=== PATIENT | female | born 1940 | race Caucasian/White ===

== ENCOUNTER 2016-05-31 09:58 | Inpatient (IN) | payer MEDICARE ==
[2016-05-31] MEDS ORDERED: Ondansetron TAB* 4 MG PO PRN (14:11)
[2016-05-31] MEDS ORDERED: diPHENhydraMINE IV* 50 MG/ML 1 ml VIAL (BENADRYL) IV PRN (14:11)
[2016-05-31] MEDS ORDERED: Ondansetron INJ* 2 MG/ML VIAL IV PRN (14:11)
[2016-05-31] MEDS ORDERED: Morphine INJ* 2 MG/ML 1 ML SYRINGE IV PRN (14:11)
[2016-05-31] MEDS ORDERED: diPHENhydraMINE PO* 25 MG PO PRN (14:11)
[2016-05-31 14:49] LABS: Hematocrit 34 % (35-47); Hemoglobin 11.1 g/dl (12.0-16.0); Mean Corpuscular HGB Conc 32 g/dl (31-36); Mean Corpuscular Hemoglobin 28 pg (27-31); Mean Corpuscular Volume 86 fL (80-97); Mean Platelet Volume 7 um3 (7.4-10.4); Red Cell Distribution Width 14 % (10.5-15); White Blood Count 11.5 10^3/ul (3.5-10.8)
[2016-05-31 15:12] LABS: BUN/Creatinine Ratio 23.7 (8-20); C Reactive Protein 5.06 mg/L (< 5.00); Calcium 9.3 mg/dL (8.6-10.3); EGFR African American 75.4 (>60); EGFR Non-African American 58.6 (>60); Potassium 3.8 mmol/L (3.5-5.0)
[2016-05-31 15:29] LABS: Erythrocyte Sed Rate 87 mm/Hr (0-40)
[2016-05-31] MEDS ORDERED: Acetaminophen TAB* 325 MG PO PRN (19:37)
[2016-05-31] MEDS ORDERED: Vancomycin(*) 1,500 MG in NS 0.9% 250 ML* 250 ML IVPB SCH (19:40)
[2016-05-31] MEDS: ceFAZolin 2 GM PREMIX(*) 2 GM/50 ML BAG IVPB SCH (20:12)
[2016-05-31] MEDS: Donepezil TAB* 5 MG PO SCH (20:52)
[2016-05-31] MEDS: Atorvastatin* 10 MG TAB PO SCH (20:53)
--- NOTE | 2016-05-31 22:23 | HP ---
ORTHOPEDIC ADMISSION HISTORY AND PHYSICAL: DATE OF ADMISSION: 05/31/16 ATTENDING PHYSICIAN: Kirstin Hannah MD. CHIEF COMPLAINT: Left groin pain, septic left hemiarthroplasty. HISTORY OF PRESENT ILLNESS: The patient is a 75-year-old female who underwent left hip hemiarthroplasty for femoral neck fracture in [place] 4 to 5 years ago. The patient was admitted this past February 2016 with pyelonephritis and sepsis. Since this timeframe, she has had increased pain in the left hip. She has been recently followed by Dr. Hannah. She had lab work that showed increased white count, CRP, and it was felt that aspiration of the hip would be necessary to confirm infectious process in the hip prosthesis. She underwent aspiration by Interventional Radiology on 05/24/16 and was found to be positive for staff in the fluid collection. Due to the fact that she has had increased left groin pain with positive cultures that she would benefit from irrigation, debridement, and hardware exchange with Dr. Hannah. She has admitted to her service and surgery is tentatively scheduled for 06/01/16 pending medical evaluation and risk assessment for surgery. PAST MEDICAL HISTORY: Significant for high cholesterol, hypertension, history of CVA in 2004, hysterectomy, cholecystectomy, left hip hemiarthroplasty 4 to 5 years ago in [place], history of mild dementia. CURRENT MEDICATIONS: 1. Calcium 600 mg tablet daily. 2. Vitamin B12 one tab daily. 3. Losartan 50 mg 1 tab daily. 4. Omeprazole 40 mg 1 time daily. 5. Rivastigmine 1.5 mg twice daily. 6. VESIcare 1 tab daily. 7. Donepezil 10 mg p.o. q.h.s. 8. Crestor 5 mg p.o. q.h.s. 9. Naproxen 375 mg b.i.d. p.r.n. ALLERGIES: No known drug allergies. SOCIAL HISTORY: The patient denies use of tobacco or alcohol. 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 She is , has 3 daughters, one of which is present at her evaluation this afternoon. REVIEW OF SYSTEMS: The patient denies recent loss of consciousness, lightheadedness, dizziness, shortness of breath, chest pain, or palpitations. No recent constipation, diarrhea, or other GI complaints. She complains of left groin pain. PHYSICAL EXAMINATION GENERAL: The patient is alert and oriented x3, in no acute distress. HEENT: Pupils equal, round, and reactive to light. EOMI. NECK: Supple. No tenderness. No masses. HEART: Regular rate and rhythm. No murmurs auscultated. LUNGS: Clear to auscultation. No wheezes or rhonchi. ABDOMEN: Soft. Some mild tenderness in the epigastric region. No rebound or guarding. Normoactive bowel sounds x4 quadrants. EXTREMITIES: Upper extremities within normal limits. Lower extremities, the patient is able to actively flex the left hip with mild groin discomfort. Internal and external rotation is also tolerable, but mildly uncomfortable. Her incision is completely healed without noted swelling, erythema, warmth, or tenderness. She has a 2+ pedal pulse. She has active dorsiflexion and plantarflexion of both ankles. Her calves are soft and nontender. LABORATORY DATA: Recent white count collected on the 05/24/16 shows mild elevation at 11.8, hemoglobin 11.5, hematocrit 36%. ESR 111. CRP 54.52. INR 0.97. IMPRESSION: Infected left hip hemiarthroplasty, Staph aureus. PLAN: The patient is admitted to the service of Dr. Kirstin Hannah. She has discussed options with the patient and her daughters. Pending medical clearance , we will plan to remove the ball and do a thorough washout of the prosthesis with exchange. If the stem is well-fixed, this will remain in place. Infectious Disease has also been consulted for recommendations. She may need lifetime oral antibiotic prophylaxis. She will be n.p.o. after midnight tonight for probable surgery with Dr. Hannah on 06/01/16. I have consulted Dr. Moore for medical management and clearance. SHARON UREÑA [id number]/[facility] #: [id number] ANJEL
--- NOTE | 2016-06-01 01:23 | CONS ---
ATTENDING ADDENDUM NOW INCLUDED ON THIS REPORT CONSULTATION REPORT: DATE OF CONSULT: 05/31/16 PROVIDER: Magdalena Bartlett NP ATTENDING PHYSICIAN: Dr. Mcclain *(report dictated by Magdalena Bartlett NP). REFERRING PHYSICIAN: Dr. Hannah. PRIMARY CARE PROVIDER: Dr. Lionel Cowan. CONSULTATION REASON: Co-medical management for septic hip HISTORY OF PRESENT ILLNESS AND HOSPITAL COURSE: Please see history and physical by ortho team for full admission details, but in summary, this is a 75- year-old female with a past medical history of hypertension, hyperlipidemia, CVA in 2014, left hip surgery approximately 4 years ago per the patient who was admitted by the ortho team today for left septic hemiarthroplasty. Ms. Moss reports she originally had her left hip surgery in [facility] approximately 4 years ago and over the past year has been having increasing progressive pain in her left hip, but has been worse since she was admitted with sepsis secondary to UTI in February 2016. She reports her PCP referred her to Dr. Hannah and which she has seen her over the past month. She underwent a left hip aspiration on 05/26/16, in which the culture grew staph. The patient was direct admitted to the hospital today with plan for washout of the left hip tomorrow. Hospital Medicine was asked to co-medical manage during the patient's hospitalization. On evaluation of the patient at the bedside, the patient is alert and oriented x3. Her daughter is at the bedside. She denies any recent fevers or chills. She reports some pain in the left hip, left groin area. She reports occasional tingling with shooting pain down her left leg, but states at this time she is comfortable. She denies numbness or tingling at this time. The patient reports her only complaint is some intermittent left hip pain. She denies any fevers, chills, rigors, nausea, vomiting, or diarrhea. No recent illnesses. Denies any nasal congestion or cough. Per daughter, she has a poor appetite at her baseline. PAST MEDICAL HISTORY: 1. Hypertension. 2. Hyperlipidemia. 3. CVA in 2004. 4. Left hip surgery. 5. Status post hysterectomy. 6. Status post cholecystectomy. 7. Dementia, mild. HOME MEDICATIONS: [facility] currently needs to be updated. CURRENT MEDICATIONS: 1. Acetaminophen 650 mg p.o. q.6 hours p.r.n. 2. Benadryl 12.5 mg IV q.6 hours p.r.n. 3. Benadryl 25 mg p.o. q.6 hours p.r.n. 4. LR at 75 mL an hour. 5. Morphine 2 mg IV q.2 hours p.r.n. 6. Zofran 4 mg q.6 hours p.r.n. 7. Zofran 4 mg p.o. q.6 hours p.r.n. 8. Percocet 5/325 mg 1 tab p.o. q.3 hours p.r.n. ALLERGIES: No known allergies. FAMILY HISTORY: Reviewed and noncontributory. SOCIAL HISTORY: Denies any history of tobacco abuse. However, her has smoked pipe inside the home for "many, many years." Denies any alcohol use. She is retired. She worked at [employer]. She lives at home with her . She has 3 grown daughters and which she reports are all her healthcare proxies. REVIEW OF SYSTEMS: A 14-point review of systems was performed. All the pertinent positives and negatives are mentioned in the history of present illness. Otherwise are negative. PHYSICAL EXAMINATION: Vital Signs: Temperature 97.5, heart rate 61, respirations 16, O2 sat 99% on room air, blood pressure 118/47. Appearance: A 75-year-old female sitting up in bed, alert and oriented x3, in no acute distress. Watching TV, visiting with her daughter. HEENT: Head is normocephalic, atraumatic. Pupils are equal, round, reactive to light. Oropharynx is clear. Good dentition. Mucous membranes moist. Neck: Supple. No cervical or supraclavicular lymphadenopathy. Cardiac: S1, S2. Regular rate and rhythm. No murmurs, rubs, or gallops appreciated. No lower extremity edema noted. Respiratory: Lungs are clear to auscultation bilaterally. Good aeration throughout. Abdomen: Obese, soft, nontender, nondistended. Normal bowel sounds x4. Extremities: No clubbing, cyanosis, or edema noted. 2+ DP pulses bilaterally. Guarded with left lower extremity, has limited range of motion due to pain, but has good strength in bilateral lower extremities. No numbness. Neuro: Alert and oriented x3. Cranial nerves II through XII are grossly intact. Skin: No rashes, lesions, or open wounds noted. DIAGNOSTIC STUDIES/LAB DATA: Sodium 136, potassium 3.8, chloride 100, carbon dioxide 31, anion gap 5, BUN 22, creatinine 0.93, glucose 118, calcium 9.3. C- reactive protein 5.06. INR 0.97. WBC is 11.5, Hgb 11.1, HCT 34, MCV 86, MCH 28 , MCHC 32, RDW 14, platelet count 432. EKG shows sinus rhythm with a rate of 64 with PVC noted. In comparison to prior EKG, only PVCs are new. No acute ischemic changes noted. ASSESSMENT AND PLAN: Ms. Moss is a 75-year-old female with a past medical history of hypertension, mild dementia, hyperlipidemia, history of cerebrovascular accident, status post left hip surgery approximately 4 years ago who was admitted as a direct admit by Dr. Hannah for plan for washout tomorrow of her left hip. 1. Septic left hip hemiarthroplasty: The patient does not meet criteria for sepsis and is stable. Will obtain blood cultures. The patient has grown Staph aureus from her 05/26/16 hip aspiration. I will start the patient on Cefazolin 2gm Q8hr per discussing with pharmacy (in which they report Dr. Hernandez recommends this course for septic joint). Recheck labs in the morning. NPO after midnight. In regards to the patient's revised cardiac risk index for preoperative risk, the patient's RCRI score is 1 placing her at 0.9% risk of major cardiac event. EKG shows no acute ischemic changes. The patient is optimized to proceed with surgery without any further cardiac testing. 2. Hypertension, controlled. Med rec not completed. Per nursing staff, will complete med rec and we will follow up on appropriate medication. 3. Dementia, mild: Continue Aricept. 4. Hyperlipidemia: Again, confirm med rec and continue home med. 5. DVT prophylaxis: We will defer to ortho team. SCDs per ortho team. 6. Code status: Full code. Again, the patient's 3 daughters are her healthcare proxies. 7. Hospital status: Inpatient. TIME SPENT: Approximately 60 minutes were spent on this consultation. MAGDALENA BARTLETT NP DATE OF CONSULTATION: 05/31/16 ADDENDUM: Addendum to consultation report dictated by Magdalena Bartlett NP. Mrs. Moss is a 75-year-old female who is being admitted by Dr. Hannah for septic left hip. The patient has history of left hip arthroplasty over 4 years ago. She is going to be admitted to Dr. Hannah's service and medicine services was requested to follow with co-management. For further details of the patient's presentation and plan, please see history and physical dictated by Magdalena Bartlett NP, on 05/31/16 with which I agree. THEA MCCLAIN MD CC: Dr. Lionel Cowan* [id number]/[facility] #: [id number] Giuseppe- [id number]/[facility] #: [id number] ANJEL
--- NOTE | 2016-06-01 02:41 | CONS ---
CONSULTATION REPORT:* DATE OF CONSULTATION: 05/31/16 ADDENDUM: Addendum to consultation report dictated by Venus Bryant NP. Mrs. Moss is a 75-year-old female who is being admitted by Dr. Hannah for septic left hip. The patient has history of left hip arthroplasty over 4 years ago. She is going to be admitted to Dr. Hannah's service and medicine services was requested to follow with co-management. For further details of the patient's presentation and plan, please see history and physical dictated by Venus Bryant NP, on 05/31/16 with which I agree. [id number]/[facility] #: [id number] MTDD
[2016-06-01] MEDS: ceFAZolin 2 GM PREMIX(*) 2 GM/50 ML BAG IVPB SCH ×2 (04:05→11:54)
[2016-06-01 07:18] LABS: Hematocrit 33 % (35-47); Hemoglobin 10.7 g/dl (12.0-16.0); Mean Corpuscular HGB Conc 32 g/dl (31-36); Mean Corpuscular Hemoglobin 28 pg (27-31); Mean Corpuscular Volume 86 fL (80-97); Mean Platelet Volume 7 um3 (7.4-10.4); Red Blood Count 3.85 10^6/ul (4.0-5.4); Red Cell Distribution Width 13 % (10.5-15); White Blood Count 9.1 10^3/ul (3.5-10.8)
[2016-06-01 07:36] LABS: BUN/Creatinine Ratio 26.9 (8-20); Calcium 9.2 mg/dL (8.6-10.3); EGFR African American 75.4 (>60); EGFR Non-African American 58.6 (>60); Potassium 3.9 mmol/L (3.5-5.0)
[2016-06-01] MEDS: Losartan TAB* 25 MG PO SCH (08:40)
[2016-06-01] MEDS: Omeprazole CAP* 20 MG PO SCH (08:40)
[2016-06-01] MEDS: amLODIPine TAB* 5 MG PO SCH (08:40)
--- NOTE | 2016-06-01 08:58 | HP ---
HISTORY AND PHYSICAL:* ADDENDUM: This is an addendum to the H and P. Ms. Moss is a 75-year- old female who presented to me in clinic as an outpatient one week ago with left hip pain. She had extreme left hip pain on physical exam. This joint had an hemiarthroplasty on x-ray. She had a femoral neck fracture 4 years ago with an outside surgeon in [place]. The patient had sepsis due to pyelonephritis in February 2016 and was hospitalized for this. Due to the sepsis history, I ordered some blood work which showed elevated white blood cell count and CRP and ESR. I then ordered aspiration of the left hip, which grew staph aureus which is not MRSA. The patient and her daughter came into clinic on 05/31/16. We discussed her surgical options. She was a direct admit to [facility] for washout of the left septic hip joint. We will have her optimized for potential surgery on 06/01/16. Please see full H and P by SHARON Wilcox. [id number]/[facility] #: [id number] [facility] CENTERGerard
--- NOTE | 2016-06-01 09:08 | PN ---
Progress Note - Progress Note SOAP: Subjective: []Patient seen at bedside. NPO for surgery today. No current complaints. Objective: [] Vital Signs Temp 98.1 F 06/01/16 07:17 Pulse 63 06/01/16 07:17 Resp 16 06/01/16 07:17 BP 156/54 06/01/16 07:17 Pulse Ox 96 06/01/16 07:17 Intake & Output 05/31/16 06/01/16 06/01/16 18:59 06:59 18:59 Intake Total 100 1940 0 Output Total 460 800 100 Balance -360 1140 -100 Weight 187 lb Intake: IV Fluids 980 LR 980 IVPB 100 ABX - CEFAZOLIN 100 Oral 100 860 0 Output: Urine 460 600 100 Jett 200 Other: Estimated Void Large Laboratory Results - last 24 hr 05/31/16 05/31/16 05/31/16 14:30 14:30 14:30 WBC 11.5 H RBC 4.00 Hgb 11.1 L Hct 34 L MCV 86 MCH 28 MCHC 32 RDW 14 Plt Count 432 MPV 7 L Neut % (Auto) 69.6 Lymph % (Auto) 21.7 L [place] % (Auto) 4.5 Eos % (Auto) 3.1 Baso % (Auto) 1.1 Absolute Neuts (auto) 8.0 H Absolute Lymphs (auto) 2.5 Absolute Monos (auto) 0.5 Absolute Eos (auto) 0.4 Absolute Basos (auto) 0.1 Absolute Nucleated RBC 0.01 Nucleated RBC % 0.1 ESR 87 H INR (Anticoag Therapy) 0.97 APTT 27.6 Sodium 136 Potassium 3.8 Chloride 100 L Carbon Dioxide 31 Anion Gap 5 BUN 22 Creatinine 0.93 Est GFR ( Amer) 75.4 Est GFR (Non-Af Amer) 58.6 BUN/Creatinine Ratio 23.7 H Glucose 118 H Calcium 9.3 C-Reactive Protein 5.06 H 06/01/16 06/01/16 06:34 06:34 WBC 9.1 RBC 3.85 L Hgb 10.7 L Hct 33 L MCV 86 MCH 28 MCHC 32 RDW 13 Plt Count 417 MPV 7 L Neut % (Auto) 65.5 Lymph % (Auto) 21.6 L [place] % (Auto) 6.7 Eos % (Auto) 4.3 Baso % (Auto) 1.9 Absolute Neuts (auto) 6.0 Absolute Lymphs (auto) 2.0 Absolute Monos (auto) 0.6 Absolute Eos (auto) 0.4 Absolute Basos (auto) 0.2 Absolute Nucleated RBC 0 Nucleated RBC % 0 ESR INR (Anticoag Therapy) APTT Sodium 139 Potassium 3.9 Chloride 101 Carbon Dioxide 31 Anion Gap 7 BUN 25 H Creatinine 0.93 Est GFR ( Amer) 75.4 Est GFR (Non-Af Amer) 58.6 BUN/Creatinine Ratio 26.9 H Glucose 86 Calcium 9.2 C-Reactive Protein LLE NVI calf non tender and soft +DF/PF LLE Assessment: []Infected Left navid arthroplasty prosthesis Plan: []NPO for washout, exchange of prosthetic head, Left hip today with Dr. Hannah
[2016-06-01] MEDS: Nystatin TOP POWDER* 15 GM BTL TOPICAL SCH ×2 (10:21→20:58)
[2016-06-01] MEDS ORDERED: ceFAZolin 2 GM PREMIX(*) 2 GM/50 ML BAG IVPB ONE (15:18)
[2016-06-01] MEDS ORDERED: Midazolam* 1 MG/ML 2 ML VIAL (2 MG) ONE (16:01)
[2016-06-01] MEDS ORDERED: fentaNYL* 50 MCG/ML 2 ML VIAL (100 MCG VIAL) ONE ×3 (16:01→19:39)
[2016-06-01] MEDS ORDERED: Cisatracurium* 2 MG/ML MDV 5 ML ONE (16:35)
[2016-06-01] MEDS ORDERED: Dexamethasone IV* 4 MG/ML 1 ML (4 MG) ONE (16:58)
[2016-06-01] MEDS ORDERED: Propofol* 10 MG/ML 20 ML BTL IV PUSH ONE (16:58)
[2016-06-01] MEDS ORDERED: Lidocaine 2% PF* 5 ML VIAL ONE (16:58)
[2016-06-01] MEDS ORDERED: Famotidine IV* 10 MG/ML 2 ML (20 mg) ONE (16:58)
[2016-06-01] MEDS ORDERED: Succinylcholine* 20 MG/ML 10 ML VIAL ONE (16:58)
[2016-06-01] MEDS ORDERED: Warfarin TAB(*) 6 MG PO ONE ×2 (17:00→21:30)
[2016-06-01] MEDS ORDERED: EPHEDrine (Pressors)* 50 MG/ML VIAL ONE (17:00)
[2016-06-01] MEDS ORDERED: Bacitracin IV* 50,000 UNITS INJ ONE (17:15)
[2016-06-01] MEDS ORDERED: Ondansetron INJ* 2 MG/ML VIAL IV PRN (17:28)
[2016-06-01] MEDS ORDERED: Acetaminophen TAB* 325 MG PO PRN (17:28)
[2016-06-01] MEDS ORDERED: PROCHLORPERAZINE INJ 5 MG/ML 2 ML VIAL IV PRN (17:28)
[2016-06-01] MEDS ORDERED: DiMENhydriNATE IV* 50 MG/ML VIAL IV PUSH PRN (17:28)
[2016-06-01] MEDS ORDERED: Vancomycin(*) 1,000 MG VIAL ONE (17:55)
--- NOTE | 2016-06-01 18:30 | PN ---
Subjective Date of Service: 06/01/16 Interval History: PATIENT ROUNDED ON 3 X'S AND WAS IN OR UNTIL LATE. Will see patient in am. Objective Active Medications: Acetaminophen (Tylenol Tab*) 650 mg PO Q6H PRN PRN Reason: mild pain or fever Acetaminophen (Tylenol Tab*) 650 mg PO ONCE PRN PRN Reason: PAIN - MILD Stop: 06/01/16 20:30 Amlodipine Besylate (Norvasc Tab*) 5 mg PO DAILY [facility] Last Admin: 06/01/16 08:40 Dose: 5 mg Atorvastatin Calcium (Lipitor*) 10 mg PO BEDTIME [facility] Last Admin: 05/31/16 20:53 Dose: 10 mg Dimenhydrinate (Dramamine Iv*) 12.5 mg IV PUSH ONCE PRN PRN Reason: NAUSEA/VOMITING Stop: 06/01/16 20:30 Diphenhydramine HCl (Benadryl Iv*) 12.5 mg IV Q6H PRN PRN Reason: insomnia or puritis Diphenhydramine HCl (Benadryl Po*) 25 mg PO Q6H PRN PRN Reason: insomnia Donepezil HCl (Aricept Tab*) 10 mg PO BEDTIME [facility] Last Admin: 05/31/16 20:52 Dose: 10 mg Enoxaparin Sodium (Lovenox(*)) 30 mg SUBCUT Q24H [facility] Fentanyl Citrate (Fentanyl*) 25 mcg IV Q5M PRN PRN Reason: PAIN - MODERATE Stop: 06/01/16 20:30 Lactated Ringer's (Lactated Ringers 1000 Ml Bag*) 1,000 mls @ 75 mls/hr IV PER RATE [facility] Last Admin: 06/01/16 04:07 Dose: 75 mls/hr Cefazolin Sodium/Dextrose (Kefzol 1 Gm In Dextrose Duplex (*)) 1 gm in 50 mls @ 200 mls/hr IVPB Q8H [facility] Losartan Potassium (Cozaar Tab*) 50 mg PO DAILY [facility] Last Admin: 06/01/16 08:40 Dose: 50 mg Morphine Sulfate (Morphine Inj (Syringe)*) 2 mg IV Q2H PRN PRN Reason: severe pain Nystatin (Nystatin Top Powder*) 1 applic TOPICAL BID [facility] Last Admin: 06/01/16 10:21 Dose: 1 applic Omeprazole (Prilosec Cap*) 40 mg PO DAILY [facility] Last Admin: 06/01/16 08:40 Dose: 40 mg Ondansetron HCl (Zofran Inj*) 4 mg IV Q6H PRN PRN Reason: NAUSEA Ondansetron HCl (Zofran Tab*) 4 mg PO Q6H PRN PRN Reason: NAUSEA Ondansetron HCl (Zofran Inj*) 4 mg IV ONCE PRN PRN Reason: NAUSEA/VOMITING Stop: 06/01/16 20:30 Oxycodone/Acetaminophen (Percocet 5/325 Tab*) 1 tab PO Q3H PRN PRN Reason: PAIN - MODERATE Prochlorperazine Edisylate (Compazine Inj*) 2.5 mg IV ONCE PRN PRN Reason: NAUSEA/VOMITING Stop: 06/01/16 20:30 Vital Signs 05/31/16 05/31/16 05/31/16 19:26 20:00 23:17 Temperature 97.5 F 97.8 F Pulse Rate 62 60 Respiratory 16 17 16 Rate Blood Pressure 108/47 129/53 (mmHg) O2 Sat by Pulse 96 97 Oximetry 06/01/16 06/01/16 06/01/16 03:26 07:17 08:30 Temperature 97.9 F 98.1 F Pulse Rate 68 63 Respiratory 17 16 16 Rate Blood Pressure 146/61 156/54 (mmHg) O2 Sat by Pulse 96 96 Oximetry 06/01/16 11:11 Temperature 98.4 F Pulse Rate 65 Respiratory 16 Rate Blood Pressure 135/48 (mmHg) O2 Sat by Pulse 94 Oximetry Result Diagrams: 06/02/16 05:22 06/02/16 05:22 Assess/Plan/Problems-Billing Assessment: Ms. Moss is a 75-year-old female with a past medical history of hypertension, mild dementia, hyperlipidemia, history of cerebrovascular accident, status post left hip surgery approximately 4 years ago who was admitted as a direct admit by Dr. Hannah for left septic hip with plan for wash-out and IV antibiotics - Patient Problems (1) Septic hip Comment: - Dispo per Orth Team, Dr. Hannah - Pt to OR today for wash-out. - continue cefazolin 2gm IV q8hr; aspirated 05/26 growing staph areus, negative for MRSA. Blood cx negative at that time. - ID to consult. - check labs in am (2) HTN (hypertension) Comment: stable Hold norvasc and losartan in the immediate post-op setting; recheck blood pressure in morning prior to restarting Patient recieved am doses (3) Hyperlipidemia Comment: Continue statin. (4) DVT prophylaxis Comment: Per Ortho Team (5) Full code status Status and Disposition: Inpatient with septic hip. Dispo per surgery. Hospital Medicine is co-medical managing.
[2016-06-01] MEDS ORDERED: Ketorolac INJ* 30 MG/ML 1 ML VIAL ONE (18:40)
[2016-06-01] MEDS ORDERED: Ondansetron INJ* 2 MG/ML VIAL ONE (18:40)
[2016-06-01] MEDS: fentaNYL* 50 MCG/ML 2 ML VIAL (100 MCG VIAL) IV PRN ×2 (19:40→20:05)
[2016-06-01] MEDS ORDERED: ceFAZolin 1 GM in Dextrose (*) 1 GM/50 ML BAG IVPB SCH (20:00)
--- NOTE | 2016-06-01 20:32 | RAD ---
HISTORY: Status post explantation of infected prosthesis with implantation of spacer COMPARISONS: May 24, 2016 VIEWS: 2, frontal views of the pelvis FINDINGS: BONE DENSITY: Normal. BONES: The patient is status post left hip arthroplasty. There is no hardware failure or osteolysis JOINTS: The patient is status post left hip arthroplasty. There is osteoarthritis of the right hip ALIGNMENT: There is no dislocation. SOFT TISSUES: Unremarkable. OTHER FINDINGS: None. IMPRESSION: STATUS POST LEFT HIP ARTHROPLASTY
[2016-06-01] MEDS: Atorvastatin* 10 MG TAB PO SCH (20:54)
[2016-06-01] MEDS: Donepezil TAB* 5 MG PO SCH (20:54)
[2016-06-01] MEDS: oxyCODONE/Acetamin 5/325 MG* TAB PO PRN (22:34)
[2016-06-02] MEDS: ceFAZolin 1 GM in Dextrose (*) 1 GM/50 ML BAG IVPB SCH ×2 (01:02→08:55)
--- NOTE | 2016-06-02 05:19 | OP ---
DATE OF OPERATION: 06/01/16 - ROOM #335 DATE OF : 38 SURGEON: Kirstin Hannah MD STREET WORKER: SHARON Wilcox ANESTHESIOLOGIST: Jorge L Arcos MD ANESTHESIA: General. PRE-OP DIAGNOSIS: Infected left hip hemiarthroplasty. POST-OP DIAGNOSIS: Infected left hip hemiarthroplasty with periprosthetic loosening. OPERATIVE PROCEDURE: Left infected hip irrigation and debridement with explant of hardware and antibiotic cement spacer placement. ESTIMATED BLOOD LOSS: 300 cc. COMPLICATIONS: None. SPECIMENS: Multiple cultures and soft tissue specimens were sent to the lab for cultures and sensitivities. Explanted hardware was also sent. HARDWARE USED: Two packages of tobramycin cement were used with 2 g of vancomycin powder added. For the spacer, an Omnifit MALENA size 4, 127-degree neck with a 46, +5 Unitrax endoprosthesis and neck adjustment sleeve. INDICATIONS: Brief History/Indication: Ms. Moss is a 75-year-old female who presented to my clinic one week ago with severe left hip pain. She had a septic episode in February 2016 and was hospitalized here at [facility] after pyelonephritis. Since that time, she has had increased pain in her left hip, which had a prior hip navid-arthroplasty at an outside facility. The patient radiographs indicated no obvious infection. There was a question of some loosening and acetabular arthritis. I ordered blood work, which did indicate the presence of infection with leukocytosis and elevated CRP/ ESR. At that time, I ordered aspiration of the left hip, which grew Staph aureus. The patient was directly admitted to [facility] on 05/31/16 , and medically optimized for I and D of the left hip with possible explant today. Informed consent was obtained from the patient and her daughters. The patient and her daughters understood the risks of the procedure included but were not limited to bleeding, infection, damage to nearby structures, continued pain, need for further surgery, intraoperative fracture, nerve palsy, hardware failure or loosening, dislocation, leg length discrepancy, stroke, heart attack , blood clot, and . They wished to proceed. FINDINGS: Intraoperative Findings: Intraoperatively, the patient had a grossly loose femoral stem. Significant amount of scar tissue around the hip joint with some necrotic soft tissue, but no obvious purulence. Significant acetabular wear was noted. DESCRIPTION OF PROCEDURE: Ms. Moss was identified in the preanesthesia unit. Her left lower extremity was marked as the correct operative site. Informed consent was signed by both the patient and her health care proxy, her daughter. The patient was taken to the operating room and placed under general anesthesia. A Jett catheter was placed. She was placed in the right lateral decubitus position on the Peg board and all bony prominences were well padded. Left lower extremity was prepped and dapped in the usual sterile fashion. Preop time-out was made to correctly identify the patient side and site. An appropriate dose of perioperative antibiotics were given within 1 hour of incision since the bacterial cultures already grew Staph aureus with sensitivities. The patient's prior hip incision was used. A 10 blade was used to incise the skin incision. Lateral fascial incision was incised in line with the skin incision. Scar was cleared both anteriorly and posteriorly. Charnley retractor was placed and the posterior aspect of the hip joint was identified. Electrocautery was used to raise a single flap of posterior tissue and capsule along the posterolateral femur. This was tagged with #5 Ethibond's. Multiple culture swabs of joint fluid were obtained. The joint fluid was yellow without obvious purulence. There was some necrotic-appearing soft tissue around the hip joint, which was collected for soft tissue specimen and cultures. A large amount of scar tissue was cleared around the inferior proximal femur and neck region. At this time, the hip was carefully dislocated. Cob elevator was used as a bone tamp to remove the femoral head. It was noted that the stem was grossly loose. A bur was used to bur around the shoulder of the implants. A hook with a back flap was then used to carefully remove the stem. A large amount of fibrous tissue and necrotic-appearing soft tissue was scarped from the femoral canal. Next, the canal was sequentially broached in order to further clear debris from the canal. The canal was thoroughly irrigated. At this point, 9 L of sterile saline with bacitracin were used to irrigate the hip joint. Any necrotic tissue was carefully removed. The acetabulum was inspected and had no obvious necrosis or purulence. There was obvious advanced degeneration of the acetabular cartilage noted. At this point, decision was made to place the cement spacer. A size 4 Omnifit stem was chosen. Two packages of Simplex with Tobramycin were prepared. 2 g of vancomycin powder was added to this cement. Once the cement was practically cured, it was wrapped around the Omnifit stem and this was placed in the femoral canal as a spacer. Once the cement had fully cured, a 46+5 Unitrax endoprosthetic head was chosen. This was impacted on to the femoral neck. The hip was carefully reduced. The hip was once again copiously irrigated. Previously tagged posterior soft tissue flap was reapproximated to the posterolateral femur. The lateral fascial layer was closed using interrupted #1 Vicryls. The rest of the incision was closed in a layered fashion using 0 and 2-0 Vicryls. The skin was closed using running 3-0 Monocryl and Dermabond. Sterile Adaptic, 4x4s, and paper tape were used to cover the incision. The patient's anesthesia was reversed without difficulty. She was taken to the PACU in stable condition. [id number] #: [id number] MTDD
[2016-06-02] MEDS: oxyCODONE/Acetamin 5/325 MG* TAB PO PRN ×4 (05:27→21:26)
[2016-06-02 05:51] LABS: Hematocrit 29 % (35-47); Hemoglobin 9.4 g/dl (12.0-16.0); Mean Corpuscular HGB Conc 32 g/dl (31-36); Mean Corpuscular Hemoglobin 28 pg (27-31); Mean Corpuscular Volume 86 fL (80-97); Mean Platelet Volume 8 um3 (7.4-10.4); Red Blood Count 3.38 10^6/ul (4.0-5.4); Red Cell Distribution Width 13 % (10.5-15); White Blood Count 15.9 10^3/ul (3.5-10.8)
[2016-06-02 06:12] LABS: BUN/Creatinine Ratio 26.7 (8-20); EGFR African American 82.5 (>60); EGFR Non-African American 64.2 (>60); Potassium 4.3 mmol/L (3.5-5.0)
[2016-06-02] MEDS: Losartan TAB* 25 MG PO SCH (08:57)
[2016-06-02] MEDS: Omeprazole CAP* 20 MG PO SCH (08:57)
[2016-06-02] MEDS: amLODIPine TAB* 5 MG PO SCH (08:57)
--- NOTE | 2016-06-02 10:00 | PN ---
Progress Note - Progress Note SOAP: Subjective: []Patient seen at bedside. Doing well. Minimal complaints of left hip pain. She understands that the entire prosthesis was removed with a cement spacer placed. Objective: [] Vital Signs Temp 98.2 F 06/02/16 07:18 Pulse 80 06/02/16 07:18 Resp 18 06/02/16 07:27 BP 103/60 06/02/16 07:18 Pulse Ox 99 06/02/16 07:18 Intake & Output 06/01/16 06/02/16 06/02/16 18:59 06:59 18:59 Intake Total 0 3415 Output Total 425 450 Balance -425 2965 Intake: IV Fluids 3005 LR 3005 IVPB 50 ABX - CEFAZOLIN 50 Oral 0 360 Output: Urine 425 Jett 450 Laboratory Results - last 24 hr 06/02/16 06/02/16 05:22 05:22 WBC 15.9 H RBC 3.38 L Hgb 9.4 L Hct 29 L MCV 86 MCH 28 MCHC 32 RDW 13 Plt Count 364 MPV 8 Neut % (Auto) 92.2 H Lymph % (Auto) 4.9 L Collier % (Auto) 2.3 Eos % (Auto) 0 Baso % (Auto) 0.6 Absolute Neuts (auto) 14.7 H Absolute Lymphs (auto) 0.8 L Absolute Monos (auto) 0.4 Absolute Eos (auto) 0 Absolute Basos (auto) 0.1 Absolute Nucleated RBC 0 Nucleated RBC % 0 Sodium 135 Potassium 4.3 Chloride 101 Carbon Dioxide 28 Anion Gap 6 BUN 23 Creatinine 0.86 Est GFR ( Amer) 82.5 Est GFR (Non-Af Amer) 64.2 BUN/Creatinine Ratio 26.7 H Glucose 150 H Calcium 9.0 Left hip dressing is intact and dry ABduction pillow in place +DF/PF left ankle Assessment: []s/p Explant infected left hip navid arthroplasty with implantation of antibiotic impregnated cement spacer/ temporary hemiarthoplasty prosthesis POD # 1 Plan: []Non weight bearing left LE, standard hip precautions Await recommendations from Dr. Mary Stewart
[2016-06-02] MEDS: Nystatin TOP POWDER* 15 GM BTL TOPICAL SCH ×2 (10:47→21:27)
[2016-06-02] MEDS ORDERED: Bisacodyl SUPP* 10 MG SUPP PR PRN (10:58)
--- NOTE | 2016-06-02 12:16 | CONS ---
CONSULTATION REPORT: DATE OF CONSULT: 06/02/16 REQUESTING PHYSICIAN: Dr. Hannah. CONSULTING SERVICE: Infectious Disease. REASON FOR CONSULTATION: Infected left hip hemiarthroplasty. IMPRESSION: 1. History of left hip arthroplasty in the distant past, now with pain and fluid aspiration showed bloody fluid and the cultures growing Staph aureus, methicillin sensitive. She has had incision and debridement of the hip and found that the hardware was loose, so it was removed and she has a cement spacer. 2. Recent episode of E. coli sepsis and grew Staph aureus in the sputum at that time. 3. History of stroke in 2004. RECOMMENDATIONS: Agree with Ancef 2 g IV every 8 hours. Plan on 8 weeks, weekly CBC, CMP and CRP. I discussed whether she will need a PICC line and antibiotics in the rehab facility. We discussed potential antibiotic side effects and their treatment. HISTORY OF PRESENT ILLNESS: This is a 75-year-old woman admitted with left hip pain for surgery. She had a left hip hemiarthroplasty 5 years ago in [place]. Has had 3 to 4 weeks of worsening hip pain, worse with weightbearing. She is not clear if anything helped to make the pain better. She saw Dr. Hannah who had the hip aspirated with findings as above. She had the patient admitted on the and the debridement and explant was yesterday, the . She is feeling well today. Her pain is well controlled. She has no other joints bothering her. No rash, fever and diarrhea. PAST MEDICAL HISTORY: 1. Hyperlipidemia. 2. Hypertension. 3. History of stroke in 2004. 4. Status post hysterectomy. 5. Status post cholecystectomy. 6. Status post left hip hemiarthroplasty. 7. Dementia. MEDICATIONS: 1. Tylenol. 2. Lipitor. 3. Donepezil. 4. Enoxaparin. 5. Losartan. 6. Morphine injection. 7. Omeprazole. 8. Warfarin tablet. 9. Cefazolin. ALLERGIES: No known drug allergies. FAMILY HISTORY: No recurrent infections. SOCIAL HISTORY: She lives in [place]. Had been to [facility] recently. No sick contacts. REVIEW OF SYSTEMS: A full review of systems was obtained and was negative except as noted above. PHYSICAL EXAM: Vital Signs: Temperature 36.8, heart rate 80, respiratory 16, blood pressure 103/60, O2 sat is 99% on 2 L. General: She is awake and not in distress. Neurologic: Cranial nerves II through XII are intact. She answers questions. Follows commands. She is oriented x3. HEENT: There is no conjunctival hemorrhage. Mucous membranes are moist. Neck is supple without nuchal rigidity. Lymph Nodes: There is no cervical, supraclavicular, inguinal , axillary or epitrochlear lymphadenopathy. Heart has regular rate and rhythm without murmurs, rubs or gallops. Lungs are clear to auscultation bilaterally. Abdomen: Soft, nontender, nondistended. Skin: There is no rash or splinter hemorrhages. Musculoskeletal: There is no spine tenderness on palpation. Left hip incision is intact without erythema. DIAGNOSTIC STUDIES/LAB DATA: White blood cell count 15, hemoglobin 9, platelets 364. Creatinine is 0.8. Please see impressions and recommendations outlined above. [id number] #: [id number] MTDD
--- NOTE | 2016-06-02 13:27 | PN ---
Subjective Date of Service: 06/02/16 Interval History: Pt reports little pain. She states "Im doing well". Denies fever or chills. Good appetite, no N/V/D, Objective Active Medications: Acetaminophen (Tylenol Tab*) 650 mg PO Q6H PRN PRN Reason: mild pain or fever Amlodipine Besylate (Norvasc Tab*) 5 mg PO DAILY [facility] Last Admin: 06/02/16 08:57 Dose: 5 mg Atorvastatin Calcium (Lipitor*) 10 mg PO BEDTIME [facility] Last Admin: 06/01/16 20:54 Dose: 10 mg Bisacodyl (Dulcolax Supp*) 10 mg NE DAILY PRN PRN Reason: constipation Diphenhydramine HCl (Benadryl Iv*) 12.5 mg IV Q6H PRN PRN Reason: insomnia or puritis Diphenhydramine HCl (Benadryl Po*) 25 mg PO Q6H PRN PRN Reason: insomnia Donepezil HCl (Aricept Tab*) 10 mg PO BEDTIME [facility] Last Admin: 06/01/16 20:54 Dose: 10 mg Enoxaparin Sodium (Lovenox(*)) 30 mg SUBCUT Q24H [facility] Lactated Ringer's (Lactated Ringers 1000 Ml Bag*) 1,000 mls @ 75 mls/hr IV PER RATE [facility] Last Admin: 06/02/16 01:04 Dose: 75 mls/hr Cefazolin Sodium/Dextrose (Kefzol Premix(*)) 2 gm in 50 mls @ 100 mls/hr IVPB Q8H [facility] Losartan Potassium (Cozaar Tab*) 50 mg PO DAILY [facility] Last Admin: 06/02/16 08:57 Dose: 50 mg Magnesium Hydroxide (Milk Of Magnesia Liq*) 30 ml PO Q6H PRN PRN Reason: constipation Morphine Sulfate (Morphine Inj (Syringe)*) 2 mg IV Q2H PRN PRN Reason: severe pain Nystatin (Nystatin Top Powder*) 1 applic TOPICAL BID [facility] Last Admin: 06/02/16 10:47 Dose: 1 applic Omeprazole (Prilosec Cap*) 40 mg PO DAILY [facility] Last Admin: 06/02/16 08:57 Dose: 40 mg Ondansetron HCl (Zofran Inj*) 4 mg IV Q6H PRN PRN Reason: NAUSEA Ondansetron HCl (Zofran Tab*) 4 mg PO Q6H PRN PRN Reason: NAUSEA Oxycodone/Acetaminophen (Percocet 5/325 Tab*) 1 tab PO Q3H PRN PRN Reason: PAIN - MODERATE Last Admin: 06/02/16 10:46 Dose: 1 tab Vital Signs 06/01/16 06/01/16 06/01/16 19:23 19:30 19:35 Temperature 97.9 F Pulse Rate 86 84 83 Respiratory 16 16 15 Rate Blood Pressure 138/57 131/56 137/60 (mmHg) O2 Sat by Pulse 100 99 98 Oximetry 06/01/16 06/01/16 06/01/16 19:40 19:44 20:05 Temperature Pulse Rate 83 Respiratory 16 15 15 Rate Blood Pressure 126/62 (mmHg) O2 Sat by Pulse 95 Oximetry 06/01/16 06/01/16 06/01/16 20:06 20:21 20:30 Temperature 98.2 F 97.3 F Pulse Rate 74 76 73 Respiratory 14 16 16 Rate Blood Pressure 123/50 124/48 109/50 (mmHg) O2 Sat by Pulse 99 98 98 Oximetry 06/01/16 06/01/16 06/01/16 20:36 20:40 21:05 Temperature 97.3 F Pulse Rate 73 Respiratory 16 16 16 Rate Blood Pressure 109/50 (mmHg) O2 Sat by Pulse 98 Oximetry 06/01/16 06/01/16 06/01/16 21:19 21:37 21:42 Temperature 97.4 F Pulse Rate 74 Respiratory 16 16 Rate Blood Pressure 112/52 (mmHg) O2 Sat by Pulse 98 99 Oximetry 06/01/16 06/01/16 06/01/16 21:47 22:28 22:34 Temperature 97.3 F Pulse Rate 76 Respiratory 16 16 16 Rate Blood Pressure 108/54 (mmHg) O2 Sat by Pulse 98 Oximetry 06/01/16 06/02/16 06/02/16 23:46 00:23 00:34 Temperature 97.4 F 97.3 F Pulse Rate 83 82 Respiratory 15 15 16 Rate Blood Pressure 125/52 96/71 (mmHg) O2 Sat by Pulse 98 97 Oximetry 06/02/16 06/02/16 06/02/16 02:30 04:19 05:27 Temperature 97.3 F 97.4 F Pulse Rate 70 69 Respiratory 15 15 16 Rate Blood Pressure 106/43 113/50 (mmHg) O2 Sat by Pulse 100 98 Oximetry 06/02/16 06/02/16 06/02/16 07:18 07:27 08:00 Temperature 98.2 F Pulse Rate 80 Respiratory 17 18 16 Rate Blood Pressure 103/60 (mmHg) O2 Sat by Pulse 99 99 Oximetry 06/02/16 06/02/16 10:46 10:56 Temperature 97.2 F Pulse Rate 72 Respiratory 16 17 Rate Blood Pressure 112/52 (mmHg) O2 Sat by Pulse Oximetry Oxygen Devices in Use Now: Nasal Cannula - 2L NC Appearance: 75 yo female A+O x3 in NAD, sitting up in bed eating breakfast Eyes: No Scleral Icterus Ears/Nose/Mouth/Throat: NL Teeth, Lips, Gums Neck: NL Appearance and Movements; NL JVP Respiratory: Symmetrical Chest Expansion and Respiratory Effort, Clear to Auscultation Cardiovascular: NL Sounds; No Murmurs; No JVD, RRR, No Edema Abdominal: NL Sounds; No Tenderness; No Distention Extremities: No Edema, No Clubbing, Cyanosis, - - left hip dressing Skin: No Rash or Ulcers, No Nodules or Sclerosis Neurological: Alert and Oriented x 3, NL Sensation Lines/Tubes/Other Access: Clean, Dry and Intact Peripheral IV Nutrition: Taking PO's Result Diagrams: 06/02/16 05:22 06/02/16 05:22 Microbiology and Other Data: Microbiology 06/01/16 17:20 Wound Gram Stain - Final Wound Tissue Culture - Preliminary No Growth Day 1 Anaerobic Culture - Preliminary No Growth Day 1 Acid Fast Bacilli Smear - Final 05/31/16 22:19 Aerobic Blood Culture - Preliminary Blood Venous No Growth Day 1 Anaerobic Blood Culture - Preliminary No Growth Day 1 05/31/16 19:48 Aerobic Blood Culture - Preliminary Blood Venous No Growth Day 1 Anaerobic Blood Culture - Preliminary No Growth Day 1 Assess/Plan/Problems-Billing Assessment: Ms. Moss is a 75-year-old female with a past medical history of hypertension, mild dementia, hyperlipidemia, history of cerebrovascular accident, status post left hip surgery approximately 4 years ago who was admitted as a direct admit by Dr. Hannah for left septic hip with plan for wash-out and IV antibiotics - Patient Problems (1) Septic hip Comment: - Dispo per Orth Team, Dr. Hannah. POD #1 s/p wash-out and cement block placement. - Place PICC; continue cefazolin 2gm IV q8hr per ID. Prior to admission -Dr. Hannah aspirated on 05/26 which grew staph areus, negative for MRSA. Blood cx negative at that time. - ID to consult. - Plan for 6 weeks NWB - with IV abx, subacute rehab. Plan for 2nd surgery in 6 weeks?Time/date to be determined. (2) HTN (hypertension) Comment: Normotensive. continue norvasc and losartan (3) Hyperlipidemia Comment: Continue statin. (4) DVT prophylaxis Comment: Lovenox to coumadin per Ortho Team (5) Full code status Status and Disposition: Inpatient with septic hip. Dispo per surgery. Hospital Medicine is co-medical managing. Plan for subacute, will require long-term IV antibiotics
[2016-06-02] MEDS: Magnesium Hydroxide LIQ* 30 ML UDC PO PRN (13:42)
[2016-06-02] MEDS: ceFAZolin 2 GM PREMIX(*) 2 GM/50 ML BAG IVPB SCH ×2 (13:43→21:27)
[2016-06-02] MEDS ORDERED: Warfarin TAB(*) 6 MG PO ONE (17:00)
[2016-06-02] MEDS ORDERED: Enoxaparin(*) 30 MG/0.3 ML SYR SUBCUT SCH (17:00)
[2016-06-02] MEDS: Atorvastatin* 10 MG TAB PO SCH (21:26)
[2016-06-02] MEDS: Donepezil TAB* 5 MG PO SCH (21:26)
[2016-06-03] MEDS: ceFAZolin 2 GM PREMIX(*) 2 GM/50 ML BAG IVPB SCH ×3 (06:06→21:29)
[2016-06-03 07:18] LABS: Hematocrit 25 % (35-47); Hemoglobin 8.1 g/dl (12.0-16.0); Mean Corpuscular HGB Conc 32 g/dl (31-36); Mean Corpuscular Hemoglobin 28 pg (27-31); Mean Corpuscular Volume 87 fL (80-97); Mean Platelet Volume 8 um3 (7.4-10.4); Red Blood Count 2.93 10^6/ul (4.0-5.4); Red Cell Distribution Width 14 % (10.5-15); White Blood Count 16.1 10^3/ul (3.5-10.8)
[2016-06-03 07:31] LABS: BUN/Creatinine Ratio 29.5 (8-20); Calcium 8.5 mg/dL (8.6-10.3); EGFR African American 80.3 (>60); EGFR Non-African American 62.5 (>60); Potassium 4.3 mmol/L (3.5-5.0)
[2016-06-03] MEDS: oxyCODONE/Acetamin 5/325 MG* TAB PO PRN ×3 (07:48→18:20)
[2016-06-03] MEDS: Magnesium Hydroxide LIQ* 30 ML UDC PO PRN ×2 (07:49→16:16)
--- NOTE | 2016-06-03 07:55 | PN ---
Progress Note - Progress Note SOAP: Subjective: Pt. is alert, reports pain is controlled. Objective: LLE - dressing changed, inc c/d/i. no drainage, no erythema. distally nvi. Vital Signs: Temp Pulse Resp BP Pulse Ox 98.0 F 70 16 121/49 95 06/03/16 07:24 06/03/16 07:24 06/03/16 07:24 06/03/16 07:24 06/03/16 07:24 Laboratory Results - last 24 hr 06/02/16 06/03/16 06/03/16 05:22 06:38 06:38 INR (Anticoag Therapy) 2.01 H Sodium 137 Potassium 4.3 Chloride 102 Carbon Dioxide 33 H Anion Gap 2 BUN 26 H Creatinine 0.88 Est GFR ( Amer) 80.3 Est GFR (Non-Af Amer) 62.5 BUN/Creatinine Ratio 29.5 H Glucose 114 H Hemoglobin A1c 5.9 Calcium 8.5 L Assessment: 75 yo POD 2 s/p L infected hip navid i and d with explant, cement spacer placement Plan: IV ancef will order PICC line today coumadin hold tonight, d/c lovenox plan d/c to snf tomorrow. family would prefer [place]
[2016-06-03] MEDS: Losartan TAB* 25 MG PO SCH (09:28)
[2016-06-03] MEDS: amLODIPine TAB* 5 MG PO SCH (09:28)
[2016-06-03] MEDS: Omeprazole CAP* 20 MG PO SCH (09:29)
[2016-06-03] MEDS: Nystatin TOP POWDER* 15 GM BTL TOPICAL SCH ×2 (11:32→21:30)
--- NOTE | 2016-06-03 15:51 | PN ---
Subjective Date of Service: 06/03/16 Interval History: Patient seen and examined at bedside. She denies fever/chills, CP, SOB, abd pain , n/v. Left hip pain is controlled with pain medications. Family History: Unchanged from Admission Social History: Unchanged from Admission Past Medical History: Unchanged from Admission Objective Active Medications: Acetaminophen (Tylenol Tab*) 650 mg PO Q6H PRN PRN Reason: mild pain or fever Amlodipine Besylate (Norvasc Tab*) 5 mg PO DAILY [facility] Last Admin: 06/03/16 09:28 Dose: 5 mg Atorvastatin Calcium (Lipitor*) 10 mg PO BEDTIME [facility] Last Admin: 06/02/16 21:26 Dose: 10 mg Bisacodyl (Dulcolax Supp*) 10 mg [place] DAILY PRN PRN Reason: constipation Diphenhydramine HCl (Benadryl Iv*) 12.5 mg IV Q6H PRN PRN Reason: insomnia or puritis Diphenhydramine HCl (Benadryl Po*) 25 mg PO Q6H PRN PRN Reason: insomnia Donepezil HCl (Aricept Tab*) 10 mg PO BEDTIME [facility] Last Admin: 06/02/16 21:26 Dose: 10 mg Heparin Sodium (Porcine) (Heparin Flush Picc/Ml/Cvc(*)) 1 ml FLUSH 0600,1800 [facility] PRN Reason: Protocol Lactated Ringer's (Lactated Ringers 1000 Ml Bag*) 1,000 mls @ 75 mls/hr IV PER RATE [facility] Last Admin: 06/03/16 11:19 Dose: 75 mls/hr Cefazolin Sodium/Dextrose (Kefzol Premix(*)) 2 gm in 50 mls @ 100 mls/hr IVPB Q8H [facility] Last Admin: 06/03/16 13:39 Dose: 100 mls/hr Losartan Potassium (Cozaar Tab*) 50 mg PO DAILY [facility] Last Admin: 06/03/16 09:28 Dose: 50 mg Magnesium Hydroxide (Milk Of Magnesia Liq*) 30 ml PO Q6H PRN PRN Reason: constipation Last Admin: 06/03/16 07:49 Dose: 30 ml Morphine Sulfate (Morphine Inj (Syringe)*) 2 mg IV Q2H PRN PRN Reason: severe pain Nystatin (Nystatin Top Powder*) 1 applic TOPICAL BID [facility] Last Admin: 06/03/16 11:32 Dose: 1 applic Omeprazole (Prilosec Cap*) 40 mg PO DAILY [facility] Last Admin: 06/03/16 09:29 Dose: 40 mg Ondansetron HCl (Zofran Inj*) 4 mg IV Q6H PRN PRN Reason: NAUSEA Ondansetron HCl (Zofran Tab*) 4 mg PO Q6H PRN PRN Reason: NAUSEA Oxycodone/Acetaminophen (Percocet 5/325 Tab*) 1 tab PO Q3H PRN PRN Reason: PAIN - MODERATE Last Admin: 06/03/16 13:08 Dose: 1 tab Vital Signs 06/02/16 06/02/16 06/02/16 17:07 19:07 19:24 Temperature Pulse Rate Respiratory 18 16 16 Rate Blood Pressure (mmHg) O2 Sat by Pulse Oximetry 06/02/16 06/02/16 06/02/16 20:18 21:26 23:26 Temperature 99.2 F Pulse Rate 70 Respiratory 18 16 16 Rate Blood Pressure 109/46 (mmHg) O2 Sat by Pulse 93 Oximetry 06/02/16 06/03/16 06/03/16 23:49 03:34 07:24 Temperature 97.6 F 97.8 F 98.0 F Pulse Rate 69 70 70 Respiratory 16 16 16 Rate Blood Pressure 95/31 119/49 121/49 (mmHg) O2 Sat by Pulse 92 94 95 Oximetry 06/03/16 06/03/16 06/03/16 07:48 08:00 09:48 Temperature Pulse Rate Respiratory 16 20 18 Rate Blood Pressure (mmHg) O2 Sat by Pulse 95 Oximetry 06/03/16 06/03/16 06/03/16 11:31 12:01 13:08 Temperature 97.6 F Pulse Rate 70 Respiratory 16 18 Rate Blood Pressure 103/48 (mmHg) O2 Sat by Pulse 95 93 Oximetry Oxygen Devices in Use Now: None - 2L NC Appearance: Female patient, lying in bed, in NAD Eyes: PERRLA Ears/Nose/Mouth/Throat: Clear Oropharnyx, Mucous Membranes Moist Neck: NL Appearance and Movements; NL JVP Respiratory: Symmetrical Chest Expansion and Respiratory Effort, Clear to Auscultation Cardiovascular: NL Sounds; No Murmurs; No JVD Extremities: No Edema, - - left hip dressing c/d/i Skin: No Rash or Ulcers Neurological: Alert and Oriented x 3, NL Muscle Strength and Tone Lines/Tubes/Other Access: Clean, Dry and Intact PICC Line Nutrition: Taking PO's Result Diagrams: 06/03/16 06:38 06/03/16 06:38 Microbiology and Other Data: Microbiology 06/01/16 17:20 Wound Gram Stain - Final Wound Tissue Culture - Preliminary No Growth Day 1 Anaerobic Culture - Preliminary No Growth Day 1 Acid Fast Bacilli Smear - Final 05/31/16 22:19 Aerobic Blood Culture - Preliminary Blood Venous No Growth Day 1 Anaerobic Blood Culture - Preliminary No Growth Day 1 05/31/16 19:48 Aerobic Blood Culture - Preliminary Blood Venous No Growth Day 1 Anaerobic Blood Culture - Preliminary No Growth Day 1 Assess/Plan/Problems-Billing Assessment: Ms. Moss is a 75-year-old female with a past medical history of hypertension, mild dementia, hyperlipidemia, history of cerebrovascular accident, status post left hip surgery approximately 4 years ago who was admitted as a direct admit by Dr. Hannah for left septic hip with plan for wash-out and IV antibiotics - Patient Problems (1) Septic hip Code(s): M00.9 - PYOGENIC ARTHRITIS, UNSPECIFIED Comment: Dispo per ortho, Dr. Hannah. POD #2 s/p wash-out and cement block placement. PICC placed; continue cefazolin 2gm IV q8hr per ID for 8 week course. Prior to admission, Dr. Hannah performed aspiration on 05/26, which grew staph aureus, negative for MRSA. Blood cx negative at that time. Appreciate ID input. Plan for 6 weeks NWB, with IV abx, subacute rehab. Plan for 2nd surgery in 6 weeks? Time/date to be determined. (2) HTN (hypertension) Code(s): I10 - ESSENTIAL (PRIMARY) HYPERTENSION Comment: Normotensive. Continue amlodipine and losartan. (3) Hyperlipidemia Code(s): E78.5 - HYPERLIPIDEMIA, UNSPECIFIED Comment: Continue statin. (4) DVT prophylaxis Code(s): RGM4819 - Comment: Lovenox to coumadin per Ortho Team (5) Full code status Code(s): Z78.9 - OTHER SPECIFIED HEALTH STATUS Status and Disposition: Inpatient with septic hip. Dispo per surgery. Hospital Medicine is co-medical managing. Plan for subacute, will require long-term IV antibiotics
[2016-06-03] MEDS ORDERED: Warfarin TAB(*) 1 MG PO ONE (17:00)
[2016-06-03] MEDS: Donepezil TAB* 5 MG PO SCH (21:29)
[2016-06-03] MEDS: Atorvastatin* 10 MG TAB PO SCH (21:30)
[2016-06-04] MEDS: oxyCODONE/Acetamin 5/325 MG* TAB PO PRN ×3 (04:01→19:05)
[2016-06-04] MEDS: ceFAZolin 2 GM PREMIX(*) 2 GM/50 ML BAG IVPB SCH ×3 (06:01→21:30)
--- NOTE | 2016-06-04 07:39 | PN ---
Progress Note - Progress Note SOAP: Subjective: Pt. reports left hip is sore. Objective: LLE - dressing c/d/i. distally nvi. Vital Signs: Temp Pulse Resp BP Pulse Ox 98.3 F 74 16 149/55 95 06/04/16 03:57 06/04/16 03:57 06/04/16 04:01 06/04/16 03:57 06/04/16 03:57 Laboratory Results - last 24 hr 06/03/16 06/04/16 06:38 06:00 WBC 16.1 H RBC 2.93 L Hgb 8.1 L Hct 25 L MCV 87 MCH 28 MCHC 32 RDW 14 Plt Count 331 MPV 8 Neut % (Auto) 79.2 Lymph % (Auto) 13.1 L [place] % (Auto) 6.4 Eos % (Auto) 0.6 Baso % (Auto) 0.7 Absolute Neuts (auto) 12.7 H Absolute Lymphs (auto) 2.1 Absolute Monos (auto) 1.0 H Absolute Eos (auto) 0.1 Absolute Basos (auto) 0.1 Absolute Nucleated RBC 0.01 Nucleated RBC % 0 INR (Anticoag Therapy) 2.63 H Assessment: 75 yo F pod 3 s/p i and d l hip infection, explant with abx cement spacer Plan: PICC in place - IV abx per ID nwb lle pt/ot hold coumadin tonight, recheck inr in am plan to d/c to snf when bed available ortho and med stable
[2016-06-04] MEDS: Losartan TAB* 25 MG PO SCH (07:45)
[2016-06-04] MEDS: Omeprazole CAP* 20 MG PO SCH (07:46)
[2016-06-04] MEDS: amLODIPine TAB* 5 MG PO SCH (07:50)
[2016-06-04] MEDS: Nystatin TOP POWDER* 15 GM BTL TOPICAL SCH ×2 (09:12→22:00)
--- NOTE | 2016-06-04 11:19 | PN ---
Subjective Date of Service: 06/04/16 Interval History: Patient OOB to chair. She denies any acute concerns, including chest pain, SOB, abd pain, n/v. Discussed placement plan, as [facility] unable to take patient with current IV antibiotic needs. Patient verbalized understanding and will discuss with family. Family History: Unchanged from Admission Social History: Unchanged from Admission Past Medical History: Unchanged from Admission Objective Active Medications: Acetaminophen (Tylenol Tab*) 650 mg PO Q6H PRN PRN Reason: mild pain or fever Amlodipine Besylate (Norvasc Tab*) 5 mg PO DAILY [facility] Last Admin: 06/04/16 07:50 Dose: 5 mg Atorvastatin Calcium (Lipitor*) 10 mg PO BEDTIME [facility] Last Admin: 06/03/16 21:30 Dose: 10 mg Bisacodyl (Dulcolax Supp*) 10 mg [place] DAILY PRN PRN Reason: constipation Diphenhydramine HCl (Benadryl Iv*) 12.5 mg IV Q6H PRN PRN Reason: insomnia or puritis Diphenhydramine HCl (Benadryl Po*) 25 mg PO Q6H PRN PRN Reason: insomnia Donepezil HCl (Aricept Tab*) 10 mg PO BEDTIME [facility] Last Admin: 06/03/16 21:29 Dose: 10 mg Heparin Sodium (Porcine) (Heparin Flush Picc/Ml/Cvc(*)) 1 ml FLUSH 0600,1800 [facility] PRN Reason: Protocol Last Admin: 06/04/16 06:53 Dose: 1 ml Cefazolin Sodium/Dextrose (Kefzol Premix(*)) 2 gm in 50 mls @ 100 mls/hr IVPB Q8H [facility] Last Admin: 06/04/16 06:01 Dose: 100 mls/hr Losartan Potassium (Cozaar Tab*) 50 mg PO DAILY [facility] Last Admin: 06/04/16 07:45 Dose: 50 mg Magnesium Hydroxide (Milk Of Magnesia Liq*) 30 ml PO Q6H PRN PRN Reason: constipation Last Admin: 06/03/16 16:16 Dose: 30 ml Morphine Sulfate (Morphine Inj (Syringe)*) 2 mg IV Q2H PRN PRN Reason: severe pain Nystatin (Nystatin Top Powder*) 1 applic TOPICAL BID [facility] Last Admin: 06/04/16 09:12 Dose: Not Given Omeprazole (Prilosec Cap*) 40 mg PO DAILY [facility] Last Admin: 06/04/16 07:46 Dose: 40 mg Ondansetron HCl (Zofran Inj*) 4 mg IV Q6H PRN PRN Reason: NAUSEA Last Admin: 06/04/16 08:07 Dose: 4 mg Ondansetron HCl (Zofran Tab*) 4 mg PO Q6H PRN PRN Reason: NAUSEA Oxycodone/Acetaminophen (Percocet 5/325 Tab*) 1 tab PO Q3H PRN PRN Reason: PAIN - MODERATE Last Admin: 06/04/16 07:48 Dose: 1 tab Vital Signs 06/03/16 06/03/16 06/03/16 11:31 12:01 13:08 Temperature 97.6 F Pulse Rate 70 Respiratory 16 18 Rate Blood Pressure 103/48 (mmHg) O2 Sat by Pulse 95 93 Oximetry 06/03/16 06/03/16 06/03/16 15:08 15:27 16:00 Temperature 98.1 F Pulse Rate 67 Respiratory 18 20 Rate Blood Pressure 98/42 (mmHg) O2 Sat by Pulse 96 96 Oximetry 06/03/16 06/03/16 06/03/16 18:20 19:11 20:00 Temperature 98.2 F Pulse Rate 70 Respiratory 16 18 16 Rate Blood Pressure 104/55 (mmHg) O2 Sat by Pulse 96 Oximetry 06/03/16 06/03/16 06/04/16 20:20 23:46 03:57 Temperature 98.1 F 98.3 F Pulse Rate 65 74 Respiratory 16 18 16 Rate Blood Pressure 123/52 149/55 (mmHg) O2 Sat by Pulse 93 95 Oximetry 06/04/16 06/04/16 06/04/16 04:01 07:48 08:37 Temperature 97.5 F Pulse Rate 68 Respiratory 16 16 18 Rate Blood Pressure 115/41 (mmHg) O2 Sat by Pulse 93 Oximetry 06/04/16 09:48 Temperature Pulse Rate Respiratory 16 Rate Blood Pressure (mmHg) O2 Sat by Pulse Oximetry Oxygen Devices in Use Now: None - 2L NC Appearance: Older female, OOB to chair, in NAD Eyes: PERRLA Ears/Nose/Mouth/Throat: Mucous Membranes Moist Neck: NL Appearance and Movements; NL JVP Respiratory: Symmetrical Chest Expansion and Respiratory Effort, Clear to Auscultation Cardiovascular: NL Sounds; No Murmurs; No JVD, RRR Abdominal: NL Sounds; No Tenderness; No Distention Extremities: No Edema, - - dressing to left hip c/d/i Skin: No Rash or Ulcers Neurological: Alert and Oriented x 3 Lines/Tubes/Other Access: Clean, Dry and Intact PICC Line Nutrition: Taking PO's Result Diagrams: 06/03/16 06:38 06/03/16 06:38 Microbiology and Other Data: Microbiology 06/01/16 17:20 Wound Gram Stain - Final Wound Tissue Culture - Preliminary No Growth Day 1 Anaerobic Culture - Preliminary No Growth Day 1 Acid Fast Bacilli Smear - Final 05/31/16 22:19 Aerobic Blood Culture - Preliminary Blood Venous No Growth Day 1 Anaerobic Blood Culture - Preliminary No Growth Day 1 05/31/16 19:48 Aerobic Blood Culture - Preliminary Blood Venous No Growth Day 1 Anaerobic Blood Culture - Preliminary No Growth Day 1 Assess/Plan/Problems-Billing Assessment: Ms. Moss is a 75-year-old female with a past medical history of hypertension, mild dementia, hyperlipidemia, history of cerebrovascular accident, status post left hip surgery approximately 4 years ago who was admitted as a direct admit by Dr. Hannah for left septic hip with plan for wash-out and IV antibiotics - Patient Problems (1) Septic hip Code(s): M00.9 - PYOGENIC ARTHRITIS, UNSPECIFIED Comment: Dispo per orthoDr. Hannah. POD #3 s/p wash-out and cement block placement. PICC placed; continue cefazolin 2gm IV q8hr per ID for 8 week course. Prior to admission, Dr. Hannah performed aspiration on 05/26, which grew staph aureus, negative for MRSA. Blood cx negative at that time. Appreciate ID input. Plan for 6 weeks NWB, with IV abx, subacute rehab. Plan for 2nd surgery in 6 weeks? Time/date to be determined. (2) HTN (hypertension) Code(s): I10 - ESSENTIAL (PRIMARY) HYPERTENSION Comment: Normotensive. Continue amlodipine and losartan. (3) Hyperlipidemia Code(s): E78.5 - HYPERLIPIDEMIA, UNSPECIFIED Comment: Continue statin. (4) DVT prophylaxis Code(s): [id number] - Comment: Per ortho (5) Full code status Code(s): Z78.9 - OTHER SPECIFIED HEALTH STATUS Status and Disposition: Inpatient with septic hip. Dispo per ortho. Hospital Medicine is co-medical managing. Plan for subacute, will require long-term IV antibiotics. [facility] unable to take patient; [facility] following for placement needs.
[2016-06-04] MEDS: Polyethylene Glycol 3350* 17 GM PACKET PO SCH (14:29)
[2016-06-04] MEDS: Acetaminophen TAB* 325 MG PO PRN (14:29)
[2016-06-04] MEDS ORDERED: Senna TAB PO PRN (21:00)
[2016-06-04] MEDS: Atorvastatin* 10 MG TAB PO SCH (21:31)
[2016-06-04] MEDS: Donepezil TAB* 5 MG PO SCH (21:31)
[2016-06-04] MEDS: Docusate CAP* 100 MG PO PRN (22:06)
[2016-06-04] MEDS: Magnesium Hydroxide LIQ* 30 ML UDC PO PRN (22:06)
[2016-06-05] MEDS: ceFAZolin 2 GM PREMIX(*) 2 GM/50 ML BAG IVPB SCH ×3 (05:45→22:26)
[2016-06-05] MEDS: Nystatin TOP POWDER* 15 GM BTL TOPICAL SCH ×2 (08:03→21:09)
[2016-06-05] MEDS: Magnesium Hydroxide LIQ* 30 ML UDC PO PRN (08:17)
[2016-06-05] MEDS: Polyethylene Glycol 3350* 17 GM PACKET PO SCH (08:17)
[2016-06-05] MEDS: Acetaminophen TAB* 325 MG PO PRN (08:18)
[2016-06-05] MEDS: Docusate CAP* 100 MG PO PRN (08:18)
[2016-06-05] MEDS: oxyCODONE/Acetamin 5/325 MG* TAB PO PRN ×3 (08:18→20:46)
[2016-06-05] MEDS: amLODIPine TAB* 5 MG PO SCH (08:19)
[2016-06-05] MEDS: Losartan TAB* 25 MG PO SCH (08:19)
[2016-06-05] MEDS: Omeprazole CAP* 20 MG PO SCH (08:19)
--- NOTE | 2016-06-05 09:41 | PN ---
Subjective Date of Service: 06/05/16 Interval History: Patient reports left hip and low back pain this AM. Denies CP, SOB, abd pain, n/ v. She reports not feeling very hungry this morning. Nursing reports patient appears impacted and has been having liquid stool. Family History: Unchanged from Admission Social History: Unchanged from Admission Past Medical History: Unchanged from Admission Objective Active Medications: Acetaminophen (Tylenol Tab*) 650 mg PO Q6H PRN PRN Reason: mild pain or fever Last Admin: 06/05/16 08:18 Dose: 650 mg Amlodipine Besylate (Norvasc Tab*) 5 mg PO DAILY [facility] Last Admin: 06/05/16 08:19 Dose: 5 mg Atorvastatin Calcium (Lipitor*) 10 mg PO BEDTIME [facility] Last Admin: 06/04/16 21:31 Dose: 10 mg Bisacodyl (Dulcolax Supp*) 10 mg IN DAILY PRN PRN Reason: constipation Diphenhydramine HCl (Benadryl Iv*) 12.5 mg IV Q6H PRN PRN Reason: insomnia or puritis Diphenhydramine HCl (Benadryl Po*) 25 mg PO Q6H PRN PRN Reason: insomnia Docusate Sodium (Colace Cap*) 100 mg PO BID PRN PRN Reason: CONSTIPATION Last Admin: 06/05/16 08:18 Dose: 100 mg Donepezil HCl (Aricept Tab*) 10 mg PO BEDTIME [facility] Last Admin: 06/04/16 21:31 Dose: 10 mg Heparin Sodium (Porcine) (Heparin Flush Picc/Ml/Cvc(*)) 1 ml FLUSH 0600,1800 [facility] PRN Reason: Protocol Last Admin: 06/05/16 06:50 Dose: 1 ml Cefazolin Sodium/Dextrose (Kefzol Premix(*)) 2 gm in 50 mls @ 100 mls/hr IVPB Q8H [facility] Last Admin: 06/05/16 05:45 Dose: 100 mls/hr Losartan Potassium (Cozaar Tab*) 50 mg PO DAILY [facility] Last Admin: 06/05/16 08:19 Dose: 50 mg Magnesium Hydroxide (Milk Of Magnesia Liq*) 30 ml PO Q6H PRN PRN Reason: constipation Last Admin: 06/05/16 08:17 Dose: 30 ml Morphine Sulfate (Morphine Inj (Syringe)*) 2 mg IV Q2H PRN PRN Reason: severe pain Nystatin (Nystatin Top Powder*) 1 applic TOPICAL BID [facility] Last Admin: 06/05/16 08:03 Dose: 1 applic Omeprazole (Prilosec Cap*) 40 mg PO DAILY [facility] Last Admin: 06/05/16 08:19 Dose: 40 mg Ondansetron HCl (Zofran Inj*) 4 mg IV Q6H PRN PRN Reason: NAUSEA Last Admin: 06/04/16 08:07 Dose: 4 mg Ondansetron HCl (Zofran Tab*) 4 mg PO Q6H PRN PRN Reason: NAUSEA Oxycodone/Acetaminophen (Percocet 5/325 Tab*) 1 tab PO Q3H PRN PRN Reason: PAIN - MODERATE Last Admin: 06/05/16 08:18 Dose: 1 tab Polyethylene Glycol/Electrolytes (Miralax*) 17 gm PO DAILY [facility] Last Admin: 06/05/16 08:17 Dose: 17 gm Senna (Senokot Tab*) 2 tab PO BEDTIME PRN PRN Reason: CONSTIPATION Vital Signs 06/04/16 06/04/16 06/04/16 09:48 12:02 15:54 Temperature 97.6 F 98.1 F Pulse Rate 76 68 Respiratory 16 18 17 Rate Blood Pressure 108/56 108/51 (mmHg) O2 Sat by Pulse 93 97 Oximetry 06/04/16 06/04/16 06/04/16 19:02 19:05 20:00 Temperature 97.5 F Pulse Rate 64 Respiratory 16 16 16 Rate Blood Pressure 136/49 (mmHg) O2 Sat by Pulse 94 Oximetry 06/04/16 06/04/16 06/05/16 21:05 23:32 03:39 Temperature 98.0 F 99.3 F Pulse Rate 86 99 Respiratory 18 16 18 Rate Blood Pressure 127/56 127/56 (mmHg) O2 Sat by Pulse 96 94 Oximetry 06/05/16 06/05/16 07:08 08:18 Temperature 98.8 F Pulse Rate 93 Respiratory 18 22 Rate Blood Pressure 133/68 (mmHg) O2 Sat by Pulse 94 Oximetry Oxygen Devices in Use Now: None - 2L NC Appearance: Older female, sitting up in bed, appears uncomfortable Eyes: PERRLA Ears/Nose/Mouth/Throat: Mucous Membranes Moist Neck: NL Appearance and Movements; NL JVP Respiratory: Symmetrical Chest Expansion and Respiratory Effort, Clear to Auscultation Cardiovascular: NL Sounds; No Murmurs; No JVD, RRR Abdominal: NL Sounds; No Tenderness; No Distention Extremities: No Edema, - - left hip dressing c/d/i Skin: No Rash or Ulcers Neurological: Alert and Oriented x 3 Lines/Tubes/Other Access: Clean, Dry and Intact PICC Line Nutrition: Taking PO's Result Diagrams: 06/03/16 06:38 06/03/16 06:38 Microbiology and Other Data: Microbiology 06/01/16 17:20 Wound Gram Stain - Final Wound Tissue Culture - Preliminary No Growth Day 1 Anaerobic Culture - Preliminary No Growth Day 1 Acid Fast Bacilli Smear - Final 05/31/16 22:19 Aerobic Blood Culture - Preliminary Blood Venous No Growth Day 1 Anaerobic Blood Culture - Preliminary No Growth Day 1 05/31/16 19:48 Aerobic Blood Culture - Preliminary Blood Venous No Growth Day 1 Anaerobic Blood Culture - Preliminary No Growth Day 1 Assess/Plan/Problems-Billing Assessment: Ms. Moss is a 75-year-old female with a past medical history of hypertension, mild dementia, hyperlipidemia, history of cerebrovascular accident, status post left hip surgery approximately 4 years ago who was admitted as a direct admit by Dr. Hannah for left septic hip with plan for wash-out and IV antibiotics - Patient Problems (1) Constipation Code(s): K59.00 - CONSTIPATION, UNSPECIFIED Comment: Likely contributing to discomfort today and decreased PO intake Will utilize suppository, but may require enema Continue bowel regimen (2) Septic hip Code(s): M00.9 - PYOGENIC ARTHRITIS, UNSPECIFIED Comment: Dispo per orthoDr. Hannah. POD #4 s/p wash-out and cement block placement. PICC placed; continue cefazolin 2gm IV q8hr per ID for 8 week course. Prior to admission, Dr. Hannah performed aspiration on 05/26, which grew staph aureus, negative for MRSA. Blood cx negative at that time. Appreciate ID input. Plan for 6 weeks NWB, with IV abx, subacute rehab. Plan for 2nd surgery in 6 weeks? Time/date to be determined. (3) HTN (hypertension) Code(s): I10 - ESSENTIAL (PRIMARY) HYPERTENSION Comment: Normotensive. Continue amlodipine and losartan. (4) Hyperlipidemia Code(s): E78.5 - HYPERLIPIDEMIA, UNSPECIFIED Comment: Continue statin. (5) DVT prophylaxis Code(s): [id number] - Comment: Per ortho (6) Full code status Code(s): Z78.9 - OTHER SPECIFIED HEALTH STATUS Status and Disposition: Inpatient with septic hip. Dispo per ortho. Hospital Medicine is co-medical managing. Plan for subacute, will require long-term IV antibiotics.
--- NOTE | 2016-06-05 10:06 | PN ---
Progress Note - Progress Note SOAP: Subjective: Pt. reports pain L hip and lower back. Objective: LLE -dressing c/d/i, distally nvi. Vital Signs: Temp Pulse Resp BP Pulse Ox 98.8 F 93 22 133/68 94 06/05/16 07:08 06/05/16 07:08 06/05/16 08:18 06/05/16 07:08 06/05/16 07:08 Laboratory Results - last 24 hr 06/05/16 05:45 INR (Anticoag Therapy) 1.86 H Assessment: 75 yo F pod 4 s/p I and D L hip infection with explant hardware and antibiotic spacer placement. Plan: Cont. IV ABX per ID nwb lle ble heel booties 4 mg coumadin tonight. check inr this am plan d/c to [facility] on 06/07
[2016-06-05] MEDS ORDERED: Sodium Phosphate ADULT ENEMA* 118 ml bottle PR ONE (11:12)
[2016-06-05] MEDS ORDERED: Warfarin TAB(*) 4 MG PO ONE (17:00)
[2016-06-05] MEDS: Atorvastatin* 10 MG TAB PO SCH (20:46)
[2016-06-05] MEDS: Donepezil TAB* 5 MG PO SCH (20:46)
[2016-06-06] MEDS: oxyCODONE/Acetamin 5/325 MG* TAB PO PRN ×4 (03:50→20:09)
[2016-06-06] MEDS: ceFAZolin 2 GM PREMIX(*) 2 GM/50 ML BAG IVPB SCH ×3 (05:43→22:03)
[2016-06-06] MEDS: Nystatin TOP POWDER* 15 GM BTL TOPICAL SCH ×2 (08:27→20:11)
[2016-06-06] MEDS: amLODIPine TAB* 5 MG PO SCH (09:50)
[2016-06-06] MEDS: Omeprazole CAP* 20 MG PO SCH (09:50)
[2016-06-06] MEDS: Docusate CAP* 100 MG PO PRN (09:50)
[2016-06-06] MEDS: Losartan TAB* 25 MG PO SCH (09:51)
[2016-06-06] MEDS: Polyethylene Glycol 3350* 17 GM PACKET PO SCH (09:51)
--- NOTE | 2016-06-06 10:49 | PN ---
Progress Note - Progress Note SOAP: Subjective: Pt was seen today laying in bed. She states that she feels like she is improving somewhat since yesterday. She states that her pain is becoming more manageable and she is not as tired. Objective: LLE -Dressing was changed yesterday. Today dressing is C/D/I. No drainage noted. She is able to dorsiflex and planterflex her foot. Sensation is intact distally. She has 2+ DP pulse Microbiology 05/31/16 22:19 Aerobic Blood Culture - Final Blood Venous No Growth Day 5 Anaerobic Blood Culture - Final No Growth Day 5 Blood Culture - Final 05/31/16 19:48 Aerobic Blood Culture - Final Blood Venous No Growth Day 5 Anaerobic Blood Culture - Final No Growth Day 5 Blood Culture - Final 06/01/16 17:20 Wound Gram Stain - Final Wound Tissue Culture - Final No Growth Day 4 Anaerobic Culture - Final No Growth Day 4 Acid Fast Bacilli Smear - Final Vital Signs Temp 98.0 F 06/06/16 07:26 Pulse 76 06/06/16 07:26 Resp 20 06/06/16 09:49 BP 125/61 06/06/16 07:26 Pulse Ox 97 06/06/16 08:00 Intake & Output 06/05/16 06/06/16 06/06/16 18:59 06:59 18:59 Intake Total 365 700 200 Output Total 0 Balance 365 700 200 Intake: IV Fluids 80 60 ABX - CEFAZOLIN 55 ns 25 60 IVPB 110 ABX - CEFAZOLIN 55 LR 55 Oral 285 530 200 Output: Urine 0 Other: Estimated Void Large Large # Bowel Movements 1 Estimated Stool Amount Large Small Large # Voids 3 1 Assessment: 75 yo F pod 5 s/p I and D L hip infection with explant hardware and antibiotic spacer placement. Plan: Cont. IV ABX per ID nwb lle ble heel booties 4 mg coumadin tonight. plan d/c to [facility] on 06/07
--- NOTE | 2016-06-06 12:01 | PN ---
Subjective Date of Service: 06/06/16 Interval History: Ms. Moss reports improvement in pain and overall today. Denies CP, SOB , abd pain, n/v. Leg and back pain better managed today. She reports moving her bowels yesterday, which has helped with her comfort. No other acute concerns. Family History: Unchanged from Admission Social History: Unchanged from Admission Past Medical History: Unchanged from Admission Objective Active Medications: Acetaminophen (Tylenol Tab*) 650 mg PO Q6H PRN PRN Reason: mild pain or fever Last Admin: 06/05/16 08:18 Dose: 650 mg Amlodipine Besylate (Norvasc Tab*) 5 mg PO DAILY [facility] Last Admin: 06/06/16 09:50 Dose: 5 mg Atorvastatin Calcium (Lipitor*) 10 mg PO BEDTIME [facility] Last Admin: 06/05/16 20:46 Dose: 10 mg Bisacodyl (Dulcolax Supp*) 10 mg [place] DAILY PRN PRN Reason: constipation Last Admin: 06/05/16 09:51 Dose: 10 mg Diphenhydramine HCl (Benadryl Iv*) 12.5 mg IV Q6H PRN PRN Reason: insomnia or puritis Diphenhydramine HCl (Benadryl Po*) 25 mg PO Q6H PRN PRN Reason: insomnia Docusate Sodium (Colace Cap*) 100 mg PO BID PRN PRN Reason: CONSTIPATION Last Admin: 06/06/16 09:50 Dose: 100 mg Donepezil HCl (Aricept Tab*) 10 mg PO BEDTIME [facility] Last Admin: 06/05/16 20:46 Dose: 10 mg Heparin Sodium (Porcine) (Heparin Flush Picc/Ml/Cvc(*)) 1 ml FLUSH 0600,1800 [facility] PRN Reason: Protocol Last Admin: 06/06/16 06:44 Dose: 1 ml Cefazolin Sodium/Dextrose (Kefzol Premix(*)) 2 gm in 50 mls @ 100 mls/hr IVPB Q8H [facility] Last Admin: 06/06/16 05:43 Dose: 100 mls/hr Losartan Potassium (Cozaar Tab*) 50 mg PO DAILY [facility] Last Admin: 06/06/16 09:51 Dose: 50 mg Magnesium Hydroxide (Milk Of Magnesia Liq*) 30 ml PO Q6H PRN PRN Reason: constipation Last Admin: 06/05/16 08:17 Dose: 30 ml Morphine Sulfate (Morphine Inj (Syringe)*) 2 mg IV Q2H PRN PRN Reason: severe pain Nystatin (Nystatin Top Powder*) 1 applic TOPICAL BID [facility] Last Admin: 06/06/16 08:27 Dose: 1 applic Omeprazole (Prilosec Cap*) 40 mg PO DAILY [facility] Last Admin: 06/06/16 09:50 Dose: 40 mg Ondansetron HCl (Zofran Inj*) 4 mg IV Q6H PRN PRN Reason: NAUSEA Last Admin: 06/04/16 08:07 Dose: 4 mg Ondansetron HCl (Zofran Tab*) 4 mg PO Q6H PRN PRN Reason: NAUSEA Oxycodone/Acetaminophen (Percocet 5/325 Tab*) 1 tab PO Q3H PRN PRN Reason: PAIN - MODERATE Last Admin: 06/06/16 09:49 Dose: 1 tab Pharmacy Profile Note (Coumadin Daily Reminder*) 1 note FOLLOW UP 1700 [facility] Polyethylene Glycol/Electrolytes (Miralax*) 17 gm PO DAILY [facility] Last Admin: 06/06/16 09:51 Dose: Not Given Senna (Senokot Tab*) 2 tab PO BEDTIME PRN PRN Reason: CONSTIPATION Warfarin Sodium (Coumadin Tab(*)) 4 mg PO ONCE@1700 [facility] PRN Reason: Protocol Stop: 06/06/16 17:01 Vital Signs 06/05/16 06/05/16 06/05/16 14:02 15:15 15:58 Temperature 98.5 F Pulse Rate 93 Respiratory 20 16 Rate Blood Pressure 93/50 (mmHg) O2 Sat by Pulse 92 92 Oximetry 06/05/16 06/05/16 06/05/16 16:02 19:25 20:00 Temperature 98.4 F Pulse Rate 89 Respiratory 16 16 14 Rate Blood Pressure 113/59 (mmHg) O2 Sat by Pulse 94 Oximetry 06/05/16 06/05/16 06/05/16 20:46 22:46 23:27 Temperature 97.7 F Pulse Rate 85 Respiratory 16 16 16 Rate Blood Pressure 113/59 (mmHg) O2 Sat by Pulse 94 Oximetry 06/06/16 06/06/16 06/06/16 03:34 03:50 05:45 Temperature 97.8 F Pulse Rate 84 Respiratory 18 16 18 Rate Blood Pressure 109/51 (mmHg) O2 Sat by Pulse 95 Oximetry 06/06/16 06/06/16 06/06/16 07:26 08:00 09:49 Temperature 98.0 F Pulse Rate 76 Respiratory 17 20 20 Rate Blood Pressure 125/61 (mmHg) O2 Sat by Pulse 97 97 Oximetry 06/06/16 11:29 Temperature 98.2 F Pulse Rate 79 Respiratory 16 Rate Blood Pressure 102/61 (mmHg) O2 Sat by Pulse 97 Oximetry Oxygen Devices in Use Now: None - 2L NC Appearance: Older female, OOB to chair, in NAD Eyes: PERRLA Ears/Nose/Mouth/Throat: Mucous Membranes Moist Neck: NL Appearance and Movements; NL JVP Respiratory: Symmetrical Chest Expansion and Respiratory Effort, Clear to Auscultation Cardiovascular: NL Sounds; No Murmurs; No JVD, RRR Abdominal: NL Sounds; No Tenderness; No Distention Extremities: No Edema, - - left hip dressing c/d/i Skin: No Rash or Ulcers Neurological: Alert and Oriented x 3 Lines/Tubes/Other Access: Clean, Dry and Intact PICC Line Nutrition: Taking PO's Result Diagrams: 06/03/16 06:38 06/03/16 06:38 Microbiology and Other Data: Microbiology 06/01/16 17:20 Wound Gram Stain - Final Wound Tissue Culture - Preliminary No Growth Day 1 Anaerobic Culture - Preliminary No Growth Day 1 Acid Fast Bacilli Smear - Final 05/31/16 22:19 Aerobic Blood Culture - Preliminary Blood Venous No Growth Day 1 Anaerobic Blood Culture - Preliminary No Growth Day 1 05/31/16 19:48 Aerobic Blood Culture - Preliminary Blood Venous No Growth Day 1 Anaerobic Blood Culture - Preliminary No Growth Day 1 Assess/Plan/Problems-Billing Assessment: Ms. Moss is a 75-year-old female with a past medical history of hypertension, mild dementia, hyperlipidemia, history of cerebrovascular accident, status post left hip surgery approximately 4 years ago who was admitted as a direct admit by Dr. Hannah for left septic hip with plan for wash-out and IV antibiotics - Patient Problems (1) Constipation Code(s): K59.00 - CONSTIPATION, UNSPECIFIED Comment: Last BM 06/05 Continue bowel regimen (2) Septic hip Code(s): M00.9 - PYOGENIC ARTHRITIS, UNSPECIFIED Comment: Dispo per Dr. Camden hubbard. POD #5 s/p wash-out and cement block placement. PICC placed; continue cefazolin 2gm IV q8hr per ID for 8 week course. Prior to admission, Dr. Hannah performed aspiration on 05/26, which grew staph aureus, negative for MRSA. Blood cx negative at that time. Appreciate ID input. Plan for 6 weeks NWB, with IV abx, subacute rehab. (3) HTN (hypertension) Code(s): I10 - ESSENTIAL (PRIMARY) HYPERTENSION Comment: Normotensive. Continue amlodipine and losartan. (4) Hyperlipidemia Code(s): E78.5 - HYPERLIPIDEMIA, UNSPECIFIED Comment: Continue statin. (5) DVT prophylaxis Code(s): [id number] - Comment: Warfarin (6) Full code status Code(s): Z78.9 - OTHER SPECIFIED HEALTH STATUS Status and Disposition: Inpatient with septic hip. Dispo per ortho. Hospital Medicine is co-medical managing. Plan for discharge to [facility] tomorrow.
[2016-06-06] MEDS ORDERED: Warfarin TAB(*) 4 MG PO ONE (17:00)
[2016-06-06] MEDS: Donepezil TAB* 5 MG PO SCH (20:09)
[2016-06-06] MEDS: Atorvastatin* 10 MG TAB PO SCH (20:09)
[2016-06-07] MEDS: ceFAZolin 2 GM PREMIX(*) 2 GM/50 ML BAG IVPB SCH (05:37)
[2016-06-07] MEDS: oxyCODONE/Acetamin 5/325 MG* TAB PO PRN (07:42)
[2016-06-07] MEDS: Omeprazole CAP* 20 MG PO SCH (07:42)
[2016-06-07] MEDS: amLODIPine TAB* 5 MG PO SCH (07:44)
[2016-06-07] MEDS: Losartan TAB* 25 MG PO SCH (07:44)
--- NOTE | 2016-06-07 09:18 | PN ---
Progress Note - Progress Note SOAP: Subjective: []Patient seen OOB in chair. Feels tired and "wiped out". Understands she will be transferred to [facility] facility today. Objective: [] Vital Signs Temp 98.8 F 06/07/16 07:44 Pulse 73 06/07/16 07:44 Resp 14 06/07/16 07:44 BP 140/58 06/07/16 07:44 Pulse Ox 95 06/07/16 07:44 Intake & Output 06/06/16 06/07/16 06/07/16 18:59 06:59 18:59 Intake Total 985 2350 Output Total 0 Balance 985 2350 Intake: IV Fluids 85 ABX - CEFAZOLIN 55 ns 30 IVPB 110 ABX - CEFAZOLIN 110 Oral 900 2240 Output: Urine 0 Other: Estimated Void Large Small Large Date of Last Bowel 06/06/16 Movement # Bowel Movements 1 Estimated Stool Amount Large Small Large # Voids 1 Laboratory Results - last 24 hr 06/06/16 06/07/16 03:24 05:14 INR (Anticoag Therapy) 1.93 H 2.55 H Left hip incision benign Active DF/PF left ankle diffuse tenderness left calf and leg, unchanged, no excessive edema or evidence of DVT Assessment: []s/p explant infected Left hemiarthroplasty, placement of antibiotic spacer/ prosthesis POD #6 Plan: []Continue with IV Cefazolin, 2g q8 hrs for [address] weeks as recommended by Dr. Hernandez Continue with Coumadin, hold dose today. Coumadin 2 mg , tue and with repeat blood draw at [facility] with dosages to follow. Continue NWB LLE Follow up with Dr. Hannah 10 days in office
[2016-06-07] MEDS: Polyethylene Glycol 3350* 17 GM PACKET PO SCH (09:36)
[2016-06-07] MEDS: Nystatin TOP POWDER* 15 GM BTL TOPICAL SCH (09:54)
--- NOTE | 2016-06-07 10:58 | DS ---
DISCHARGE SUMMARY: DATE OF ADMISSION: 05/31/16 DATE OF DISCHARGE: 06/07/16 ATTENDING PHYSICIAN: Dr. Kirstin Hannah.(dictated by SHARON Wilcxo) ADMISSION DIAGNOSIS: Infected left hip hemiarthroplasty. 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 SURGERY PERFORMED: Left hip irrigation and debridement with explant of hardware and antibiotic cement spacer placement. HOSPITAL COURSE: The patient is a 75-year-old female, who presented to Dr. Hannah's clinic 1 week prior to her admission with severe left hip pain. She has had a history of septic episode in February of 2016 and was hospitalized at [facility] after pyelonephritis. She has had increased pain in the left hip since this episode. She had a hemiarthroplasty done at an outside facility/[facility] 4 to 5 years ago. Her plain films did not reveal evidence of obvious infection, but her blood work showed increased CRP, ESR, and white count. An aspiration of the left hip was done in Interventional Radiology, which grew Staph aureus. It was felt due to these findings that the best procedure will be to remove the hip if it were loose. She was taken to the operating room under the care of Dr. Kirstin Hannah on the date of 06/01/16. The femoral component was indeed not well fixed and easily removed. Significant irrigation and debridement was done with implantation of antibiotic-impregnated cement and temporary prosthesis. She tolerated this procedure well and left the operating room in stable condition. Postoperatively, she did well, maintaining a nonweightbearing status on the left lower extremity. She was seen by Infectious Disease, Dr. Hernandez, where a PICC line was placed and cefazolin 2 g IV q.8 hours was recommended for the next 8 weeks. It was felt she would benefit from rehabilitation at the half-way facility and was found to be medically and orthopedically stable for discharge to the facility, 06/07/16. The patient will continue on Coumadin for her DVT prophylaxis and will undergo biweekly INR blood draws, Mondays and . Her INR today, 06/07/16, is 2.55; therefore, we will hold Coumadin dose for today and resume with 2 mg on June 08; 2 mg June 09 with repeat INR draw on with subsequent Coumadin dose to follow. She will continue on the cefazolin 2 g IV q.8 hours for an additional 8 weeks as outlined by Dr. Hernandez. He recommends weekly CRP, CBC, BMP blood work. CONDITION ON DISCHARGE: The patient is afebrile. Her vital signs are stable. She is alert and oriented x3. Her pain is in excellent control. Her incision is healing without evidence of obvious outward infection. Her legs are very sensitive to light touch and she does remain tender to palpation in the calf region. There is no evidence of DVT. There is no obvious edema, swelling, or skin color changes. She has active dorsiflexion and plantar flexion of the left ankle. She has a 2+ pedal pulse. PLAN: Discharge to [facility]. She will remain non- weightbearing on the left lower extremity. Continue with cefazolin 2 g IV q.8 hours for 2 months. Continue with Coumadin as outlined above. We recommend to follow up in the office in roughly 10 to 14 days for reevaluation. Follow up with Dr. iKrstin Hannah. SHARON WILCOX [id number]/[facility] #: [id number] ANJEL
[2016-06-07 12:04] VITALS: BP 143/55
== END 2016-06-07 13:10 | DRG 464 ==
LOC: SSU 12:05
PROVIDERS: ADMIT Orthopaedic Surgery Adult Reconstructive Orthopaedic Surgery; ATTEND Orthopaedic Surgery Adult Reconstructive Orthopaedic Surgery
PROC: 0QB70ZZ Excision of Left Upper Femur, Open Approach (ICD-10-PCS; 2016-06-01)
PROC: 0SHB08Z Insertion of Spacer into Left Hip Joint, Open Approach (ICD-10-PCS; 2016-06-01)
PROC: 0SPS0JZ Removal of Synthetic Substitute from Left Hip Joint, Femoral Surface, Open Approach (ICD-10-PCS; principal; 2016-06-01 15:00)
PROC: 02HV33Z Insertion of Infusion Device into Superior Vena Cava, Percutaneous Approach (ICD-10-PCS; 2016-06-03)
DX: T84.52XA Infection and inflammatory reaction due to internal left hip prosthesis, initial encounter (principal); Z68.41 Body mass index [BMI] 40.0-44.9, adult; F03.90 Unspecified dementia, unspecified severity, without behavioral disturbance, psychotic disturbance, mood disturbance, and anxiety; B95.61 Methicillin susceptible Staphylococcus aureus infection as the cause of diseases classified elsewhere; T84.031A Mechanical loosening of internal left hip prosthetic joint, initial encounter; E66.01 Morbid (severe) obesity due to excess calories; E78.00 Pure hypercholesterolemia, unspecified; I10 Essential (primary) hypertension; Y79.2 Prosthetic and other implants, materials and accessory orthopedic devices associated with adverse incidents; R73.9 Hyperglycemia, unspecified; E78.5 Hyperlipidemia, unspecified; K59.00 Constipation, unspecified; M54.5 Low back pain; Z86.73 Personal history of transient ischemic attack (TIA), and cerebral infarction without residual deficits; Z90.710 Acquired absence of both cervix and uterus; Z90.49 Acquired absence of other specified parts of digestive tract; Y92.9 Unspecified place or not applicable; Z79.01 Long term (current) use of anticoagulants
CPT/HCPCS: 36415; 72170; 80048; 83036; 85025; 85610; 85652; 85730; 86140; 87040; 87070; 87073; 87116; 87205; 87206; 88300; 93005; 94760; A9270-GY; C1751; C1776; J0330; J0690; J1100; J1650; J1885; J2250; J2405; J2704; J3010; J3370

== ENCOUNTER 2016-08-24 10:00 | Inpatient (IN) | payer MEDICARE ==
--- NOTE | 2016-08-16 14:06 | HP ---
HISTORY AND PHYSICAL: DATE OF ADMISSION/SURGERY: 08/24/16 ATTENDING PHYSICIAN: Dr. Hannah (DICTATED BY SHARON CARRERO) PROCEDURE: Conversion from left hip navid to left total hip arthroplasty. CHIEF COMPLAINT: Left hip pain. HISTORY OF PRESENT ILLNESS: Ms. Moss is a 75-year-old female who underwent a left hip hemiarthroplasty followed by an I and D with removal of hardware and antibiotic spacer placement on 06/01/16. She has been on IV antibiotics managed by Dr. Hernandez. She has completed her IV antibiotics and is scheduled to proceed with revision to left total hip. PAST MEDICAL HISTORY: Hypertension, high cholesterol, CVA, dementia. PAST SURGICAL HISTORY: Cholecystectomy, hysterectomy, left hip hemiarthroplasty , I and D of the left hip. CURRENT MEDICATIONS: 1. Losartan 50 mg once a day. 2. Donepezil 10 mg. 3. Amlodipine 5 mg. 4. Calcium with vitamin D. 5. Cyanocobalamin. 6. Warfarin. 7. Cymbalta. 8. Nystatin powder. 9. Omeprazole. 10. Percocet. 11. Tylenol. 12. VESIcare 5 mg. ALLERGIES: No known drug allergies. FAMILY HISTORY: Breast cancer. SOCIAL HISTORY: This is a 75-year-old female. She is currently residing at [facility]. She does not smoke, use drugs, or alcohol. REVIEW OF SYSTEMS: A complete 14-point review of systems was reviewed with the patient; positive for stroke in 2004. PHYSICAL EXAMINATION GENERAL: She is well developed and well nourished, she is in no acute distress. VITAL SIGNS: She stands 5 feet 8 inches tall, weighs 190 pounds. Her blood pressure is 131/60, heart rate is 69. HEENT: Normocephalic and atraumatic. NECK: Supple. No palpable lymph nodes. PULMONARY: The lungs are clear to auscultation. CARDIO: Regular rate and rhythm. Strong S1 and S2. ABDOMEN: Soft, nontender, and nondistended. NEUROLOGICAL: She is alert and oriented x3. MUSCULOSKELETAL: Left lower extremity, the skin in intact. Her lower extremity muscle group strengths are intact at 5/5. She has 2+ dorsalis pedis pulses and intact sensation. ASSESSMENT AND PLAN: Ms. Moss is a 75-year-old female who recently underwent an I and D of the left hip with hardware removal and antibiotic spacer placement back in May. She has completed her IV antibiotic therapy and she is scheduled to undergo conversion to her left total hip on 08/24/[address] Hannah discussed the risks and the benefits of surgery and all of her questions were answered. She is currently at [facility]. She was instructed to stop her Coumadin as of today. She will follow with Dr. Hannah 2 weeks after the surgery. SHARON CARRERO [id number]/[facility] #: [id number] MTDGerard
[~2016-08-24 10:00] MED LIST: Buffered Lidocaine 0.9% SYRIN* 5 ML/SYR SYRINGE INTRADERM ONE; Famotidine IV* 10 MG/ML 2 ML (20 mg) IV ONE; Metoclopramide TAB* 10 MG PO ONE
[2016-08-24] MEDS ORDERED: Famotidine IV* 10 MG/ML 2 ML (20 mg) ONE (10:10)
[2016-08-24] MEDS ORDERED: Metoclopramide TAB* 10 MG ONE (10:10)
[2016-08-24] MEDS ORDERED: ceFAZolin 2 GM PREMIX(*) 2 GM/50 ML BAG IVPB ONE (10:10)
[2016-08-24] MEDS ORDERED: Buffered Lidocaine 0.9% SYRIN* 5 ML/SYR SYRINGE ONE (10:11)
[2016-08-24] MEDS ORDERED: fentaNYL* 50 MCG/ML 5 ML VIAL (250 MCG VIAL) ONE (11:44)
[2016-08-24] MEDS ORDERED: Dexamethasone IV* 4 MG/ML 1 ML (4 MG) ONE (11:44)
[2016-08-24] MEDS ORDERED: Ondansetron INJ* 2 MG/ML VIAL ONE (11:44)
[2016-08-24] MEDS ORDERED: KETAMINE HCL* 50 MG/ML 10 ML VIAL ONE (11:44)
[2016-08-24] MEDS ORDERED: Propofol* 10 MG/ML 20 ML BTL IV PUSH ONE (11:44)
[2016-08-24] MEDS ORDERED: Lidocaine 2% PF * 5 ML VIAL ONE (11:44)
[2016-08-24] MEDS ORDERED: Ketorolac INJ* 30 MG/ML 1 ML VIAL ONE (11:44)
[2016-08-24] MEDS ORDERED: Midazolam* 1 MG/ML 5 ML VIAL (5 MG) ONE (11:44)
[2016-08-24] MEDS ORDERED: Cisatracurium* 2 MG/ML MDV 5 ML ONE (11:44)
[2016-08-24] MEDS ORDERED: Levalbuterol HFA INHALER* 1 PUFF MDI ONE (13:03)
[2016-08-24] MEDS ORDERED: Phenylephrine IV* 40 MCG/ML 10 ML SYRINGE ONE (13:22)
[2016-08-24] MEDS ORDERED: fentaNYL* 50 MCG/ML 2 ML VIAL (100 MCG VIAL) ONE ×3 (13:48→17:24)
[2016-08-24] MEDS ORDERED: Labetalol IV* 5 MG/ML 20 ML VIAL ONE (14:20)
[2016-08-24] MEDS ORDERED: EPHEDrine (Pressors)* 50 MG/ML VIAL ONE (14:29)
[2016-08-24] MEDS ORDERED: Phenylephrine INJ* 10 MG/ML 1 ML VIAL (10 MG) ONE (15:32)
[2016-08-24] MEDS ORDERED: Glycopyrrolate IV* 0.2 MG/ML 1 ML VIAL ONE (15:37)
--- NOTE | 2016-08-24 16:23 | RAD ---
INDICATION: LEFT hip prosthesis revision. COMPARISON: July 16, 2016 TECHNIQUE: 10.6 seconds fluoroscopy. FINDINGS: Spot image documents the metallic femoral stem terminating at the proximal diaphysis of the femur. IMPRESSION: Procedural fluoroscopy. CPT II Codes: 6045F
[2016-08-24] MEDS ORDERED: Bupivacaine 0.5% SDV PF* 30 ML VIAL ONE (16:24)
--- NOTE | 2016-08-24 16:25 | RAD ---
Indication: LEFT hip revision. Comparison: July 16, 2016 Technique: Portable cross table RIGHT lateral decubitus AP pelvis 1545 hours Report: Noncemented LEFT total hip prosthesis in place. The tip of the femoral stem is not included within the [id number]. No periprosthetic fracture evident within the [id number]. IMPRESSION: Intraoperative control film.
[2016-08-24] MEDS ORDERED: Acetaminophen TAB* 325 MG PO PRN (17:04)
[2016-08-24] MEDS ORDERED: Ondansetron INJ* 2 MG/ML VIAL IV PRN ×2 (17:10→17:24)
[2016-08-24] MEDS ORDERED: oxyCODONE TAB* 5 MG TAB PO PRN (17:10)
[2016-08-24] MEDS ORDERED: Polyethylene Glycol 3350* 17 GM PACKET PO PRN (17:10)
[2016-08-24] MEDS ORDERED: diPHENhydraMINE PO* 25 MG PO PRN (17:10)
[2016-08-24] MEDS ORDERED: Bisacodyl SUPP* 10 MG SUPP PR PRN (17:10)
[2016-08-24] MEDS ORDERED: Morphine INJ* 10 MG/ML 1 ML SYRINGE IV PRN (17:10)
[2016-08-24] MEDS ORDERED: diPHENhydraMINE IV* 50 MG/ML 1 ml VIAL (BENADRYL) IV PRN (17:10)
[2016-08-24] MEDS ORDERED: Ondansetron TAB* 4 MG PO PRN (17:10)
[2016-08-24] MEDS ORDERED: HYDROmorphone* 1 MG/ML 1 ML SYR IV PRN (17:24)
[2016-08-24] MEDS: fentaNYL* 50 MCG/ML 2 ML VIAL (100 MCG VIAL) IV PRN ×2 (17:28→17:36)
[2016-08-24] MEDS ORDERED: oxyCODONE TAB* 5 MG TAB ONE (17:33)
--- NOTE | 2016-08-24 18:53 | RAD ---
INDICATION: Left hip revision COMPARISON: Left hip August 24, 2016 TECHNIQUE: AP and crosstable lateral imaging of the left hip was performed. FINDINGS: There is left hip arthroplasty. The prosthesis appears well seated. There are soft tissue changes compatible with recent surgery. IMPRESSION: LEFT HIP ARTHROPLASTY. NO EVIDENCE OF HARDWARE FAILURE.
--- NOTE | 2016-08-24 18:54 | RAD ---
INDICATION: Left hip arthroplasty COMPARISON: Left hip August 24, 2016 TECHNIQUE: A portable image of the pelvis is submitted FINDINGS: There is left hip arthroplasty. The prosthesis appears normally seated. There is underlying osteopenia. There are soft tissue changes compatible with recent surgery. No additional significant findings IMPRESSION: LEFT HIP ARTHROPLASTY.
--- NOTE | 2016-08-24 18:56 | RAD ---
INDICATION: Left hip arthroplasty COMPARISON: Left hip and pelvis July 16, 2016 TECHNIQUE: 2 views of the left femur were obtained with portable technique. FINDINGS: There is left hip arthroplasty. The prosthesis appears well seated. There is no evidence of periprosthetic fracture or other acute bony findings. There are soft tissue changes compatible with recent surgery. IMPRESSION: LEFT HIP ARTHROPLASTY. NO EVIDENCE OF HARDWARE FAILURE.
[2016-08-24 19:43] LABS: Hematocrit 35 % (35-47); Mean Corpuscular HGB Conc 32 g/dl (31-36); Mean Corpuscular Hemoglobin 27 pg (27-31); Mean Corpuscular Volume 84 fL (80-97); Mean Platelet Volume 8 um3 (7.4-10.4); Red Blood Count 4.11 10^6/ul (4.0-5.4); Red Cell Distribution Width 14 % (10.5-15); White Blood Count 21.3 10^3/ul (3.5-10.8)
[2016-08-24] MEDS ORDERED: Warfarin TAB(*) 6 MG PO ONE (20:00)
[2016-08-24] MEDS: Donepezil TAB* 5 MG PO SCH (20:37)
[2016-08-24] MEDS: ceFAZolin VIAL(*) 1 GM in NS 0.9% 50 ML* 50 ML IVPB SCH (20:37)
[2016-08-24] MEDS: Magnesium Hydroxide LIQ* 30 ML UDC PO SCH (20:37)
[2016-08-24] MEDS: Tobramycin 0.3% OPHTH.OINT* 3.5 GM TUBE (OPTH OINTMENT) LEFT EYE SCH (20:37)
[2016-08-24] MEDS: Docusate CAP* 100 MG PO SCH (20:37)
[2016-08-24] MEDS: oxyCODONE/Acetamin 5/325 MG* TAB PO PRN (22:34)
[2016-08-24] MEDS ORDERED: NS 0.9% 500 ML BAG* 500 ML IV ONE (23:00)
--- NOTE | 2016-08-25 00:24 | CONS ---
CC: Dr. Lionel Cowan; Dr. Hannah. * CONSULTATION REPORT: DATE OF CONSULT: 08/24/16 PRIMARY CARE PROVIDER: Dr. Lionel Cowan. PHYSICIAN REQUESTING CONSULT: Dr. Hannah. CHIEF COMPLAINT: Status post left hip replacement. REASON FOR CONSULTATION: Medical management of patient status post left total hip replacement and significant intraoperative blood loss of approximately 1000 mL. HISTORY OF PRESENT ILLNESS: Lorin Moss is a 75-year-old female, who has had a turbulent medical history in the past several months. She started complaining of left hip pain in May 2016. At this point, aspiration of the hip yielded cultures positive for MSSA. She was subsequently admitted to the hospital at the end of May 2016. Her left hip prosthesis was removed and the patient was temporized with antibiotic cement and a spacer. The patient was discharged to rehabilitation facility with 2 months worth of IV cefazolin. Today, she came back to the hospital to have her hip replaced again. Intraoperatively, she lost significant amount of blood and 2 units of packed red blood cells were transfused. The patient was under general anesthesia and occasionally would be hypotensive with systolic pressures in the 80s and 90s, but most of the time, she actually did reasonably well. She is seen postoperatively mildly sedated. PAST MEDICAL HISTORY: 1. History of septic left hip with MSSA as mentioned above. The prosthesis that originally was placed 4 or 5 years ago was discontinued in May 2016 and temporary spacer was placed. The patient was on 2 months of antibiotics under the care of Dr. Hernandez and now is status post treatment with new left hip replacement. 2. Hypertension. 3. Hyperlipidemia. 4. CVA in 2014. 5. History of hysterectomy. 6. History of cholecystectomy. 7. History of memory impairment. MEDICATIONS AT HOME: Include: 1. Oxycodone 1 tablet on a p.r.n. basis. 2. The patient had been on Coumadin up to just a few days prior to the current procedure. 3. VESIcare 5 mg daily. 4. Omeprazole 20 mg daily. 5. Meloxicam 7.5 mg daily. 6. Losartan 50 mg daily. 7. Aricept 10 mg at bedtime. 8. Cymbalta 30 mg daily. 9. Vitamin B12 1000 mcg daily. 10. Calcium and vitamin D 1 tablet b.i.d. 11. Norvasc 5 mg daily. 12. Acetaminophen on a p.r.n. basis. ALLERGIES: No known drug allergies. FAMILY HISTORY: Positive for breast cancer. SOCIAL HISTORY: The patient is currently a resident at [facility]. She had been nonweightbearing on the left leg prior to the surgery. There is no history of alcohol, tobacco or drug use. She mentions her daughter, Chantell Montesinos, as her surrogate. REVIEW OF SYSTEMS: Very limited from this patient. The patient is still fairly sedated after her general anesthesia. She complains of no pain. Other remaining 14 systems were unable to be completed due to patient's sedation postoperatively. PHYSICAL EXAMINATION: Blood pressure 110/36, heart rate of 76 and regular, respiratory rate 18, oxygen saturation 98% on 2 liters of oxygen on nasal cannula, temperature of 96.5. General: This is a very pleasant 75-year-old female, lethargic and sedated. She is easily arousable though. She is oriented x2. HEENT: Head: Atraumatic, normocephalic. Eyes: Pupils equal, reactive to light and accommodation. Oropharynx clear. Mucosa moist. Neck: Supple. No JVD, no bruit bilaterally. Cardiovascular: Regular rate and rhythm. No murmur. Respiratory: Clear to auscultation bilaterally. Abdomen: Soft, nontender. Bowel sounds present in all 4 quadrants. Extremities: There is no edema. Pulses are +2 bilaterally. There is no clubbing or cyanosis. On evaluation of the skin, the patient's left postoperative hip dressing was not removed. There is no evidence of gross hematoma in the left thigh area. Neuro Evaluation: Speech clear. Cranial nerves II through XII grossly intact. Motor strength is nonfocal, 5/5 bilaterally. There is a limited range of motion in the left postop hip. DIAGNOSTIC STUDIES/LAB DATA: Today's laboratory data is not yet obtained. ASSESSMENT AND PLAN: A 75-year-old female with history of recent left septic hip with a prosthesis that needed to be removed and antibiotic spacer placed. She is status post 2 months of IV antibiotic treatment and currently just underwent left hip replacement again. She had significant intraoperative bleeding with approximately 1000 mL of intraoperative blood loss. Two units of packed red blood cells were transfused. 1. In regards to the patient's perioperative blood loss, after transfusion of 2 units, patient's hemoglobin and hematocrit is going to be obtained today. 2. In regards to the patient's history of hypotension postoperatively and due to her blood loss, she most likely will not require any blood pressure medications and that will be held. 3. In regards to the patient's history of memory impairment/dementia, Aricept is going to be continued. 4. In regards to DVT prophylaxis, I will defer it to patient's primary service. I suspect that orthopedic service will not place the patient on anticoagulant just yet. 5. In regards to the patient's code status, the patient is a full code. TIME SPENT: Approximately 55 minutes was spent in consultation of this patient. Thank you very much for allowing me to see your patient in consultation. We will follow on a daily basis. [id number]/[facility] #: [id number] ANJEL
[2016-08-25] MEDS: ceFAZolin VIAL(*) 1 GM in NS 0.9% 50 ML* 50 ML IVPB SCH ×2 (04:50→13:33)
[2016-08-25] MEDS: oxyCODONE/Acetamin 5/325 MG* TAB PO PRN ×3 (04:51→18:12)
[2016-08-25 05:00] LABS: Hematocrit 30 % (35-47); Hemoglobin 9.7 g/dl (12.0-16.0); Mean Corpuscular HGB Conc 32 g/dl (31-36); Mean Corpuscular Hemoglobin 27 pg (27-31); Mean Corpuscular Volume 84 fL (80-97); Mean Platelet Volume 8 um3 (7.4-10.4); Red Blood Count 3.59 10^6/ul (4.0-5.4); Red Cell Distribution Width 14 % (10.5-15); White Blood Count 15.9 10^3/ul (3.5-10.8)
[2016-08-25] MEDS ORDERED: NS 0.9% IV ONE (05:42)
[2016-08-25 05:55] LABS: Calcium 8.4 mg/dL (8.6-10.3); EGFR African American 93.7 (>60); EGFR Non-African American 72.9 (>60); Magnesium 1.6 mg/dL (1.9-2.7); Potassium 4.4 mmol/L (3.5-5.0)
--- NOTE | 2016-08-25 07:54 | PN ---
Progress Note - Progress Note SOAP: Subjective: Pt. is alert, reports pain is controlled. Objective: LLE - dressing c/d/i. thigh soft, distally nvi with +df/pf, full sens lt, 2+ dp pulse. Vital Signs: Temp Pulse Resp BP Pulse Ox 97.6 F 88 14 128/50 99 08/25/16 07:40 08/25/16 06:30 08/25/16 06:00 08/25/16 06:30 08/25/16 06:30 Laboratory Results - last 24 hr 08/24/16 08/25/16 08/25/16 19:30 04:45 04:45 WBC 21.3 H 15.9 H RBC 4.11 3.59 L Hgb 11.0 L 9.7 L Hct 35 30 L MCV 84 84 MCH 27 27 MCHC 32 32 RDW 14 14 Plt Count 371 317 MPV 8 8 Neut % (Auto) 92.4 H 87.6 H Lymph % (Auto) 3.1 L 5.1 L Henderson % (Auto) 4.1 7.0 Eos % (Auto) 0.1 0 Baso % (Auto) 0.3 0.3 Absolute Neuts (auto) 19.7 H 13.9 H Absolute Lymphs (auto) 0.7 L 0.8 L Absolute Monos (auto) 0.9 H 1.1 H Absolute Eos (auto) 0 0 Absolute Basos (auto) 0.1 0 Absolute Nucleated RBC 0 0 Nucleated RBC % 0 0 INR (Anticoag Therapy) Sodium 134 Potassium 4.4 Chloride 101 Carbon Dioxide 26 Anion Gap 7 BUN 20 Creatinine 0.77 Est GFR ( Amer) 93.7 Est GFR (Non-Af Amer) 72.9 BUN/Creatinine Ratio 26.0 H Glucose 193 H Calcium 8.4 L Magnesium 1.6 L 08/25/16 04:45 WBC RBC Hgb Hct MCV MCH MCHC RDW Plt Count MPV Neut % (Auto) Lymph % (Auto) Henderson % (Auto) Eos % (Auto) Baso % (Auto) Absolute Neuts (auto) Absolute Lymphs (auto) Absolute Monos (auto) Absolute Eos (auto) Absolute Basos (auto) Absolute Nucleated RBC Nucleated RBC % INR (Anticoag Therapy) 0.99 Sodium Potassium Chloride Carbon Dioxide Anion Gap BUN Creatinine Est GFR ( Amer) Est GFR (Non-Af Amer) BUN/Creatinine Ratio Glucose Calcium Magnesium Assessment: 75 yo F pod 1 s/p revision LTHA Plan: 50% wb LLE pt/ot 8 mg coumadin tonight with lovenox bridge plan transfer to [facility] today if hospitalist group agrees d/c plan is snf
[2016-08-25] MEDS ORDERED: Magnesium Sulfate 2 GM IV* 2 GM/50 ML BAG IVPB ONE (08:31)
[2016-08-25] MEDS: Vitamin THERAPEUTIC TAB PO SCH (08:41)
[2016-08-25] MEDS: CMCS: Solifenacin(NF) 5 MG TAB PO SCH (08:41)
[2016-08-25] MEDS: Docusate CAP* 100 MG PO SCH ×2 (08:41→21:18)
[2016-08-25] MEDS: Cyanocobalamin TAB* 500 MCG PO SCH (08:42)
[2016-08-25] MEDS: Magnesium Hydroxide LIQ* 30 ML UDC PO SCH ×2 (08:42→21:18)
[2016-08-25] MEDS: DULoxetine DR CAP* 30 MG CAP.DR PO SCH (08:42)
[2016-08-25] MEDS: Omeprazole CAP* 20 MG PO SCH (08:42)
[2016-08-25] MEDS ORDERED: amLODIPine TAB* 5 MG PO SCH (09:00)
[2016-08-25] MEDS ORDERED: Losartan TAB* 25 MG PO SCH (09:00)
--- NOTE | 2016-08-25 10:10 | OP ---
DATE OF OPERATION: 08/24/16 - ROOM #350 DATE OF : 38 ATTENDING SURGEON: Kirstin Hannah MD. WHIPPED TOPPING FINISHER: SHARON Wilcox. Brittanie did help throughout the procedure with preparation of the leg, wound retraction, manipulation of the hip, and wound closure. ANESTHESIOLOGIST: Dr. Camacho. ANESTHESIA: General. 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 OPERATIVE PROCEDURE: 1. Antibiotic cement spacer removal. 2. Revision left total hip arthroplasty. HARDWARE USED: This is uncemented [place] total hip arthroplasty hardware. For the acetabular cup, Trident hemispherical acetabular shell 52E, two screws were used length 20 mm and 16 mm. For the liner an MDM cementless liner 42E. For the femoral stem a Evangelical modular hip system was used. For the distal stem a 17- mm diameter with 127 length. For the body a size 23 height + 0 with a V40 taper. For the head a Biolox delta ceramic V40 femoral head 28 +4 with an X3 insert for MDM 28/40/42A. ESTIMATED BLOOD LOSS: 1000 cc. COMPLICATIONS: None. SPECIMENS: Explanted cement spacer was sent as well as multiple acetabular reaming. Multiple culture swabs were sent to laboratory for cultures and sensitivities, frozen section was sent at the beginning of the case and pathology read this as no acute inflammation. BRIEF HISTORY/INDICATION: Ms. Moss is a 75-year-old female who presented from an outside institution approximately 6 months ago with hip pain. She had femoral neck fracture treated with left hip hemiarthroplasty. After a workup of her pain, it was found that she had an infection of the left hip arthroplasty. I took her to the operating room for an I and D with explant of the hardware as well as placement of an antibiotic cement spacer back in May of this year. The patient had IV antibiotics through PICC line. Her laboratory values declined to normal values and aspiration of the hip joint did not yield any bacterial growth. Decision was made to take her to the operating room for explant or removal of the antibiotic cement spacer and revision to left total hip arthroplasty. Informed consent was obtained from the patient and her family. They understood the risks of the procedure included, but were not limited to bleeding, infection, damage to nearby structures, continued pain , need for further surgery, intraoperative fracture, continued infection, leg length discrepancy, dislocation, stroke, heart attack, blood clot, and . They wished to proceed. FINDINGS: Intraoperatively, the patient was noted to have no obvious purulence. Frozen section showed no acute inflammation. Multiple culture swabs were obtained. She had extreme osteopenia noted in the acetabulum. DESCRIPTION OF PROCEDURE: Ms. Moss was identified in the preanesthesia unit. Her left lower extremity was marked as the correct operative site. Informed consent was signed and placed in the chart. The patient was taken to the operating room and placed under general anesthesia. Jett catheter was placed. The patient was placed in the right lateral decubitus position on the pegboard with all bony prominences well padded. Left lower extremity was prepped and draped in the usual sterile fashion. Preop time -out was made to correctly identify the patient's side and site. Appropriate perioperative antibiotics were given within 1 hour of incision. The patient's prior hip incision was used. A 10 blade was used to dissect down to the lateral fascial layer. Careful dissection as carried out to identify the fascial layer both anteriorly and posteriorly. A Charnley retractor was placed. A single posterior capsular flap was made along the posterior lateral femoral head and neck. The implant was immediately visualized. There was some joint fluid, which was collected and cultures swabs for aerobic, anaerobic, fungal myco-bacterial cultures. At this time, the soft tissue from the left hip joint and capsule was obtained and sent for frozen section. The hip was carefully dislocated. The patient's antibiotic spacer was visualized. The head was carefully removed and sent to Pathology. A flakito was used to remove bone and fibrous tissue from around the shoulder of the implant. A thin osteotome was used to interrupt the cement-bone interface around the spacer. A back flap was used to carefully remove the antibiotic spacer. Next, a back scarper was used to remove fibrous tissue from the femoral canal. At this time, the Pathology Department called and said that there was no acute inflammation on the frozen section. A small reamer was used to proceed distally through the bony shelf noted on prior films. The femoral canal was sequentially hand reamed up to a size-17 reamer. Attention was turned at this point in the procedure to preparation of the acetabulum. The femur was carefully retracted anteriorly. Long handle knife was used to remove any remaining labrum from the acetabular rim. The acetabulum was sequentially reamed to a size-51 reamer. There was significant osteopenia noted. A 51 trial had good fit. A Trident 52E hemispherical acetabular shell was chosen as the final implant. This was impacted into the acetabulum with satisfactory stability. Two screws were placed in the superoposterior quadrant for extra stability. An MDM liner cementless 42E was chosen. This was impacted into the acetabulum without difficulty. Stability of the liner was checked and rechecked and noted to be stable. Attention was turned back to preparation of the femur. A 17 trial distal stem was chosen. Over this, there was sequential remming for the proximal body portion of the stem to a size 23. A trial 23 +0 proximal body was chosen and this was placed on the distal stem trial with the appropriate amount of anteversion. A 28/48 +0 femoral head and liner were placed. These trials were all reduced and the hip was taken through range of motion. Multiple C-arm views confirmed satisfactory placement of the implants. No periprosthetic fractures were noted. The hip was carefully dislocated. All trials were removed from the femur. Final implant impacted was a Evangelical modular hip system distal stem with a diameter of 17 and length of 127. This was impacted into the canal without difficulty. A stable fit was obtained. AP and lateral C-carlton views confirmed satisfactory position of the implant without any periprosthetic fracture. The proximal 23 +0 body was then impacted on to the distal portion of the stem and this was screwed into place. The torque instrument was used to ensure proper tightening. Appropriate anteversion was chosen. Based on templating lesser troch to center of the femoral head measurements a 28 +4 Biolox delta ceramic V40 femoral head was chosen. This was placed with an MDM X3 insert 28/48/42E. This was impacted on to the femoral neck. The hip was reduced and taken through range of motion. The hip was stable in all positions. Final flat-plate AP and pelvis view showed satisfactory leg length and no periprosthetic fractures. The wound was copiously irrigated with sterile saline. Previously tagged capsule was reapproximated to the posterolateral femur through 2 trochanteric drill holes. The lateral fascial layer was reapproximated using interrupted #1 Vicryl. The rest of the incisions was closed in a layered fashion using 0 and 2 -0 Vicryls. Skin was closed using running 3-0 Monocryl suture and Dermabond. Sterile Adaptic, 4 x 4s, and paper tape were placed over the incision. The patient's anesthesia was reversed without difficulty. She was taken to the PACU in stable condition. Intended weightbearing will be weightbearing as tolerated. Intended DVT prophylaxis will be Coumadin with a Lovenox bridge. [id number]/[facility] #: [id number] [facility] HEALTH SYSTEMGerard
--- NOTE | 2016-08-25 14:43 | PN ---
Subjective Date of Service: 08/25/16 Interval History: pt feels better.Post op pain controlled. Received 2L IVF boluses at night due to low UO Objective Active Medications: Acetaminophen (Tylenol Tab*) 650 mg PO Q4H PRN PRN Reason: mild pain or fever Amlodipine Besylate ([facility]asc Tab*) [facility] [place] [facility] Last Admin: 08/25/16 08:42 Dose: 5 mg Bisacodyl (Dulcolax Supp*) 10 mg [place] DAILY PRN PRN Reason: constipation Cyanocobalamin (Vitamin B12 Tab*) 1,000 mcg [facility] [place] [facility] [place] Last Admin: 08/25/16 08:42 Dose: 1,000 mcg Diphenhydramine HCl (Benadryl Iv*) 25 mg IV Q6H PRN PRN Reason: itching Diphenhydramine HCl (Benadryl Po*) 25 mg PO Q6H PRN PRN Reason: INSOMNIA Docusate Sodium (Colace Cap*) 100 mg PO BID [facility] Last Admin: 08/25/16 08:41 Dose: 100 mg Donepezil HCl (Aricept Tab*) 10 mg PO BEDTIME [facility] Last Admin: 08/24/16 20:37 Dose: 10 mg Duloxetine HCl (Cymbalta Cap*) [address] [facility] Last Admin: 08/25/16 08:42 Dose: 30 mg Enoxaparin Sodium (Lovenox(*)) 30 mg SUBCUT Q24H [facility] Lactated Ringer's (Lactated Ringers 1000 Ml Bag*) 1,000 mls @ 100 mls/hr IV PER RATE [facility] Last Admin: 08/25/16 04:51 Dose: 100 mls/hr Lactulose (Lactulose*) 30 ml PO Q6H PRN PRN Reason: constipation Magnesium Hydroxide (Milk Of Magnesia Liq*) 30 ml PO BID [facility] Last Admin: 08/25/16 08:42 Dose: 30 ml Morphine Sulfate (Morphine Inj (Syringe)*) 5 mg IV Q2H PRN PRN Reason: PAIN Multivitamins (Theragran Tab*) 1 tab PO DAILY [facility] Last Admin: 08/25/16 08:41 Dose: 1 tab Omeprazole (Prilosec Cap*) 20 mg PO DAILY@0730 [facility] Last Admin: 08/25/16 08:42 Dose: 20 mg Ondansetron HCl (Zofran Inj*) 4 mg IV Q6H PRN PRN Reason: nausea Ondansetron HCl (Zofran Tab*) 4 mg PO Q6H PRN PRN Reason: NAUSEA Last Admin: 08/25/16 08:43 Dose: 4 mg Oxycodone HCl (Roxycodone Tab*) 10 mg PO Q4H PRN PRN Reason: PAIN - BREAKTHROUGH Last Admin: 08/24/16 17:34 Dose: 10 mg Oxycodone/Acetaminophen (Percocet 5/325 Tab*) 2 tab PO Q3H PRN PRN Reason: PAIN - MODERATE Last Admin: 08/25/16 09:35 Dose: 2 tab Oxycodone/Acetaminophen (Percocet 5/325 Tab*) 1 tab PO Q3H PRN PRN Reason: PAIN - MODERATE Pharmacy Profile Note (Coumadin Daily Reminder*) 1 note FOLLOW UP 1700 [facility] Polyethylene Glycol/Electrolytes (Miralax*) 17 gm PO DAILY PRN PRN Reason: Constipation Solifenacin (Vesicare(Nf)) 5 mg PO QAM [facility] Last Admin: 08/25/16 08:41 Dose: 5 mg Tobramycin Sulfate (Tobrex 0.3% Ophth.Oint*) 1 applic LEFT EYE BEDTIME [facility] Last Admin: 08/24/16 20:37 Dose: 1 applic Warfarin Sodium (Coumadin Tab(*)) 8 mg PO ONCE@1700 ONE PRN Reason: Protocol Stop: 08/25/16 17:01 Vital Signs 08/24/16 08/24/16 08/24/16 16:55 17:00 17:05 Temperature 97.7 F Pulse Rate 68 74 85 Respiratory 18 24 22 Rate Blood Pressure 111/62 106/61 117/65 (mmHg) O2 Sat by Pulse 98 97 98 Oximetry 08/24/16 08/24/16 08/24/16 17:10 17:15 17:28 Temperature Pulse Rate 82 81 Respiratory 24 24 22 Rate Blood Pressure 119/62 115/75 (mmHg) O2 Sat by Pulse 99 99 Oximetry 08/24/16 08/24/16 08/24/16 17:29 17:36 17:45 Temperature 97.9 F Pulse Rate 79 77 Respiratory 18 18 18 Rate Blood Pressure 105/46 100/56 (mmHg) O2 Sat by Pulse 99 97 Oximetry 08/24/16 08/24/16 08/24/16 18:00 18:30 18:49 Temperature 96.5 F Pulse Rate 79 76 67 Respiratory 20 18 Rate Blood Pressure 107/54 110/36 (mmHg) O2 Sat by Pulse 100 98 100 Oximetry 08/24/16 08/24/16 08/24/16 19:00 19:30 19:47 Temperature 98.1 F Pulse Rate 72 85 Respiratory 18 Rate Blood Pressure 101/58 118/75 (mmHg) O2 Sat by Pulse 100 97 Oximetry 08/24/16 08/24/16 08/24/16 20:00 20:30 20:53 Temperature Pulse Rate 78 76 Respiratory 18 Rate Blood Pressure 101/60 108/58 (mmHg) O2 Sat by Pulse 97 99 Oximetry 08/24/16 08/24/16 08/24/16 21:00 21:30 22:00 Temperature Pulse Rate 43 74 77 Respiratory 18 18 Rate Blood Pressure 95/72 108/51 126/64 (mmHg) O2 Sat by Pulse 98 100 99 Oximetry 08/24/16 08/24/16 08/24/16 22:30 22:34 23:00 Temperature Pulse Rate 76 74 Respiratory 18 15 Rate Blood Pressure 131/56 117/45 (mmHg) O2 Sat by Pulse 98 99 Oximetry 08/24/16 08/24/16 08/24/16 23:30 23:36 23:46 Temperature 96.4 F Pulse Rate 75 84 Respiratory Rate Blood Pressure 119/54 (mmHg) O2 Sat by Pulse 99 99 Oximetry 08/25/16 08/25/16 08/25/16 00:00 00:01 00:06 Temperature Pulse Rate 82 83 Respiratory 16 Rate Blood Pressure 123/50 (mmHg) O2 Sat by Pulse 99 99 99 Oximetry 08/25/16 08/25/16 08/25/16 00:30 01:00 01:30 Temperature Pulse Rate 86 63 55 Respiratory 16 Rate Blood Pressure 121/59 110/55 121/61 (mmHg) O2 Sat by Pulse 99 99 99 Oximetry 08/25/16 08/25/16 08/25/16 02:00 02:30 02:48 Temperature Pulse Rate 87 95 Respiratory 16 Rate Blood Pressure 139/56 95/41 118/50 (mmHg) O2 Sat by Pulse 99 99 Oximetry 08/25/16 08/25/16 08/25/16 03:00 03:30 04:00 Temperature 96.7 F Pulse Rate 86 91 92 Respiratory 16 Rate Blood Pressure 131/56 116/54 (mmHg) O2 Sat by Pulse 98 98 97 Oximetry 08/25/16 08/25/16 08/25/16 04:30 04:35 04:51 Temperature Pulse Rate 91 Respiratory 16 16 Rate Blood Pressure 127/48 (mmHg) O2 Sat by Pulse 97 Oximetry 08/25/16 08/25/16 08/25/16 05:00 05:30 06:00 Temperature Pulse Rate 95 86 87 Respiratory 16 14 Rate Blood Pressure 132/64 116/50 116/58 (mmHg) O2 Sat by Pulse 99 100 99 Oximetry 08/25/16 08/25/16 08/25/16 06:30 07:00 07:30 Temperature Pulse Rate 88 102 87 Respiratory 19 Rate Blood Pressure 128/50 129/59 105/81 (mmHg) O2 Sat by Pulse 99 98 94 Oximetry 08/25/16 08/25/16 08/25/16 07:40 08:00 08:30 Temperature 97.6 F Pulse Rate 82 82 Respiratory 16 Rate Blood Pressure 118/54 111/51 (mmHg) O2 Sat by Pulse 98 98 Oximetry 08/25/16 08/25/16 08/25/16 09:00 09:30 09:35 Temperature Pulse Rate 88 84 Respiratory 18 17 Rate Blood Pressure 109/67 111/59 (mmHg) O2 Sat by Pulse 97 97 Oximetry 08/25/16 08/25/16 08/25/16 10:00 10:30 11:00 Temperature Pulse Rate 94 86 83 Respiratory 17 17 Rate Blood Pressure 117/45 116/46 (mmHg) O2 Sat by Pulse 98 93 90 Oximetry 08/25/16 08/25/16 11:30 11:33 Temperature 97.9 F Pulse Rate 88 Respiratory Rate Blood Pressure 147/129 (mmHg) O2 Sat by Pulse 93 Oximetry Oxygen Devices in Use Now: None Appearance: 75 yo F in nAD, aAOx3 Eyes: No Scleral Icterus, PERRLA Ears/Nose/Mouth/Throat: NL Teeth, Lips, Gums, Mucous Membranes Moist Neck: NL Appearance and Movements; NL JVP, Trachea Midline Respiratory: Symmetrical Chest Expansion and Respiratory Effort, Clear to Auscultation Cardiovascular: NL Sounds; No Murmurs; No JVD, RRR Abdominal: NL Sounds; No Tenderness; No Distention Lymphatic: No Cervical Adenopathy Extremities: No Clubbing, Cyanosis, - - left post op thigh edema, post op dressings not removed Skin: No Nodules or Sclerosis Neurological: Alert and Oriented x 3, NL Muscle Strength and Tone Result Diagrams: 08/25/16 04:45 08/25/16 04:45 Microbiology and Other Data: Microbiology 08/24/16 13:40 Anaerobic Culture - Preliminary Wound - Hip Left No Growth Day 1 Gram Stain - Final Wound Culture - Preliminary No Growth Day 1 08/24/16 19:10 Nasal Screen MRSA (PCR)(ANDREA) - Final Nasal Mrsa Negative Assess/Plan/Problems-Billing Assessment: 75 yo f with h/o left hip septic arthritis, s/p hardware removal and antibiotic spacer placement in 05/21, now s/p left hip replacement - Patient Problems (1) Postoperative anemia due to acute blood loss Comment: s/p 2 u PRBC transfusion intraop and EBL 1000 ml Hb lower today, buty pt is hemodynamically stable and no need for further transfusion cont to monitor in AM (2) HTN (hypertension) Comment: Normotensive. Continue amlodipine and losartan. (3) Hypomagnesemia Comment: replaced IV (4) Leukocytosis Comment: possibly due to stress associated with surgery, resolving, monitor (5) DVT prophylaxis Comment: Warfarin and lovenox Status and Disposition: Medicine consult, will follow
[2016-08-25] MEDS ORDERED: Warfarin TAB(*) 4 MG PO ONE (17:00)
[2016-08-25] MEDS: Enoxaparin(*) 30 MG/0.3 ML SYR SUBCUT SCH (18:02)
[2016-08-25] MEDS: Donepezil TAB* 5 MG PO SCH (21:17)
[2016-08-25] MEDS: Tobramycin 0.3% OPHTH.OINT* 3.5 GM TUBE (OPTH OINTMENT) LEFT EYE SCH ×2 (21:18→21:38)
[2016-08-26] MEDS: oxyCODONE/Acetamin 5/325 MG* TAB PO PRN ×4 (00:21→21:31)
[2016-08-26] MEDS: Omeprazole CAP* 20 MG PO SCH (07:02)
[2016-08-26 07:17] LABS: Hematocrit 22 % (35-47); Mean Corpuscular HGB Conc 32 g/dl (31-36); Mean Corpuscular Hemoglobin 27 pg (27-31); Mean Corpuscular Volume 83 fL (80-97); Mean Platelet Volume 7 um3 (7.4-10.4); Red Blood Count 2.59 10^6/ul (4.0-5.4); Red Cell Distribution Width 14 % (10.5-15); White Blood Count 13.2 10^3/ul (3.5-10.8)
[2016-08-26 07:30] LABS: Calcium 7.7 mg/dL (8.6-10.3); EGFR Non-African American 90.2 (>60); Magnesium 2.2 mg/dL (1.9-2.7); Potassium 4.1 mmol/L (3.5-5.0)
--- NOTE | 2016-08-26 07:31 | PN ---
Progress Note - Progress Note SOAP: Subjective: Pt. reports pain LLE with wb. She is currently 50 % wb lle. Lowered to ground yesterday, will obtain new xrays today. Objective: LLE - dressing changed, inc c/d/i. distally nvi. thigh soft. Vital Signs: Temp Pulse Resp BP Pulse Ox 98.1 F 96 16 117/50 98 08/26/16 03:56 08/26/16 03:56 08/26/16 06:01 08/26/16 03:56 08/26/16 03:56 Laboratory Results - last 24 hr 08/26/16 06:48 WBC 13.2 H RBC 2.59 L Hgb 7.0 L Hct 22 L MCV 83 MCH 27 MCHC 32 RDW 14 Plt Count 268 MPV 7 L Neut % (Auto) 78.8 Lymph % (Auto) 11.4 L [place] % (Auto) 8.4 Eos % (Auto) 1.0 Baso % (Auto) 0.4 Absolute Neuts (auto) 10.4 H Absolute Lymphs (auto) 1.5 Absolute Monos (auto) 1.1 H Absolute Eos (auto) 0.1 Absolute Basos (auto) 0 Absolute Nucleated RBC 0 Nucleated RBC % 0 Assessment: 75 yo F pod 2 s/p removal antibiotic cement spacer with revision LTHA. Plan: 50% wb lle pt/ot post hip precautions xrays today. plan d/c to snf 1 unit prbc today
[2016-08-26] MEDS: amLODIPine TAB* 5 MG PO SCH (08:59)
[2016-08-26] MEDS: Losartan TAB* 25 MG PO SCH (08:59)
[2016-08-26] MEDS: Docusate CAP* 100 MG PO SCH ×2 (09:00→21:31)
[2016-08-26] MEDS: Vitamin THERAPEUTIC TAB PO SCH (09:00)
[2016-08-26] MEDS: Magnesium Hydroxide LIQ* 30 ML UDC PO SCH ×2 (09:00→21:31)
[2016-08-26] MEDS ORDERED: Losartan TAB* 25 MG PO SCH (09:00)
[2016-08-26] MEDS: Cyanocobalamin TAB* 500 MCG PO SCH (09:00)
[2016-08-26] MEDS: DULoxetine DR CAP* 30 MG CAP.DR PO SCH (09:00)
[2016-08-26] MEDS: CMCS: Solifenacin(NF) 5 MG TAB PO SCH (09:02)
--- NOTE | 2016-08-26 09:13 | RAD ---
Indication: Postop LEFT hip revision. Question fall. Comparison: August 24, 2016 radiographs. Technique: AP pelvis and AP and crosstable lateral views LEFT hip. Report: The prosthetic LEFT hip is normally located. No evidence for periprosthetic or other fracture. Postoperative soft tissue edema and subcutaneous emphysema about the LEFT hip. IMPRESSION: Stable appearance of the revised LEFT hip prosthesis compared with the August 24, 2016 exam. No new traumatic injury evident.
--- NOTE | 2016-08-26 12:31 | PN ---
Subjective Date of Service: 08/26/16 Interval History: Pt feels well. Had a fall when transferred form ICU to [facility] on 08/25/16, no LOC. Post op pain controlled Objective Active Medications: Acetaminophen (Tylenol Tab*) 650 mg PO Q4H PRN PRN Reason: mild pain or fever Amlodipine Besylate (Norvasc Tab*) [facility] [facility] Admin: 08/26/16 08:59 Dose: Not Given Bisacodyl (Dulcolax Supp*) 10 mg [place] DAILY PRN PRN Reason: constipation Cyanocobalamin (Vitamin B12 Tab*) 1,000 [facility]cg [facility] [place] Last Admin: 08/26/16 09:00 Dose: 1,000 mcg Diphenhydramine HCl (Benadryl Iv*) 25 mg IV Q6H PRN PRN Reason: itching Diphenhydramine HCl (Benadryl Po*) 25 mg PO Q6H PRN PRN Reason: INSOMNIA Docusate Sodium (Colace Cap*) 100 mg PO BID [facility] Last Admin: 08/26/16 09:00 Dose: 100 mg Donepezil HCl (Aricept Tab*) 10 mg PO BEDTIME [facility] Last Admin: 08/25/16 21:17 Dose: 10 mg Duloxetine HCl (Cymbalta Cap*) [facility] [place] Last Admin: 08/26/16 09:00 Dose: 30 mg Enoxaparin Sodium (Lovenox(*)) 30 mg SUBCUT Q24H [facility] Last Admin: 08/25/16 18:02 Dose: 30 mg Lactulose (Lactulose*) 30 ml PO Q6H PRN PRN Reason: constipation Losartan Potassium (Cozaar Tab*) 50 mg PO DAILY [facility] Last Admin: 08/26/16 08:59 Dose: Not Given Magnesium Hydroxide (Milk Of Magnesia Liq*) 30 ml PO BID [facility] Last Admin: 08/26/16 09:00 Dose: 30 ml Morphine Sulfate (Morphine Inj (Syringe)*) 5 mg IV Q2H PRN PRN Reason: PAIN Multivitamins (Theragran Tab*) 1 tab PO DAILY [facility] Last Admin: 08/26/16 09:00 Dose: 1 tab Omeprazole (Prilosec Cap*) 20 mg PO DAILY@0730 [facility] Last Admin: 08/26/16 07:02 Dose: 20 mg Ondansetron HCl (Zofran Inj*) 4 mg IV Q6H PRN PRN Reason: nausea Ondansetron HCl (Zofran Tab*) 4 mg PO Q6H PRN PRN Reason: NAUSEA Last Admin: 08/25/16 08:43 Dose: 4 mg Oxycodone HCl (Roxycodone Tab*) 10 mg PO Q4H PRN PRN Reason: PAIN - BREAKTHROUGH Last Admin: 08/24/16 17:34 Dose: 10 mg Oxycodone/Acetaminophen (Percocet 5/325 Tab*) 2 tab PO Q3H PRN PRN Reason: PAIN - MODERATE Last Admin: 08/26/16 09:28 Dose: 2 tab Oxycodone/Acetaminophen (Percocet 5/325 Tab*) 1 tab PO Q3H PRN PRN Reason: PAIN - MODERATE Pharmacy Profile Note (Coumadin Daily Reminder*) 1 note FOLLOW UP 1700 [facility] Last Admin: 08/25/16 18:11 Dose: 1 note Polyethylene Glycol/Electrolytes (Miralax*) 17 gm PO DAILY PRN PRN Reason: Constipation Solifenacin (Vesicare(Nf)) 5 mg PO QAM [facility] Last Admin: 08/26/16 09:02 Dose: 5 mg Tobramycin Sulfate (Tobrex 0.3% Ophth.Oint*) 1 applic LEFT EYE BEDTIME [facility] Last Admin: 08/25/16 21:38 Dose: 1 applic Warfarin Sodium (Coumadin Tab(*)) 6 mg PO ONCE@1700 ONE PRN Reason: Protocol Stop: 08/26/16 17:01 Vital Signs 08/25/16 08/25/16 08/25/16 13:00 14:00 15:00 Temperature Pulse Rate 89 97 73 Respiratory 17 17 17 Rate Blood Pressure 100/60 114/60 (mmHg) O2 Sat by Pulse 93 94 91 Oximetry 08/25/16 08/25/16 08/25/16 15:01 15:48 16:00 Temperature 98.2 F Pulse Rate 47 49 Respiratory Rate Blood Pressure 121/60 115/72 (mmHg) O2 Sat by Pulse 90 93 93 Oximetry 08/25/16 08/25/16 08/25/16 17:27 17:35 17:59 Temperature 97.3 F 97.3 F 98.4 F Pulse Rate 91 91 94 Respiratory 18 16 16 Rate Blood Pressure 143/65 143/65 110/56 (mmHg) O2 Sat by Pulse 92 92 94 Oximetry 08/25/16 08/25/16 08/25/16 18:12 18:50 18:54 Temperature 98.0 F 97.8 F Pulse Rate 97 94 Respiratory 16 17 17 Rate Blood Pressure 102/38 114/40 (mmHg) O2 Sat by Pulse 95 93 Oximetry 08/25/16 08/25/16 08/25/16 19:50 19:54 20:00 Temperature 98.3 F Pulse Rate 96 Respiratory 17 16 Rate Blood Pressure 125/39 115/42 (mmHg) O2 Sat by Pulse 95 Oximetry 08/25/16 08/25/16 08/26/16 21:30 21:45 00:00 Temperature 98.6 F 98.6 F Pulse Rate 88 90 Respiratory 16 16 Rate Blood Pressure 118/52 116/48 (mmHg) O2 Sat by Pulse 95 96 100 Oximetry 08/26/16 08/26/16 08/26/16 00:18 00:20 00:21 Temperature 98.1 F Pulse Rate 98 Respiratory 16 18 Rate Blood Pressure 113/36 112/52 (mmHg) O2 Sat by Pulse 100 Oximetry 08/26/16 08/26/16 08/26/16 02:21 03:56 04:01 Temperature 98.1 F Pulse Rate 96 Respiratory 16 16 18 Rate Blood Pressure 117/50 (mmHg) O2 Sat by Pulse 98 Oximetry 08/26/16 08/26/16 08/26/16 06:01 07:43 07:44 Temperature 98.0 F Pulse Rate 89 90 Respiratory 16 16 Rate Blood Pressure 97/38 (mmHg) O2 Sat by Pulse 85 89 Oximetry 08/26/16 08/26/16 08/26/16 08:00 08:06 09:15 Temperature 98.0 F Pulse Rate 87 Respiratory 16 16 Rate Blood Pressure 98/48 99/61 (mmHg) O2 Sat by Pulse 89 97 Oximetry 08/26/16 08/26/16 08/26/16 09:28 10:28 11:28 Temperature 98.0 F Pulse Rate 85 Respiratory 16 16 16 Rate Blood Pressure 101/38 (mmHg) O2 Sat by Pulse 100 Oximetry Oxygen Devices in Use Now: Nasal Cannula - at 1L Appearance: 75 yo F in nAD, aAOx3 Eyes: No Scleral Icterus, PERRLA Ears/Nose/Mouth/Throat: NL Teeth, Lips, Gums, Mucous Membranes Moist Neck: NL Appearance and Movements; NL JVP, Trachea Midline Respiratory: Symmetrical Chest Expansion and Respiratory Effort, Clear to Auscultation Cardiovascular: NL Sounds; No Murmurs; No JVD, RRR Abdominal: NL Sounds; No Tenderness; No Distention Lymphatic: No Cervical Adenopathy Extremities: No Clubbing, Cyanosis, - - left thigh edema Skin: - - left hip wound-the surgical dressings not removed Neurological: Alert and Oriented x 3, NL Muscle Strength and Tone Result Diagrams: 08/26/16 06:48 08/26/16 06:48 Microbiology and Other Data: Microbiology 08/24/16 13:40 Anaerobic Culture - Preliminary Wound - Hip Left No Growth Day 1 Gram Stain - Final Wound Culture - Preliminary No Growth Day 1 08/24/16 19:10 Nasal Screen MRSA (PCR)(ANDREA) - Final Nasal Mrsa Negative Assess/Plan/Problems-Billing Assessment: 75 yo f with h/o left hip septic arthritis, s/p hardware removal and antibiotic spacer placement in 05/21, now s/p left hip replacement - Patient Problems (1) Postoperative anemia due to acute blood loss Comment: s/p 2 u PRBC transfusion intraop and EBL 1000 ml Hb lower today,will be transfused another 1 U today (2) HTN (hypertension) Comment: Mild hypotension today. Placed hold parameters on amlodipine and losartan. (3) Hypomagnesemia Comment: replaced IV (4) Leukocytosis Comment: possibly due to stress associated with surgery, resolving, monitor (5) DVT prophylaxis Comment: Warfarin and lovenox Status and Disposition: Medicine consult, will follow
[2016-08-26] MEDS: Enoxaparin(*) 30 MG/0.3 ML SYR SUBCUT SCH (16:53)
[2016-08-26] MEDS ORDERED: Warfarin TAB(*) 6 MG PO ONE (17:00)
[2016-08-26] MEDS: Tobramycin 0.3% OPHTH.OINT* 3.5 GM TUBE (OPTH OINTMENT) LEFT EYE SCH (21:31)
[2016-08-26] MEDS: Donepezil TAB* 5 MG PO SCH (21:31)
[2016-08-27] MEDS: oxyCODONE/Acetamin 5/325 MG* TAB PO PRN ×2 (03:28→08:35)
[2016-08-27 06:50] LABS: Hematocrit 24 % (35-47); Hemoglobin 7.6 g/dl (12.0-16.0)
[2016-08-27] MEDS: Docusate CAP* 100 MG PO SCH (08:34)
[2016-08-27] MEDS: Losartan TAB* 25 MG PO SCH (08:34)
[2016-08-27] MEDS: Omeprazole CAP* 20 MG PO SCH (08:34)
[2016-08-27] MEDS: DULoxetine DR CAP* 30 MG CAP.DR PO SCH (08:35)
[2016-08-27] MEDS: Cyanocobalamin TAB* 500 MCG PO SCH (08:35)
[2016-08-27] MEDS: amLODIPine TAB* 5 MG PO SCH (08:35)
[2016-08-27] MEDS: Vitamin THERAPEUTIC TAB PO SCH (08:35)
[2016-08-27] MEDS: Magnesium Hydroxide LIQ* 30 ML UDC PO SCH (08:36)
[2016-08-27] MEDS: CMCS: Solifenacin(NF) 5 MG TAB PO SCH (08:38)
--- NOTE | 2016-08-27 10:59 | PN ---
Progress Note - Progress Note Date of Service: 08/27/16 SOAP: Subjective: 75 y/o female s/p L BALJINDER revision by DR Hannah 08/24/2016. Patient reports feeling well overall, pain controlled with PO meds. Had 3 units transfusion with H&H stable over past 48 hours. afebrile, vss overnight. no questions with regards to procedure. Objective: General- Well appearing, sitting comfortably, NAD MSK- Incision L intact, C/D/I, no drainage noted, neg homans b/l, sensation to light touch grossly intact b/l LEs, PT 2+ L, + DF/PF. Laboratory Results - last 24 hr 08/26/16 08/27/16 08/27/16 06:48 05:57 05:57 Hgb 7.6 L Hct 24 L INR (Anticoag Therapy) 2.11 H Blood Type O Positive Antibody Screen Negative Crossmatch See Detail Assessment: 75 y/o female s/p L BALJINDER revision by DR Hannah 08/24/2016. Plan: - DVT priophylaxis- INR theraputic, continue coumadin, d/c lovenox - Likely D/C to rehab today- [place] - Follow up with DR. Hannah within 10 days for wound check - OK to leave dressing off wound- no drainage, + incontinent Vital Signs Temp 98.0 F 08/27/16 08:02 Pulse 85 08/27/16 08:02 Resp 16 08/27/16 08:35 BP 124/43 08/27/16 08:02 Pulse Ox 98 08/27/16 08:02 Intake & Output 08/26/16 08/27/16 08/27/16 18:59 06:59 18:59 Intake Total 1201 1000 Output Total 200 Balance 1001 1000 Intake: IV Fluids 71 NS bolus 71 Oral 830 1000 Packed Cells 300 Output: Urine 100 Jett 100 Other: Estimated Void Medium Large # Voids 1 1 Active Medications Generic Name Dose Route Start Last Admin Trade Name Freq PRN Reason Stop Dose Admin Acetaminophen 650 mg 08/24/16 17:04 Tylenol Tab* PO Q4H PRN mild pain or fever Amlodipine Besylate 5 mg 08/26/16 09:00 08/27/16 08:35 Norvasc Tab* PO 5 mg QAM [facility] Administration Bisacodyl 10 mg 08/24/16 17:10 08/27/16 08:35 Dulcolax Supp* ND 10 mg DAILY PRN Administration constipation Cyanocobalamin 1,000 mcg 08/25/16 09:00 08/27/16 08:35 Vitamin B12 Tab* PO 1,000 mcg QAM [facility] Administration Diphenhydramine HCl 25 mg 08/24/16 17:10 Benadryl Iv* IV Q6H PRN itching Diphenhydramine HCl 25 mg 08/24/16 17:10 Benadryl Po* PO Q6H PRN INSOMNIA Docusate Sodium 100 mg 08/24/16 21:00 08/27/16 08:34 Colace Cap* PO 100 mg BID [facility] Administration Donepezil HCl 10 mg 08/24/16 21:00 08/26/16 21:31 Aricept Tab* PO 10 mg BEDTIME [facility] Administration Duloxetine HCl 30 mg 08/25/16 09:00 08/27/16 08:35 Cymbalta Cap* PO 30 mg QAM [facility] Administration Enoxaparin Sodium 30 mg 08/25/16 18:00 08/26/16 16:53 Lovenox(*) SUBCUT 30 mg Q24H [facility] Administration Lactulose 30 ml 08/24/16 17:10 08/26/16 15:32 Lactulose* PO 30 ml Q6H PRN Administration constipation Losartan Potassium 50 mg 08/26/16 09:00 08/27/16 08:34 Cozaar Tab* PO 50 mg DAILY [facility] Administration Magnesium Hydroxide 30 ml 08/24/16 21:00 08/27/16 08:36 Milk Of Magnesia Liq* PO Not Given BID [facility] Morphine Sulfate 5 mg 08/24/16 17:10 Morphine Inj (Syringe)* IV Q2H PRN PAIN Multivitamins 1 tab 08/25/16 09:00 08/27/16 08:35 Theragran Tab* PO 1 tab DAILY [facility] Administration Omeprazole 20 mg 08/25/16 07:30 08/27/16 08:34 Prilosec Cap* PO 20 mg DAILY@0730 [facility] Administration Ondansetron HCl 4 mg 08/24/16 17:10 Zofran Inj* IV Q6H PRN nausea Ondansetron HCl 4 mg 08/24/16 17:10 08/25/16 08:43 Zofran Tab* PO 4 mg Q6H PRN Administration NAUSEA Oxycodone HCl 10 mg 08/24/16 17:10 08/24/16 17:34 Roxycodone Tab* PO 10 mg Q4H PRN Administration PAIN - BREAKTHROUGH Oxycodone/Acetaminophen 2 tab 08/24/16 17:10 08/26/16 09:28 Percocet 5/325 Tab* PO 2 tab Q3H PRN Administration PAIN - MODERATE Oxycodone/Acetaminophen 1 tab 08/24/16 17:10 08/27/16 08:35 Percocet 5/325 Tab* PO 1 tab Q3H PRN Administration PAIN - MODERATE Pharmacy Profile Note 1 note 08/25/16 17:00 08/26/16 16:53 Coumadin Daily Reminder* FOLLOW UP 1 note 1700 [facility] Administration Polyethylene Glycol/Electrolytes 17 gm 08/24/16 17:10 Miralax* PO DAILY PRN Constipation Solifenacin 5 mg 08/25/16 09:00 08/27/16 08:38 Vesicare(Nf) PO 5 mg QAM [facility] Administration Tobramycin Sulfate 1 applic 08/24/16 21:00 08/26/16 21:31 Tobrex 0.3% Ophth.Oint* LEFT EYE 1 applic BEDTIME [facility] Administration
--- NOTE | 2016-08-27 12:03 | DS ---
Discharge Summary Date of Admission: 08/24/2016 Date of Discharge: 08/27/2016 Provider: Dr. 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 She tolerated the procedure well, however the patient had increased bleeding intra-operatively and recieved 2 Units PRBCs intra-operatively. The patient had general anesthesia and was quite comfortable in the immediate postoperative period. On POD#1 the patients H&H was 9.7/30, however decreased to 7.0/22 on POD#2 and the patient was transfused another 1 Unit. Dressing was CDI, she was neurovascularly intact with good sensation distal to the left thigh. She could demonstrate dorsi and plantar flexion with good strength. Participation in physical and occupational therapy was begun. Pain management was controlled with PO Percocet. On POD#2 the urinary catheter was discontinued and the patient was able to void spontaneously. The dressing was changed and the wound was found to be benign with minimal drainage and erythema. Vital signs were stable and the patient was afebrile. POD#3 bowel and bladder had normalized and the patient was cleared by physical therapy for safe discharge to [facility] for further rehabilitation. She will continue with the exercises learned with physical therapy and arrangements were made for visiting home physical therapy as well. At discharge the H&H was 7.6/24, vital signs were stable and the INR value was 2.11. The patient was discharged with a prescription for Coumadin 2 mg. The INR will be monitored on Mondays and and the Coumadin dose adjusted accordingly. The patient will resume the home medications as indicated in the discharge instructions. Sutures will be removed in 10-14 days at follow up with Dr. Hannah New medications at discharge: Percocet 5/325 mg 1-2 tabs po Q4-6 hours prn pain Coumadin 2 mg 1-3 tablets by mouth at 5 pm daily as directed Colace 100 mg 1 po BID Keflex 500mg PO TID x 7 days Vitamin B12 1000mcg PO daily Cymbalta 30mg daily Aricept 10mg PO qhs Losartan 50mg PO daily Prilosec 20mg PO Daily Vesicare 5mg PO qAM daily Norvasc 5mg PO daily qAM Tobramycin Opthal ointment 0.3% left eye at bedtime Condition: Stable Disposition: [facility] with rehabilitation and PT/INR draws on Tuesday and Follow up: Patient will follow up with Dr. Hannah in 10 days at [facility] [place] Vital Signs Temp 98.0 F 08/27/16 08:02 Pulse 85 08/27/16 08:02 Resp 16 08/27/16 08:35 BP 124/43 08/27/16 08:02 Pulse Ox 98 08/27/16 08:02 Intake & Output 08/26/16 08/27/16 08/27/16 18:59 06:59 18:59 Intake Total 1201 1000 Output Total 200 Balance 1001 1000 Intake: IV Fluids 71 NS bolus 71 Oral 830 1000 Packed Cells 300 Output: Urine 100 Jett 100 Other: Estimated Void Medium Large # Voids 1 1 Active Medications Generic Name Dose Route Start Last Admin Trade Name Freq PRN Reason Stop Dose Admin Acetaminophen 650 mg 08/24/16 17:04 Tylenol Tab* PO Q4H PRN mild pain or fever Amlodipine Besylate 5 mg 08/26/16 09:00 08/27/16 08:35 Norvasc Tab* PO 5 mg QAM CARLA Administration Bisacodyl 10 mg 08/24/16 17:10 08/27/16 08:35 Dulcolax Supp* IA 10 mg DAILY PRN Administration constipation Cyanocobalamin 1,000 mcg 08/25/16 09:00 08/27/16 08:35 Vitamin B12 Tab* PO 1,000 mcg QAM CARLA Administration Diphenhydramine HCl 25 mg 08/24/16 17:10 Benadryl Iv* IV Q6H PRN itching Diphenhydramine HCl 25 mg 08/24/16 17:10 Benadryl Po* PO Q6H PRN INSOMNIA Docusate Sodium 100 mg 08/24/16 21:00 08/27/16 08:34 Colace Cap* PO 100 mg BID CARLA Administration Donepezil HCl 10 mg 08/24/16 21:00 08/26/16 21:31 Aricept Tab* PO 10 mg BEDTIME CARLA Administration Duloxetine HCl 30 mg 08/25/16 09:00 08/27/16 08:35 Cymbalta Cap* PO 30 mg QAM CARLA Administration Enoxaparin Sodium 30 mg 08/25/16 18:00 08/26/16 16:53 Lovenox(*) SUBCUT 30 mg Q24H CARLA Administration Lactulose 30 ml 08/24/16 17:10 08/26/16 15:32 Lactulose* PO 30 ml Q6H PRN Administration constipation Losartan Potassium 50 mg 08/26/16 09:00 08/27/16 08:34 Cozaar Tab* PO 50 mg DAILY CARLA Administration Magnesium Hydroxide 30 ml 08/24/16 21:00 08/27/16 08:36 Milk Of Magnesia Liq* PO Not Given BID CARLA Morphine Sulfate 5 mg 08/24/16 17:10 Morphine Inj (Syringe)* IV Q2H PRN PAIN Multivitamins 1 tab 08/25/16 09:00 08/27/16 08:35 Theragran Tab* PO 1 tab DAILY CARLA Administration Omeprazole 20 mg 08/25/16 07:30 08/27/16 08:34 Prilosec Cap* PO 20 mg DAILY@0730 CARLA Administration Ondansetron HCl 4 mg 08/24/16 17:10 Zofran Inj* IV Q6H PRN nausea Ondansetron HCl 4 mg 08/24/16 17:10 08/25/16 08:43 Zofran Tab* PO 4 mg Q6H PRN Administration NAUSEA Oxycodone HCl 10 mg 08/24/16 17:10 08/24/16 17:34 Roxycodone Tab* PO 10 mg Q4H PRN Administration PAIN - BREAKTHROUGH Oxycodone/Acetaminophen 2 tab 08/24/16 17:10 08/26/16 09:28 Percocet 5/325 Tab* PO 2 tab Q3H PRN Administration PAIN - MODERATE Oxycodone/Acetaminophen 1 tab 08/24/16 17:10 08/27/16 08:35 Percocet 5/325 Tab* PO 1 tab Q3H PRN Administration PAIN - MODERATE Pharmacy Profile Note 1 note 08/25/16 17:00 08/26/16 16:53 Coumadin Daily Reminder* FOLLOW UP 1 note 1700 CARLA Administration Polyethylene Glycol/Electrolytes 17 gm 08/24/16 17:10 Miralax* PO DAILY PRN Constipation Solifenacin 5 mg 06/21/17 09:00 08/27/16 08:38 Vesicare(Nf) PO 5 mg QAM CARLA Administration Tobramycin Sulfate 1 applic 08/24/16 21:00 08/26/16 21:31 Tobrex 0.3% Ophth.Oint* LEFT EYE 1 applic BEDTIME CARLA Administration Laboratory Results - last 24 hr 08/26/16 08/27/16 08/27/16 06:48 05:57 05:57 Hgb 7.6 L Hct 24 L INR (Anticoag Therapy) 2.11 H Blood Type O Positive Antibody Screen Negative Crossmatch See Detail
[2016-08-27 12:36] VITALS: BP 111/35
== END 2016-08-27 14:00 | DRG 467 ==
LOC: AA 10:00 → ICU 17:04 → SSU 08-25 15:33
PROVIDERS: ADMIT Orthopaedic Surgery Adult Reconstructive Orthopaedic Surgery; ATTEND Orthopaedic Surgery Adult Reconstructive Orthopaedic Surgery
PROC: 0SRB03A Replacement of Left Hip Joint with Ceramic Synthetic Substitute, Uncemented, Open Approach (ICD-10-PCS; 2016-08-24)
PROC: 0SPB08Z Removal of Spacer from Left Hip Joint, Open Approach (ICD-10-PCS; 2016-08-24)
PROC: 30233N1 Transfusion of Nonautologous Red Blood Cells into Peripheral Vein, Percutaneous Approach (ICD-10-PCS; principal; 2016-08-24 11:30)
DX: Z47.32 Aftercare following explantation of hip joint prosthesis (principal); D62 Acute posthemorrhagic anemia; I95.9 Hypotension, unspecified; G89.29 Other chronic pain; M25.512 Pain in left shoulder; M25.511 Pain in right shoulder; I10 Essential (primary) hypertension; E78.00 Pure hypercholesterolemia, unspecified; F03.90 Unspecified dementia, unspecified severity, without behavioral disturbance, psychotic disturbance, mood disturbance, and anxiety; E83.42 Hypomagnesemia; D72.829 Elevated white blood cell count, unspecified; W18.30XA Fall on same level, unspecified, initial encounter; Y92.239 Unspecified place in hospital as the place of occurrence of the external cause; M85.88 Other specified disorders of bone density and structure, other site; Z90.49 Acquired absence of other specified parts of digestive tract; Z90.710 Acquired absence of both cervix and uterus; Z86.73 Personal history of transient ischemic attack (TIA), and cerebral infarction without residual deficits; Z80.3 Family history of malignant neoplasm of breast; Z79.01 Long term (current) use of anticoagulants
CPT/HCPCS: 36415; 72170; 80048; 83735; 85014; 85018; 85025; 85610; 86850; 86900; 86901; 86922; 87070; 87073; 87205; 87641; 88300; 88304; 88305; 88331; A9270-GY; J0690; J1100; J1650; J1885; J2250; J2405; J2704; J3010; J3475; P9040

== ENCOUNTER 2017-08-26 15:20 | Inpatient (IN) | payer MEDICARE ==
[2017-08-26 16:03] LABS: ABS Basophils 0.1 10^3/ul (0-0.2); ABS Eosinophils 0.4 10^3/ul (0-0.6); ABS Lymphocytes 1.8 10^3/ul (1.0-4.8); ABS Monocytes 0.9 10^3/ul (0-0.8); ABS Neutrophils 6.2 10^3/ul (1.5-7.7); ABS Nucleated RBC 0 10^3/ul; Eosinophil % 3.8 % (0-6); Hematocrit 28 % (35-47); Lymphocyte % 19.7 % (25-47); Mean Corpuscular HGB Conc 33 g/dl (31-36); Mean Corpuscular Hemoglobin 25 pg (27-31); Mean Corpuscular Volume 76 fL (80-97); Mean Platelet Volume 6.4 um3 (7.4-10.4); Nucleated Red Blood Cells % 0; Platelet Count 639 10^3/ul (150-450); Red Blood Count 3.65 10^6/ul (4.00-5.40); Red Cell Distribution Width 15 % (10.5-15); White Blood Count 9.4 10^3/ul (3.5-10.8)
[2017-08-26 16:20] LABS: INR 1.06 (0.77-1.02)
[2017-08-26 16:21] LABS: EGFR Non-African American 46.2 (>60)
--- NOTE | 2017-08-26 16:25 | RAD ---
INDICATION: Preoperative chest x-ray patient with left hip prosthesis COMPARISON: Chest x-ray February 13, 2016 TECHNIQUE: Single AP portable view of the chest was obtained. FINDINGS: Image quality is compromised due to the relative inferiority of a portable chest x-ray. The heart and mediastinum exhibit normal size and contour. The lungs are grossly clear. There is no evidence of a large pleural effusion. Visualized bones are normal for the patient's age. IMPRESSION: No radiographic evidence for acute cardiopulmonary abnormality on this portable chest x-ray.
[2017-08-26] MEDS ORDERED: Ondansetron INJ* 2 MG/ML VIAL IV PRN (16:34)
[2017-08-26] MEDS ORDERED: Morphine VIAL* 4 MG/ML VIAL (1 ml vial) IV PRN (16:34)
--- OUTSIDE RECORDS SUMMARY | 2017-08-26 16:44 | XMS REPORT ---
:1940 External Reference #:[id number] Author Organization [employer] Address [address] [place] [address] Phone [phone] Care Team Providers Name Role Phone Lionel Cowan MD Primary Care Physician Unavailable Payers Type Date Identification Numbers Payment Provider Subscriber Commercial Expires: Policy Number: Camron Mccrary/Pancho Lorin Sim 2016 [id number] Options PayID: [id number] [address] Attn: [place] [address] Health Maintenance Effective: Policy Number: Medicare Blue Lorin Donald (O) 03/07/2016 [id number] [facility] Group Number: [id number] [address] [address] PayID: [id number] AVANI Chinchilla [id number] Problems Date Description Provider Status Onset: 08/22/2017 Prosthetic arthroplasty of the hip Kirstin Hannah M.D. 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 Active Onset: 05/24/2016 Localized, primary osteoarthritis of the Kirstin Hannah M.D. Active pelvic region and thigh Social History Type Date Description Comments Lives With ETOH Use Denies alcohol use Smoking Patient has never smoked Exercise Type/Frequency Exercises rarely Allergies, Adverse Reactions, Alerts Date Description Reaction Status Severity Comments 02/02/2016 NKDA active Medications Medication Date Status Form Strength Qnty SIG Indications Ordering Provider Ra Calcium 600 00/00/ Active Tablets 600-400mg- Unknown Plus Vitamin 0000 Unit D-3 Donepezil HCL /00/ Active Tablets 10mg Camryn 0000 MD Lionel Losartan / Active Tablets 50mg Camryn, Potassium 0000 MD Lionel Omeprazole / Active Capsules 20mg Roslyner, 0000 DR Lionel MD Vitamin B-12 / Active Tablets 500mcg 1 by mouth Unknown 0000 Sub every day Vesicare / Active Tablets 5mg 1 by mouth Unknown 0000 every day Oxycodone-Aceta / Active Tablets 5-325mg 1-2 by Unknown minophen 0000 mouth every 4-6 hours as needed for pain. Duloxetine HCL / Active Caps DR 30mg take 1 Unknown 0000 Part capsule by mouth every morning for 1 week, then 2 tabs daily Multivitamin // Active Unknown 0000 Aleve / Active prn Unknown 0000 Turmeric / Active Capsules 500mg take one Unknown Curcumin 0000 capsule/ta blet daily by mouth Quetiapine / Active Tablets 25mg Villapiano Fumarate Hodan Joyner M.D. Rivastigmine / Hx Capsules 1.5mg Unknown Tartrate - 2016 Rosuvastatin / Hx Tablets 5mg Unknown Calcium - 2016 Oxybutynin / Hx Tablets ER 15mg take 1 Unknown Chloride ER 0000 - 24HR tablet 05/11/ twice a 2017 day Citalopram / Hx Tablets 10mg take 1 Unknown Hydrobromide 0000 - tablet 05/12/ once daily 2016 Tolterodine / Hx Tablets 2mg take 1 Unknown Tartrate 0000 - tablet by 08/15/ mouth 2017 twice a day Heparin Lock / Hx Solution 10Unit/ML Unknown Flush - 2016 Nystatin / Hx Powder Unknown - 2016 Cefazolin / Hx Solution 1gm 2 gm iv Unknown Sodium 0000 - Rec every 8 0611/ hours x 2 2017 months at [facility] (through 07/27/16) Warfarin Sodium / Hx Tablets 4mg 1 by mouth Unknown 0000 - every 09/30/ night or 2017 as directed Cymbalta 00// Hx Caps DR 30mg 1 by mouth Unknown 0000 - Part every day 2016 Acetaminophen / Hx Tablets 325mg 2 tablets Unknown 0000 - by mouth 2016 prn pain Amlodipine / Hx Tablets 5mg 1 by mouth Unknown Besylate 0000 - every day 2016 Warfarin Sodium / Hx Unknown - 2016 Senna S / Hx Unknown 2016 Tobrex / Hx Unknown 2016 Medications Administered in Office Medication Date Status Form Strength Qnty SIG Indications Ordering Provider Depomedrol Administered Injection Gwen 40MG Radha Sierra M.D. Depomedrol Administered Injection Gwen 40MG 017 Diony Sierra Depomedrol Administered Injection Gwen 40MG 016 Diony Sierra Depomedrol Administered Injection Gwen 40MG Luis Enrique Sierra M.D. Vital Signs Date Vital Result Comment 08/22/2017 Height 58 inches 4'10" Weight 184.00 lb BP Systolic Sitting 120 mmHg BP Diastolic Sitting 78 mmHg Respiratory Rate 16 /min Body Temperature 99.0 F Pain Level 5 BMI (Body Mass Index) 38.5 kg/m2 11/15/2016 Height 58 inches 4'10" Weight 188.00 lb Heart Rate 60 /min BP Systolic 122 mmHg BP Diastolic 78 mmHg Respiratory Rate 15 /min Body Temperature 97.4 F Pain Level 0 BMI (Body Mass Index) 39.3 kg/m2 10/01/2016 Height 58 inches 4'10" Weight 188.00 lb Heart Rate 71 /min BP Systolic 94 mmHg BP Diastolic 52 mmHg Body Temperature 97.7 F Pain Level 4 BMI (Body Mass Index) 39.3 kg/m2 09/03/2016 Height 58 inches 4'10" Weight 188.00 lb BMI (Body Mass Index) 39.3 kg/m2 08/16/2016 Height 58 inches 4'10" Weight 188.00 lb per patient Heart Rate 69 /min BP Systolic 131 mmHg BP Diastolic 60 mmHg BMI (Body Mass Index) 39.3 kg/m2 07/16/2016 Height 58 inches 4'10" Weight 192.00 lb Heart Rate 64 /min BP Systolic 110 mmHg BP Diastolic 72 mmHg Respiratory Rate 16 /min Body Temperature 98.0 F Pain Level 10 BMI (Body Mass Index) 40.1 kg/m2 07/08/2016 Height 58 inches 4'10" Weight 192.00 lb per pt report Heart Rate 66 /min BP Systolic Sitting 138 mmHg BP Diastolic Sitting 80 mmHg Respiratory Rate 14 /min Body Temperature 98.8 F O2 % BldC Oximetry 97 % BMI (Body Mass Index) 40.1 kg/m2 06/18/2016 Height 58 inches 4'10" Weight 187.00 lb Heart Rate 80 /min BP Systolic 118 mmHg BP Diastolic 67 mmHg Respiratory Rate 16 /min Body Temperature 97.4 F BMI (Body Mass Index) 39.1 kg/m2 05/31/2016 Height 58 inches 4'10" Weight 187.00 lb Heart Rate 65 /min BP Systolic 125 mmHg BP Diastolic 65 mmHg Body Temperature 97.1 F Pain Level 10 BMI (Body Mass Index) 39.1 kg/m2 05/24/2016 Height 63 inches 5'3" Weight 183.00 lb Heart Rate 60 /min BP Systolic 140 mmHg BP Diastolic 80 mmHg Respiratory Rate 20 /min Body Temperature 97.5 F BMI (Body Mass Index) 32.4 kg/m2 05/12/2016 Height 64 inches 5'4" Weight 185.00 lb Heart Rate 64 /min BP Systolic 133 mmHg BP Diastolic 59 mmHg BMI (Body Mass Index) 31.8 kg/m2 02/02/2016 Height 64 inches 5'4" Weight 185.00 lb Heart Rate 60 /min Respiratory Rate 16 /min Pain Level 9 BMI (Body Mass Index) 31.8 kg/m2 Results Test Date Test Result H/L Range Note Laboratory test 08/16/2016 Packed Cells SEE RESULTS BELO 1 finding <SEE NOTE> Urine Culture And 08/16/2016 Urine Culture SEE RESULT BELOW 2 Sensitivities Laboratory test 08/16/2016 Partial Thrombo 36.0 seconds 26.0-36.3 finding Time PTT Inr/Protime 08/16/2016 Inr 2.07 High 0.89-1.11 Type & Screen 08/16/2016 Patient Blood O Positive Type Antibody Screen NEGATIVE Comp Metabolic Panel 08/16/2016 Sodium 139 mmol/L 133-145 Potassium 3.9 mmol/L 3.5-5.0 Chloride 101 mmol/L 101-111 Co2 Carbon Dioxide 32 mmol/L 22-32 Anion Gap 6 mmol/L 2-11 Glucose 64 mg/dL Low 70-100 Blood Urea Nitrogen 16 mg/dL 6-24 Creatinine 0.77 mg/dL 0.51-0.95 BUN/Creatinine Ratio 20.8 High 8-20 Calcium 9.4 mg/dL 8.6-10.3 Total Protein 6.6 g/dL 6.4-8.9 Albumin 3.3 g/dL 3.2-5.2 Globulin 3.3 g/dL 2-4 Albumin/Globulin Ratio 1.0 1-3 Total Bilirubin 0.40 mg/dL 0.2-1.0 Alkaline Phosphatase 90 U/L 34-104 Alt 5 U/L Low 7-52 Ast 12 U/L Low 13-39 Egfr Non- 72.9 >60 Egfr 93.7 >60 3 Urinalysis Profile 08/16/2016 Urine Color Yellow Urine Appearance Clear Urine Specific [place] 1.014 1.010-1.030 Urine pH 6.0 5-9 Urine Urobilinogen Negative Negative Urine Ketones Negative Negative Urine Protein Negative Negative Urine Leukocytes Negative Negative Urine Blood Negative Negative Urine Nitrite Negative Negative Urine Bilirubin Negative Negative Urine Glucose Negative Negative CBC No Diff 08/16/2016 White Blood Count 8.1 10^3/uL 3.5-10.8 Red Blood Count 4.07 10^6/uL 4.0-5.4 Hemoglobin 10.8 g/dL Low 12.0-16.0 Hematocrit 34 % Low 35-47 Mean Corpuscular Volume 83 fL 80-97 Mean Corpuscular Hemoglobin 27 pg 27-31 Mean Corpuscular HGB Conc 32 g/dL 31-36 Red Cell Distribution Width 14 % 10.5-15 Platelet Count 465 10^3/uL High 150-450 Mean Platelet Volume 8 um3 7.4-10.4 Body Fluid C&S 07/27/2016 Body Fluid Cult Gram Stain SEE RESULT BELOW 4 Body Fluid Cell Count 07/27/2016 Body Fluid Source Synovial Fluid Body Fluid WBC 2 /mcL 5 Body Fluid RBC 1233 /mcL Body Fluid Appearance Clear Body Fluid Color Colorless Body Fluid Volume 1 mL Body Fluid Neutrophils 60 % Body Fluid Lymph 30 % Body Fluid Eosinophil 10 % Body Fluid Total Cells Counted 10 Fluid Reviewed By MD (SEE NOTE) 6 Laboratory test finding 07/27/2016 Fungal Cult Other Sources SEE RESULT BELOW 7 Laboratory test finding 07/27/2016 Fungal Cult Other Sources SEE RESULT BELOW 8 Laboratory test finding 07/27/2016 Fungal Cult Other Sources SEE RESULT BELOW 9 Laboratory test finding 07/27/2016 Mycobacterial Culture See Comment 10 Laboratory test finding 05/26/2016 Blood Culture SEE RESULT BELOW 11 Body Fluid C&S 05/26/2016 Body Fluid Cult Gram SEE RESULT BELOW 12 Stain Acid Fast Culture & 05/26/2016 Acid Fast Culture Smear SEE RESULT BELOW 13 Smear Body Fluid Cell Count 05/26/2016 Body Fluid Source OTH Body Fluid WBC TNP /mcL 14 Body Fluid RBC TNP /mcL 15 Body Fluid Appearance Bloody Body Fluid Color Red Body Fluid Volume 0.25 mL Body Fluid Neutrophils 40 % Body Fluid Lymph 60 % Body Fluid Total Cells Counted 15 Fluid Reviewed By MD (SEE NOTE) 16 Laboratory test finding 05/26/2016 Anaerobic Culture SEE RESULT BELOW 17 Fungal Cult Other Sources SEE RESULT BELOW 18 Laboratory test 05/26/2016 Fungal Cult Other SEE RESULT BELOW 19 finding Sources Laboratory test 05/26/2016 Fungal Cult Other SEE RESULT BELOW 20 finding Sources Laboratory test 05/26/2016 Fungal Cult Other SEE RESULT BELOW 21 finding Sources Laboratory test 05/26/2016 Mycobacterial Culture See Comment 22 finding Laboratory test 05/24/2016 C Reactive Protein 54.52 mg/L High < 5.00 23 finding Erythrocyte Sed Rate 111 mm/Hr High 0-40 CBC Auto Diff 05/24/2016 White Blood Count 11.8 10^3/uL High 3.5-10.8 Red Blood Count 4.11 10^6/uL 4.0-5.4 Hemoglobin 11.5 g/dL Low 12.0-16.0 Hematocrit 36 % 35-47 Mean Corpuscular Volume 87 fL 80-97 Mean Corpuscular Hemoglobin 28 pg 27-31 Mean Corpuscular HGB Conc 32 g/dL 31-36 Red Cell Distribution Width 14 % 10.5-15 Platelet Count 517 10^3/uL High 150-450 Mean Platelet Volume 8 um3 7.4-10.4 Abs Neutrophils 7.8 10^3/uL High 1.5-7.7 Abs Lymphocytes 2.7 10^3/uL 1.0-4.8 Abs Monocytes 0.7 10^3/uL 0-0.8 Abs Eosinophils 0.5 10^3/uL 0-0.6 Abs Basophils 0.2 10^3/uL 0-0.2 Abs Nucleated RBC 0.01 10^3/uL Granulocyte % 65.9 % 38-83 Lymphocyte % 22.8 % Low 25-47 Monocyte % 6.0 % 1-9 Eosinophil % 3.9 % 0-6 Basophil % 1.4 % 0-2 Nucleated Red Blood Cells % 0 1 SEE RESULTS BELOW [id number] OP PC TRANSFUSED 08/24/16 1545 [id number] OP PC TRANSFUSED 08/24/16 1546 2 SEE RESULT BELOW Name: LORIN SIM : [address]: Kirstin Hannah MD Acct: [id number] Unit: [id number] AGE: 75 Location: [facility] Re08/16/16 SEX: F Status: REG REF SPEC: [id number] SEBASTIAN: 08/16/16 [facility] DR: Kirstin Hannah MD REQ: [id number] RECD: 08/16/16-1251 STATUS: CORIE BAUTISTA DR: Lionel Cowan MD _ SOURCE: URINE SPDESC: ORDERED: Urine Culture QUERIES: Urine Source: Clean Catch Procedure Result Reported Site Urine Culture Final 08/17/16- 1326 ML No growth of clinically significant organisms * ML - MAIN LAB ([facility]) . END OF REPORT * ML=Testing performed at Main Lab DEPARTMENT OF PATHOLOGY, [address] [place] [address] Aguilar Bassett M.D. Director [facility] # [id number] 3 Because ethnic data is not always readily available, this report includes an eGFR for both -Americans and non- Americans. The National Kidney Disease Education Program (NKDEP) does not endorse the use of the MDRD equation for patients that are not between the ages of 18 and 70, are , have extremes of body size, muscle mass, or nutritional status, or are non- or non-. According to the National Kidney Foundation, irrespective of diagnosis, the stage of the disease is based on the level of kidney function: Stage Description GFR(mL/min/1.73 m(2)) 1 Kidney damage with normal or decreased GFR 90 2 Kidney damage with mild decrease in GFR 60-89 3 Moderate decrease in GFR 30-59 4 Severe decrease in GFR 15-29 5 Kidney failure <15 (or dialysis) 4 SEE RESULT BELOW Name: LORIN SIM : [address]: Kirstin Hannah MD Acct: [id number] Unit: [id number] AGE: 75 Location: [place] Re07/27/16 SEX: F Status: REG REF SPEC: [id number] SEBASTIAN: 07/27/[address]: Kirstin Hannah MD REQ: [id number] RECD: 07/27/16 STATUS: CORIE BAUTISTA DR: Lionel Hernandez MD _ SOURCE: BODY FLUID SPDESC:HIP LEFT ORDERED: BF Cult/GS, Acid Fast Stain Procedure Result Reported Site Body Fluid Gram Stain Final 07/27/16- 1259 ML No Neutrophils Observed No Organisms Seen Preparation By Cytospin Smear Body Fluid Culture Final 07/31/16- 0846 ML No Growth Day 4 Acid Fast Stain - Direct Final 07/27/16- 1502 ML AFB Smear Result No Acid Fast Bacillus Present (Negative) Preparation By Cytospin Smear Due to limited sensitivity of the smear, results should be used as an adjunct in evaluating the patient's status and cultural examination is highly recommended for diagnosis. * ML - MAIN LAB ([facility]) . END OF REPORT * ML=Testing performed at Main Lab DEPARTMENT OF PATHOLOGY, [address] [place] [address] Aguilar Bassett M.D. Director [facility] # [id number] 5 -- REFERENCE VALUE -- Synovial: <150/mcL Peritoneal: <500/mcL Pleural: <500/mcL Pericardial: <500/mcL 6 No evidence of malignancy or and acute inflammatory response. No microorganisms seen. Peripheral blood contamination noted. Reviewed by Dr. Bassett 7 SEE RESULT BELOW Name: LORIN SIM : [address]: Kirstin Hannah MD Acct: [id number] Unit: [id number] AGE: 75 Location: Re07/27/16 SEX: F Status: REG REF SPEC: [id number] SEBASTIAN: 07/27/16 [facility] DR: Kirstin Hannah MD REQ: [id number] RECD: 07/27/16 STATUS: RES OTHR DR: Lionel Hernandez MD _ SOURCE: [facility] SPDESC: ORDERED: Fungal - Other Procedure Result Reported Site Fungal Cult - Other Sources Preliminary 08/09/16- 1136 ML No Growth Week 2 * ML - MAIN LAB ([facility]) . END OF REPORT * ML=Testing performed at Main Lab DEPARTMENT OF PATHOLOGY, [address] [place] [address] Aguialr Bassett M.D. Director [facility] # [id number] 8 SEE RESULT BELOW Name: LORIN SIM : [address]: Kirstin Hannah MD Acct: [id number] Unit: [id number] AGE: 75 Location: [place] Re07/27/16 SEX: F Status: REG REF SPEC: [id number] SEBASTIAN: 07/27/16 [facility] DR: Kirstin Hannah MD REQ: [id number] RECD: 07/27/16 STATUS: RES MICHELE DR: Lionel Hernandez MD _ SOURCE: [facility] SPDESC: ORDERED: Fungal - Other Procedure Result Reported Site Fungal Cult - Other Sources Preliminary 08/16/16- 1354 ML No Growth Week 3 * ML - [facility] ([facility]) . END OF REPORT * ML=Testing performed at Main Lab DEPARTMENT OF PATHOLOGY, [address] [place] [address] Aguilar Bassett M.D. Director [facility] # [id number] 9 SEE RESULT BELOW Name: LORIN SIM : [address]: Kirstin Hannah MD Acct: [id number] Unit: [id number] AGE: 75 Location: [place] Re07/27/16 SEX: F Status: REG REF SPEC: [id number] SEBASTIAN: 07/27/16 [facility] DR: Kirstin Hannah MD REQ: [id number] RECD: 07/27/16 STATUS: CORIE BAUTISTA DR: Lionel Hernandez MD _ SOURCE: [facility] SPDESC: ORDERED: Fungal - Other Procedure Result Reported Site Fungal Cult - Other Sources Final 08/23/16- 1135 ML No Growth Week 4 * ML - MAIN LAB ([facility]) . END OF REPORT * ML=Testing performed at Main Lab DEPARTMENT OF PATHOLOGY, [address] [place] [address] Aguilar Bassett M.D. Director [facility] # [id number] 10 SOURCE: SYNOVIAL FLUID, LEFT HIP FLUID MYCOBACTERIAL CULTURE FINAL No growth after 60 days of incubation. Test Performed by: [address] [id number] 11 SEE RESULT BELOW Name: LORIN SIM : [address]: Kirstin Hannah MD Acct: [id number] Unit: [id number] AGE: 75 Location: [place] Re05/26/16 SEX: F Status: REG REF SPEC: [id number] SEBASTIAN: 05/26/[address]: Kirstin Hannah MD REQ: [id number] RECD: 05/26/16 STATUS: COMP _ SOURCE: BLOOD,VENO SPDESC: ORDERED: Blood Cult Procedure Result Reported Site Aerobic Culture Bottle Final 05/31/16- 1158 ML No Growth Day 5 Anaerobic Culture Bottle Final 05/31/16- 1158 ML No Growth Day 5 * ML - MAIN LAB ([facility]) . END OF REPORT * ML=Testing performed at Main Lab DEPARTMENT OF PATHOLOGY, [address] [place] [address] Aguilar Bassett M.D. Director [facility] # [id number] 12 SEE RESULT BELOW Name: LORIN SIM : [address]: Kirstin Hannah MD Acct: [id number] Unit: [id number] AGE: 75 Location: [place] Re05/26/16 SEX: F Status: REG REF SPEC: [id number] SEBASTIAN: 05/26/16-[address]: Kirstin Hannah MD REQ: [id number] RECD: 05/26/16 STATUS: CORIE BAUTISTA DR: Lionel Cowan MD _ SOURCE: MISC FLUID SPDESC:HIP LEFT ORDERED: BF Cult/GS, MRSA/SA SSTI Procedure Result Reported Site Body Fluid Gram Stain Final 05/26/16- 1312 ML 1+ Neutrophils No Organisms Seen Preparation By Cytospin Smear SCANT SPECIMEN RECEIVED; APPROX .10 ML; DILUTED IN BROTH FOR TEST REQUESTS. Body Fluid Culture Final 05/30/16- 826 ML Organism 1 STAPHYLOCOCCUS AUREUS Quantity 1+ 1 COLONY ISOLATED ON CULTURE 1. STAPHYLOCOCCUS AUREUS M.I.C. RX --------- ------ Penicillin R Clindamycin <=0.25 S Erythromycin <=0.25 S Gentamicin <=0.5 S Linezolid 2 S Nitrofurantoin <=16 S Oxacillin <=0.25 S * Quinupristin/Dalfopristin <=0.25 S CONTINUED ON NEXT PAGE * ML=Testing performed at Main Lab DEPARTMENT OF PATHOLOGY, [address] [place] [address] Aguilar Bassett M.D. Director [facility] # [id number] Patient: LORIN SIM [id number] (Continued) Specimen: [id number] Collected: 05/26/16 Received: 05/26/16-1219 (Continued) Procedure Result Reported Site Body Fluid Culture Final (continued) 05/30/16- 826 1. STAPHYLOCOCCUS AUREUS (continued) M.I.C. RX --------- ------ Rifampin <=0.5 S Tetracycline <=1 S Doxycycline - Deduced S * Minocycline - Deduced S Trimethoprim/Sulfamethoxazole <=10 S Vancomycin 1 S Imipenem-Deduced S * Ampicillin/Sulbactam-Deduced S Cefazolin-Deduced S * These antibiotics are not available in the [facility] Formulary Contact the Microbiology Department for any additional antibiotic reporting. MRSA/S. aureus SSTI PCR Final 05/28/16- 1426 ML Organism 1 MRSA NEGATIVE Organism 2 S.AUREUS NEGATIVE * ML - MAIN LAB ([facility]) . END OF REPORT * ML=Testing performed at Main Lab DEPARTMENT OF PATHOLOGY, [address] [place] [address] Aguilar Bassett M.D. Director [facility] # [id number] 13 SEE RESULT BELOW Name: LORIN SIM : [address]: Kirstin Hannah MD Acct: [id number] Unit: [id number] AGE: 75 Location: [place] Re05/26/16 SEX: F Status: REG REF SPEC: [id number] SEBASTIAN: 05/26/16-[address]: Kirstin Hannah MD REQ: [id number] RECD: 03/22/17-1220 STATUS: RES OTHR DR: Lionel Cowan MD _ SOURCE: BODY FLUID SPDESC:HIP LEFT ORDERED: Anaerobic Cult, AFB Cult Smear Procedure Result Reported Site Anaerobic Culture PENDING Acid Fast Stain - Direct Final 05/26/16- 1453 ML AFB Smear Result No Acid Fast Bacillus Present (Negative) Preparation By Cytospin Smear Due to limited sensitivity of the smear, results should be used as an adjunct in evaluating the patient's status and cultural examination is highly recommended for diagnosis. * ML - MAIN LAB ([facility]) . END OF REPORT * ML=Testing performed at Main Lab DEPARTMENT OF PATHOLOGY, [address] [place] [address] Aguilar Bassett M.D. Director [facility] # [id number] 14 Sample quantity insufficient to perform test 15 Sample quantity insufficient to perform test 16 Blood is present. No evidence of an acute inflammatory response. No evidence of malignancy. Reviewed by Ivette Boudreaux MD 17 SEE RESULT BELOW Name: LORIN SIM : [address]: Kirstin Hannah MD Acct: [id number] Unit: [id number] AGE: 75 Location: [place] Re05/26/16 SEX: F Status: REG REF SPEC: [id number] SEBASTIAN: 05/26/16-1158 [facility] DR: Kirstin Hannah MD REQ: [id number] RECD: 05/26/16-1220 STATUS: CORIE BAUTISTA DR: Lionel Cowan MD _ SOURCE: BODY FLUID SPDESC:HIP LEFT ORDERED: Anaerobic Cult, AFB Cult Smear COMMENTS: LEFT HIP FLUID ASPIRATION: DILUTED SUBMITTED FOR AFB CULTURE (TSOY BROTH) Procedure Result Reported Site Anaerobic Culture Final 05/30/16- 0828 ML Anaerobe Culture No Anaerobes Day 4 Acid Fast Stain - Direct Final 05/26/16- 1453 ML AFB Smear Result No Acid Fast Bacillus Present (Negative) Preparation By Cytospin Smear Due to limited sensitivity of the smear, results should be used as an adjunct in evaluating the patient's status and cultural examination is highly recommended for diagnosis. * ML - MAIN LAB ([facility]) . END OF REPORT * ML=Testing performed at Main Lab DEPARTMENT OF PATHOLOGY, [address] [place] [address] Aguilar Bassett M.D. Director [facility] # [id number] 18 SEE RESULT BELOW Name: LORIN SIM : [address]: Kirstin Hannah MD Acct: [id number] Unit: [id number] AGE: 75 Location: Re05/26/16 SEX: F Status: REG REF SPEC: [id number] SEBASTIAN: 05/26/16-8 [facility] DR: Kirstin Hannah MD REQ: [id number] RECD: 05/26/16 STATUS: RES [facility] DR: Lionel Cowan MD _ SOURCE: [facility] SPDESC:HIP LEFT ORDERED: Fungal - Other Procedure Result Reported Site Fungal Cult - Other Sources Preliminary 06/07/16- 1440 ML No Growth Week 1 * ML - MAIN LAB ([facility]) . END OF REPORT * ML=Testing performed at Main Lab DEPARTMENT OF PATHOLOGY, [address] [place] [address] Aguilar Bassett M.D. Director [facility] # [id number] SEE RESULT BELOW Name: LORIN SIM : [address]: Kirstin Hannah MD Acct: [id number] Unit: [id number] AGE: 75 Location: [place] Re05/26/16 SEX: F Status: REG REF SPEC: [id number] SEBASTIAN: 05/26/16-1158 [facility] DR: Kirstin Hannah MD REQ: [id number] RECD: 05/26/16-1220 STATUS: RES MICHELE DR: Lionel Cowan MD _ SOURCE: [facility] SPDESC:HIP LEFT ORDERED: Fungal - Other Procedure Result Reported Site Fungal Cult - Other Sources Preliminary 06/14/16- 1440 ML No Growth Week 2 * ML - MAIN LAB ([facility]) . END OF REPORT * ML=Testing performed at Main Lab DEPARTMENT OF PATHOLOGY, [address] [place] [address] Aguilar Bassett M.D. Director [facility] # [id number] 20 SEE RESULT BELOW Name: LORIN SIM : [address]: Kirstin Hannah MD Acct: [id number] Unit: [id number] AGE: 75 Location: SP Re05/26/16 SEX: F Status: REG REF SPEC: [id number] SEBASTIAN: 05/26/16-[address]: Kirstin Hannah MD REQ: [id number] RECD: 05/26/16-1220 STATUS: RES OTHR DR: Lionel Cowan MD _ SOURCE: [facility] SPDESC:HIP LEFT ORDERED: Fungal - Other Procedure Result Reported Site Fungal Cult - Other Sources Preliminary 06/21/16- 1200 ML No Growth Week 3 * ML - MAIN LAB ([facility]) . END OF REPORT * ML=Testing performed at Main Lab DEPARTMENT OF PATHOLOGY, [address] [place] [address] Aguilar Bassett M.D. Director [facility] # [id number] 21 SEE RESULT BELOW Name: LORIN SIM : [address]: Kirstin Hannah MD Acct: [id number] Unit: [id number] AGE: 75 Location: [place] Re05/26/16 SEX: F Status: REG REF SPEC: [id number] SEBASTIAN: 05/26/16-[address]: Kirstin Hannah MD REQ: [id number] RECD: 05/26/16-1220 STATUS: CORIE BAUTISTA DR: Lionel Cowan MD _ SOURCE: [facility] SPDESC:HIP LEFT ORDERED: Fungal - Other Procedure Result Reported Site Fungal Cult - Other Sources Final 06/28/16- 1317 ML No Growth Week 4 * ML - MAIN LAB ([facility]) . END OF REPORT * ML=Testing performed at Main Lab DEPARTMENT OF PATHOLOGY, [address] [place] [address] Aguilar Bassett M.D. Director [facility] # [id number] 22 SOURCE: SYNOVIAL FLUID, LEFT HIP FLUID Mycobacteria specimen plated for culture, volume inadequate for optimal recovery. MYCOBACTERIAL CULTURE FINAL No growth after 60 days of incubation. Test Performed by: [address] [address] [id number] Acute inflammation: >10.00 Procedures Date CPT Code Description Status 08/24/2016 67196 Revise Total Hip Arthroplasty Both Components Completed 08/24/2016 27358 Revise Total Hip Arthroplasty Both Components Completed 06/01/2016 05444 Remove Hip Prosthesis Complicated Completed 06/01/2016 61227 Remove Hip Prosthesis Complicated Completed 06/01/2016 74681 Insertion, Non-Biodegradable Drug Delivery Implant Completed 05/31/2016 82288 EKG, Interpretation Only Completed 05/12/2016 86112 Inject/Drain Joint/Bursa Small W/O US Completed 05/12/2016 05728 Inject Tendon Sheath Or Ligament Aponeurosis Eg Plantar Completed Fascia 02/17/2016 59688 Treadmill Interp/Report Only Completed 02/17/2016 58353 Stress Test Supervsn W/Out I/R Completed 02/16/2016 49727 ECHO Transthorasic Realtime 2D W Doppler & Color Flow Completed Hosp 02/14/2016 36290 EKG, Interpretation Only Completed 02/02/2016 09158 Inject/Drain Joint/Bursa Small W/O US Completed 02/02/2016 93232 Inject Tendon Sheath Or Ligament Aponeurosis Eg Plantar Completed Fascia Encounters Type Date Location Provider CPT E/M Dx Office Visit 08/22/2017 [facility] Kirstin Hannah M.D. 88085 Z96.642 1:30p Of [facility] M25.552 Office Visit 08/26/2016 3:44p [facility],amelie Mcclain M.D. 58166 D62 Hospitalists I10 Z96.642 Office Visit 08/25/2016 3:43p [facility] Julieth Mcclain, 14111 I97.418 Assoc, Hospitalists Diony I10 Z96.642 Office Visit 08/24/2016 3:42p [facility] Julieth Mcclain, 22220 Z96.642 Assoc, Hospitalists Diony I10 I97.418 Office Visit 07/08/2016 2:20p [facility] Salina Hernandez, 25856 B95.61 Infectious Diseases Diony T84.52xD M00.9 Office Visit 06/06/2016 10:28a [facility], [place] [address] M00.9 Hospitalists E78.5 I10 Office Visit 06/05/2016 10:24a [facility], Shruthi ZAIRA Schroeder 14258 M00.9 Hospitalists E78.5 Office Visit 06/04/2016 10:24a [facility], [place] [address] M00.9 Hospitalists E78.5 I10 Office Visit 06/03/2016 10:23a [facility], Shruthi Schroeder, ZAIRA 27572 M00.9 Hospitalists E78.5 I10 Office Visit 06/02/2016 10:23a [facility], [place] [address] M00.9 Hospitalists E78.5 I10 Office Visit 06/02/2016 10:50a [facility] Lionel Sierra 9[address] T84.52xA Infectious Diseases Diony Hernandez B95.61 Office Visit 06/01/2016 10:22a [facility], [place] [address] M00.9 Hospitalists E78.5 I10 Office Visit 05/31/2016 10:13a [facility], [place] [address] M00.9 Hospitalists I10 Office Visit 05/31/2016 11:30a [facility] Kirstin Hannah M.D. 72821 M25.552 Jamie M16.12 Office Visit 05/24/2016 2:00p [facility] Kirstin Hannah M.D. 08330 M25.551 Jamie M25.552 M16.11 M16.12 Office Visit 02/17/2016 1:40p [facility], Elaine Sanya, 76262 N12 Hospitalists D.O. R79.89 A41.9 G30.8 Office Visit 02/16/2016 1:39p [facility], [address] N12 Hospitalists M.DEsteban R79.89 G30.8 A41.9 Office Visit 02/15/2016 1:39p [facility], 12257 N12 Hospitalists M.DEsteban R79.89 G30.8 A41.9 Office Visit 02/14/2016 1:38p [facility], [address] R79.89 Hospitalists M.DEsteban G30.8 A41.9 I10 Office Visit 02/13/2016 1:37p [facility], Reji Cordova M.D. 14167 R79.89 Hospitalists G30.8 F02.80 I10 Office Visit 02/02/2016 11:30a [facility] Gwen Sierra, 99561 M65.341 Of Jamie Vora M65.332 M19.041 M19.042 M65.331 Plan of Care Future Appointment(s):09/05/2017 1:30 pm - Kirstin Hannah M.D. at [facility] Of Jamie08/22/2017 - Kirstin Hannah M.D.Z96.642 Presence of left artificial hip jointFollow up:Follow up: 2 noobqN49.552 Pain in left hipNew Labs:CBC Auto DiffC Reactive ProteinErythrocyte Sed Rate
[2017-08-26] MEDS ORDERED: NS 0.9% 1000 ML* 1,000 ML IV SCH (16:45)
--- NOTE | 2017-08-26 17:51 | ED ---
Az Moore Angela, scribed for Kehinde Mcdermott MD on 08/26/17 at 1543 . Lower Extremity - HPI Summary HPI Summary: This pt is a 76 y/o female presenting to [facility] referred by Dr. Hannah for possible fluid in left hip. Daughter reports the pt has not been feeling well for the past couple of weeks. Daughter states the pt has not been able to pinpoint her pain. Pt has hx of dementia. Pt currently reports diffuse pain in bilateral hips, left thigh, wrists, knees. Per daughter, pt had a partial left hip replacement and had a septic joint in the past. Denies abd pain, chest pain , headache, fever. Daughter notes the pt has a sore on the right side of her hip. Daughter reports the pt had an MRI this morning of the left hip ordered by Dr. Hannah. PMHx includes arthritis, HTN. Her PCP is Dr. Sol. - History of Current Complaint Chief Complaint: EDHipPelvisInjury Stated Complaint: FLUID IN HIP REPLACEMENT Time Seen by Provider: 08/26/17 15:27 Hx Obtained From: Patient, Family/Judicial Clerk - Daughter Mechanism Of Injury: Other - no recent trauma Onset of Pain: Days Onset/Duration: Still Present Severity Currently: Severe Pain Intensity: 8 Pain Scale Used: 0-10 Numeric Timing: Lasting Days Location: Is Diffuse Associated Signs And Symptoms: Negative: Fever, Abdominal Pain, Other - chest pain Aggravating Factor(s): Movement Alleviating Factor(s): Rest - Allergies/Home Medications Allergies/Adverse Reactions: Allergies Allergy/AdvReac Type Severity Reaction Status Date / Time No Known Allergies Allergy Unverified 08/26/17 15:32 Home Medications: Home Medications Aspirin EC TAB* [Ecotrin EC Low Dose 81 MG*] 81 mg PO DAILY 08/26/17 [History Confirmed 08/26/17] Cyanocobalamin TAB* [Vitamin B12 TAB*] 1,000 mcg PO DAILY 08/26/17 [History Confirmed 08/26/17] Ibuprofen [Advil Liqui-Gels] 400 mg PO DAILY 08/26/17 [History Confirmed ] Losartan TAB* [Cozaar TAB*] 50 mg PO DAILY 08/26/17 [History Confirmed 08/26/17] QUEtiapine TAB* [Seroquel 25 MG TAB*] 25 mg PO DAILY 08/26/17 [History Confirmed 08/26/17] Solifenacin(NF) [Vesicare(NF)] 5 mg PO DAILY 08/26/17 [History Confirmed ] Turmeric/Turmeric Ext/Pepr Ext [Turmeric Curcumin Complex 500-3 mg] 2 cap PO DAILY 08/26/17 [History Confirmed 08/26/17] PMH/Surg Hx/FS Hx/Imm Hx Endocrine/Hematology History: Reports: Hx Blood Transfusions - in the OR Denies: Hx Diabetes Cardiovascular History: Reports: Hx Hypercholesterolemia, Hx Hypertension - on med, Other Cardiovascular Problems/Disorders - hyperlipidemia - not on med currently Denies: Hx Angina, Hx Coronary Artery Disease, Hx Myocardial Infarction, Hx Pacemaker/ICD, Hx Valvular Heart Disease Respiratory History: Denies: Hx Asthma, Hx Chronic Obstructive Pulmonary Disease (COPD) GI History: Reports: Hx Gastroesophageal Reflux Disease, Other GI Disorders - constipation issues History: Reports: Hx Kidney Infection - hx of Denies: Hx Dialysis, Hx Renal Disease Comment Only: Other Problems/Disorders - UTI Musculoskeletal History: Reports: Hx Arthritis, Hx Osteoporosis, Other Musculoskeletal History - left hip Denies: Hx Rheumatoid Arthritis Sensory History: Reports: Hx Contacts or Glasses Denies: Hx Cataracts, Hx Hearing Aid Opthamlomology History: Reports: Hx Contacts or Glasses Denies: Hx Cataracts Neurological History: Reports: Hx Dementia, Hx Transient Ischemic Attacks (TIA) , Other Neuro Impairments/Disorders - CVA 10 yrs ago Denies: Hx Seizures Psychiatric History: Reports: Hx Depression - on med - spouse 3 weeks ago Denies: Hx Panic Disorder - Surgical History Surgery Procedure, Year, and Place: HYSTERECTOMY 1978. BLADDER REPAIR. HIP REPLACEMENT 2013 Hx Anesthesia Reactions: No Infectious Disease History: No Infectious Disease History: Reports: History Other Infectious Disease - LEFT HIP STAPH INFECTION Denies: Traveled Outside the [place] in Last 30 Days - Family History Known Family History: Positive: Unknown - Pt and family cannot recall FHx - Social History Alcohol Use: None Substance Use Type: Reports: None Substance Use Comment - Amount & Last Used: 6 CUPS COFFEE DAILY Smoking Status (MU): Never Smoked Tobacco Type: Cigarettes Amount Used/How Often: "AN OCCASIONAL CIGARETTE" Review of Systems Negative: Fever Negative: Chest Pain Negative: Abdominal Pain Musculoskeletal: Other - bilateral hip pain, left thigh pain, hand pain, wrist pain Negative: Headache All Other Systems Reviewed And Are Negative: Yes Physical Exam - Summary Physical Exam Summary: Appearance: Well appearing, no pain distress Skin: warm, dry. Intertrigo on pannus of the abdomen with some skin break down on the right. Head/face: normal. Moist mucous membranes. Eyes: EOMI, AKI ENT: normal Neck: supple, non-tender Respiratory: CTA, breath sounds present Cardiovascular: Occasional irregularity in the heart, pulses symmetrical. Good pulses. Abdomen: non-tender, soft Bowel: present Musculoskeletal: normal, strength/ROM intact. LLE: no pain with leg roll on the left. Neuro: normal, sensory motor intact, A&Ox3 Triage Information Reviewed: Yes Vital Signs On Initial Exam: Initial Vitals Temp Pulse Resp BP Pulse Ox 98.4 F 84 20 131/61 95 08/26/17 15:25 08/26/17 15:25 08/26/17 15:25 08/26/17 15:25 08/26/17 15:25 Vital Signs Reviewed: Yes Diagnostics - Vital Signs Vital Signs Temp Pulse Resp BP Pulse Ox 08/26/17 15:25 98.4 F 84 20 131/61 95 - Laboratory Lab Results: Lab Results 08/26/17 08/26/17 08/26/17 Range/Units 15:50 15:50 15:50 WBC 9.4 (3.5-10.8) 10^3/ul RBC 3.65 L (4.00-5.40) 10^6/ul Hgb 9.0 L (12.0-16.0) g/dl Hct 28 L (35-47) % MCV 76 L (80-97) fL MCH 25 L (27-31) pg MCHC 33 (31-36) g/dl RDW 15 (10.5-15) % Plt Count 639 H D (150-450) 10^3/ul MPV 6.4 L (7.4-10.4) um3 Neut % (Auto) 65.8 (38-83) % Lymph % (Auto) 19.7 L (25-47) % Beltrami % (Auto) 9.4 H (0-7) % Eos % (Auto) 3.8 (0-6) % Baso % (Auto) 1.3 (0-2) % Absolute Neuts (auto) 6.2 (1.5-7.7) 10^3/ul Absolute Lymphs (auto) 1.8 (1.0-4.8) 10^3/ul Absolute Monos (auto) 0.9 H (0-0.8) 10^3/ul Absolute Eos (auto) 0.4 (0-0.6) 10^3/ul Absolute Basos (auto) 0.1 (0-0.2) 10^3/ul Absolute Nucleated RBC 0 10^3/ul Nucleated RBC % 0 ESR 120 H (0-40) mm/Hr INR (Anticoag Therapy) 1.06 H (0.77-1.02) APTT 27.7 (26.0-36.3) seconds Sodium 135 (135-145) mmol/L Potassium 4.2 (3.5-5.0) mmol/L Chloride 99 L (101-111) mmol/L Carbon Dioxide 30 (22-32) mmol/L Anion Gap 6 (2-11) mmol/L BUN 25 H (6-24) mg/dL Creatinine 1.14 H (0.51-0.95) mg/dL Est GFR ( Amer) 55.9 (>60) Est GFR (Non-Af Amer) 46.2 (>60) BUN/Creatinine Ratio 21.9 H (8-20) Glucose 116 H (70-100) mg/dL Lactic Acid (0.5-2.0) mmol/L Calcium 9.0 (8.6-10.3) mg/dL Total Bilirubin 0.30 (0.2-1.0) mg/dL AST 14 (13-39) U/L ALT 8 (7-52) U/L Alkaline Phosphatase 84 (34-104) U/L Troponin I 0.01 (<0.04) ng/mL C-Reactive Protein 87.49 H (<8.01) mg/L Total Protein 7.3 (6.4-8.9) g/dL Albumin 2.7 L (3.2-5.2) g/dL Globulin 4.6 H (2-4) g/dL Albumin/Globulin Ratio 0.6 L (1-3) Blood Type Antibody Screen 08/26/17 08/26/17 Range/Units 15:50 15:50 WBC (3.5-10.8) 10^3/ul RBC (4.00-5.40) 10^6/ul Hgb (12.0-16.0) g/dl Hct (35-47) % MCV (80-97) fL MCH (27-31) pg MCHC (31-36) g/dl RDW (10.5-15) % Plt Count (150-450) 10^3/ul MPV (7.4-10.4) um3 Neut % (Auto) (38-83) % Lymph % (Auto) (25-47) % Beltrami % (Auto) (0-7) % Eos % (Auto) (0-6) % Baso % (Auto) (0-2) % Absolute Neuts (auto) (1.5-7.7) 10^3/ul Absolute Lymphs (auto) (1.0-4.8) 10^3/ul Absolute Monos (auto) (0-0.8) 10^3/ul Absolute Eos (auto) (0-0.6) 10^3/ul Absolute Basos (auto) (0-0.2) 10^3/ul Absolute Nucleated RBC 10^3/ul Nucleated RBC % ESR (0-40) mm/Hr INR (Anticoag Therapy) (0.77-1.02) APTT (26.0-36.3) seconds Sodium (135-145) mmol/L Potassium (3.5-5.0) mmol/L Chloride (101-111) mmol/L Carbon Dioxide (22-32) mmol/L Anion Gap (2-11) mmol/L BUN (6-24) mg/dL Creatinine (0.51-0.95) mg/dL Est GFR ( Amer) (>60) Est GFR (Non-Af Amer) (>60) BUN/Creatinine Ratio (8-20) Glucose (70-100) mg/dL Lactic Acid 1.2 (0.5-2.0) mmol/L Calcium (8.6-10.3) mg/dL Total Bilirubin (0.2-1.0) mg/dL AST (13-39) U/L ALT (7-52) U/L Alkaline Phosphatase (34-104) U/L Troponin I (<0.04) ng/mL C-Reactive Protein (<8.01) mg/L Total Protein (6.4-8.9) g/dL Albumin (3.2-5.2) g/dL Globulin (2-4) g/dL Albumin/Globulin Ratio (1-3) Blood Type O Positive Antibody Screen Negative Result Diagrams: 08/26/17 15:50 08/26/17 15:50 Lab Statement: Any lab studies that have been ordered have been reviewed, and results considered in the medical decision making process. - Radiology Chest XR Xray Interpretation: No Acute Changes - IMPRESSION: No radiographic evidence for acute cardiopulmonary abnormality on this portable chest x-ray. Dr. Mcdermott has reviewed this radiology report. Radiology Interpretation Completed By: Radiologist - EKG 15:50 Cardiac Rate: NL - at 75 bpm EKG Rhythm: Sinus Rhythm ST Segment: Non-Specific EKG Interpretation: Left axis. Incomplete left bundle. Lower Extremity Course/Dx - Course Course Of Treatment: Patient with dementia and diffuse arthralgias which are at this point chronic. She had orthopedic evaluation and an MRI of her postsurgical hip obtained. There is fluid adjacent to the hip seen by the orthopedist. The MRI is not been officially read by the radiologist. She has concerns given prior septic arthritis of the hip. Orthopedist asked that the hospitalist be contacted for admission. Dr. Casas will admit the patient to the medical service. - Diagnoses Differential Diagnosis/HQI/PQRI: Positive: Other - Polyarthritis, Lyme disease, rheumatic condition, septic joint Provider Diagnoses: Polyarthralgia, Effusion of left hip - Physician Notifications Discussed Care Of Patient With: Kirstin Hannah - patient to be admitted by hospitalist Dr. Roberth Casas Time Discussed With Above Provider: 16:12 Instructed by Provider To: Other - I discussed pt care with Dr. Hannah, orthopedist, who recommends admission. [16:24] I discussed with Dr. Casas, hospitalist, who accepted the pt for admission. Discharge - Sign-Out/Discharge Documenting (check all that apply): Discharge/Admit/Transfer - Admit - Discharge Plan Condition: Fair Disposition: ADMITTED TO [facility] - Billing Disposition and Condition Condition: FAIR Disposition: Admitted to [facility] The documentation as recorded by the Az mix Angela accurately reflects the service I personally performed and the decisions made by me, Kehinde Mcdermott MD.
[2017-08-26] MEDS ORDERED: NS 0.9% 500 ML* 500 ML IV ONE (19:22)
[2017-08-26 19:42] LABS: Urine Appearance Cloudy; Urine Blood 2+ (Negative); Urine Color Yellow; Urine Ketones Negative (Negative); Urine Protein Negative (Negative); Urine Specific Gravity 1.012 (1.010-1.030); Urine Urobilinogen Negative (Negative)
[2017-08-26] MEDS: Heparin VIAL(*) 5000 UNITS/ML VIAL (FIVE THOUSAND) SUBCUT SCH (22:53)
--- NOTE | 2017-08-27 04:47 | HP ---
ADMISSION HISTORY AND PHYSICAL: DATE OF ADMISSION: 08/26/17 TIME OF MY EVALUATION: 4 p.m. PRIMARY CARE PROVIDER: Dr. Sol from [facility] in [place]. CHIEF COMPLAINT: Progressive bilateral hip pain and inability to walk with MRI today showing fluid in the left hip. HISTORY OF PRESENT ILLNESS: Ms. Moss is a pleasant 76-year-old woman , who has been experiencing progressive bilateral hip pain and diffuse pain in other joints as well. The patient has not been walking because of this. She had an appointment with Dr. Hannah (ortho) this Tuesday, at which time blood work was ordered showing primarily an elevation in her inflammatory markers (ESR & CRP). The patient then had an MRI of her extremity showing fluid in the left hip space (that was resulted today). The patient was referred for admission with the intention of a surgical washout and exploration, but also request from the orthopedic team to initiate a rheumatologic and/or ID workup for possible alternate causes of bilateral hip pain and inflammation that the patient is now experiencing. The patient has a history of left hip surgery and repair secondary to an infection earlier in 2016. She apparently had a pathologic fracture complicated by a subsequent infection, for which a spacer was put in and the patient was immobile for some time. I believe it was in August 2016 that she then had a total hip replacement and has done well after that until now. She had achieved an ambulatory state and then she experienced the current episode ( decline) over the past few weeks. The patient denies any fevers, headache, chest pain, or abdominal pain. She does report diffuse pain in her hips, thighs, wrists and knees and her shoulders bilaterally. In fact, she was grimaced when she lifted her right arm to shake my hand. The patient is accompanied by her daughter, Lilly Wright who she lives with in [place], [place]. She denies rashes or focal weakness. No recent history of weight loss or gain. She denies shortness of breath or headaches or visual changes. PAST MEDICAL HISTORY: 1. Arthritis. 2. Hypertension. 3. Stroke in 2004. 4. Hyperlipidemia. 5. Hip surgery / infection - as above - 2017 PAST SURGICAL HISTORY: 1. Hysterectomy. 2. Cholecystectomy. OUTPATIENT MEDICATIONS: 1. Ibuprofen 400 mg by mouth daily, as needed. 2. Turmeric complex 500 mg capsules 2 capsules by mouth daily. 3. Aspirin enteric-coated 81 mg by mouth daily. 4. Cyanocobalamin/vitamin B12 1000 mcg by mouth daily. 5. Duloxetine/Cymbalta 30 mg by mouth daily. 6. Cozaar 50 mg by mouth daily. 7. Omeprazole 20 mg by mouth daily. 8. Seroquel 25 mg by mouth daily. 9. VESIcare 5 mg by mouth daily. ALLERGIES: No known drug allergies. FAMILY HISTORY: Reviewed and noncontributory, consisting of a sister who suffered from breast cancer and a mother who secondary to cardiac disease. 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 She is a nonsmoker, nondrinker. No recreational drugs. She has 3 daughters. Her daughter, Lilly Wright is her healthcare proxy and is accompanying her now. The patient is a DNR. REVIEW OF SYSTEMS: A review of 14 systems was completed with the assistance of the patient's daughter, Lilly. All pertinent positives and negatives were mentioned in the HPI and past medical history. There is no history of known rheumatologic diseases such as lupus or ANCA vasculitis or glomerulonephritis or vasculitis or any other autoimmune related diseases. PHYSICAL EXAMINATION On admission: GENERAL: The patient is an elderly appearing woman, in no apparent distress, sitting in an ER gurney, accompanied by her daughter. VITAL SIGNS: Temperature 98.4 degrees Fahrenheit, blood pressure 131/61, heart rate 84, respirations 20 and regular, oxygen saturation 95% on room air. HEENT: Oropharynx is clear. Mucous membranes are moist. No posterior pharyngeal erythema or exudate. Pupils are equal, round, and reactive to light and accommodation. No cranial nerve abnormalities noted. NECK: No elevated jugular venous distention. No carotid bruits. Midline trachea. Normal thyroid. CHEST: Clear breath sounds anteriorly and posteriorly. No focal rales, rhonchi , or wheezing. HEART: No murmurs appreciated. Extremities are well perfused. ABDOMEN: Soft and nontender. EXTREMITIES: She does have some passive pain to flexion and extension of her hips, although I did not ambulate her. She does have swollen MTP joints in her hands. NEUROLOGIC: Her exam is nonfocal. She does have weakness limited by pain with movements at her major joints. No crepitus was noted. PSYCH: Normal affect. No anxiety or depression, but poor recall and insight into her current condition. She is alert and oriented x2 (name, current location, not to date). SKIN: Dry and intact. No rashes, lesions, or breakdown. ADMISSION DATA: White blood cell count normal at 9.4, hemoglobin 9, platelets 639. INR 1.06. Blood chemistry includes an elevated BUN to creatinine ratio of 29.9 with a creatinine of 1.14, which is elevated compared to her previous values, in January 2017 her creatinine was 0.94, in August 2016 was 0.64; BUN is elevated at 25 and this is also high for her range. CRP elevated at 87.49. ESR elevated at 120. The final read of the MRI is still pending, but shows possible fluid in the left hip as per the verbal report given to the ED attending. A chest x-ray done in the ED shows no acute disease in the pulmonary parenchyma , no effusions noted, no infiltrates. EKG shows no evidence of active ischemia. IMPRESSION AND PLAN: Ms. Moss is a 76-year-old female with left hip effusion in the setting of progressive pain and stiffness in multiple joints including both hips, both knees and both shoulders. Dr. Kirstin Hannah saw the patient in outpatient consultation this week and is intending to take the patient to the operating room to washout her left hip. This was the hip as I understand that was septic in the setting of a fracture over 1 year ago. One possibility is progressive osteoarthritis in multiple locations with again another possibility being a rheumatologic process or other systemic process given her elevated inflammatory markers with joint effusions and diffuse pain. It might be there is an infection in her left hip joint and she has reactive changes in other joints secondary to systemic inflammation. In terms of her risk for surgery, she did well with her hip surgeries back in 2017. She was watched in the ICU for some episodes of oxygen desaturation in the postop period and so I would recommend she be monitored the same way this time. But, in terms of any preoperative cardiac workup, there no indication at this time and she is generally optimized for surgery and it would be reasonable to proceed to the OR without further workup. With respect to a rheumatologic workup, I have taken the liberty of ordering an ELIJAH, ANCA, complement levels, rheumatoid factor and the ESR and CRP are resulted as above. I will add on a urinalysis and urine culture to rule out a typical potentially occult infection (with potential reactive arthritis). Blood cultures were ordered. We will continue outpatient medications as prescribed. N.p.o. after midnight. Given there is not an elevated white blood count, and not fevers, and no positive evidence for an infection, I will hold off on antibiotics not to confound the fluid testing during her surgery. TOTAL SPENT: Total time taken to admit Ms. Moss was 65 minutes, greater than half the time was spent going over the history and physical examination face- to-face with the patient and coordinating the plan of care, which was agreeable to the patient and her daughter. [id number]/[facility] #: [id number] ANJEL
[2017-08-27 05:56] LABS: ABS Basophils 0 10^3/ul (0-0.2); ABS Eosinophils 0.4 10^3/ul (0-0.6); ABS Lymphocytes 1.9 10^3/ul (1.0-4.8); ABS Monocytes 0.7 10^3/ul (0-0.8); ABS Neutrophils 5.9 10^3/ul (1.5-7.7); ABS Nucleated RBC 0 10^3/ul; Hematocrit 26 % (35-47); Hemoglobin 8.6 g/dl (12.0-16.0); Lymphocyte % 21.2 % (25-47); Mean Corpuscular HGB Conc 33 g/dl (31-36); Mean Corpuscular Hemoglobin 25 pg (27-31); Mean Corpuscular Volume 76 fL (80-97); Mean Platelet Volume 6.7 um3 (7.4-10.4); Nucleated Red Blood Cells % 0; Platelet Count 604 10^3/ul (150-450); Red Blood Count 3.48 10^6/ul (4.00-5.40); Red Cell Distribution Width 15 % (10.5-15); White Blood Count 8.9 10^3/ul (3.5-10.8)
[2017-08-27 06:12] LABS: EGFR Non-African American 61.5 (>60)
--- NOTE | 2017-08-27 07:13 | RAD ---
INDICATION: Right hand pain and swelling COMPARISON: None TECHNIQUE: AP, lateral, and oblique views were obtained. FINDINGS: There is osteopenia with interphalangeal and metacarpophalangeal joint space narrowing. There is moderate osteoarthritis about the base of the thumb. There is radiocarpal osteoarthritis. No acute bony finding is appreciated. IMPRESSION: MODERATE OSTEOARTHRITIS.
[2017-08-27] MEDS: Heparin VIAL(*) 5000 UNITS/ML VIAL (FIVE THOUSAND) SUBCUT SCH ×2 (07:24→12:24)
[2017-08-27] MEDS ORDERED: KETAMINE HCL* 50 MG/ML 10 ML VIAL ONE (07:42)
[2017-08-27] MEDS ORDERED: Propofol* 10 MG/ML 20 ML BTL IV PUSH ONE (07:42)
[2017-08-27] MEDS ORDERED: Ketorolac INJ* 30 MG/ML 1 ML VIAL ONE (07:42)
[2017-08-27] MEDS ORDERED: Lidocaine 2% PF * 5 ML VIAL ONE (07:42)
[2017-08-27] MEDS ORDERED: Ondansetron ODT TAB* 4 MG ONE (07:42)
[2017-08-27] MEDS ORDERED: Dexamethasone IV* 4 MG/ML 1 ML (4 MG) ONE (07:42)
[2017-08-27] MEDS ORDERED: fentaNYL* 50 MCG/ML 2 ML VIAL (100 MCG VIAL) ONE ×2 (07:42→10:41)
[2017-08-27] MEDS ORDERED: Midazolam* 1 MG/ML 5 ML VIAL (5 MG) ONE (07:42)
[2017-08-27] MEDS ORDERED: Cisatracurium* 2 MG/ML MDV 5 ML ONE (07:42)
[2017-08-27] MEDS ORDERED: Phenylephrine INJ* 10 MG/ML 1 ML VIAL (10 MG) ONE (07:42)
[2017-08-27] MEDS ORDERED: ceFAZolin 2 GM PREMIX (*) 2 GM/50 ML BAG IVPB ONE (07:55)
[2017-08-27] MEDS: Losartan TAB* 25 MG PO SCH (08:27)
[2017-08-27] MEDS: Cyanocobalamin TAB* 500 MCG PO SCH (08:27)
[2017-08-27] MEDS: Omeprazole CAP* 20 MG PO SCH (08:27)
[2017-08-27] MEDS: CMCS Solifenacin(NF) 5 MG TAB PO SCH (08:27)
[2017-08-27] MEDS: DULoxetine DR CAP* 30 MG CAP.DR PO SCH (08:27)
[2017-08-27] MEDS: QUEtiapine TAB* 25 MG PO SCH (08:27)
[2017-08-27] MEDS: Aspirin EC TAB* 81 MG TAB.EC PO SCH (08:27)
[2017-08-27] MEDS ORDERED: HYDROmorphone INJ* 1 MG/ML CARPUJECT SYRINGE IV PRN (09:13)
[2017-08-27] MEDS ORDERED: Naloxone* 0.4 MG/ML 1 ML VIAL IV PRN (09:13)
[2017-08-27] MEDS ORDERED: Ondansetron INJ* 2 MG/ML VIAL IV PRN (09:13)
--- NOTE | 2017-08-27 09:39 | CONS ---
CONSULTATION REPORT: DATE OF CONSULT: 08/26/17 CHIEF COMPLAINT: Left hip pain. HISTORY OF PRESENT ILLNESS: Ms. Moss is a 76-year-old female known to me for several years. She initially had May 2016 infected hip hemiarthroplasty that grew positive MSSA. She had explant of her prosthesis with an antibiotic cement spacer. She had 2 months of IV cefazolin and did appear to have cleared the infection. She was cleared to have the hip reimplanted and had a total hip arthroplasty in August of 2016. Postoperatively, the patient did well. She was ambulating. Patient's daughter presented to clinic this week reporting the patient's mother was reporting increased pain in the left hip, bilateral knees, bilateral ankles, neck, and right hand. She had some low-grade temperatures but was not significantly febrile. She did have 10/ 10 pain in the left hip, difficulty weightbearing. I was concerned about possible infection since this is essentially her presentation in 2017. I ordered some initial labs, which showed elevated CRP and ESR. I then ordered an MRI, which was done this morning and showed significant amount of fluid around the patient's hip joint. Patient was sent to the emergency room. Hospitalist group was good enough to admit her and to evaluate for preop clearance. I was contacted by Dr. Casas, who admitted the patient feeling she was stable enough to undergo washout of the hip and was medically optimized. I spoke with Dr. Ochoa of Radiology, who agreed with me that the MRI showed significant fluid in the soft tissue around the hip and bony edema consistent with possible septic joint. PAST MEDICAL HISTORY: 1. Above-mentioned septic left hip MSSA. 2. Hypertension. 3. Hyperlipidemia. 4. CVA. 5. Dementia. PAST SURGICAL HISTORY: 1. Left hip hemiarthroplasty for femoral neck fracture. 2. Left hip hardware explant with antibiotic cement spacer. 3. Left total hip arthroplasty. 4. Hysterectomy. 5. Cholecystectomy. HOME MEDICATIONS: 1. VESIcare 5 mg p.o. daily. 2. Omeprazole 20 mg p.o. daily. 3. Meloxicam 7.5 mg p.o. daily. 4. Losartan 50 mg p.o. daily. 5. Aricept 10 mg p.o. q.h.s. 6. Cymbalta 30 mg p.o. daily. 7. Vitamin B12 1000 mcg p.o. daily. 8. Calcium and vitamin D one tablet p.o. b.i.d. 9. Norvasc 5 mg p.o. daily. ALLERGIES: No known drug allergies. FAMILY HISTORY: Breast cancer. SOCIAL HISTORY: Patient lives with her daughter. She has been weightbearing as tolerated with a walker. Recently, she has had difficulty ambulating. No tobacco, alcohol, or recreational drugs. Her daughter, Chantell Wright, is her surrogate; phone number [phone]. REVIEW OF SYSTEMS: Fourteen systems reviewed with the patient. Patient is sleepy. She reports left hip pain, neck pain, right hand pain and swelling, bilateral knee pain, bilateral foot and ankle pain. She denies fevers, chills, chest pain, shortness of breath. Otherwise, patient reports review of systems is negative or not relevant. PHYSICAL EXAMINATION: Vitals: Temperature 98.2, pulse is 70, blood pressure 120/54. General: Patient is a well-nourished female, in no apparent distress. Alert and oriented x3. Pleasant mood and appropriate affect. Gait is not assessed. HEENT: Atraumatic, normocephalic. Pupils are equal and reactive to light. Chest: Unlabored breathing. Abdomen: Soft, nontender, nondistended. Right upper extremity shows swelling over the 2nd, 3rd and 4th MCP joints with tenderness to palpation. She has difficulty making a full fist. There is some erythema here. No palpable fluid collections. 2+ palpable radial pulse. Left upper extremity: Patient's skin is intact. No abrasions or open wounds. She can make a full fist, which is 4+/5 strength. Right lower extremity: Patient has some superficial abrasions in her groin region under pannus. She can flex the hip to 80 degrees. Distally, she has moderate effusion at the knee joint, tenderness along the knee joint and ankle. She demonstrates dorsiflexion, plantar flexion. Strength 2+ palpable DP pulse. Left lower extremity: Patient' s incision is intact without any erythema. No palpable fluid collections. Hip flexion at 90 degrees with some mild groin pain. Moderate effusion at the knee joint with tenderness to palpation. Distally, she demonstrates dorsiflexion and plantar flexion. Strength: 2+ palpable DP pulse. DIAGNOSTIC STUDIES/LAB DATA: White blood cell is 9.4, hematocrit 28, platelets 639, ESR 120. INR 1.06. CRP 87. Sodium 135, potassium 4.2, BUN and creatinine 25 and 1.14. Urine culture looks to be contaminated. Radiographs: Multiple plain films of the left hip showed no obvious periprosthetic fracture, question of some lucency around the proximal stem but there is distal fixation, significant osteopenia. MRI of the left hip is reviewed from today on 08/26/17, which shows a large amount of subcutaneous fluid collection, joint effusion as well as bony edema consistent with a possible infection. ASSESSMENT AND PLAN: Ms. Moss is a 76-year-old female with 1 month of increasingly severe left hip pain. She does have a history of septic joint in the past. She had hardware explant antibiotic cement spacer and finally a total hip arthroplasty after clearance of an methicillin-sensitive Staphylococcus aureus infection in 2017. Patient has increased pain with weightbearing and MRI consistent with infected left hip. I have discussed options with the patient and her daughter. I have offered them an aspiration under Radiology guidance to confirm the infection. I have offered them both operative and nonoperative treatment. We discussed that without treatment of infection, the patient is at risk of developing sepsis. Blood cultures were sent but the patient showing no signs of sepsis at this time. We discussed an open washout of the joint would have a lower chance of clearing the infection. We discussed that explant of the hardware would have the best chance of clearing the infection. Patient's daughter is adamant that she does not feel her mother could withstand another explant with antibiotic spacer placement. I do agree with her. We have agreed that the best course is an intermediate course with open I and D of the joint. We will make her n.p.o. after midnight. We will plan for an open washout of the left hip joint on 08/27 in the early a.m. We will get good cultures of the fluid and the patient has not been on antibiotics. I will obtain x-rays of the right hand and we may need an MRI to evaluate for infection here. Dr. Casas has also sent some inflammatory marker lab work to evaluate further for rheumatoid arthritis or other systemic inflammatory arthritides. Patient's daughter asked several questions and they are answered. She understands the risks and benefits of the surgical intervention. Thank you for this orthopedic consultation. [id number]/[facility] #: [id number] ANJEL
[2017-08-27] MEDS ORDERED: Labetalol IV* 5 MG/ML 20 ML VIAL ONE (10:09)
[2017-08-27] MEDS: fentaNYL* 50 MCG/ML 2 ML VIAL (100 MCG VIAL) IV PRN ×4 (10:43→11:28)
[2017-08-27] MEDS ORDERED: diPHENhydraMINE IV* 50 MG/ML 1 ml VIAL (BENADRYL) IV PRN (10:46)
[2017-08-27] MEDS ORDERED: Magnesium Hydroxide LIQ* 30 ML UDC PO PRN (10:46)
[2017-08-27] MEDS ORDERED: Enoxaparin(*) 30 MG/0.3 ML SYR SUBCUT SCH (11:00)
[2017-08-27] MEDS ORDERED: Vancomycin(*) 1,000 MG in NS 0.9% 250 ML* 250 ML IVPB ONE (14:00)
--- NOTE | 2017-08-27 16:20 | OP ---
DATE OF OPERATION: 08/27/17 - ROOM #339 DATE OF : 38 SURGEON: Kirstin Hannah MD. [employer] OPERATOR: SHARON Mcclure. Mr. Hernández did help throughout the procedure with preparation of the leg, wound retraction, manipulation of the hip and wound closure. ANESTHESIOLOGIST: Dr. Camacho. ANESTHESIA: General. PRE-OP DIAGNOSIS: Left hip pain and possible septic left hip joint. POST-OP DIAGNOSIS: Left hip pain and possible septic left hip joint. OPERATIVE PROCEDURE: Left hip arthrotomy with irrigation and debridement of fluid collection. COMPLICATIONS: None. ESTIMATED BLOOD LOSS: 200 cc. SPECIMEN: 30 cc of cloudy yellow fluid was sent for cell count and differential. Multiple culture swabs were sent from both superficial and deep fluid collection in the left hip for cultures and sensitivities including aerobic, anaerobic, mycobacterial and fungal cultures. BRIEF HISTORY/INDICATIONS: Ms. Moss is a 76-year-old female who presented as an outpatient clinic patient with increased left hip pain and difficulty bearing weight on the left hip. She did have significant history in the past of femoral neck fracture with eventual hemiarthroplasty that became infected. I explanted the infected hemiarthroplasty and placed cement spacer in May 2017. She cleared the infection by aspiration and lab values. I placed a left total hip arthroplasty in May 2016 and the patient did well over the first year. The patient's daughter reports that she remained afebrile , but started to have increased left hip pain and difficulty ambulating. In the outpatient setting, I ordered some labs which showed significantly elevated CRP and ESR. I then sent her for an MRI with just fluid collection in the subcutaneous tissue as well as bony edema around the proximal stem and joint effusion of the left hip. The patient's family and I discussed different options. They declined aspiration of the hip joint and wished to proceed to a washout of the hip joint. They declined any discussion of explant of the hardware due to the patient's age and medical comorbidities. The patient's family and I openly discussed the different options. They understood the risks and benefits of each option. They wished to have an open I and D of the left hip joint with no explant of the hardware. Informed consent was obtained from the patient and her family. They understood the risks of surgery included, but were not limited to bleeding, infection, damage to nearby structures, continued pain, need for further surgery, continued infection, failure to clear the infection, hip dislocation, stroke, heart attack , blood clot, and . They wished to proceed. INTRAOPERATIVE FINDINGS: Intraoperatively, the patient was noted to have cloudy serous fluid that was present from the immediate subcutaneous incision to the hip joint. This did appear to have communication. There was a large amount of fluid in the trochanteric bursal region. There was approximately 10 cc of fluid in the hip joint, we obtained both superficial and deep wound cultures, as well as collection of the fluid for cell count and differential. The patient had no obvious necrotic appearing soft tissue. There was no obvious loosening of the implants. DESCRIPTION OF PROCEDURE: Ms. Moss was identified in the preanesthesia unit. Informed consent was signed and placed in the chart. The patient's daughter did sign the informed consent at her request. The left lower extremity was marked as the correct operative site. The patient was taken to the operating room and placed under general anesthesia. A Jett catheter was placed. She was placed in the right lateral decubitus position on the pegboard. All bony prominences were well padded. Left lower extremity was prepped and draped in the usual sterile fashion. Preop time-out was made to correctly identify the patient's side and site. Appropriate perioperative antibiotics were held until after culture specimens were obtained. The patient' s prior posterior hip incision was made with a 10 blade and carried down to the lateral fascia layer. Immediately there was approximately 20 cc of cloudy serous fluid. This fluid was collected with multiple culture swabs. This fluid was also collected in a syringe and sent for cell count and differential. The lateral fascia layer was opened with a 10 blade. Careful dissection anterior and posteriorly established a fascial flap. The posterior aspect of the hip joint was visualized. There was a significant amount of the cloudy serous fluid which seemed to track down to the hip joint. 3 L of sterile saline were used to irrigate the hip joint. Next, electrocautery was used to make a standard posterolateral capsular flap and 10 cc of the serous cloudy fluid were identified deep within the hip joint. Multiple culture swabs were obtained of the deep fluid. At this point in the procedure, the antibiotic was given IV. Evaluation of the acetabular and femoral implants showed no obvious loosening. There was no obvious necrotic tissue. Any fibrous tissue was carefully removed with a rongeur. The hip joint was copiously irrigated with 6 L of sterile saline. A #5 Ethibond was used to perform a posterior capsular repair. The lateral fascia layer was closed using interrupted #5 Ethibond and 1-0 Vicryl. The rest of the incision was closed in a layered fashion using 0 and 2-0 Vicryl. Skin was closed using running 3-0 Monocryl and Dermabond. Sterile Adaptic, 4x4's, and paper tape were used to cover the incision. The patient's anesthesia was reversed without difficulty. She was taken to the PACU in stable condition. Intended weightbearing will be weightbearing as tolerated. Intended DVT prophylaxis will be Coumadin with a Lovenox bridge. We will of course follow the culture results closely. For now, she will be placed on IV vancomycin with pharmacy to dose. We will consult Infectious Disease. We will hold off any PEG placement until culture results are final. [id number]/[facility] #: [id number] MTDD
[2017-08-27] MEDS ORDERED: Vancomycin per Pharmacy* NOTE FOLLOW UP PRN (16:34)
[2017-08-27] MEDS ORDERED: LORazepam INJ* 2 MG/ML 1 ML VIAL IV PUSH STA (16:38)
[2017-08-27] MEDS: Vancomycin(*) 1,000 MG in NS 0.9% 250 ML* 250 ML IVPB SCH (16:40)
[2017-08-27] MEDS ORDERED: Warfarin TAB(*) 5 MG PO ONE (17:00)
--- NOTE | 2017-08-27 17:39 | PN ---
Subjective Date of Service: 08/27/17 Interval History: . patient did well overnight...went to OR for L hip washout today with Dr. Hannah. No complications, though after the surgery, patient had episodes of apnea with oxygen desaturations (hypoxia) to the 60's. She is being watched in the ICU and will have BiPAP for facilitated ventilation. When she is awake and prompted to take deep breaths, she obeys and sats in the high 90's on RA. denies pain, though hyper-sensitive at every location and finds it painful to move. IV Abx started in the OR... cultures taken from blood and joint fluid --> awaiting results. . Family History: Unchanged from Admission Social History: Unchanged from Admission Past Medical History: Unchanged from Admission Objective Active Medications: . Acetaminophen (Tylenol Tab*) 650 mg PO Q4H PRN PRN Reason: FEVER/PAIN Aspirin (Aspirin Ec Tab*) 81 mg PO DAILY [facility] Last Admin: 08/27/17 08:27 Dose: Not Given Cyanocobalamin (Vitamin B12 Tab*) 1,000 mcg PO DAILY [facility] Last Admin: 08/27/17 08:27 Dose: Not Given Diphenhydramine HCl (Benadryl Iv*) 25 mg IV Q6H PRN PRN Reason: itching Duloxetine HCl (Cymbalta Cap*) 30 mg PO QAM [facility] Last Admin: 08/27/17 08:27 Dose: Not Given Enoxaparin Sodium (Lovenox(*)) 30 mg SUBCUT 1700 [facility] Lactated Ringer's (Lactated Ringers 1000 Ml Bag*) 1,000 mls @ 100 mls/hr IV PER RATE [facility] Last Admin: 08/27/17 12:27 Dose: 100 mls/hr Vancomycin HCl 1,000 mg/ (Sodium Chloride) 250 mls @ 166.667 mls/hr IVPB Q12H [facility] Losartan Potassium (Cozaar Tab*) 50 mg PO DAILY [facility] Last Admin: 08/27/17 08:27 Dose: Not Given Magnesium Hydroxide (Milk Of Magnesia Liq*) 30 ml PO BID [facility] Magnesium Hydroxide (Milk Of Magnesia Liq*) 30 ml PO Q6H PRN PRN Reason: constipation Morphine Sulfate (Morphine Vial*) 2 mg IV Q4H PRN PRN Reason: PAIN Last Admin: 08/27/17 12:24 Dose: 2 mg Omeprazole (Prilosec Cap*) 20 mg PO 0730 [facility] Last Admin: 08/27/17 08:27 Dose: Not Given Ondansetron HCl (Zofran Inj*) 4 mg IV Q4H PRN PRN Reason: NAUSEA/VOMITING Oxycodone/Acetaminophen (Percocet 5/325 Tab*) 2 tab PO Q4H PRN PRN Reason: PAIN Oxycodone/Acetaminophen (Percocet 5/325 Tab*) 1 tab PO Q4H PRN PRN Reason: PAIN Pharmacy Consult (Vancomycin Per Pharmacy*) 1 note FOLLOW UP . PRN PRN Reason: PER PROTOCOL Pharmacy Profile Note (Vancomycin Trough Check) 1 note FOLLOW UP .ENTER TIME ONE Stop: 08/28/17 14:31 Quetiapine Fumarate (Seroquel Tab*) 25 mg PO DAILY [facility] Last Admin: 08/27/17 08:27 Dose: Not Given Solifenacin (Vesicare(Nf)) 5 mg PO DAILY [facility] Last Admin: 08/27/17 08:27 Dose: Not Given . Vital Signs - 8 hr 08/27/17 08/27/17 08/27/17 10:26 10:27 10:31 Temperature 98.2 F Pulse Rate 72 68 66 Respiratory 18 20 Rate Blood Pressure 153/66 158/59 (mmHg) O2 Sat by Pulse 100 100 100 Oximetry 08/27/17 08/27/17 08/27/17 10:36 10:41 10:43 Temperature Pulse Rate 66 69 Respiratory 16 18 17 Rate Blood Pressure 149/69 147/54 (mmHg) O2 Sat by Pulse 100 99 Oximetry 08/27/17 08/27/17 08/27/17 10:46 11:00 11:01 Temperature Pulse Rate 67 65 67 Respiratory 19 20 12 Rate Blood Pressure 147/60 138/76 (mmHg) O2 Sat by Pulse 99 99 99 Oximetry Oxygen Devices in Use Now: OxyMask Appearance: elderly and frail. Awake. no distress at rest. examined in ICU. Eyes: No Scleral Icterus Ears/Nose/Mouth/Throat: Clear Oropharnyx Neck: NL Appearance and Movements; NL JVP Respiratory: Symmetrical Chest Expansion and Respiratory Effort - when sleeping , long apneic periods noted with oxygen desaturation Cardiovascular: NL Sounds; No Murmurs; No JVD Abdominal: NL Sounds; No Tenderness; No Distention Extremities: No Edema Skin: No Rash or Ulcers Neurological: Alert and Oriented x 3 Lines/Tubes/Other Access: Clean, Dry and Intact Peripheral IV Nutrition: Taking PO's Result Diagrams: 08/27/17 05:36 08/27/17 05:36 Additional Lab and Data: . Microbiology and Other Data: Microbiology 08/26/17 19:22 Urine Culture - Preliminary Urine Escherichia Coli 08/27/17 09:12 Gram Stain - Final Wound - Hip Left 08/27/17 09:12 Gram Stain - Final Body Fluid - Hip Left Acid Fast Bacilli Smear - Final 08/27/17 09:12 Acid Fast Bacilli Smear - Final Wound - Hip Left 08/27/17 09:12 Gram Stain - Final Wound - Hip Left Acid Fast Bacilli Smear - Final 08/26/17 16:38 Aerobic Blood Culture - Preliminary Blood Venous No Growth Day 1 Anaerobic Blood Culture - Preliminary No Growth Day 1 08/27/17 14:49 Nasal Screen MRSA (PCR) - Final Nasal Mrsa Not Detected 08/26/17 15:53 Aerobic Blood Culture - Preliminary Blood Venous No Growth Day 1 Anaerobic Blood Culture - Preliminary No Growth Day 1 Assess/Plan/Problems-Billing . Assessment: 76 yo female with left hip effusion, suspected septic joint (history of MSSA in that joint) now admitted for inability walk, L hip pain and diffuse arthralgias. - Patient Problems (1) Septic hip Current Visit: No Status: Acute Code(s): M00.9 - PYOGENIC ARTHRITIS, UNSPECIFIED SNOMED Code(s): 573365119 Comment: - Washout on 08/27/2017 --> fluid from hip joint sent for cultures - Blooc cultures sent and pending - Vancomycin 1000 mg IV Q12 started (appropriately) - await culture results and tailor antibiotic regimen. - patient's daughter does not feel her mother (pt) will tolerate a hip replacement as she did before...conservative treatment is the preferred option at this point. (2) Chronic intermittent hypoxia with obstructive sleep apnea Current Visit: Yes Status: Chronic Priority: High Code(s): G47.34 - IDIO SLEEP RELATED NONOBSTRUCTIVE ALVEOLAR HYPOVENTILATION; G47.33 - OBSTRUCTIVE SLEEP APNEA (ADULT) (PEDIATRIC) Comment: - hypoxic respiratory failure secondary to profiund apneic episodes and oxygen desaturation to the 60's. - starting NIPPV --> bipap on RA...will see if patient tolerates this - ICU observation (3) Dementia Current Visit: No Status: Chronic Priority: High Code(s): F03.90 - UNSPECIFIED DEMENTIA WITHOUT BEHAVIORAL DISTURBANCE Comment: - s/p CVA and evolving alzheimer's - Continue home medication regimen.
[2017-08-27] MEDS: Enoxaparin(*) 30 MG/0.3 ML SYR SUBCUT SCH (17:59)
[2017-08-27] MEDS: Magnesium Hydroxide LIQ* 30 ML UDC PO SCH (20:15)
[2017-08-28] MEDS: Vancomycin(*) 1,000 MG in NS 0.9% 250 ML* 250 ML IVPB SCH ×2 (03:52→16:00)
[2017-08-28 06:30] LABS: Hematocrit 26 % (35-47); Hemoglobin 8.3 g/dl (12.0-16.0); Platelet Count 574 10^3/ul (150-450)
[2017-08-28] MEDS: Omeprazole CAP* 20 MG PO SCH (07:21)
[2017-08-28 08:08] LABS: EGFR Non-African American 69.6 (>60)
[2017-08-28] MEDS: Losartan TAB* 25 MG PO SCH (09:03)
[2017-08-28] MEDS: Aspirin EC TAB* 81 MG TAB.EC PO SCH (09:03)
[2017-08-28] MEDS: Magnesium Hydroxide LIQ* 30 ML UDC PO SCH ×2 (09:03→20:00)
[2017-08-28] MEDS: Cyanocobalamin TAB* 500 MCG PO SCH (09:03)
[2017-08-28] MEDS: oxyCODONE/Acetamin 5/325 MG* TAB PO PRN ×2 (09:52→20:00)
[2017-08-28] MEDS: Ciprofloxacin TAB* 250 MG PO SCH ×2 (10:15→19:59)
[2017-08-28] MEDS: DULoxetine DR CAP* 30 MG CAP.DR PO SCH (11:27)
[2017-08-28] MEDS: QUEtiapine TAB* 25 MG PO SCH (11:27)
[2017-08-28] MEDS: CMCS Solifenacin(NF) 5 MG TAB PO SCH (11:28)
[2017-08-28] MEDS ORDERED: Vancomycin Trough Check NOTE FOLLOW UP ONE (14:30)
[2017-08-28 15:18] LABS: INR 1.26 (0.77-1.02)
--- NOTE | 2017-08-28 16:08 | PN ---
Progress Note - Progress Note Date of Service: 08/28/17 SOAP: Subjective: Pt sitting comfortably in chair. States improved pain, but still achy. Denies F/ C/N/T Vital Signs: Temp Pulse Resp BP Pulse Ox 98.2 F 65 18 98/42 100 08/28/17 14:20 08/28/17 14:20 08/28/17 15:56 08/28/17 14:20 08/28/17 14:20 Objective: Dressing C/D/I. Calves soft, nontender. N/V intact distally. Laboratory Last Values WBC 8.9 10^3/ul (3.5-10.8) 08/27/17 05:36 RBC 3.48 10^6/ul (4.00-5.40) L 08/27/17 05:36 Hgb 8.3 g/dl (12.0-16.0) L 08/28/17 05:57 Hct 26 % (35-47) L 08/28/17 05:57 MCV 76 fL (80-97) L 08/27/17 05:36 MCH 25 pg (27-31) L 08/27/17 05:36 MCHC 33 g/dl (31-36) 08/27/17 05:36 RDW 15 % (10.5-15) 08/27/17 05:36 Plt Count 574 10^3/ul (150-450) H 08/28/17 05:57 MPV 7.0 um3 (7.4-10.4) L 08/28/17 05:57 Neut % (Auto) 65.8 % (38-83) 08/27/17 05:36 Lymph % (Auto) 21.2 % (25-47) L 08/27/17 05:36 [place] % (Auto) 7.7 % (0-7) H 08/27/17 05:36 Eos % (Auto) 5.0 % (0-6) 08/27/17 05:36 Baso % (Auto) 0.3 % (0-2) 08/27/17 05:36 Absolute Neuts (auto) 5.9 10^3/ul (1.5-7.7) 08/27/17 05:36 Absolute Lymphs (auto) 1.9 10^3/ul (1.0-4.8) 08/27/17 05:36 Absolute Monos (auto) 0.7 10^3/ul (0-0.8) 08/27/17 05:36 Absolute Eos (auto) 0.4 10^3/ul (0-0.6) 08/27/17 05:36 Absolute Basos (auto) 0 10^3/ul (0-0.2) 08/27/17 05:36 Absolute Nucleated RBC 0 10^3/ul 08/27/17 05:36 Nucleated RBC % 0 08/27/17 05:36 ESR 120 mm/Hr (0-40) H 08/26/17 15:50 INR (Anticoag Therapy) 1.26 (0.77-1.02) H 08/28/17 15:05 APTT 27.7 seconds (26.0-36.3) 08/26/17 15:50 Sodium 139 mmol/L (135-145) 08/28/17 07:45 Potassium 4.4 mmol/L (3.5-5.0) 08/28/17 07:45 Chloride 104 mmol/L (101-111) 08/28/17 07:45 Carbon Dioxide 30 mmol/L (22-32) 08/28/17 07:45 Anion Gap 5 mmol/L (2-11) 08/28/17 07:45 BUN 20 mg/dL (6-24) 08/28/17 07:45 Creatinine 0.80 mg/dL (0.51-0.95) 08/28/17 07:45 Est GFR ( Amer) 84.2 (>60) 08/28/17 07:45 Est GFR (Non-Af Amer) 69.6 (>60) 08/28/17 07:45 BUN/Creatinine Ratio 25.0 (8-20) H 08/28/17 07:45 Glucose 86 mg/dL (70-100) 08/28/17 07:45 Lactic Acid 1.2 mmol/L (0.5-2.0) 08/26/17 15:50 Calcium 8.4 mg/dL (8.6-10.3) L 08/28/17 07:45 Total Bilirubin 0.30 mg/dL (0.2-1.0) 08/26/17 15:50 AST 14 U/L (13-39) 08/26/17 15:50 ALT 8 U/L (7-52) 08/26/17 15:50 Alkaline Phosphatase 84 U/L (34-104) 08/26/17 15:50 Troponin I 0.01 ng/mL (<0.04) 08/26/17 15:50 C-Reactive Protein 87.49 mg/L (<8.01) H 08/26/17 15:50 Total Protein 7.3 g/dL (6.4-8.9) 08/26/17 15:50 Albumin 2.7 g/dL (3.2-5.2) L 08/26/17 15:50 Globulin 4.6 g/dL (2-4) H 08/26/17 15:50 Albumin/Globulin Ratio 0.6 (1-3) L 08/26/17 15:50 Urine Color Yellow 08/26/17 19:22 Urine Appearance Cloudy 08/26/17 19: Urine pH 5.0 (5-9) 08/26/17 19: Ur Specific [place] 1.012 (1.010-1.030) 08/26/17 19:22 Urine Protein Negative (Negative) 08/26/17 19: Urine Ketones Negative (Negative) 08/26/17 19: Urine Blood 2+ (Negative) A 08/26/17: Urine Nitrate Positive (Negative) A 08/26/17: Urine Bilirubin Negative (Negative) 08/26/17 19: Urine Urobilinogen Negative (Negative) 08/26/17 19: Ur Leukocyte Esterase 1+ (Negative) A 08/26/17 19: Urine WBC (Auto) 1+(6-10/hpf) (Absent) A 08/26/17 19:22 Urine RBC (Auto) 1+(3-5/hpf) (Absent) A 08/26/17 19:22 Ur Squamous Epith Cells Present (Absent) A 08/26/17 19: Urine Bacteria 2+ (Absent) A 08/26/17 19: Hyaline Casts Present (Absent) A 08/26/17 19: Urine Glucose Negative (Negative) 08/26/17 19:22 Fluid Source Synovial fluid 08/27/17 09:12 Fluid Volume 1.5 mL 08/27/17 09:12 Fluid Color Red 08/27/17 09:12 Fluid Appearance Bloody 08/27/17 09:12 Fluid WBC 3724 /mcL (0-037019) 08/27/17 09:12 Fluid RBC 940066 /mcL 08/27/17 09:12 Fluid Tot Cell Count 100 08/27/17 09:12 Fluid Neutrophils 62 % 08/27/17 09:12 Fluid Lymphocytes 35 % 08/27/17 09:12 Fluid Monocytes 3 % 08/27/17 09:12 Vancomycin Trough 13.6 mcg/mL 08/28/17 15:10 Rheumatoid Factor > 120 IU/mL (<15) H 08/27/17 05:36 Blood Type O Positive 08/26/17 15:50 Antibody Screen Negative 08/26/17 15:50 Microbiology 08/26/17 15:53 Blood Venous Aerobic Blood Culture - Preliminary No Growth Day 2 08/26/17 15:53 Blood Venous Anaerobic Blood Culture - Preliminary No Growth Day 2 08/27/17 09:12 Wound - Hip Left Anaerobic Culture - Preliminary No Growth Day 1 08/27/17 09:12 Wound - Hip Left Gram Stain - Final 08/27/17 09:12 Wound - Hip Left Wound Culture - Preliminary No Growth Day 1 08/27/17 09:12 Wound - Hip Left Acid Fast Bacilli Smear - Final 08/27/17 09:12 Wound - Hip Left Anaerobic Culture - Preliminary No Growth Day 1 08/27/17 09:12 Wound - Hip Left Gram Stain - Final 08/27/17 09:12 Wound - Hip Left Wound Culture - Preliminary No Growth Day 1 08/27/17 09:12 Joint Fluid(Synovial) - Hip Left Sterile Body Fluid Culture - Preliminary 08/27/17 09:12 Joint Fluid(Synovial) - Hip Left Skin and Soft Tissue MRSA/ MSSA (PCR - Final Mrsa Negative S.aureus Negative 08/26/17 19:22 Urine Urine Culture - Final Escherichia Coli 08/26/17 20:46 Blood Venous Aerobic Blood Culture - Preliminary No Growth Day 1 08/26/17 20:46 Blood Venous Anaerobic Blood Culture - Preliminary No Growth Day 1 08/26/17 20:46 Blood Venous Aerobic Blood Culture - Preliminary No Growth Day 1 08/26/17 20:46 Blood Venous Anaerobic Blood Culture - Preliminary No Growth Day 1 08/27/17 09:12 Body Fluid - Hip Left Gram Stain - Final 08/27/17 09:12 Body Fluid - Hip Left Acid Fast Bacilli Smear - Final 08/27/17 09:12 Wound - Hip Left Acid Fast Bacilli Smear - Final 08/26/17 16:38 Blood Venous Aerobic Blood Culture - Preliminary No Growth Day 1 08/26/17 16:38 Blood Venous Anaerobic Blood Culture - Preliminary No Growth Day 1 08/27/17 14:49 Nasal Nasal Screen MRSA (PCR) - Final Mrsa Not Detected Assessment: 76 yo female s/p left hip I&D POD #1 Plan: OOB, PT/OT, WBAT Pain control Continue IV Vanco DVT prophylaxis - Coumadin 8mg today. Continue Lovenox to bridge. D/C planning - Likely will need STR
[2017-08-28] MEDS ORDERED: Warfarin TAB(*) 4 MG PO ONE (17:00)
[2017-08-28] MEDS: Enoxaparin(*) 30 MG/0.3 ML SYR SUBCUT SCH (17:27)
--- NOTE | 2017-08-28 17:28 | PN ---
Subjective Date of Service: 08/28/17 Interval History: . patient very clear today. daughter at bedside IV Abx ongoing -- she is tolerating them well STR planning to start immediately -- she prefers [facility] and has been there before. denies new c/p It does seem she has very severe JOAQUIN with profound hypoxic apneic episodes she is doing well with BiPAP but desperately need sa sleep study. I would be concerned if she went home without NIPPV. overnight hypoxia monitoring ordered. . Family History: Unchanged from Admission Social History: Unchanged from Admission Past Medical History: Unchanged from Admission Objective Active Medications: . Acetaminophen (Tylenol Tab*) 650 mg PO Q4H PRN PRN Reason: FEVER/PAIN Aspirin (Aspirin Ec Tab*) 81 mg PO DAILY [facility] Last Admin: 08/28/17 09:03 Dose: 81 mg Ciprofloxacin (Cipro Tab*) 250 mg PO Q12HR [facility] Stop: 08/30/17 21:01 Last Admin: 08/28/17 10:15 Dose: 250 mg Cyanocobalamin (Vitamin B12 Tab*) 1,000 mcg PO DAILY [facility] Last Admin: 08/28/17 09:03 Dose: 1,000 mcg Diphenhydramine HCl (Benadryl Iv*) 25 mg IV Q6H PRN PRN Reason: itching Duloxetine HCl (Cymbalta Cap*) 30 mg PO QAM [facility] Last Admin: 08/28/17 11:27 Dose: 30 mg Enoxaparin Sodium (Lovenox(*)) 30 mg SUBCUT 1700 [facility] Last Admin: 08/27/17 17:59 Dose: 30 mg Lactated Ringer's (Lactated Ringers 1000 Ml Bag*) 1,000 mls @ 100 mls/hr IV PER RATE [facility] Last Admin: 08/28/17 12:14 Dose: 100 mls/hr Vancomycin HCl 1,000 mg/ (Sodium Chloride) 250 mls @ 166.667 mls/hr IVPB Q12H [facility] Last Admin: 08/28/17 16:00 Dose: 166.667 mls/hr Losartan Potassium (Cozaar Tab*) 50 mg PO DAILY [facility] Last Admin: 08/28/17 09:03 Dose: 50 mg Magnesium Hydroxide (Milk Of Magnesia Liq*) 30 ml PO BID [facility] Last Admin: 08/28/17 09:03 Dose: 30 ml Magnesium Hydroxide (Milk Of Magnesia Liq*) 30 ml PO Q6H PRN PRN Reason: constipation Morphine Sulfate (Morphine Vial*) 2 mg IV Q4H PRN PRN Reason: PAIN Last Admin: 08/27/17 12:24 Dose: 2 mg Omeprazole (Prilosec Cap*) 20 mg PO 0730 [facility] Last Admin: 08/28/17 07:21 Dose: 20 mg Ondansetron HCl (Zofran Inj*) 4 mg IV Q4H PRN PRN Reason: NAUSEA/VOMITING Oxycodone/Acetaminophen (Percocet 5/325 Tab*) 2 tab PO Q4H PRN PRN Reason: PAIN Last Admin: 08/28/17 09:52 Dose: 2 tab Oxycodone/Acetaminophen (Percocet 5/325 Tab*) 1 tab PO Q4H PRN PRN Reason: PAIN Pharmacy Consult (Vancomycin Per Pharmacy*) 1 note FOLLOW UP . PRN PRN Reason: PER PROTOCOL Quetiapine Fumarate (Seroquel Tab*) 25 mg PO DAILY [facility] Last Admin: 08/28/17 11:27 Dose: 25 mg Solifenacin (Vesicare(Nf)) 5 mg PO DAILY [facility] Last Admin: 08/28/17 11:28 Dose: 5 mg Vital Signs - 8 hr 08/28/17 08/28/17 08/28/17 09:30 09:52 10:00 Temperature Pulse Rate 79 Respiratory 18 21 Rate Blood Pressure 130/80 (mmHg) O2 Sat by Pulse 97 Oximetry 08/28/17 08/28/17 08/28/17 11:00 12:00 12:01 Temperature Pulse Rate 67 68 Respiratory 24 23 23 Rate Blood Pressure 99/43 (mmHg) O2 Sat by Pulse 97 99 Oximetry 08/28/17 08/28/17 08/28/17 12:19 13:00 14:20 Temperature 98.2 F Pulse Rate 63 65 Respiratory 17 18 Rate Blood Pressure 98/42 (mmHg) O2 Sat by Pulse 97 95 100 Oximetry 08/28/17 08/28/17 15:32 15:56 Temperature 98.4 F Pulse Rate 68 Respiratory 16 18 Rate Blood Pressure 94/38 (mmHg) O2 Sat by Pulse 100 Oximetry Oxygen Devices in Use Now: Nasal Cannula, BiPAP, OxyMask Appearance: elderly and frail. NAD. eating well. Ears/Nose/Mouth/Throat: NL Teeth, Lips, Gums Neck: NL Appearance and Movements; NL JVP Respiratory: Symmetrical Chest Expansion and Respiratory Effort Cardiovascular: NL Sounds; No Murmurs; No JVD Abdominal: NL Sounds; No Tenderness; No Distention Lymphatic: No Cervical Adenopathy Extremities: No Edema, - - hip dressed. Skin: No Rash or Ulcers Neurological: Alert and Oriented x 3, - - hypersenstive to most any stimulus Lines/Tubes/Other Access: Clean, Dry and Intact Peripheral IV Nutrition: Taking PO's Result Diagrams: 08/28/17 05:57 08/28/17 07:45 Additional Lab and Data: . Microbiology and Other Data: Microbiology 08/26/17 19:22 Urine Culture - Preliminary Urine Escherichia Coli 08/27/17 09:12 Gram Stain - Final Wound - Hip Left 08/27/17 09:12 Gram Stain - Final Body Fluid - Hip Left Acid Fast Bacilli Smear - Final 08/27/17 09:12 Acid Fast Bacilli Smear - Final Wound - Hip Left 08/27/17 09:12 Gram Stain - Final Wound - Hip Left Acid Fast Bacilli Smear - Final 08/26/17 16:38 Aerobic Blood Culture - Preliminary Blood Venous No Growth Day 1 Anaerobic Blood Culture - Preliminary No Growth Day 1 08/27/17 14:49 Nasal Screen MRSA (PCR) - Final Nasal Mrsa Not Detected 08/26/17 15:53 Aerobic Blood Culture - Preliminary Blood Venous No Growth Day 1 Anaerobic Blood Culture - Preliminary No Growth Day 1 Assess/Plan/Problems-Billing . Assessment: 76 yo female with left hip effusion, suspected septic joint (history of MSSA in that joint) now admitted for inability walk, L hip pain and diffuse arthralgias. s/p washout 08/27/17 without complication... cultures pending -- on IV Abx doing well in most respects Newly appreciated SEVERE JOAQUIN -- requiring BiPAP. . - Patient Problems (1) Septic hip Current Visit: No Status: Acute Code(s): M00.9 - PYOGENIC ARTHRITIS, UNSPECIFIED SNOMED Code(s): 259486959 Comment: - Washout on 08/27/2017 --> fluid from hip joint sent for cultures - Blooc cultures sent and pending - NGTD - Vancomycin 1000 mg IV Q12 started (appropriately) - await culture results and tailor antibiotic regimen. - STR placement necessary given her poorly-functional state (2) Chronic intermittent hypoxia with obstructive sleep apnea Current Visit: Yes Status: Chronic Priority: High Code(s): G47.34 - IDIO SLEEP RELATED NONOBSTRUCTIVE ALVEOLAR HYPOVENTILATION; G47.33 - OBSTRUCTIVE SLEEP APNEA (ADULT) (PEDIATRIC) Comment: - hypoxic respiratory failure secondary to profiund apneic episodes and oxygen desaturation to the 60's. - starting NIPPV --> Bipap QHS - well tolerated. - ICU initially for observation --> to floor 08/28/2017. (3) Dementia Current Visit: No Status: Chronic Priority: High Code(s): F03.90 - UNSPECIFIED DEMENTIA WITHOUT BEHAVIORAL DISTURBANCE Comment: - s/p CVA and evolving alzheimer's - Continue home medication regimen. (4) DVT prophylaxis Current Visit: No Status: Acute Code(s): QRM2106 - Comment: Warfarin and lovenox as per ortho team
[2017-08-29] MEDS: Vancomycin(*) 1,250 MG IV Q12H IVPB SCH ×4 (04:06→15:43)
[2017-08-29 05:43] LABS: Hematocrit 24 % (35-47); Hemoglobin 7.5 g/dl (12.0-16.0); Mean Platelet Volume 6.9 um3 (7.4-10.4); Platelet Count 550 10^3/ul (150-450)
[2017-08-29 06:16] LABS: INR 1.62 (0.77-1.02)
[2017-08-29] MEDS: oxyCODONE/Acetamin 5/325 MG* TAB PO PRN ×3 (06:22→15:43)
[2017-08-29] MEDS: Cyanocobalamin TAB* 500 MCG PO SCH (09:17)
[2017-08-29] MEDS: Aspirin EC TAB* 81 MG TAB.EC PO SCH (09:17)
[2017-08-29] MEDS: Omeprazole CAP* 20 MG PO SCH (09:17)
[2017-08-29] MEDS: Ciprofloxacin TAB* 250 MG PO SCH (09:18)
[2017-08-29] MEDS: QUEtiapine TAB* 25 MG PO SCH ×2 (09:18→22:09)
[2017-08-29] MEDS: CMCS Solifenacin(NF) 5 MG TAB PO SCH (09:19)
[2017-08-29] MEDS: DULoxetine DR CAP* 30 MG CAP.DR PO SCH (09:19)
[2017-08-29] MEDS: Magnesium Hydroxide LIQ* 30 ML UDC PO SCH ×2 (09:19→22:10)
[2017-08-29] MEDS: Losartan TAB* 25 MG PO SCH (09:19)
--- NOTE | 2017-08-29 13:30 | PN ---
Progress Note - Progress Note Date of Service: 08/29/17 SOAP: Subjective: []Patient seen OOB in chair. Her left hip remains sore though no severe pain. Denies fever, chills, CP, SOB, dizziness. Objective: [] Vital Signs Temp 98.8 F 08/29/17 15:33 Pulse 77 08/29/17 15:33 Resp 16 08/29/17 15:43 BP 113/41 08/29/17 15:33 Pulse Ox 93 08/29/17 15:33 Intake & Output 08/28/17 08/29/17 08/29/17 18:59 06:59 18:59 Intake Total 1200 865 480 Output Total 545 150 400 Balance 655 715 80 Intake: IV Fluids 640 15 LR 640 NS (0.9%) 15 IVPB 250 ABX - VANCOMYCIN 250 Oral 560 600 480 Output: Urine 20 150 400 Jett 525 Other: Estimated Void Large Large # Voids 1 2 Laboratory Last Values WBC 8.9 10^3/ul (3.5-10.8) 08/27/17 05:36 RBC 3.48 10^6/ul (4.00-5.40) L 08/27/17 05:36 Hgb 7.5 g/dl (12.0-16.0) L 08/29/17 05:11 Hct 24 % (35-47) L 08/29/17 05:11 MCV 76 fL (80-97) L 08/27/17 05:36 MCH 25 pg (27-31) L 08/27/17 05:36 MCHC 33 g/dl (31-36) 08/27/17 05:36 RDW 15 % (10.5-15) 08/27/17 05:36 Plt Count 550 10^3/ul (150-450) H 08/29/17 05:11 MPV 6.9 um3 (7.4-10.4) L 08/29/17 05:11 Neut % (Auto) 65.8 % (38-83) 08/27/17 05:36 Lymph % (Auto) 21.2 % (25-47) L 08/27/17 05:36 Gem % (Auto) 7.7 % (0-7) H 08/27/17 05:36 Eos % (Auto) 5.0 % (0-6) 08/27/17 05:36 Baso % (Auto) 0.3 % (0-2) 08/27/17 05:36 Absolute Neuts (auto) 5.9 10^3/ul (1.5-7.7) 08/27/17 05:36 Absolute Lymphs (auto) 1.9 10^3/ul (1.0-4.8) 08/27/17 05:36 Absolute Monos (auto) 0.7 10^3/ul (0-0.8) 08/27/17 05:36 Absolute Eos (auto) 0.4 10^3/ul (0-0.6) 08/27/17 05:36 Absolute Basos (auto) 0 10^3/ul (0-0.2) 08/27/17 05:36 Absolute Nucleated RBC 0 10^3/ul 08/27/17 05:36 Nucleated RBC % 0 08/27/17 05:36 ESR 120 mm/Hr (0-40) H 08/26/17 15:50 INR (Anticoag Therapy) 1.62 (0.77-1.02) H 08/29/17 05:11 APTT 27.7 seconds (26.0-36.3) 08/26/17 15:50 Sodium 139 mmol/L (135-145) 08/28/17 07:45 Potassium 4.4 mmol/L (3.5-5.0) 08/28/17 07:45 Chloride 104 mmol/L (101-111) 08/28/17 07:45 Carbon Dioxide 30 mmol/L (22-32) 08/28/17 07:45 Anion Gap 5 mmol/L (2-11) 08/28/17 07:45 BUN 20 mg/dL (6-24) 08/28/17 07:45 Creatinine 0.80 mg/dL (0.51-0.95) 08/28/17 07:45 Est GFR ( Amer) 84.2 (>60) 08/28/17 07:45 Est GFR (Non-Af Amer) 69.6 (>60) 08/28/17 07:45 BUN/Creatinine Ratio 25.0 (8-20) H 08/28/17 07:45 Glucose 86 mg/dL (70-100) 08/28/17 07:45 Lactic Acid 1.2 mmol/L (0.5-2.0) 08/26/17 15:50 Calcium 8.4 mg/dL (8.6-10.3) L 08/28/17 07:45 Total Bilirubin 0.30 mg/dL (0.2-1.0) 08/26/17 15:50 AST 14 U/L (13-39) 08/26/17 15:50 ALT 8 U/L (7-52) 08/26/17 15:50 Alkaline Phosphatase 84 U/L (34-104) 08/26/17 15:50 Troponin I 0.01 ng/mL (<0.04) 08/26/17 15:50 C-Reactive Protein 87.49 mg/L (<8.01) H 08/26/17 15:50 Total Protein 7.3 g/dL (6.4-8.9) 08/26/17 15:50 Albumin 2.7 g/dL (3.2-5.2) L 08/26/17 15:50 Globulin 4.6 g/dL (2-4) H 08/26/17 15:50 Albumin/Globulin Ratio 0.6 (1-3) L 08/26/17 15:50 Urine Color Yellow 08/26/17 19: Urine Appearance Cloudy 08/26/17 19: Urine pH 5.0 (5-9) 08/26/17 19:22 Ur Specific [place] 1.012 (1.010-1.030) 08/26/17 19:22 Urine Protein Negative (Negative) 08/26/17 19: Urine Ketones Negative (Negative) 08/26/17 19: Urine Blood 2+ (Negative) A 08/26/17: Urine Nitrate Positive (Negative) A 08/26/17 19: Urine Bilirubin Negative (Negative) 08/26/17: Urine Urobilinogen Negative (Negative) 08/26/17: Ur Leukocyte Esterase 1+ (Negative) A 08/26/17 19:22 Urine WBC (Auto) 1+(6-10/hpf) (Absent) A 08/26/17: Urine RBC (Auto) 1+(3-5/hpf) (Absent) A 08/26/17 19:22 Ur Squamous Epith Cells Present (Absent) A 08/26/17 19:22 Urine Bacteria 2+ (Absent) A 08/26/17 19:22 Hyaline Casts Present (Absent) A 08/26/17 19:22 Urine Glucose Negative (Negative) 08/26/17 19:22 Fluid Source Synovial fluid 08/27/17 09:12 Fluid Volume 1.5 mL 08/27/17 09:12 Fluid Color Red 08/27/17 09:12 Fluid Appearance Bloody 08/27/17 09:12 Fluid WBC 3724 /mcL (0-083061) 08/27/17 09:12 Fluid RBC 241607 /mcL 08/27/17 09:12 Fluid Tot Cell Count 100 08/27/17 09:12 Fluid Neutrophils 62 % 08/27/17 09:12 Fluid Lymphocytes 35 % 08/27/17 09:12 Fluid Monocytes 3 % 08/27/17 09:12 Fluid Cell Count Rvw By 08/27/17 09:12 Vancomycin Trough 13.6 mcg/mL 08/28/17 15:10 Rheumatoid Factor > 120 IU/mL (<15) H 08/27/17 05:36 Complement C3 145 mg/dL (75 - 175) 08/26/17 17:32 Complement C4 31 mg/dL (14 - 40) 08/26/17 17:32 Tot Complement (CH50) 59 U/mL (30 - 75) 08/26/17 17:32 Blood Type O Positive 08/26/17 15:50 Antibody Screen Negative 08/26/17 15:50 General: Well appearing, nad LLE: thigh soft, df/pf intact. DP 2+, sensation intact distally. Dressing CDI without surrounding erythema. Dressing changed. Incision CDI with well approximated edges and no surrounding erythema. BL calves without erythema, edema or palpable cords. Assessment: []s/p left hip I&D Plan: []Appreciate ID consult, needs PICC placed Lovenox, coumadin 4 mg today daily dry sterile dressing change
--- NOTE | 2017-08-29 15:31 | CONS ---
CONSULTATION REPORT: DATE OF CONSULT: 08/29/17 REQUESTING PHYSICIAN: Dr. Hannah. CONSULTING SERVICE: Infectious Disease. REASON FOR CONSULT: Prosthetic hip infection. IMPRESSION: 1. 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 2. Escherichia coli cystitis. 3. History of a left hip hemiarthroplasty, complicated by Staphylococcus aureus infection, removal of prosthesis, long-term antibiotics, and replacement in August 2016. 4. Dementia. 5. A few weeks of polyarticular small joint pain, hands and feet, with synovitis, elevated rheumatoid factor, which can also be elevated due to infection which we know she has. PLAN/RECOMMENDATIONS: Vancomycin 1250 mg IV every 12 hours for goal trough of 15 to 20 for 6 weeks. Weekly CBC, CMP, CRP, and vancomycin trough and PICC line , which I ordered. Usual therapy would include oral rifampin, which will interfere with anticoagulation with oral agents. I will discuss that with Dr. Hannah and see how long the plans are for Coumadin. Assuming it is a few weeks, I think it is reasonable to have the rifampin after the Coumadin is completed. I discussed with the patient's daughter that there is a greater than 90% chance of care with 6 months of antibiotics, but given their desire to minimize the risk of this happening again, I would recommend lifelong oral antibiotics, which they are agreeable to. HISTORY OF PRESENT ILLNESS: This 76-year-old woman who had a history of a left hip hemiarthroplasty infection due to symptoms of Staph aureus in May 2016 and then the arthroplasty implanted on 08/24/16. She had been doing well and then maybe a couple of weeks of diffuse body aches and then what seemed to be worsening left hip pain, particularly with weightbearing. She saw Dr. Hannah who obtained an MRI that showed fluid in the left hip joint and the fluid collection in the gluteal muscles. She was admitted, taken to the operating room on 08/27/17. Cloudy fluid detected in the soft tissues and in the joint space, sent for culture. The Gram stain showed Gram-positive cocci, the PCR was negative for Staph aureus, the culture was positive for Staphylococcus epidermidis. She has been on vancomycin, tolerating it well. She has had a few weeks of pain in the muscles of joints of both hands present throughout the day with some swelling. Some of the joints in her feet are bothering her, she cannot quite say which. She had a rheumatoid factor sent that was positive. A CCP is pending. PAST MEDICAL HISTORY: 1. Obesity. 2. Dementia. 3. Osteoarthritis, status post left hip hemiarthroplasty, complicated by MSSA infection, which was explanted in May 2016, had a course of Ancef, and then reimplanted in August 2016. 4. Hypertension. 5. CVA, 2004. 6. Hyperlipidemia. 7. Status post hysterectomy. 8. Status post cholecystectomy. MEDICATIONS: 1. Tylenol. 2. Cipro 500 mg by mouth twice daily. 3. Aspirin. 4. Vitamin B12. 5. Duloxetine. 6. Enoxaparin. 7. Losartan. 8. Morphine as needed. 9. Omeprazole. 10. Vicodin as needed. 11. Seroquel. 12. VESIcare. 13. Vancomycin 1250 mg every 12 hours. 14. Warfarin 8 mg daily. ALLERGIES: No known drug allergies. FAMILY HISTORY: Mother with cardiac disease, a sister with breast cancer. SOCIAL HISTORY: She lives with her daughter, Perla. No travel, no sick contacts. REVIEW OF SYSTEMS: All negative to 14-point review of systems, except as noted above. PHYSICAL EXAM: Vital Signs: Temperature is 37, heart rate 70, respiratory rate 18, blood pressure 134/46, oxygen saturation 99% on 2 L. In general, she is awake, not in distress. Neurologic: She is oriented x2, follows all commands, moves all extremities. HEENT: There is no conjunctival hemorrhage. Oropharynx without lesions. Neck is supple without mass. Heart has regular rate and rhythm without murmurs, rubs, or gallops. Lungs are clear to auscultation bilaterally. Abdomen: Soft, nontender. There are bowel sounds present. Skin: There is no rash or splinter hemorrhages. Musculoskeletal: There is no spine tenderness to palpation. The left hip incision is intact without erythema. LABORATORY DATA: White blood cell count 8, hemoglobin 8, MCV 76, platelets 604. Creatinine 0.8, CRP 87, albumin 2.7. Urinalysis: Blood and nitrites. Please see impressions and recommendations outlined above. Thanks for asking me to see Ms. Moss in consultation. [id number]/[facility] #: [id number] [facility]
[2017-08-29] MEDS: Enoxaparin(*) 30 MG/0.3 ML SYR SUBCUT SCH (15:43)
[2017-08-29] MEDS ORDERED: Warfarin TAB(*) 4 MG PO ONE (18:00)
[2017-08-29] MEDS: Amoxicillin PO (*) 500 MG CAP PO SCH (22:10)
[2017-08-30] MEDS: Vancomycin(*) 1,250 MG IV Q12H IVPB SCH ×2 (04:34)
[2017-08-30 06:43] LABS: Hematocrit 22 % (35-47); Hemoglobin 7.1 g/dl (12.0-16.0); Mean Platelet Volume 6.5 um3 (7.4-10.4); Platelet Count 517 10^3/ul (150-450)
[2017-08-30 06:49] LABS: INR 2.42 (0.77-1.02)
[2017-08-30] MEDS: Magnesium Hydroxide LIQ* 30 ML UDC PO SCH ×2 (07:55→19:59)
[2017-08-30] MEDS: Losartan TAB* 25 MG PO SCH (07:55)
[2017-08-30] MEDS: CMCS Solifenacin(NF) 5 MG TAB PO SCH (07:55)
[2017-08-30] MEDS: Amoxicillin PO (*) 500 MG CAP PO SCH ×2 (07:55→20:04)
[2017-08-30] MEDS: Omeprazole CAP* 20 MG PO SCH (07:56)
[2017-08-30] MEDS: Cyanocobalamin TAB* 500 MCG PO SCH (07:56)
[2017-08-30] MEDS: Aspirin EC TAB* 81 MG TAB.EC PO SCH (07:56)
[2017-08-30] MEDS: DULoxetine DR CAP* 30 MG CAP.DR PO SCH (07:56)
--- NOTE | 2017-08-30 08:38 | PN ---
Progress Note - Progress Note Date of Service: 08/30/17 SOAP: Subjective: resting comfortably with mild left hip pain Objective: Vital Signs Temp Pulse Resp BP Pulse Ox 97.9 F 73 18 136/53 97 08/30/17 07:17 08/30/17 07:17 08/30/17 08:00 08/30/17 07:17 08/30/17 07:17 Laboratory Last Values WBC 8.9 10^3/ul (3.5-10.8) 08/27/17 05:36 RBC 3.48 10^6/ul (4.00-5.40) L 08/27/17 05:36 Hgb 7.1 g/dl (12.0-16.0) L 08/30/17 06:30 Hct 22 % (35-47) L 08/30/17 06:30 MCV 76 fL (80-97) L 08/27/17 05:36 MCH 25 pg (27-31) L 08/27/17 05:36 MCHC 33 g/dl (31-36) 08/27/17 05:36 RDW 15 % (10.5-15) 08/27/17 05:36 Plt Count 517 10^3/ul (150-450) H 08/30/17 06:30 MPV 6.5 um3 (7.4-10.4) L 08/30/17 06:30 Neut % (Auto) 65.8 % (38-83) 08/27/17 05:36 Lymph % (Auto) 21.2 % (25-47) L 08/27/17 05:36 [place] % (Auto) 7.7 % (0-7) H 08/27/17 05:36 Eos % (Auto) 5.0 % (0-6) 08/27/17 05:36 Baso % (Auto) 0.3 % (0-2) 08/27/17 05:36 Absolute Neuts (auto) 5.9 10^3/ul (1.5-7.7) 08/27/17 05:36 Absolute Lymphs (auto) 1.9 10^3/ul (1.0-4.8) 08/27/17 05:36 Absolute Monos (auto) 0.7 10^3/ul (0-0.8) 08/27/17 05:36 Absolute Eos (auto) 0.4 10^3/ul (0-0.6) 08/27/17 05:36 Absolute Basos (auto) 0 10^3/ul (0-0.2) 08/27/17 05:36 Absolute Nucleated RBC 0 10^3/ul 08/27/17 05:36 Nucleated RBC % 0 08/27/17 05:36 ESR 120 mm/Hr (0-40) H 08/26/17 15:50 INR (Anticoag Therapy) 2.42 (0.77-1.02) H 08/30/17 06:30 APTT 27.7 seconds (26.0-36.3) 08/26/17 15:50 Sodium 139 mmol/L (135-145) 08/28/17 07:45 Potassium 4.4 mmol/L (3.5-5.0) 08/28/17 07:45 Chloride 104 mmol/L (101-111) 08/28/17 07:45 Carbon Dioxide 30 mmol/L (22-32) 08/28/17 07:45 Anion Gap 5 mmol/L (2-11) 08/28/17 07:45 BUN 20 mg/dL (6-24) 08/28/17 07:45 Creatinine 0.80 mg/dL (0.51-0.95) 08/28/17 07:45 Est GFR ( Amer) 84.2 (>60) 08/28/17 07:45 Est GFR (Non-Af Amer) 69.6 (>60) 08/28/17 07:45 BUN/Creatinine Ratio 25.0 (8-20) H 08/28/17 07:45 Glucose 86 mg/dL (70-100) 08/28/17 07:45 Lactic Acid 1.2 mmol/L (0.5-2.0) 08/26/17 15:50 Calcium 8.4 mg/dL (8.6-10.3) L 08/28/17 07:45 Total Bilirubin 0.30 mg/dL (0.2-1.0) 08/26/17 15:50 AST 14 U/L (13-39) 08/26/17 15:50 ALT 8 U/L (7-52) 08/26/17 15:50 Alkaline Phosphatase 84 U/L (34-104) 08/26/17 15:50 Troponin I 0.01 ng/mL (<0.04) 08/26/17 15:50 C-Reactive Protein 87.49 mg/L (<8.01) H 08/26/17 15:50 Total Protein 7.3 g/dL (6.4-8.9) 08/26/17 15:50 Albumin 2.7 g/dL (3.2-5.2) L 08/26/17 15:50 Globulin 4.6 g/dL (2-4) H 08/26/17 15:50 Albumin/Globulin Ratio 0.6 (1-3) L 08/26/17 15:50 Urine Color Yellow 08/26/17 19: Urine Appearance Cloudy 08/26/17 19: Urine pH 5.0 (5-9) 08/26/17 19:22 Ur Specific [place] 1.012 (1.010-1.030) 08/26/17 19:22 Urine Protein Negative (Negative) 08/26/17 19: Urine Ketones Negative (Negative) 08/26/17 19:22 Urine Blood 2+ (Negative) A 08/26/17 19: Urine Nitrate Positive (Negative) A 08/26/17: Urine Bilirubin Negative (Negative) 08/26/17 19: Urine Urobilinogen Negative (Negative) 08/26/17 19:22 Ur Leukocyte Esterase 1+ (Negative) A 08/26/17 19:22 Urine WBC (Auto) 1+(6-10/hpf) (Absent) A 08/26/17 19:22 Urine RBC (Auto) 1+(3-5/hpf) (Absent) A 08/26/17 19:22 Ur Squamous Epith Cells Present (Absent) A 08/26/17 19:22 Urine Bacteria 2+ (Absent) A 08/26/17: Hyaline Casts Present (Absent) A 08/26/17 19: Urine Glucose Negative (Negative) 08/26/17 19:22 Fluid Source Synovial fluid 08/27/17 09:12 Fluid Volume 1.5 mL 08/27/17 09:12 Fluid Color Red 08/27/17 09:12 Fluid Appearance Bloody 08/27/17 09:12 Fluid WBC 3724 /mcL (0-644777) 08/27/17 09:12 Fluid RBC 225250 /mcL 08/27/17 09:12 Fluid Tot Cell Count 100 08/27/17 09:12 Fluid Neutrophils 62 % 08/27/17 09:12 Fluid Lymphocytes 35 % 08/27/17 09:12 Fluid Monocytes 3 % 08/27/17 09:12 Fluid Cell Count Rvw By 08/27/17 09:12 Vancomycin Trough 13.6 mcg/mL 08/28/17 15:10 Rheumatoid Factor > 120 IU/mL (<15) H 08/27/17 05:36 Complement C3 145 mg/dL (75 - 175) 08/26/17 17:32 Complement C4 31 mg/dL (14 - 40) 08/26/17 17:32 Tot Complement (CH50) 59 U/mL (30 - 75) 08/26/17 17:32 Blood Type O Positive 08/26/17 15:50 Antibody Screen Negative 08/26/17 15:50 incision: c/d PE: NVI Assessment: s/p I & D left BALJINDER Plan: 1) PT/OT 2) PICC- continue IV Abx per Lars 3) Lovenox/Coumaind for DVT prophylaxis; will hold coumadin tonight
[2017-08-30] MEDS: oxyCODONE/Acetamin 5/325 MG* TAB PO PRN ×3 (09:38→20:52)
--- NOTE | 2017-08-30 12:09 | PN ---
Subjective Date of Service: 08/30/17 Interval History: pt reports some pain with movement but otherwise states no pain at rest. She denies fever/chills. No SOB/CP. Reports good appetite Family History: Unchanged from Admission Social History: Unchanged from Admission Past Medical History: Unchanged from Admission Objective Active Medications: Acetaminophen (Tylenol Tab*) 650 mg PO Q4H PRN PRN Reason: FEVER/PAIN Amoxicillin (Amoxicillin Po (*)) 500 mg PO BID [facility] Stop: 08/30/17 23:59 Last Admin: 08/30/17 07:55 Dose: 500 mg Aspirin (Aspirin Ec Tab*) 81 mg PO DAILY [facility] Last Admin: 08/30/17 07:56 Dose: 81 mg Cyanocobalamin (Vitamin B12 Tab*) 1,000 mcg PO DAILY [facility] Last Admin: 08/30/17 07:56 Dose: 1,000 mcg Diphenhydramine HCl (Benadryl Iv*) 25 mg IV Q6H PRN PRN Reason: itching Duloxetine HCl (Cymbalta Cap*) 30 mg PO QAM [facility] Last Admin: 08/30/17 07:56 Dose: 30 mg Enoxaparin Sodium (Lovenox(*)) 30 mg SUBCUT 1700 [facility] Last Admin: 08/29/17 15:43 Dose: 30 mg Heparin Sodium (Porcine) (Heparin Flush Picc/Ml/Cvc(*)) 1 - 3 ml FLUSH 0600, 1800 [facility]; Protocol Last Admin: 08/30/17 06:30 Dose: 1 ml Vancomycin HCl 1,250 mg/ (Sodium Chloride) 250 mls @ 166.667 mls/hr IVPB Q12H [facility] Last Admin: 08/30/17 04:34 Dose: 166.667 mls/hr Losartan Potassium (Cozaar Tab*) 50 mg PO DAILY [facility] Last Admin: 08/30/17 07:55 Dose: 50 mg Magnesium Hydroxide (Milk Of Magnesia Liq*) 30 ml PO BID [facility] Last Admin: 08/30/17 07:55 Dose: 30 ml Magnesium Hydroxide (Milk Of Magnesia Liq*) 30 ml PO Q6H PRN PRN Reason: constipation Morphine Sulfate (Morphine Vial*) 2 mg IV Q4H PRN PRN Reason: PAIN Last Admin: 08/27/17 12:24 Dose: 2 mg Omeprazole (Prilosec Cap*) 20 mg PO 0730 [facility] Last Admin: 08/30/17 07:56 Dose: 20 mg Ondansetron HCl (Zofran Inj*) 4 mg IV Q4H PRN PRN Reason: NAUSEA/VOMITING Oxycodone/Acetaminophen (Percocet 5/325 Tab*) 2 tab PO Q4H PRN PRN Reason: PAIN Last Admin: 08/30/17 09:38 Dose: 2 tab Oxycodone/Acetaminophen (Percocet 5/325 Tab*) 1 tab PO Q4H PRN PRN Reason: PAIN Last Admin: 08/29/17 15:43 Dose: 1 tab Pharmacy Consult (Vancomycin Per Pharmacy*) 1 note FOLLOW UP . PRN PRN Reason: PER PROTOCOL Pharmacy Profile Note (Vancomycin Trough Check) 1 note FOLLOW UP .ENTER TIME ONE Stop: 08/30/17 15:31 Quetiapine Fumarate (Seroquel Tab*) 25 mg PO BEDTIME [facility] Last Admin: 08/29/17 22:09 Dose: 25 mg Solifenacin (Vesicare(Nf)) 5 mg PO DAILY [facility] Last Admin: 08/30/17 07:55 Dose: 5 mg Vital Signs - 8 hr 08/30/17 08/30/17 08/30/17 04:37 07:17 08:00 Temperature 97.9 F Pulse Rate 73 Respiratory 20 18 Rate Blood Pressure 136/53 (mmHg) O2 Sat by Pulse 94 97 Oximetry 08/30/17 09:38 Temperature Pulse Rate Respiratory 16 Rate Blood Pressure (mmHg) O2 Sat by Pulse Oximetry Oxygen Devices in Use Now: None Appearance: 76 yo female A+O x3 in NAD, mild confusion noted Eyes: No Scleral Icterus, PERRLA Ears/Nose/Mouth/Throat: NL Teeth, Lips, Gums, Mucous Membranes Moist Neck: NL Appearance and Movements; NL JVP Respiratory: Symmetrical Chest Expansion and Respiratory Effort, Clear to Auscultation Cardiovascular: NL Sounds; No Murmurs; No JVD, RRR, No Edema Abdominal: NL Sounds; No Tenderness; No Distention Extremities: No Edema, No Clubbing, Cyanosis Skin: No Rash or Ulcers, No Nodules or Sclerosis Neurological: Alert and Oriented x 3, NL Muscle Strength and Tone Lines/Tubes/Other Access: Clean, Dry and Intact Peripheral IV Nutrition: Taking PO's Result Diagrams: 08/30/17 06:30 08/28/17 07:45 Additional Lab and Data: . Microbiology and Other Data: Microbiology 08/26/17 19:22 Urine Culture - Preliminary Urine Escherichia Coli 08/27/17 09:12 Gram Stain - Final Wound - Hip Left 08/27/17 09:12 Gram Stain - Final Body Fluid - Hip Left Acid Fast Bacilli Smear - Final 08/27/17 09:12 Acid Fast Bacilli Smear - Final Wound - Hip Left 08/27/17 09:12 Gram Stain - Final Wound - Hip Left Acid Fast Bacilli Smear - Final 08/26/17 16:38 Aerobic Blood Culture - Preliminary Blood Venous No Growth Day 1 Anaerobic Blood Culture - Preliminary No Growth Day 1 08/27/17 14:49 Nasal Screen MRSA (PCR) - Final Nasal Mrsa Not Detected 08/26/17 15:53 Aerobic Blood Culture - Preliminary Blood Venous No Growth Day 1 Anaerobic Blood Culture - Preliminary No Growth Day 1 Assess/Plan/Problems-Billing . Assessment: 76 yo female with left hip effusion, suspected septic joint (history of MSSA in that joint) now admitted for inability walk, L hip pain and diffuse arthralgias. s/p washout 08/27/17 without complication - Patient Problems (1) Septic hip Comment: - Washout on 08/27/2017 --> fluid from hip joint sent for cultures, growing stap epi. - Blood cultures NGTD - Appreciate ID consult. Vancomycin 1000 mg IV Q12 - ID recommend 1250 mg but trough was 25 today will keep at 1000 mg. - STR placement necessary given her poorly-functional state (2) Chronic intermittent hypoxia with obstructive sleep apnea Comment: - hypoxic respiratory failure secondary to profound apneic episodes and oxygen desaturation to the 60's post op requiring Bipap. Now has improved. Patient does not wear cpap at home or has hx of dx JOAQUIN. Plan to obtain an overnight sleep study tonight to see if she will require CPAP on DC. (3) Dementia Comment: - s/p CVA and evolving alzheimer's - Continue home medication regimen. (4) HTN (hypertension) Comment: stable. continue losartan. (5) Full code status (6) DVT prophylaxis Comment: Warfarin and lovenox as per ortho team
[2017-08-30] MEDS ORDERED: Vancomycin Trough Check NOTE FOLLOW UP ONE (15:30)
[2017-08-30] MEDS: Enoxaparin(*) 30 MG/0.3 ML SYR SUBCUT SCH (18:02)
[2017-08-30] MEDS ORDERED: NS 0.9% 250 ML* 250 ML ONE (22:03)
[2017-08-30] MEDS: QUEtiapine TAB* 25 MG PO SCH (22:04)
[2017-08-30] MEDS: Vancomycin(*) 1,000 MG in NS 0.9% 250 ML* 250 ML IVPB SCH (22:04)
[2017-08-31 05:49] LABS: Hematocrit 27 % (35-47); Hemoglobin 8.8 g/dl (12.0-16.0); Mean Platelet Volume 6.5 um3 (7.4-10.4); Platelet Count 512 10^3/ul (150-450)
[2017-08-31 05:55] LABS: INR 2.18 (0.77-1.02)
[2017-08-31 06:08] LABS: EGFR Non-African American 54.4 (>60)
[2017-08-31] MEDS: Cyanocobalamin TAB* 500 MCG PO SCH (08:31)
[2017-08-31] MEDS: Aspirin EC TAB* 81 MG TAB.EC PO SCH (08:31)
[2017-08-31] MEDS: Omeprazole CAP* 20 MG PO SCH (08:31)
[2017-08-31] MEDS: Losartan TAB* 25 MG PO SCH (08:31)
[2017-08-31] MEDS: DULoxetine DR CAP* 30 MG CAP.DR PO SCH (08:31)
[2017-08-31] MEDS: Magnesium Hydroxide LIQ* 30 ML UDC PO SCH ×2 (08:32→21:34)
--- NOTE | 2017-08-31 09:14 | PN ---
Progress Note - Progress Note Date of Service: 08/31/17 SOAP: Subjective: CC: septic hip HPI: 76 year old woman with left hip arthroplasty infection s/p I&D, denies pain fever, diarrhea, or rash. Hungry. Objective: Vital Signs Temp 36.7 C 08/31/17 04:03 Pulse 63 08/31/17 04:03 Resp 16 08/31/17 04:03 BP 127/55 08/31/17 04:03 Pulse Ox 97 08/31/17 04:03 Intake & Output 08/30/17 08/31/17 08/31/17 18:59 06:59 18:59 Intake Total 1930 500 Output Total 300 350 Balance 1630 150 Intake: Oral 1930 500 Output: Urine 300 350 Other: Estimated Void Large Large # Bowel Movements 0 # Voids 2 Gen:awake, no distress HEENT: no thrush Heart:RRR no murmur Lungs:CTA BL Abd:+BS NTND soft Skin: no rash MSK: L hip incision intact. RUE PICC. Laboratory Results - last 24 hr 08/26/17 08/30/17 08/30/17 15:50 06:30 13:00 Hgb Hct Plt Count MPV INR (Anticoag Therapy) BUN Creatinine Est GFR ( Amer) Est GFR (Non-Af Amer) Vancomycin Trough 25.2 Anti-Nuclear Antibody 0.5 Blood Type O Positive Antibody Screen Negative Crossmatch See Detail 08/31/17 08/31/17 08/31/17 05:40 05:40 05:40 Hgb 8.8 L Hct 27 L Plt Count 512 H MPV 6.5 L INR (Anticoag Therapy) 2.18 H BUN 16 Creatinine 0.99 H Est GFR ( Amer) 65.8 Est GFR (Non-Af Amer) 54.4 Vancomycin Trough Anti-Nuclear Antibody Blood Type Antibody Screen Crossmatch Assessment: 1. 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 Hx left hip MSSA navid arthroplasty infection 3. obesity 4. dementia 5. polyarthralgia with +RF ?RA or secondary to primary left hip infection Plan: 1. continue vancomycin goal tr 15-20; day , rifampin when done with oral anticoagulants. Likely lifelong oral suppression.
[2017-08-31] MEDS: CMCS Solifenacin(NF) 5 MG TAB PO SCH (09:50)
--- NOTE | 2017-08-31 09:53 | DCNOTE ---
Subjective Date of Service: 08/31/17 Interval History: Patient was going to be DC'd today - per RT today the overnight RT was uncomfortable placing on overnight sleep study d/t hx of post-op having low O2 sats requiring Bipap on high settings. During the day the patient has been 3L NC and not desatting during naps. I discussed with the daughter to update and she reports her mother does not have a hx of JOAQUIN but is noted to snore and have times of apnea at home. Today the pt reports she feels "good", she does report pain in left hip with movement. She has been trying to walk stating this is "very difficult". Family History: Unchanged from Admission Social History: Unchanged from Admission Past Medical History: Unchanged from Admission Objective Active Medications: Acetaminophen (Tylenol Tab*) 650 mg PO Q4H PRN PRN Reason: FEVER/PAIN Aspirin (Aspirin Ec Tab*) 81 mg PO DAILY [facility] Last Admin: 08/31/17 08:31 Dose: 81 mg Cyanocobalamin (Vitamin B12 Tab*) 1,000 mcg PO DAILY [facility] Last Admin: 08/31/17 08:31 Dose: 1,000 mcg Diphenhydramine HCl (Benadryl Iv*) 25 mg IV Q6H PRN PRN Reason: itching Duloxetine HCl (Cymbalta Cap*) 30 mg PO QAM [facility] Last Admin: 08/31/17 08:31 Dose: 30 mg Enoxaparin Sodium (Lovenox(*)) 30 mg SUBCUT 1700 [facility] Last Admin: 08/30/17 18:02 Dose: 30 mg Heparin Sodium (Porcine) (Heparin Flush Picc/Ml/Cvc(*)) 1 - 3 ml FLUSH 0600, 1800 [facility]; Protocol Last Admin: 08/31/17 05:38 Dose: 1 ml Vancomycin HCl 1,000 mg/ (Sodium Chloride) 250 mls @ 166.667 mls/hr IVPB Q12H [facility] Last Admin: 08/30/17 22:04 Dose: 166.667 mls/hr Losartan Potassium (Cozaar Tab*) 50 mg PO DAILY [facility] Last Admin: 08/31/17 08:31 Dose: 50 mg Magnesium Hydroxide (Milk Of Magnesia Liq*) 30 ml PO BID [facility] Last Admin: 08/31/17 08:32 Dose: 30 ml Magnesium Hydroxide (Milk Of Magnesia Liq*) 30 ml PO Q6H PRN PRN Reason: constipation Morphine Sulfate (Morphine Vial*) 2 mg IV Q4H PRN PRN Reason: PAIN Last Admin: 08/27/17 12:24 Dose: 2 mg Omeprazole (Prilosec Cap*) 20 mg PO 0730 [facility] Last Admin: 08/31/17 08:31 Dose: 20 mg Ondansetron HCl (Zofran Inj*) 4 mg IV Q4H PRN PRN Reason: NAUSEA/VOMITING Oxycodone/Acetaminophen (Percocet 5/325 Tab*) 2 tab PO Q4H PRN PRN Reason: PAIN Last Admin: 08/30/17 20:52 Dose: 2 tab Oxycodone/Acetaminophen (Percocet 5/325 Tab*) 1 tab PO Q4H PRN PRN Reason: PAIN Last Admin: 08/29/17 15:43 Dose: 1 tab Pharmacy Consult (Vancomycin Per Pharmacy*) 1 note FOLLOW UP . PRN PRN Reason: PER PROTOCOL Pharmacy Profile Note (Vancomycin Trough Check) 1 note FOLLOW UP ONCE ONE Stop: 09/01/17 09:31 Quetiapine Fumarate (Seroquel Tab*) 25 mg PO BEDTIME [facility] Last Admin: 08/30/17 22:04 Dose: 25 mg Solifenacin (Vesicare(Nf)) 5 mg PO DAILY [facility] Last Admin: 08/30/17 07:55 Dose: 5 mg Vital Signs - 8 hr 08/31/17 04:03 Temperature 98.1 F Pulse Rate 63 Respiratory 16 Rate Blood Pressure 127/55 (mmHg) O2 Sat by Pulse 97 Oximetry Oxygen Devices in Use Now: None, Nasal Cannula Appearance: 76 yo female A+O x3 in NAD Eyes: No Scleral Icterus, PERRLA Ears/Nose/Mouth/Throat: Mucous Membranes Moist Neck: NL Appearance and Movements; NL JVP Respiratory: Symmetrical Chest Expansion and Respiratory Effort, Clear to Auscultation Cardiovascular: NL Sounds; No Murmurs; No JVD, RRR, No Edema Abdominal: NL Sounds; No Tenderness; No Distention Skin: - - Left hip has CD+I dressing Neurological: Alert and Oriented x 3, NL Sensation, NL Muscle Strength and Tone Lines/Tubes/Other Access: Clean, Dry and Intact Peripheral IV Nutrition: Taking PO's Result Diagrams: 08/31/17 05:40 08/31/17 05:40 Additional Lab and Data: . Microbiology and Other Data: Microbiology 08/26/17 19:22 Urine Culture - Preliminary Urine Escherichia Coli 08/27/17 09:12 Gram Stain - Final Wound - Hip Left 08/27/17 09:12 Gram Stain - Final Body Fluid - Hip Left Acid Fast Bacilli Smear - Final 08/27/17 09:12 Acid Fast Bacilli Smear - Final Wound - Hip Left 08/27/17 09:12 Gram Stain - Final Wound - Hip Left Acid Fast Bacilli Smear - Final 08/26/17 16:38 Aerobic Blood Culture - Preliminary Blood Venous No Growth Day 1 Anaerobic Blood Culture - Preliminary No Growth Day 1 08/27/17 14:49 Nasal Screen MRSA (PCR) - Final Nasal Mrsa Not Detected 08/26/17 15:53 Aerobic Blood Culture - Preliminary Blood Venous No Growth Day 1 Anaerobic Blood Culture - Preliminary No Growth Day 1 Assess/Plan/Problems-Billing . Assessment: 76 yo female with left hip effusion, suspected septic joint (history of MSSA in that joint) now admitted for inability walk, L hip pain and diffuse arthralgias. s/p washout 08/27/17 without complication - Patient Problems (1) Septic hip Comment: - Washout on 08/27/2017 --> fluid from hip joint sent for cultures, growing stap epi. - Blood cultures NGTD - Appreciate ID consult. Vancomycin 1000 mg IV Q12 - ID recommend 1250 mg but trough was 25 today will keep at 1000 mg. Today is Day 5. Will continue course in subacute rehab. Weekly labs as outpt - Per ID Will require Rifampin after oral anticoagulation is complete per Ortho. Per ID likely life long suppression will be required. +RA factor - there is a question if this is from primary left hip infections vs RA - she does have a hx of polyarthraligia. Will need to follow up with Benefits Coordinator as outpt - discussed with daughter. - STR placement necessary given her poorly-functional state (2) Chronic intermittent hypoxia with obstructive sleep apnea Comment: - hypoxic respiratory failure post-op secondary to profound apneic episodes and oxygen desaturation to the 50-60's post op requiring Bipap with high settings. Patient does not wear cpap at home or have a dx JOAQUIN. Tried to obtain an overnight pulse ox study last night but RT felt was unsafe due to desatting to 50% a few nights ago off bipap - this was postop day 0. I spoke with RT today to clarify if there have been weaning attempts off Bipap, or down on settings, which is not known at this time. Patient is doing well during daytime on 2-3L NC. Plan to attempt overnight pulse oximetry again tonight with RT at bedside to monitor and intervene if necessary. Discussed with RT who agrees with plan ( was suggested by RT). Will discuss with Pulm, may not need an offical consult inpatient and will require an outpt sleep study. Most likely will require cpap at discharge (3) Anemia Comment: - appears she has hx of anemia - most likely had some blood loss. Will check iron studies. - required 2 units PRBCs 08/30 for HH 09/24 - was symptomatic with dizziness, now resolved. - HH stable this am. (4) Dementia Comment: - A+O x2 today - s/p CVA and evolving alzheimer's - Continue home medication regimen. (5) HTN (hypertension) Comment: stable. continue losartan. (6) Full code status (7) DVT prophylaxis Comment: lovenox DC, INR therapuetic, continue coumadin 4 mg daily - recheck INR in am. Status and Disposition: inpatient - discharge now stalled d/t assessing respiratory status, initiating weaning off bipap - plan for overnight pulse oximetry with RT at bedside.
--- NOTE | 2017-08-31 09:57 | PN ---
Progress Note - Progress Note Date of Service: 08/31/17 SOAP: Subjective: []Patient seen at bedside. She feels well without CP, SOB, dizziness. Objective: [] Vital Signs Temp 98.3 F 08/31/17 07:33 Pulse 95 08/31/17 07:33 Resp 18 08/31/17 08:00 BP 142/58 08/31/17 07:33 Pulse Ox 93 08/31/17 07:33 Intake & Output 08/30/17 08/31/17 08/31/17 18:59 06:59 18:59 Intake Total 1930 500 360 Output Total 300 350 Balance 1630 150 360 Intake: Oral 1930 500 360 Output: Urine 300 350 Other: Estimated Void Large Large # Bowel Movements 0 # Voids 2 Laboratory Last Values WBC 8.9 10^3/ul (3.5-10.8) 08/27/17 05:36 RBC 3.48 10^6/ul (4.00-5.40) L 08/27/17 05:36 Hgb 8.8 g/dl (12.0-16.0) L 08/31/17 05:40 Hct 27 % (35-47) L 08/31/17 05:40 MCV 76 fL (80-97) L 08/27/17 05:36 MCH 25 pg (27-31) L 08/27/17 05:36 MCHC 33 g/dl (31-36) 08/27/17 05:36 RDW 15 % (10.5-15) 08/27/17 05:36 Plt Count 512 10^3/ul (150-450) H 08/31/17 05:40 MPV 6.5 um3 (7.4-10.4) L 08/31/17 05:40 Neut % (Auto) 65.8 % (38-83) 08/27/17 05:36 Lymph % (Auto) 21.2 % (25-47) L 08/27/17 05:36 [place] % (Auto) 7.7 % (0-7) H 08/27/17 05:36 Eos % (Auto) 5.0 % (0-6) 08/27/17 05:36 Baso % (Auto) 0.3 % (0-2) 08/27/17 05:36 Absolute Neuts (auto) 5.9 10^3/ul (1.5-7.7) 08/27/17 05:36 Absolute Lymphs (auto) 1.9 10^3/ul (1.0-4.8) 08/27/17 05:36 Absolute Monos (auto) 0.7 10^3/ul (0-0.8) 08/27/17 05:36 Absolute Eos (auto) 0.4 10^3/ul (0-0.6) 08/27/17 05:36 Absolute Basos (auto) 0 10^3/ul (0-0.2) 08/27/17 05:36 Absolute Nucleated RBC 0 10^3/ul 08/27/17 05:36 Nucleated RBC % 0 08/27/17 05:36 ESR 120 mm/Hr (0-40) H 08/26/17 15:50 INR (Anticoag Therapy) 2.18 (0.77-1.02) H 08/31/17 05:40 APTT 27.7 seconds (26.0-36.3) 08/26/17 15:50 Sodium 139 mmol/L (135-145) 08/28/17 07:45 Potassium 4.4 mmol/L (3.5-5.0) 08/28/17 07:45 Chloride 104 mmol/L (101-111) 08/28/17 07:45 Carbon Dioxide 30 mmol/L (22-32) 08/28/17 07:45 Anion Gap 5 mmol/L (2-11) 08/28/17 07:45 BUN 16 mg/dL (6-24) 08/31/17 05:40 Creatinine 0.99 mg/dL (0.51-0.95) H 08/31/17 05:40 Est GFR ( Amer) 65.8 (>60) 08/31/17 05:40 Est GFR (Non-Af Amer) 54.4 (>60) 08/31/17 05:40 BUN/Creatinine Ratio 25.0 (8-20) H 08/28/17 07:45 Glucose 86 mg/dL (70-100) 08/28/17 07:45 Lactic Acid 1.2 mmol/L (0.5-2.0) 08/26/17 15:50 Calcium 8.4 mg/dL (8.6-10.3) L 08/28/17 07:45 Total Bilirubin 0.30 mg/dL (0.2-1.0) 08/26/17 15:50 AST 14 U/L (13-39) 08/26/17 15:50 ALT 8 U/L (7-52) 08/26/17 15:50 Alkaline Phosphatase 84 U/L (34-104) 08/26/17 15:50 Troponin I 0.01 ng/mL (<0.04) 08/26/17 15:50 C-Reactive Protein 87.49 mg/L (<8.01) H 08/26/17 15:50 Total Protein 7.3 g/dL (6.4-8.9) 08/26/17 15:50 Albumin 2.7 g/dL (3.2-5.2) L 08/26/17 15:50 Globulin 4.6 g/dL (2-4) H 08/26/17 15:50 Albumin/Globulin Ratio 0.6 (1-3) L 08/26/17 15:50 Urine Color Yellow 08/26/17 19: Urine Appearance Cloudy 08/26/17 19: Urine pH 5.0 (5-9) 08/26/17: Ur Specific [place] 1.012 (1.010-1.030) 08/26/17 19: Urine Protein Negative (Negative) 08/26/17 19: Urine Ketones Negative (Negative) 08/26/17 19: Urine Blood 2+ (Negative) A 08/26/17: Urine Nitrate Positive (Negative) A 08/26/17: Urine Bilirubin Negative (Negative) 08/26/17 19: Urine Urobilinogen Negative (Negative) 08/26/17: Ur Leukocyte Esterase 1+ (Negative) A 08/26/17: Urine WBC (Auto) 1+(6-10/hpf) (Absent) A 08/26/17: Urine RBC (Auto) 1+(3-5/hpf) (Absent) A 08/26/17: Ur Squamous Epith Cells Present (Absent) A 08/26/17: Urine Bacteria 2+ (Absent) A 08/26/17: Hyaline Casts Present (Absent) A 08/26/17 19:22 Urine Glucose Negative (Negative) 08/26/17 19:22 Fluid Source Synovial fluid 08/27/17 09:12 Fluid Volume 1.5 mL 08/27/17 09:12 Fluid Color Red 08/27/17 09:12 Fluid Appearance Bloody 08/27/17 09:12 Fluid WBC 3724 /mcL ([id number]) 08/27/17 09:12 Fluid RBC 187764 /mcL 08/27/17 09:12 Fluid Tot Cell Count 100 08/27/17 09:12 Fluid Neutrophils 62 % 08/27/17 09:12 Fluid Lymphocytes 35 % 08/27/17 09:12 Fluid Monocytes 3 % 08/27/17 09:12 Fluid Cell Count Rvw By 08/27/17 09:12 Vancomycin Trough 25.2 mcg/mL 08/30/17 13:00 Rheumatoid Factor > 120 IU/mL (<15) H 08/27/17 05:36 Anti-Nuclear Antibody 0.5 U 08/26/17 15:50 Complement C3 145 mg/dL (75 - 175) 08/26/17 17:32 Complement C4 31 mg/dL (14 - 40) 08/26/17 17:32 Tot Complement (CH50) 59 U/mL (30 - 75) 08/26/17 17:32 Blood Type O Positive 08/30/17 06:30 Antibody Screen Negative 08/30/17 06:30 Crossmatch See Detail 08/30/17 06:30 General: Well appearing, nad LLE: thigh soft, df/pf intact. DP 2+, sensation intact distally. Dressing changed. Incision CDI without surrounding erythema. BL calves without erythema, edema or palpable cords. Assessment: []s/p left hip I&D Plan: []Appreciate ID input Lovenox, coumadin 4 mg today Daily dry sterile dressing change Has required bipap during stay. Medicine considering sleep study while inpatient
[2017-08-31] MEDS: Vancomycin(*) 1,000 MG in NS 0.9% 250 ML* 250 ML IVPB SCH ×2 (10:13→21:34)
[2017-08-31] MEDS ORDERED: oxyCODONE/Acetamin 5/325 MG* TAB PO PRN (11:33)
[2017-08-31] MEDS: Acetaminophen TAB* 325 MG PO PRN ×2 (14:19→21:42)
[2017-08-31] MEDS: Docusate CAP* 100 MG PO PRN (14:19)
[2017-08-31] MEDS ORDERED: Warfarin TAB(*) 4 MG PO SCH (17:00)
--- NOTE | 2017-08-31 20:52 | CONS ---
PULMONARY CONSULTATION REPORT: DATE OF CONSULT: 08/31/17 CONSULTATION REQUESTED BY: Anaid Bryant NP REASON FOR CONSULT: Evaluation of hypoxemia. CHIEF COMPLAINT: The patient is admitted for hip pain. HISTORY OF PRESENT ILLNESS: The patient is a 76-year-old morbidly obese female with history of arthritis, hypertension, CVA in 2005, hyperlipidemia, hip surgery infected postop in 2017, who presents with above complaint. The patient has been having decreased ability to ambulate secondary to pain. She has seen her orthopedician, Dr. Hannah, and had an MRI done along with inflammatory markers. The patient is noted to have fluid in the left hip on MRI and was advised to be evaluated in the hospital. The patient has a history of left hip surgery and repair in 2017, had pathological fracture. The patient denies fevers, headaches, chest pain, abdominal pain. The patient reports diffuse pain, however improved since admission. The patient denies rash, urinary complaints, weight loss, shortness of breath, headache or visual changes. She is a poor historian, however. PAST MEDICAL HISTORY: 1. Arthritis. 2. Hypertension. 3. Stroke. 4. Hyperlipidemia. 5. Hip surgery in 2017. PAST SURGICAL HISTORY: 1. Hysterectomy. 2. Cholecystectomy. MEDICATIONS AT HOME: 1. Ibuprofen. 2. Turmeric. 3. Aspirin. 4. Cyanocobalamin. 5. Duloxetine. 6. Cozaar. 7. Omeprazole. 8. Seroquel. 9. VESIcare. ALLERGIES: No known drug allergies. FAMILY HISTORY: Reviewed and noncontributory. Sister suffered from breast cancer and mother with cardiac disease. SOCIAL HISTORY: The patient is a nonsmoker. No alcohol or drug abuse. The patient is a DNR. REVIEW OF SYSTEMS: All 14 systems reviewed and as per HPI. PHYSICAL EXAM: Obese female, sitting up in chair, in no apparent distress. Vital Signs: Temperature 98.5, pulse 75 beats per minute, respiratory rate 16 per minute, O2 sat 96% on room air, blood pressure 151/73. HEENT: Pupils equal , reactive to light. Mucous membranes moist. Lungs: Good air entry bilaterally. No wheezes. Cardiovascular: S1, S2 present. No murmurs, gallops or rubs. Abdomen: Obese, bowel sounds. Extremities: Has restricted right upper extremity secondary to pain. She also has swollen MTP joints in her hands. Neurologic: Alert, awake, oriented x3. No focal deficits. DIAGNOSTIC STUDIES/LAB DATA: WBC count 8.9, hemoglobin 8.6, hematocrit 26, platelet count 604. Sodium 139, potassium 4.4, chloride 104, bicarb 30, BUN 20 , creatinine 0.8. CRP 87. Rheumatological workup positive for elevated rheumatoid factor with greater than 120. Chest x-ray performed on admission was personally reviewed by me - no evidence of acute airspace opacities. IMPRESSION AND RECOMMENDATIONS: 76-year-old obese female admitted with left hip pain, found to have effusion, suspected septic joint and underwent washout on 08/27/17. Fluid from hip joint was sent for cultures, which grew Staph epidermidis. Blood cultures negative to date on vancomycin. The patient had complicated course with hypoxemic respiratory failure, found to have significant apneic episodes and desaturations postop to 60s and was placed on BiPAP. The patient has been on auto BiPAP since admission. The patient did not have sleep study in the past and had no prior diagnosis of sleep apnea. She has also required O2 supplementation. She has not been requiring O2 supplementation during day currently. Would be able to perform overnight oximetry today. If that would be consistent with sleep apnea, she can be discharged with oxygen supplementation in the interim and to schedule sleep study as outpatient. Her symptoms and body habitus consistent with sleep apnea. D/w Wesley Bryant NP Thank you for allowing me to participate in the care of your patient. Will follow up with you. [id number]/CPS #: [id number] ANJEL
[2017-08-31] MEDS: QUEtiapine TAB* 25 MG PO SCH (21:34)
[2017-09-01 06:04] LABS: ABS Basophils 0.1 10^3/ul (0-0.2); ABS Eosinophils 0.8 10^3/ul (0-0.6); ABS Lymphocytes 1.8 10^3/ul (1.0-4.8); ABS Monocytes 0.9 10^3/ul (0-0.8); ABS Nucleated RBC 0 10^3/ul; Eosinophil % 9.7 % (0-6); Hematocrit 29 % (35-47); Hemoglobin 9.6 g/dl (12.0-16.0); Mean Corpuscular HGB Conc 33 g/dl (31-36); Mean Corpuscular Hemoglobin 26 pg (27-31); Mean Corpuscular Volume 79 fL (80-97); Mean Platelet Volume 6.6 um3 (7.4-10.4); Nucleated Red Blood Cells % 0; Platelet Count 570 10^3/ul (150-450); Red Blood Count 3.72 10^6/ul (4.00-5.40); Red Cell Distribution Width 16 % (10.5-15); White Blood Count 8.6 10^3/ul (3.5-10.8)
[2017-09-01 06:08] LABS: INR 1.92 (0.77-1.02)
[2017-09-01 06:19] LABS: EGFR Non-African American 65.7 (>60)
--- NOTE | 2017-09-01 08:09 | PN ---
Progress Note - Progress Note Date of Service: 09/01/17 SOAP: Subjective: resting comfortably with minimal pain Objective: Vital Signs Temp Pulse Resp BP Pulse Ox 97.9 F 63 16 136/57 82 09/01/17 03:58 09/01/17 03:58 09/01/17 03:58 09/01/17 03:58 09/01/17 05:47 Laboratory Last Values WBC 8.6 10^3/ul (3.5-10.8) 09/01/17 05:47 RBC 3.72 10^6/ul (4.00-5.40) L 09/01/17 05:47 Hgb 9.6 g/dl (12.0-16.0) L 09/01/17 05:47 Hct 29 % (35-47) L 09/01/17 05:47 MCV 79 fL (80-97) L 09/01/17 05:47 MCH 26 pg (27-31) L 09/01/17 05:47 MCHC 33 g/dl (31-36) 09/01/17 05:47 RDW 16 % (10.5-15) H 09/01/17 05:47 Plt Count 570 10^3/ul (150-450) H D 09/01/17 05:47 MPV 6.6 um3 (7.4-10.4) L 09/01/17 05:47 Neut % (Auto) 58.0 % (38-83) 09/01/17 05:47 Lymph % (Auto) 21.0 % (25-47) L 09/01/17 05:47 [place] % (Auto) 10.0 % (0-7) H 09/01/17 05:47 Eos % (Auto) 9.7 % (0-6) H 09/01/17 05:47 Baso % (Auto) 1.3 % (0-2) 09/01/17 05:47 Absolute Neuts (auto) 5.0 10^3/ul (1.5-7.7) 09/01/17 05:47 Absolute Lymphs (auto) 1.8 10^3/ul (1.0-4.8) 09/01/17 05:47 Absolute Monos (auto) 0.9 10^3/ul (0-0.8) H 09/01/17 05:47 Absolute Eos (auto) 0.8 10^3/ul (0-0.6) H 09/01/17 05:47 Absolute Basos (auto) 0.1 10^3/ul (0-0.2) 09/01/17 05:47 Absolute Nucleated RBC 0 10^3/ul 09/01/17 05:47 Nucleated RBC % 0 09/01/17 05:47 ESR 120 mm/Hr (0-40) H 08/26/17 15:50 INR (Anticoag Therapy) 1.92 (0.77-1.02) H 09/01/17 05:47 APTT 27.7 seconds (26.0-36.3) 08/26/17 15:50 ABG pH 7.50 (7.35-7.45) H 08/31/17 15:39 ABG pCO2 47 mmHg (35-45) H 08/31/17 15:39 ABG pO2 69 mmHg (80-100) L 08/31/17 15:39 ABG HCO3 34.3 mmol/L (19-31) H 08/31/17 15:39 ABG O2 Saturation 95.2 % (95-98) 08/31/17 15:39 ABG Base Excess 12.1 (-2.0-2.0) H 08/31/17 15:39 Sodium 141 mmol/L (135-145) 09/01/17 05:47 Potassium 4.1 mmol/L (3.5-5.0) 09/01/17 05:47 Chloride 102 mmol/L (101-111) 09/01/17 05:47 Carbon Dioxide 37 mmol/L (22-32) H 09/01/17 05:47 Anion Gap 2 mmol/L (2-11) 09/01/17 05:47 BUN 16 mg/dL (6-24) 09/01/17 05:47 Creatinine 0.84 mg/dL (0.51-0.95) 09/01/17 05:47 Est GFR ( Amer) 79.6 (>60) 09/01/17 05:47 Est GFR (Non-Af Amer) 65.7 (>60) 09/01/17 05:47 BUN/Creatinine Ratio 19.0 (8-20) 09/01/17 05:47 Glucose 86 mg/dL (70-100) 09/01/17 05:47 Lactic Acid 1.2 mmol/L (0.5-2.0) 08/26/17 15:50 Calcium 8.4 mg/dL (8.6-10.3) L 09/01/17 05:47 Phosphorus 3.0 mg/dL (2.5-5.0) 09/01/17 05:47 Magnesium 2.3 mg/dL (1.9-2.7) 09/01/17 05:47 Iron 44 ug/dL (50-212) L 08/31/17 05:40 TIBC 224 mcg/dL (250-450) L 08/31/17 05:40 % Saturation 20 % (15-55) 08/31/17 05:40 Unsat Iron Binding 180 ug/dL 08/31/17 05:40 Transferrin 160 mg/dL (203-362) L 08/31/17 05:40 Ferritin 202.8 ng/mL (11-307) 08/31/17 05:40 Total Bilirubin 0.30 mg/dL (0.2-1.0) 09/01/17 05:47 AST 40 U/L (13-39) H 09/01/17 05:47 ALT 20 U/L (7-52) 09/01/17 05:47 Alkaline Phosphatase 189 U/L (34-104) H 09/01/17 05:47 Troponin I 0.01 ng/mL (<0.04) 08/26/17 15:50 C-Reactive Protein 87.49 mg/L (<8.01) H 08/26/17 15:50 Total Protein 5.6 g/dL (6.4-8.9) L 09/01/17 05:47 Albumin 2.2 g/dL (3.2-5.2) L 09/01/17 05:47 Globulin 3.4 g/dL (2-4) 09/01/17 05:47 Albumin/Globulin Ratio 0.6 (1-3) L 09/01/17 05:47 Folate 6.38 ng/mL (>3.99) 08/31/17 05:40 Urine Color Yellow 08/26/17 19:22 Urine Appearance Cloudy 08/26/17 19:22 Urine pH 5.0 (5-9) 08/26/17 19:22 Ur Specific Manning 1.012 (1.010-1.030) 08/26/17 19:22 Urine Protein Negative (Negative) 08/26/17 19:22 Urine Ketones Negative (Negative) 08/26/17 19:22 Urine Blood 2+ (Negative) A 08/26/17 19:22 Urine Nitrate Positive (Negative) A 08/26/17 19:22 Urine Bilirubin Negative (Negative) 08/26/17 19:22 Urine Urobilinogen Negative (Negative) 08/26/17 19:22 Ur Leukocyte Esterase 1+ (Negative) A 08/26/17 19:22 Urine WBC (Auto) 1+(6-10/hpf) (Absent) A 08/26/17 19: Urine RBC (Auto) 1+(3-5/hpf) (Absent) A 08/26/17 19:22 Ur Squamous Epith Cells Present (Absent) A 08/26/17 19:22 Urine Bacteria 2+ (Absent) A 08/26/17 19: Hyaline Casts Present (Absent) A 08/26/17 19:22 Urine Glucose Negative (Negative) 08/26/17 19:22 Fluid Source Synovial fluid 08/27/17 09:12 Fluid Volume 1.5 mL 08/27/17 09:12 Fluid Color Red 08/27/17 09:12 Fluid Appearance Bloody 08/27/17 09:12 Fluid WBC 3724 /mcL (0-612558) 08/27/17 09:12 Fluid RBC 880151 /mcL 08/27/17 09:12 Fluid Tot Cell Count 100 08/27/17 09:12 Fluid Neutrophils 62 % 08/27/17 09:12 Fluid Lymphocytes 35 % 08/27/17 09:12 Fluid Monocytes 3 % 08/27/17 09:12 Fluid Cell Count Rvw By 08/27/17 09:12 Vancomycin Trough 25.2 mcg/mL 08/30/17 13:00 Rheumatoid Factor > 120 IU/mL (<15) H 08/27/17 05:36 Anti-Nuclear Antibody 0.5 U 08/26/17 15:50 c-ANCA Antibody Negative (Negative) 08/26/17 15:50 p-ANCA Antibody Positive (Negative) A 08/26/17 15:50 Complement C3 145 mg/dL (75 - 175) 08/26/17 17:32 Complement C4 31 mg/dL (14 - 40) 08/26/17 17:32 Tot Complement (CH50) 59 U/mL (30 - 75) 08/26/17 17:32 Blood Type O Positive 08/30/17 06:30 Antibody Screen Negative 08/30/17 06:30 Crossmatch See Detail 08/30/17 06:30 incision: c/d/i PE: NVI Assessment: s/p I&D left BALJINDER Plan: 1) continue current pain regimen 2) PT/OT 3) continue DVT prophylaxis 4) continue IV Abx per ID 5) will require DORINDA once cleared by hospitalist 6) hospitalist co-managing- low O2
[2017-09-01] MEDS: Omeprazole CAP* 20 MG PO SCH (08:27)
[2017-09-01] MEDS ORDERED: Ferrous Sulfate TAB* 325 MG PO SCH (09:00)
[2017-09-01] MEDS: Aspirin EC TAB* 81 MG TAB.EC PO SCH (09:03)
[2017-09-01] MEDS: Cyanocobalamin TAB* 500 MCG PO SCH (09:03)
[2017-09-01] MEDS: Docusate CAP* 100 MG PO PRN (09:03)
[2017-09-01] MEDS: Magnesium Hydroxide LIQ* 30 ML UDC PO SCH (09:03)
[2017-09-01] MEDS: Losartan TAB* 25 MG PO SCH (09:03)
[2017-09-01] MEDS: CMCS Solifenacin(NF) 5 MG TAB PO SCH (09:03)
[2017-09-01] MEDS: DULoxetine DR CAP* 30 MG CAP.DR PO SCH (09:03)
[2017-09-01] MEDS ORDERED: Vancomycin Trough Check NOTE FOLLOW UP ONE (09:30)
--- NOTE | 2017-09-01 10:52 | PN ---
Progress Note - Progress Note Date of Service: 09/01/17 SOAP: Subjective: CC: septic hip HPI: 76 year old woman with left hip arthroplasty infection s/p I&D, denies pain fever, diarrhea, or rash. No compliants. Objective: Vital Signs Temp 36.7 C 09/01/17 07:48 Pulse 63 09/01/17 07:48 Resp 18 09/01/17 08:00 BP 157/70 09/01/17 07:48 Pulse Ox 95 09/01/17 07:48 Intake & Output 08/31/17 09/01/17 09/01/17 18:59 06:59 18:59 Intake Total 1450 1125 360 Output Total 100 50 Balance 1350 1125 310 Intake: IV Fluids 290 285 ABX - VANCOMYCIN 260 265 NS (0.9%) 30 20 Oral 1160 840 360 Output: Urine 100 50 Other: Estimated Void Large Large Small # Bowel Movements 1 Estimated Stool Amount Large # Voids 1 2 1 Gen:awake, no distress HEENT: no thrush Heart:RRR no murmur Lungs:CTA BL Abd:+BS NTND soft Skin: no rash MSK: L hip incision intact. RUE PICC. Laboratory Results - last 24 hr 08/26/17 08/31/17 08/31/17 15:50 05:40 15:39 WBC RBC Hgb Hct MCV MCH MCHC RDW Plt Count MPV Neut % (Auto) Lymph % (Auto) [place] % (Auto) Eos % (Auto) Baso % (Auto) Absolute Neuts (auto) Absolute Lymphs (auto) Absolute Monos (auto) Absolute Eos (auto) Absolute Basos (auto) Absolute Nucleated RBC Nucleated RBC % INR (Anticoag Therapy) ABG pH 7.50 H ABG pCO2 47 H ABG pO2 69 L ABG HCO3 34.3 H ABG O2 Saturation 95.2 ABG Base Excess 12.1 H Sodium Potassium Chloride Carbon Dioxide Anion Gap BUN 16 Creatinine 0.99 H Est GFR ( Amer) 65.8 Est GFR (Non-Af Amer) 54.4 BUN/Creatinine Ratio Glucose Calcium Phosphorus Magnesium Iron 44 L TIBC 224 L % Saturation 20 Unsat Iron Binding 180 Transferrin 160 L Ferritin 202.8 Total Bilirubin AST ALT Alkaline Phosphatase Total Protein Albumin Globulin Albumin/Globulin Ratio Folate 6.38 c-ANCA Antibody Negative p-ANCA Antibody Positive A 09/01/17 09/01/17 09/01/17 05:47 05:47 05:47 WBC 8.6 RBC 3.72 L Hgb 9.6 L Hct 29 L MCV 79 L MCH 26 L MCHC 33 RDW 16 H Plt Count 570 H D MPV 6.6 L Neut % (Auto) 58.0 Lymph % (Auto) 21.0 L [place] % (Auto) 10.0 H Eos % (Auto) 9.7 H Baso % (Auto) 1.3 Absolute Neuts (auto) 5.0 Absolute Lymphs (auto) 1.8 Absolute Monos (auto) 0.9 H Absolute Eos (auto) 0.8 H Absolute Basos (auto) 0.1 Absolute Nucleated RBC 0 Nucleated RBC % 0 INR (Anticoag Therapy) 1.92 H ABG pH ABG pCO2 ABG pO2 ABG HCO3 ABG O2 Saturation ABG Base Excess Sodium 141 Potassium 4.1 Chloride 102 Carbon Dioxide 37 H Anion Gap 2 BUN 16 Creatinine 0.84 Est GFR ( Amer) 79.6 Est GFR (Non-Af Amer) 65.7 BUN/Creatinine Ratio 19.0 Glucose 86 Calcium 8.4 L Phosphorus 3.0 Magnesium 2.3 Iron TIBC % Saturation Unsat Iron Binding Transferrin Ferritin Total Bilirubin 0.30 AST 40 H ALT 20 Alkaline Phosphatase 189 H Total Protein 5.6 L Albumin 2.2 L Globulin 3.4 Albumin/Globulin Ratio 0.6 L Folate c-ANCA Antibody p-ANCA Antibody Assessment: 1. 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 Hx left hip MSSA navid arthroplasty infection 3. obesity 4. dementia 5. polyarthralgia with +RF and P-ANCA positive. ?RA or secondary to primary left hip infection Plan: 1. continue vancomycin goal tr 15-20; day , rifampin when done with oral anticoagulants. Likely lifelong oral suppression. 2. Rheumatology consultation
--- NOTE | 2017-09-01 11:19 | PN ---
Subjective Date of Service: 09/01/17 Interval History: Ms. Moss denies complaint today other than some aching in her hip. She denies chest pain, SOB, nausea, vomiting, diarrhea or abdominal pain. She is eager for discharge today. Family History: Unchanged from Admission Social History: Unchanged from Admission Past Medical History: Unchanged from Admission Objective Active Medications: Acetaminophen (Tylenol Tab*) 650 mg PO Q4H PRN Aspirin (Aspirin Ec Tab*) 81 mg PO DAILY [facility] Cyanocobalamin (Vitamin B12 Tab*) 1,000 mcg PO DAILY [facility] Diphenhydramine HCl (Benadryl Iv*) 25 mg IV Q6H PRN Docusate Sodium (Colace Cap*) 100 mg PO DAILY PRN Duloxetine HCl (Cymbalta Cap*) 30 mg PO QAM [facility] Ferrous Sulfate (Ferrous Sulfate Tab*) 325 mg PO DAILY [facility] Heparin Sodium (Porcine) (Heparin Flush Picc/Ml/Cvc(*)) 1 - 3 ml FLUSH 0600, 1800 [facility]; Protocol Losartan Potassium (Cozaar Tab*) 50 mg PO DAILY [facility] Magnesium Hydroxide (Milk Of Magnesia Liq*) 30 ml PO BID [facility] Magnesium Hydroxide (Milk Of Magnesia Liq*) 30 ml PO Q6H PRN Omeprazole (Prilosec Cap*) 20 mg PO 0730 [facility] Ondansetron HCl (Zofran Inj*) 4 mg IV Q4H PRN Oxycodone/Acetaminophen (Percocet 5/325 Tab*) 1 tab PO Q4H PRN Oxycodone/Acetaminophen (Percocet 5/325 Tab*) 2 tab PO Q6H PRN Pharmacy Consult (Vancomycin Per Pharmacy*) 1 note FOLLOW UP . PRN Quetiapine Fumarate (Seroquel Tab*) 25 mg PO BEDTIME [facility] Solifenacin (Vesicare(Nf)) 5 mg PO DAILY [facility] Warfarin Sodium (Coumadin Tab(*)) 4 mg PO DAILY@1700 [facility]; Protocol Vital Signs: Temp Pulse Resp BP Pulse Ox 98.1 F 63 18 157/70 95 09/01/17 07:48 09/01/17 07:48 09/01/17 08:00 09/01/17 07:48 09/01/17 07:48 Oxygen Devices in Use Now: None Appearance: Female sitting up in chair in NAD Eyes: No Scleral Icterus Ears/Nose/Mouth/Throat: Mucous Membranes Moist Neck: Trachea Midline Respiratory: Symmetrical Chest Expansion and Respiratory Effort, Clear to Auscultation Cardiovascular: NL Sounds; No Murmurs; No JVD, No Edema Abdominal: NL Sounds; No Tenderness; No Distention Lymphatic: No Cervical Adenopathy Extremities: No Edema Skin: No Rash or Ulcers Neurological: Alert and Oriented x 3, NL Muscle Strength and Tone Nutrition: Taking PO's Result Diagrams: 09/01/17 05:47 09/01/17 05:47 Additional Lab and Data: . Microbiology and Other Data: . Assess/Plan/Problems-Billing Assessment: Ms. Moss is a 76 yo female with left hip effusion, suspected septic joint (history of MSSA in that joint) now admitted for inability walk, L hip pain and diffuse arthralgias who is s/p washout 08/27/17 without complication. - Patient Problems (1) Septic hip Comment: - Prosthetic hip infection. - Washout on 08/27/2017 --> fluid from hip joint sent for cultures, growing stap epi. - Blood cultures NGTD - Appreciate ID consult. Vancomycin 1000 mg IV Q12 - ID recommend 1250 mg but trough was 25 today will keep at 1000 mg. Today is Day . Will continue course in subacute rehab. Weekly labs as outpt - Per ID will require Rifampin after oral anticoagulation is complete per Ortho. Per ID likely life long suppression will be required. (2) Rheumatoid factor positive Comment: -+RA factor and pANCA - there is a question if this is from primary left hip infections vs RA. She does have a hx of polyarthraligia. - Will send MPO and PR3 antibodies now, will need to follow up with [employer] as outpt - discussed with daughter. (3) Chronic intermittent hypoxia with obstructive sleep apnea Comment: - Overnight pulse oximetry demonstrates apnea. Plan for O2 at night until can obtain sleep study with Dr. Calderon. - No longer requiring O2 during the day. (4) Anemia Comment: - Acute blood loss anemia. - Hgb 9.6 after 2 units PRBC. - Has hx of anemia, microcytic. Iron studies normal. Will refer back to PCP. (5) Dementia Comment: - A+O x2 today - s/p CVA and evolving alzheimer's - Continue home medication regimen. (6) HTN (hypertension) Comment: - stable. continue losartan. (7) Hyperlipidemia Comment: - Continue statin. (8) UTI (urinary tract infection) Comment: - Pansensitive ecoli > 100,000 colonies. - Continues on vanco for septic hip. (9) DVT prophylaxis Comment: - Continue coumadin 4 mg daily (10) Full code status Comment: Status and Disposition: Inpatient. Discharge to [facility].
[2017-09-01] MEDS: Vancomycin(*) 1,000 MG in NS 0.9% 250 ML* 250 ML IVPB SCH (11:27)
[2017-09-01 12:07] VITALS: BP 125/68
[2017-09-01] MEDS: oxyCODONE/Acetamin 5/325 MG* TAB PO PRN (13:41)
--- NOTE | 2017-09-01 13:53 | DS ---
CC: Dr. Sol, [facility]; Dr. Hernandez; Dr. Hannah; Dr. Carl; Dr. Calderon * DATE OF ADMISSION: 08/26/2017. DATE OF DISCHARGE: 09/01/2017. ATTENDING PHYSICIAN: Dr. Hernesto Joseph * (dictation provided by Herminia Ocampo NP ). PRIMARY DIAGNOSES: 1. Left prosthetic hip infection 2. Urinary tract infection. 3. Suspect obstructive sleep apnea. 4. Acute blood loss anemia. 5. Positive rheumatoid factor. SECONDARY DIAGNOSES: 1. Arthritis. 2. Hypertension. 3. Stroke in 2004. 4. Hyperlipidemia. 5. Hip surgery with infection in 2016. PAST SURGICAL HISTORY: Hysterectomy, cholecystectomy. MEDICATIONS AT THE TIME OF DISCHARGE: 1. Aspirin 81 mg p.o. daily. 2. Quetiapine 25 mg p.o. daily. 3. Ibuprofen 400 mg p.o. daily. 4. Tumeric complex 500 mg two caps p.o. daily. 5. Vesicare 5 mg p.o. daily. 6. Omeprazole 20 mg p.o. q.a.m. 7. Losartan 50 mg p.o. daily. 8. Cymbalta 30 mg p.o. q.a.m. 9. Cyanocobalamin 1,000 mcg p.o. daily. 10. Oxycodone with acetaminophen 5/325 one to two tabs q.4 hours prn pain. 11. Warfarin 4 mg p.o. daily. INR today is 1.92. 12. Ferrous Sulfate 325 mg p.o. daily. 13. Vancomycin IV daily. HOSPITAL COURSE: Ms. Moss is a 76-year-old female with a past medical history of arthritis and a left hip surgery with infection in 2016 who presented to the hospital with progressive bilateral hip pain and inability to walk on 08/26/2017 at the request from Dr. Hannah. Please see the dictated history and physical from Dr. Roberth Casas for complete details. In brief, the patient had had a follow-up with Dr. Hannah with complaint of progressive bilateral hip pain. She was found to have an elevated ESR and CRP, at 120 and 109.32 respectively. She had an MRI of her left hip showing fluid in the left hip space. In the emergency room, she had labs that showed no leukocytosis. She had a chronic anemia with a hemoglobin of 9.0. She had a mild elevation of creatinine to 1.14 and her CRP was 87.49. She had a chest x-ray which showed no acute process and an EKG which showed a sinus rhythm with no evidence of ischemia. Ms. Moss was seen in consultation, inpatient, by Dr. Hannah who recommended that she have an open I and D of the joint in consultation with the patient and family. The patient underwent surgery on 08/27/2017. I refer you to Dr. Hannah's note for complete details. The joint fluid from that I and D grew staph epidermidis. The patient was seen in consultation by Dr. Hernandez who recommended Vancomycin IV for six weeks with a weekly CBC, CMP, CRP, and Vanco through. The patient was recommended to be on Coumadin for DVT prophylaxis by Dr. Hannah. Dr. Hernandez recommended that the patient would go on to Rifampin therapy after the anticoagulation was discontinued. He recommended that likely she would need lifelong oral antibiotics for suppressive therapy. During this hospitalization, Ms. Moss has evidenced apnea with oxygen saturation into the 60s. She was initially placed on Bipap and monitored in the Intensive Care Unit after her open washout of her hip. The patient is now off oxygen during the day and has had a pulse oximetry study overnight which demonstrates that the patient does have episodes of apnea consistent with obstructive sleep apnea. The patient was seen in consultation by Dr. Calderon who recommended that the patient be discharged with nighttime O2 until she can have an outpatient sleep study arranged through Dr. Calderon's office. Ms. Moss is doing well today. She is tolerating oral intake. She has some discomfort in her left hip, but states that it is manageable. She is being discharged to [facility] for follow-up with multiple providers. The only other thing I would note is that the patient did have a history of polyarthritis during this hospitalization. She had a positive rheumatoid factor and a positive p-ANCA antibody. I have sent MPO and PR3 antibodies which are pending. Recommend that the patient have follow-up with Dr. Carl as well. DISPOSITION: To [facility]. DIET: Low fat, low salt. ACTIVITY: As tolerated. FOLLOW-UP PLANS: 1. Please follow-up with Dr. Sol within the next one to two weeks regarding this acute hospitalization. 2. Please follow-up with Dr. Calderon within the next month regarding evaluation of obstructive sleep apnea. 3. Please follow-up with Dr. Hannah and Dr. Hernandez regarding left hip prosthetic infection. 4. Please follow-up with Dr. Carl regarding positive rheumatoid factor and polyarthritis. Approximately 60 minutes were spent in the discharge of this patient, more than half that time was spent with the patient at the bedside reviewing the events leading up and during this hospitalization, performing the physical examination , and reviewing the plan of care. HERMINIA OCAMPO NP [id number]/CPS #: [id number] ANJEL
[2017-09-01] MEDS ORDERED: Warfarin TAB(*) 4 MG PO SCH (17:00)
[2017-09-01] MEDS ORDERED: Vancomycin(*) 750 MG in NS 0.9% 250 ML* 250 ML IVPB SCH (22:00)
[2017-09-03] MEDS ORDERED: Vancomycin Trough Check NOTE FOLLOW UP ONE (09:30)
== END 2017-09-01 14:20 | DRG 463 ==
LOC: ED 15:20 → SSU 16:34 → ICU 08-27 11:43 → SSU 08-28 12:48
PROVIDERS: ADMIT Internal Medicine; ATTEND Internal Medicine
PROC: 30233N1 Transfusion of Nonautologous Red Blood Cells into Peripheral Vein, Percutaneous Approach (ICD-10-PCS; principal; 2017-08-26)
PROC: 0JBM0ZZ Excision of Left Upper Leg Subcutaneous Tissue and Fascia, Open Approach (ICD-10-PCS; 2017-08-26)
PROC: 0S9B0ZZ Drainage of Left Hip Joint, Open Approach (ICD-10-PCS; 2017-08-26)
PROC: 5A09357 Assistance with Respiratory Ventilation, Less than 24 Consecutive Hours, Continuous Positive Airway Pressure (ICD-10-PCS; 2017-08-26)
PROC: 02HV33Z Insertion of Infusion Device into Superior Vena Cava, Percutaneous Approach (ICD-10-PCS; 2017-08-30)
DX: T84.52XA Infection and inflammatory reaction due to internal left hip prosthesis, initial encounter (principal); J96.91 Respiratory failure, unspecified with hypoxia; D62 Acute posthemorrhagic anemia; F03.90 Unspecified dementia, unspecified severity, without behavioral disturbance, psychotic disturbance, mood disturbance, and anxiety; I10 Essential (primary) hypertension; K21.9 Gastro-esophageal reflux disease without esophagitis; M81.0 Age-related osteoporosis without current pathological fracture; F32.9 Major depressive disorder, single episode, unspecified; Z96.642 Presence of left artificial hip joint; M25.452 Effusion, left hip; E78.5 Hyperlipidemia, unspecified; B95.7 Other staphylococcus as the cause of diseases classified elsewhere; B96.20 Unspecified Escherichia coli [E. coli] as the cause of diseases classified elsewhere; E66.9 Obesity, unspecified; Z66 Do not resuscitate; M13.0 Polyarthritis, unspecified; N30.90 Cystitis, unspecified without hematuria; G47.33 Obstructive sleep apnea (adult) (pediatric); Z79.01 Long term (current) use of anticoagulants; Z86.73 Personal history of transient ischemic attack (TIA), and cerebral infarction without residual deficits; Z90.710 Acquired absence of both cervix and uterus; Z90.49 Acquired absence of other specified parts of digestive tract; Z79.82 Long term (current) use of aspirin; Z68.37 Body mass index [BMI] 37.0-37.9, adult; Z80.3 Family history of malignant neoplasm of breast; Z82.49 Family history of ischemic heart disease and other diseases of the circulatory system
CPT/HCPCS: 36415; 36600; 71045; 80048; 80053; 80202; 81003; 81015; 82565; 82728; 82746; 82803; 83516; 83540; 83550; 83605; 83735; 84100; 84484; 84520; 85014; 85018; 85025; 85049; 85610; 85652; 85730; 86038; 86140; 86160; 86162; 86255; 86431; 86850; 86900; 86901; 86922; 87040; 87070; 87073; 87077; 87086; 87102; 87116; 87186; 87205; 87206; 87640; 87641; 89051; 93005; 94010; 94660; 94762; 99284; A9270-GY; C1751; G8978-GP-CL; G8979-GP-CJ; J0690; J1100; J1644; J1650; J1885; J2250; J2270; J2704; J3010; J3370; P9040

== ENCOUNTER 2018-01-13 11:29 | Observation (INO) | payer MEDICARE ==
--- OUTSIDE RECORDS SUMMARY | 2018-01-13 11:34 | XMS REPORT ---
:1940 External Reference #:[id number] Author Organization [facility] Address [address] [place] [address] [place] [address] Phone [phone] Care Team Providers Name Role Phone Hodan Sol M.D. Primary Care Physician Unavailable Payers Type Date Identification Numbers Payment Provider Subscriber Commercial Expires: Policy Number: [facility] Lorin Sim 2016 [id number] Option/Burmese pr PayID: [id number] [address] [address] Attn: [place] [address] Health Maintenance Effective: Policy Number: Medicare Blue Lorin Donald ([facility]) 03/07/[id number] [facility] [employer] Number: [id number] [address] [address] PayID: [id number] AVANI Chinchilla [id number] Problems Date Description Provider Status Onset: 05/24/2016 Localized, primary osteoarthritis of Kirstin Hannah M.D. Active the pelvic region and thigh Onset: 07/16/2016 Staphylococcus aureus Kirstin Hannah M.D. 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 Active Onset: 08/28/2017 Unspecified dementia without Roberth Casas M.D. 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 Active Onset: 08/26/2017 Hyperlipidemia Roberth Casas M.D. Active Onset: 08/26/2017 Essential hypertension Roberth Casas M.D. Active Onset: 08/26/2017 Effusion of joint of pelvic region Roberth Casas M.D. Active Social History Type Date Description Comments Lives With ETOH Use Denies alcohol use Smoking Patient has never smoked Exercise Type/Frequency Exercises rarely Allergies, Adverse Reactions, Alerts Date Description Reaction Status Severity Comments 02/02/2016 NKDA active Medications Medication Date Status Form Strength Qnty SIG Indications Ordering Provider Nystatin 12/20/ Active Ointment [id number] 30gm apply to B37.2 Lionel 2017 /GM affected D. area twice Macqueen, daily M.D. Methotrexate 11/25/ Active Tablets 2.5mg 60tabs take 7 2017 capsules/t Meseret, ablets by M.D. mouth once weekly Folic Acid 11/25/ Active Tablets 1mg 90tabs take one 2017 capsule/ta Meseret, blet daily M.D. by mouth Plaquenil 11/04/ Active Tablets 200mg 60tabs 1 by mouth Almas 2017 every day Meseret, for 1 week M.D. then 2 by mouth daily ongoing Cephalexin 10/11/ Active Tablets 500mg 90tabs 1 by mouth T84.52xD Lionel 2017 three D. times a Macqueen, day M.D. Prednisone 10/11/ Active Tablets 10mg 60tabs Take one M25.541 2017 capsule/ta Meseret, blet daily M.D. by mouth Losartan / Active Tablets 25mg once daily Camryn Potassium 0000 MD Lionel Omeprazole / Active Capsules 20mg once daily Camryn 0000 DR Lionel MD Vitamin B-12 / Active Tablets 1000mcg 1 by mouth Unknown 0000 Sub every day Oxycodone-Aceta / Active Tablets 5-325mg 1-2 by Unknown minophen 0000 mouth every 4-6 hours as needed for pain. Duloxetine HCL / Active Caps DR 30mg take 1 Unknown 0000 Part capsule by mouth every morning for 1 week, then 2 tabs daily Multivitamin / Active Unknown 0000 Ibuprofen / Active 200mg 2 tabs Unknown 0000 daily Quetiapine 00/00/ Active Tablets 25mg once daily Villapian Fumarate 0000 oHodan M.D. Senna S / Active 2 tabs at Unknown 0000 bedtime Aspirin /00/ Active Tablets DR 81mg 1 by mouth Unknown 0000 every day Ferrous Sulfate /00/ Active Tablets 325mg 1 by mouth Unknown 0000 every day Mucinex 0000/ Active Tablets ER 600mg twice a Unknown 0000 12HR day as needed Rifampin / Active Capsules 300mg 60caps 2 by mouth Lionel 0000 every day Rigo Hernandez M.D. Tumeric / Active Tablets 500mg 1 po bid Unknown 0000 Ra Calcium 600 00/ Hx Tablets 600-400mg- Unknown Plus Vitamin 0000 - Unit D-3 2017 Donepezil HCL 00/ Hx Tablets 10mg hner, 0000 - Lionel, 2017 Rivastigmine / Hx Capsules 1.5mg Unknown Tartrate - 2016 Rosuvastatin 00/ Hx Tablets 5mg Unknown Calcium 0000 - 2016 Oxybutynin 00/ Hx Tablets ER 15mg take 1 Unknown Chloride ER 0000 - 24HR tablet 05/11/ twice a 2016 day Citalopram 00/ Hx Tablets 10mg take 1 Unknown Hydrobromide 0000 - tablet 05/12/ once daily 2016 Tolterodine 00/ Hx Tablets 2mg take 1 Unknown Tartrate 0000 - tablet by 2016 twice a day Vesicare 00/ Hx Tablets 5mg 1 by mouth Unknown 0000 - every day 2017 Heparin Lock 00/00/ Hx Solution 10Unit/ML Unknown Flush 0000 - 2016 Nystatin /00/ Hx Powder Unknown 0000 - 2016 Cefazolin 00/00/ Hx Solution 1gm 2 gm iv Unknown Sodium 0000 - Rec every 8 08/15/ hours x 2 2017 months at [facility] (through 07/27/16) Warfarin Sodium 00/00/ Hx Tablets 4mg 1 by mouth Unknown 0000 - every 09/30/ night or 2017 as directed Cymbalta 00/00/ Hx Caps DR 30mg 1 by mouth Unknown 0000 - Part every day 2016 Acetaminophen /00/ Hx Tablets 325mg 2 tablets Unknown 0000 - by mouth 2016 prn pain Amlodipine / Hx Tablets 5mg 1 by mouth Unknown Besylate 0000 - every day 2016 Warfarin Sodium /00/ Hx Unknown 0000 - 2016 Senna S /00/ Hx Unknown 0000 - 2016 Tobrex /00/ Hx Unknown - 2016 Turmeric // Hx Capsules 500mg take one Unknown Curcumin 0000 - capsule/ta 09/19/ blet daily 2018 by mouth Vancomycin HCL 00/ Hx Solution 750mg iv every Unknown 0000 - Rec 24 hours x wks at 2018 [facility] Heparin Lock / Hx Solution 100Unit/ML Unknown Flush - 2017 Sodium Chloride / Hx Solution 0.9% Unknown - 2017 Coumadin 00/ Hx 4mg at bedtime Unknown - 2017 Keflex / Hx Capsules 500mg take 1 tab Unknown 0000 - by mouth 11/03/ 2018 times per day Medications Administered in Office Medication Date Status Form Strength Qnty SIG Indications Ordering Provider Depomedrol Administered Injection Gwen 40MG Radha Sierra M.D. Depomedrol Administered Injection Gwen 40MG Radha Sierra M.D. Depomedrol Administered Injection Gwen 40MG Luis Enrique Sierra M.D. Depomedrol Administered Injection Gwen 40MG Luis Enrique Sierra M.D. Immunizations CPT Code Status Date Vaccine Lot # [id number] Given 12/20/2017 Influenza Virus Vaccine, Quadrivalent, Split, [id number] Preservative Free Vital Signs Date Vital Result Comment 12/29/2017 Height 58 inches 4'10" Weight 169.12 lb Heart Rate 63 /min BP Systolic Sitting 124 mmHg BP Diastolic Sitting 76 mmHg Pain Level 8 O2 % BldC Oximetry 97 % BMI (Body Mass Index) 35.3 kg/m2 12/20/2017 Height 58 inches 4'10" Weight 169.25 lb Heart Rate 70 /min BP Systolic Sitting 128 mmHg BP Diastolic Sitting 68 mmHg Respiratory Rate 14 /min Body Temperature 98.0 F BMI (Body Mass Index) 35.4 kg/m2 11/25/2017 Height 58 inches 4'10" Weight 169.56 lb Heart Rate 89 /min BP Systolic Sitting 118 mmHg BP Diastolic Sitting 80 mmHg Pain Level 7 O2 % BldC Oximetry 97 % BMI (Body Mass Index) 35.4 kg/m2 11/16/2017 Height 58 inches 4'10" Weight 170.12 lb Heart Rate 83 /min BP Systolic Sitting 124 mmHg BP Diastolic Sitting 70 mmHg Respiratory Rate 18 /min Body Temperature 99.3 F O2 % BldC Oximetry 97 % BMI (Body Mass Index) 35.6 kg/m2 11/04/2017 Height 58 inches 4'10" Weight 170.25 lb Heart Rate 72 /min BP Systolic Sitting 128 mmHg BP Diastolic Sitting 74 mmHg Respiratory Rate 16 /min Body Temperature 98.8 F Pain Level 8 bilateral hands BMI (Body Mass Index) 35.6 kg/m2 10/28/2017 Height 58 inches 4'10" Weight 170.00 lb Heart Rate 72 /min BP Systolic Sitting 126 mmHg BP Diastolic Sitting 84 mmHg Respiratory Rate 14 /min Body Temperature 98.1 F BMI (Body Mass Index) 35.5 kg/m2 10/17/2017 Height 58 inches 4'10" Weight 183.00 lb Heart Rate 69 /min Respiratory Rate 16 /min Pain Level 2 BMI (Body Mass Index) 38.2 kg/m2 10/11/2017 Height 58 inches 4'10" Weight 179.12 lb Heart Rate 84 /min BP Systolic Sitting 120 mmHg BP Diastolic Sitting 82 mmHg Respiratory Rate 16 /min Body Temperature 97.6 F BMI (Body Mass Index) 37.4 kg/m2 09/20/2017 Height 58 inches 4'10" Weight 184.00 lb Heart Rate 72 /min BP Systolic Sitting 124 mmHg BP Diastolic Sitting 80 mmHg Respiratory Rate 14 /min Body Temperature 98.5 F BMI (Body Mass Index) 38.5 kg/m2 09/16/2017 Height 58 inches 4'10" Weight 183.00 lb BP Systolic 104 mmHg BP Diastolic 60 mmHg Body Temperature 98.0 F BMI (Body Mass Index) 38.2 kg/m2 08/22/2017 Height 58 inches 4'10" Weight 184.00 [...] Test Result H/L Range Note Laboratory test finding 12/26/2017 Erythrocyte Sed Rate 118 mm/Hr High 0- 40 C Reactive Protein 84.33 mg/L High <8.01 CBC Auto Diff 12/26/2017 White Blood Count 8.1 10^3/uL 3.5-10.8 Red Blood Count 3.79 10^6/uL Low 4.00-5.40 Hemoglobin 10.7 g/dL Low 12.0-16.0 Hematocrit 32 % Low 35-47 Mean Corpuscular Volume 85 fL 80-97 Mean Corpuscular Hemoglobin 28 pg 27-31 Mean Corpuscular HGB Conc 33 g/dL 31-36 Red Cell Distribution Width 16 % High 10.5-15 Platelet Count 598 10^3/uL High 150-450 Mean Platelet Volume 7.3 um3 Low 7.4-10.4 Abs Neutrophils 5.7 10^3/uL 1.5-7.7 Abs Lymphocytes 1.1 10^3/uL 1.0-4.8 Abs Monocytes 0.9 10^3/uL High 0-0.8 Abs Eosinophils 0.3 10^3/uL 0-0.6 Abs Basophils 0.1 10^3/uL 0-0.2 Abs Nucleated RBC 0 10^3/uL Granulocyte % 70.6 % 38-83 Lymphocyte % 13.3 % Low 25-47 Monocyte % 11.0 % High 0-7 Eosinophil % 3.9 % 0-6 Basophil % 1.2 % 0-2 Nucleated Red Blood Cells % 0 Comp Metabolic Panel 12/26/2017 Sodium 139 mmol/L 135-145 Potassium 4.4 mmol/L 3.5-5.0 Chloride 102 mmol/L 101-111 Co2 Carbon Dioxide 30 mmol/L 22-32 Anion Gap 7 mmol/L 2-11 Glucose 128 mg/dL High 70-100 Blood Urea Nitrogen 20 mg/dL 6-24 Creatinine 1.02 mg/dL High 0.51-0.95 BUN/Creatinine Ratio 19.6 8-20 Calcium 9.2 mg/dL 8.6-10.3 Total Protein 6.7 g/dL 6.4-8.9 Albumin 3.1 g/dL Low 3.2-5.2 Globulin 3.6 g/dL 2-4 Albumin/Globulin Ratio 0.9 Low 1-3 Total Bilirubin 0.30 mg/dL 0.2-1.0 Alkaline Phosphatase 127 U/L High 34-104 Alt 12 U/L 7-52 Ast 17 U/L 13-39 Egfr Non- 52.4 >60 Egfr 63.4 >60 1 Laboratory test finding 11/21/2017 Erythrocyte Sed Rate 107 mm/Hr High 0- 40 C Reactive Protein 142.18 mg/L High <8.01 CBC Auto Diff 11/21/2017 White Blood Count 9.6 10^3/uL 3.5-10.8 Red Blood Count 3.55 10^6/uL Low 4.00-5.40 Hemoglobin 9.7 g/dL Low 12.0-16.0 Hematocrit 30 % Low 35-47 Mean Corpuscular Volume 84 fL 80-97 Mean Corpuscular Hemoglobin 27 pg 27-31 Mean Corpuscular HGB Conc 32 g/dL 31-36 Red Cell Distribution Width 16 % High 10.5-15 Platelet Count 678 10^3/uL High 150-450 Mean Platelet Volume 7.5 um3 7.4-10.4 Abs Neutrophils 7.5 10^3/uL 1.5-7.7 Abs Lymphocytes 0.9 10^3/uL Low 1.0-4.8 Abs Monocytes 0.8 10^3/uL 0-0.8 Abs Eosinophils 0.3 10^3/uL 0-0.6 Abs Basophils 0.1 10^3/uL 0-0.2 Abs Nucleated RBC 0 10^3/uL Granulocyte % 78.2 % 38-83 Lymphocyte % 9.5 % Low 25-47 Monocyte % 8.0 % High 0-7 Eosinophil % 3.4 % 0-6 Basophil % 0.9 % 0-2 Nucleated Red Blood Cells % 0 Comp Metabolic Panel 11/21/2017 Sodium 138 mmol/L 135-145 Potassium 4.4 mmol/L 3.5-5.0 Chloride 98 mmol/L Low 101-111 Co2 Carbon Dioxide 29 mmol/L 22-32 Anion Gap 11 mmol/L 2-11 Glucose 207 mg/dL High 70-100 Blood Urea Nitrogen 15 mg/dL 6-24 Creatinine 1.08 mg/dL High 0.51-0.95 BUN/Creatinine Ratio 13.9 8-20 Calcium 9.1 mg/dL 8.6-10.3 Total Protein 6.8 g/dL 6.4-8.9 Albumin 3.0 g/dL Low 3.2-5.2 Globulin 3.8 g/dL 2-4 Albumin/Globulin Ratio 0.8 Low 1-3 Total Bilirubin 0.40 mg/dL 0.2-1.0 Alkaline Phosphatase 122 U/L High 34-104 Alt 10 U/L 7-52 Ast 16 U/L 13-39 Egfr Non- 49.1 >60 Egfr 59.4 >60 2 Laboratory test finding 11/21/2017 Vitamin D, 1,25 31 pg/mL 18-78 3 Dihydroxy Laboratory test finding 10/28/2017 C Reactive Protein 80.82 mg/L High < 8.01 CBC Auto Diff 10/28/2017 White Blood Count 13.3 10^3/uL High 3.5-10.8 Red Blood Count 3.39 10^6/uL Low 4.00-5.40 Hemoglobin 9.0 g/dL Low 12.0-16.0 Hematocrit 28 % Low 35-47 Mean Corpuscular Volume 83 fL 80-97 Mean Corpuscular Hemoglobin 27 pg 27-31 Mean Corpuscular HGB Conc 32 g/dL 31-36 Red Cell Distribution Width 20 % High 10.5-15 Platelet Count 666 10^3/uL High 150-450 Mean Platelet Volume 7.3 um3 Low 7.4-10.4 Abs Neutrophils 11.2 10^3/uL High 1.5-7.7 Abs Lymphocytes 1.1 10^3/uL 1.0-4.8 Abs Monocytes 0.6 10^3/uL 0-0.8 Abs Eosinophils 0.2 10^3/uL 0-0.6 Abs Basophils 0.1 10^3/uL 0-0.2 Abs Nucleated RBC 0 10^3/uL Granulocyte % 84.7 % High 38-83 Lymphocyte % 8.6 % Low 25-47 Monocyte % 4.3 % 0-7 Eosinophil % 1.3 % 0-6 Basophil % 1.1 % 0-2 Nucleated Red Blood Cells % 0 Comp Metabolic Panel 10/28/2017 Sodium 140 mmol/L 135-145 Potassium 4.8 mmol/L 3.5-5.0 Chloride 101 mmol/L 101-111 Co2 Carbon Dioxide 30 mmol/L 22-32 Anion Gap 9 mmol/L 2-11 Glucose 156 mg/dL High 70-100 Blood Urea Nitrogen 14 mg/dL 6-24 Creatinine 0.96 mg/dL High 0.51-0.95 BUN/Creatinine Ratio 14.6 8-20 Calcium 9.2 mg/dL 8.6-10.3 Total Protein 6.5 g/dL 6.4-8.9 Albumin 3.1 g/dL Low 3.2-5.2 Globulin 3.4 g/dL 2-4 Albumin/Globulin Ratio 0.9 Low 1-3 Total Bilirubin 0.50 mg/dL 0.2-1.0 Alkaline Phosphatase 112 U/L High 34-104 Alt 8 U/L 7-52 Ast 12 U/L Low 13-39 Egfr Non- 56.4 >60 Egfr 68.2 >60 4 Laboratory test finding 10/12/2017 Cyclic Citrullinated Pep Igg >250.0 U 5 Rheumatoid Factor 581 IU/mL High <15 C Reactive Protein 116.63 mg/L High <8.01 Comp Metabolic Panel 10/12/2017 Sodium 141 mmol/L 135-145 Potassium 3.9 mmol/L 3.5-5.0 Chloride 101 mmol/L 101-111 Co2 Carbon Dioxide 32 mmol/L 22-32 Anion Gap 8 mmol/L 2-11 Glucose 124 mg/dL High 70-100 Blood Urea Nitrogen 14 mg/dL 6-24 Creatinine 1.15 mg/dL High 0.51-0.95 BUN/Creatinine Ratio 12.2 8-20 Calcium 8.9 mg/dL 8.6-10.3 Total Protein 6.8 g/dL 6.4-8.9 Albumin 2.9 g/dL Low 3.2-5.2 Globulin 3.9 g/dL 2-4 Albumin/Globulin Ratio 0.7 Low 1-3 Total Bilirubin 0.50 mg/dL 0.2-1.0 Alkaline Phosphatase 119 U/L High 34-104 Alt 7 U/L 7-52 Ast 13 U/L 13-39 Egfr Non- 45.8 >60 Egfr 55.4 >60 6 CBC Auto Diff 08/22/2017 White Blood Count 10.2 10^3/uL 3.5-10.8 Red Blood Count 4.09 10^6/uL 4.00-5.40 Hemoglobin 9.8 g/dL Low 12.0-16.0 Hematocrit 31 % Low 35-47 Mean Corpuscular Volume 77 fL Low 80-97 Mean Corpuscular Hemoglobin 24 pg Low 27-31 Mean Corpuscular HGB Conc 31 g/dL 31-36 Red Cell Distribution Width 15 % 10.5-15 Platelet Count 742 10^3/uL High 150-450 Mean Platelet Volume 7.0 um3 Low 7.4-10.4 Abs Neutrophils 6.7 10^3/uL 1.5-7.7 Abs Lymphocytes 2.1 10^3/uL 1.0-4.8 Abs Monocytes 0.9 10^3/uL High 0-0.8 Abs Eosinophils 0.4 10^3/uL 0-0.6 Abs Basophils 0.1 10^3/uL 0-0.2 Abs Nucleated RBC 0 10^3/uL Granulocyte % 65.7 % 38-83 Lymphocyte % 20.4 % Low 25-47 Monocyte % 9.2 % High 0-7 Eosinophil % 3.6 % 0-6 Basophil % 1.1 % 0-2 Nucleated Red Blood Cells % 0 Laboratory test finding 08/22/2017 C Reactive Protein 109.32 mg/L High < 5.00 7 Erythrocyte Sed Rate 120 mm/Hr High 0-40 Creatinine 08/22/2017 Creatinine 1.11 mg/dL High 0.51-0.95 Egfr Non- 47.7 >60 Egfr 61.3 >60 8 CBC No Diff 08/16/2016 White Blood Count [...] 150-450 Mean Platelet Volume 8 um3 7.4-10.4 Urinalysis Profile 08/16/2016 Urine Color Yellow Urine Appearance Clear Urine Specific [place] 1.014 1.010-1.030 Urine pH 6.0 5-9 Urine Urobilinogen Negative Negative Urine Ketones Negative Negative Urine Protein Negative Negative Urine Leukocytes Negative Negative Urine Blood Negative Negative Urine Nitrite Negative Negative Urine Bilirubin Negative Negative Urine Glucose Negative Negative Comp Metabolic Panel 08/16/2016 Sodium 139 mmol/L [...] Egfr Non- 72.9 >60 Egfr 93.7 >60 9 Type & Screen 08/16/2016 Patient Blood Type O Positive Antibody Screen NEGATIVE Laboratory test 08/16/2016 Packed Cells SEE RESULTS BELO 10 finding <SEE NOTE> Urine Culture And 08/16/2016 Urine Culture SEE RESULT BELOW 11 Sensitivities Laboratory test 08/16/2016 Partial Thrombo Time 36.0 seconds 26.0-36. finding PTT 3 Inr/Protime 08/16/2016 Inr 2.07 High 0.89-1.1 1 Laboratory test 07/27/2016 Mycobacterial Culture See Comment 12 finding Laboratory test 07/27/2016 Fungal Cult Other SEE RESULT BELOW 13 finding Sources Laboratory test 07/27/2016 Fungal Cult Other SEE RESULT BELOW 14 finding Sources Laboratory test 07/27/2016 Fungal Cult Other SEE RESULT BELOW 15 finding Sources Body Fluid Cell Count 07/27/2016 Body Fluid Source Synovial Fluid Body Fluid WBC 2 /mcL 16 Body Fluid RBC 1233 /mcL Body Fluid Appearance Clear Body Fluid Color Colorless Body Fluid Volume 1 mL Body Fluid Neutrophils 60 % Body Fluid Lymph 30 % Body Fluid Eosinophil 10 % Body Fluid Total Cells Counted 10 Fluid Reviewed By MD (SEE NOTE) 17 Body Fluid C&S 07/27/2016 Body Fluid Cult Gram SEE RESULT BELOW 18 Stain Laboratory test finding 05/26/2016 Blood Culture SEE RESULT BELOW 19 Body Fluid C&S 05/26/2016 Body Fluid Cult Gram SEE RESULT BELOW 20 Stain Laboratory test finding 05/26/2016 Mycobacterial Culture See Comment 21 Laboratory test finding 05/26/2016 Fungal Cult Other Sources SEE RESULT BELOW 22 Laboratory test finding 05/26/2016 Fungal Cult Other Sources SEE RESULT BELOW 23 Laboratory test finding 05/26/2016 Fungal Cult Other Sources SEE RESULT BELOW 24 Laboratory test finding 05/26/2016 Anaerobic Culture SEE RESULT BELOW 25 Fungal Cult Other Sources SEE RESULT BELOW 26 Acid Fast Culture & Smear 05/26/2016 Acid Fast Culture SEE RESULT BELOW 27 Smear Body Fluid Cell Count 05/26/2016 Body Fluid Source OTH Body Fluid WBC TNP /mcL 28 Body Fluid RBC TNP /mcL 29 Body Fluid Appearance Bloody Body Fluid Color Red Body Fluid Volume 0.25 mL Body Fluid Neutrophils 40 % Body Fluid Lymph 60 % Body Fluid Total Cells Counted 15 Fluid Reviewed By MD (SEE NOTE) 30 CBC Auto Diff 05/24/2016 White Blood Count [...] 0-2 Nucleated Red Blood Cells % 0 Laboratory test finding 05/24/2016 C Reactive Protein 54.52 mg/L High < 5.00 31 Erythrocyte Sed Rate 111 mm/Hr High 0-40 1 Because ethnic data is not always readily [...] 15-29 5 Kidney failure <15 (or dialysis) 2 Because ethnic data is not always readily [...] 15-29 5 Kidney failure <15 (or dialysis) 3 ADDITIONAL INFORMATION This test was developed and its performance characteristics determined by [facility] in a manner consistent with CLIA requirements. This test has not been cleared or approved by the U.S. Food and Drug Administration. Test Performed by: [facility] [address] [place] [address] 4 Because ethnic data is not always readily [...] 15-29 5 Kidney failure <15 (or dialysis) 5 Interpretation: Strong Positive (>=60.0) REFERENCE VALUE <20.0 (Negative) Test Performed by: [address] [address] 6 Because ethnic data is not always readily [...] 15-29 5 Kidney failure <15 (or dialysis) 7 Acute inflammation: >10.00 8 Because ethnic data is not always readily [...] 15-29 5 Kidney failure <15 (or dialysis) 9 Because ethnic data is not always readily [...] 15-29 5 Kidney failure <15 (or dialysis) 10 SEE RESULTS BELOW [id number] OP PC [facility] 08/24/16 1545 [id number] OP PC [facility] 08/24/16 1546 11 SEE RESULT BELOW Name: LORIN SIM : [address]: Kirstin Hannah MD Acct: [id number] Unit: [id number] AGE: 75 Location: PAT Re08/16/16 SEX: F Status: REG REF SPEC: [id number] SEBASTIAN: 08/16/[address]: Kirstin Hannah MD REQ: [id number] RECD: 08/16/16-1251 STATUS: COMP OTHR DR: Lionel Cowan MD _ SOURCE: URINE SPDESC: ORDERED: Urine Culture QUERIES: Urine Source: Clean Catch Procedure Result Reported Site Urine Culture Final 08/17/16- 1326 ML No growth of clinically significant organisms * ML - MAIN LAB ([facility]) . END OF REPORT * ML=Testing performed at Main Lab DEPARTMENT OF PATHOLOGY, [address] [place] [address] Aguilar Bassett M.D. Director [facility] # [id number] 12 SOURCE: SYNOVIAL FLUID, LEFT HIP FLUID MYCOBACTERIAL CULTURE FINAL No growth after 60 days of incubation. Test Performed by: [address] [id number] 13 SEE RESULT BELOW Name: NUZHATNISREENALESSANDRA : [address]: Kirstin Hannah MD Acct: [id number] Unit: [id number] AGE: 75 Location: Re07/27/16 SEX: F Status: REG REF SPEC: [id number] SEBASTIAN: 07/27/[address] [facility] [address]: Kirstin Hannah MD REQ: [id number] RECD: 07/27/16 STATUS: CORIE BAUTISTA DR: iLonel Hernandez MD _ SOURCE: [facility] [place] [place] SPDESC: ORDERED: Fungal - Other Procedure Result Reported Site Fungal Cult - Other Sources Final 08/23/16- 1135 ML No Growth Week 4 * ML - MAIN LAB ([facility]) . END OF REPORT * ML=Testing performed at Main Lab DEPARTMENT OF PATHOLOGY, [address] [place] [address] Aguilar Bassett M.D. Director [facility] # [id number] 14 SEE RESULT BELOW Name: LORIN ISM : [address]: Kirstin Hannah MD Acct: [id number] Unit: [id number] AGE: 75 Location: SP Re07/27/16 SEX: F Status: REG REF SPEC: [id number] SEBASTIAN: 07/27/[address] [facility] [address]: Kirstin Hannah MD REQ: [id number] RECD: 07/27/16 STATUS: RES OTHR DR: Lionel Hernandez MD _ SOURCE: [facility] SPDESC: ORDERED: Fungal - Other Procedure Result Reported Site Fungal Cult - Other Sources Preliminary 08/16/16- 5919 ML No Growth Week 3 * ML - MAIN LAB ([facility]) . END OF REPORT * ML=Testing performed at Main Lab DEPARTMENT OF PATHOLOGY, [address] [place] [address] Aguilar Bassett M.D. Director [facility] # [id number] 15 SEE RESULT BELOW Name: LORIN SIM : [address]: Kirstin Hannah MD Acct: [id number] Unit: [id number] AGE: 75 Location: SP Re07/27/16 SEX: F Status: REG REF SPEC: [id number] SEBASTIAN: 07/27/[address] [facility] [address]: Kisrtin Hannah MD REQ: [id number] RECD: 07/27/16 STATUS: DANIELLE BAUTISTA DR: Lionel Hernandez MD _ SOURCE: [facility] SPDESC: ORDERED: Fungal - Other Procedure Result Reported Site Fungal Cult - Other Sources Preliminary 08/09/16- 1136 ML No Growth Week 2 * ML - MAIN LAB ([facility]) . END OF REPORT * ML=Testing performed at Main Lab DEPARTMENT OF PATHOLOGY, [address] [place] [address] Aguilar Bassett M.D. Director [facility] # [id number] 16 -- REFERENCE VALUE -- Synovial: <150/mcL Peritoneal: <500/mcL Pleural: <500/mcL Pericardial: <500/mcL 17 No evidence of malignancy or and acute inflammatory response. No microorganisms seen. Peripheral blood contamination noted. Reviewed by Dr. Bassett 18 SEE RESULT BELOW Name: LORIN SIM ANN : [address]: Kirstin Hannah MD Acct: [id number] Unit: [id number] AGE: 75 Location: Re07/27/16 SEX: F Status: REG REF SPEC: [id number] SEBASTIAN: 07/27/[address] [facility] [address]: Kirstin Hannah MD REQ: [id number] RECD: 07/27/16 STATUS: CORIE BAUTISTA DR: Lionel [...] for diagnosis. * ML - MAIN LAB ([facility]) . END OF REPORT * ML=Testing performed at Main Lab DEPARTMENT OF PATHOLOGY, [address] [place] [address] Aguilar Bassett M.D. Director [facility] # [id number] 19 SEE RESULT BELOW Name: LORIN SIM : [address]: Kirstin Hannah MD Acct: [id number] Unit: [id number] AGE: 75 Location: Re05/26/16 SEX: F Status: REG REF SPEC: [id number] SEBASTIAN: 05/26/[address]: Kirstin Hannah MD REQ: [id number] RECD: 05/26/16 STATUS: COMP _ SOURCE: BLOOD,VENO SPDESC: ORDERED: Blood Cult Procedure Result Reported Site Aerobic Culture Bottle Final 05/31/16- 1158 ML No Growth Day 5 Anaerobic Culture Bottle Final 05/31/16- 1158 ML No Growth Day 5 * ML - MAIN LAB ([facility]) . END OF REPORT * ML=Testing performed at Main Lab DEPARTMENT OF PATHOLOGY, [address] [place] [address] Aguilar Bassett M.D. Director [facility] # [id number] 20 SEE RESULT BELOW Name: LORIN SIM : [address]: Kirstin Hannah MD Acct: [id number] Unit: [id number] AGE: 75 Location: SP Re05/26/16 SEX: F Status: REG REF SPEC: [id number] SEBASTIAN: 05/26/16-[address]: Kirstin Hannah MD REQ: [id number] RECD: 05/26/16 STATUS: CORIE BAUTISTA DR: Lionel Cowan MD _ SOURCE: MISC FLUID SPDESC:HIP LEFT ORDERED: BF Cult/GS, MRSA/SA SSTI Procedure Result Reported Site Body Fluid Gram Stain Final 05/26/16- 1312 ML 1+ Neutrophils No Organisms Seen Preparation By Cytospin Smear SCANT SPECIMEN RECEIVED; APPROX .10 ML; DILUTED IN BROTH FOR TEST REQUESTS. Body Fluid Culture Final 05/30/16- 0827 ML Organism 1 STAPHYLOCOCCUS AUREUS Quantity 1+ 1 COLONY ISOLATED ON CULTURE 1. STAPHYLOCOCCUS AUREUS M.I.C. RX --------- ------ Penicillin R Clindamycin <=0.25 S Erythromycin <=0.25 S Gentamicin <=0.5 S Linezolid 2 S Nitrofurantoin <=16 S Oxacillin <=0.25 S * Quinupristin/Dalfopristin <=0.25 S CONTINUED ON NEXT PAGE * ML=Testing performed at Main Lab DEPARTMENT OF PATHOLOGY, [address] [place] [address] Aguilar Bassett M.D. Director [facility] # [id number] Patient: LORIN SIM [id number] (Continued) Specimen: [id number] Collected: 05/26/16 Received: 05/26/16-0 (Continued) Procedure Result Reported Site Body Fluid Culture Final (continued) 05/30/16- 826 1. STAPHYLOCOCCUS AUREUS (continued) M.I.C. RX --------- ------ Rifampin <=0.5 S Tetracycline <=1 S Doxycycline - Deduced S * Minocycline - Deduced S Trimethoprim/Sulfamethoxazole <=10 S Vancomycin 1 S Imipenem-Deduced S * Ampicillin/Sulbactam-Deduced S Cefazolin-Deduced S * These antibiotics are not available in the [facility] Formulary Contact the Microbiology Department for any additional antibiotic reporting. MRSA/S. aureus SSTI PCR Final 05/28/16- 1426 ML Organism 1 MRSA NEGATIVE Organism 2 S.AUREUS NEGATIVE * ML - MAIN LAB ([facility]) . END OF REPORT * ML=Testing performed at Main Lab DEPARTMENT OF PATHOLOGY, [address] [place] [address] Aguilar Bassett M.D. Director [facility] # [id number] 21 SOURCE: SYNOVIAL FLUID, LEFT HIP FLUID Mycobacteria specimen plated for culture, volume inadequate for optimal recovery. MYCOBACTERIAL CULTURE FINAL No growth after 60 days of incubation. Test Performed by: [address] [id number] 22 SEE RESULT BELOW Name: LORIN SIM : [address]: Kirstin Hannah MD Acct: [id number] Unit: [id number] AGE: 75 Location: SP Re05/26/16 SEX: F Status: REG REF SPEC: [id number] SEBASTIAN: 05/26/16-[address] [facility] [address]: Kirstin Hannah MD REQ: [id number] RECD: 05/26/16 STATUS: OCRIE BAUTISTA DR: Lionel Cowan MD _ SOURCE: [facility] [place], [place] SPDESC:HIP LEFT ORDERED: Fungal - Other Procedure Result Reported Site Fungal Cult - Other Sources Final 06/28/16- 1317 ML No Growth Week 4 * ML - MAIN LAB ([facility]) . END OF REPORT * ML=Testing performed at Main Lab DEPARTMENT OF PATHOLOGY, [address] [place] [address] Aguilar Bassett M.D. Director [facility] # [id number] 23 SEE RESULT BELOW Name: LORIN SIM : [address]: Kirstin Hannah MD Acct: [id number] Unit: [id number] AGE: 75 Location: SP Re05/26/16 SEX: F Status: REG REF SPEC: [id number] SEBASTIAN: 05/26/16-[address] [facility] [address]: Kirstin Hannah MD REQ: [id number] RECD: 05/26/16-1220 STATUS: RES OTHR DR: Lionel Cowan MD _ SOURCE: [facility] SPDESC:HIP LEFT ORDERED: Fungal - Other Procedure Result Reported Site Fungal Cult - Other Sources Preliminary 06/21/16- 1200 ML No Growth Week 3 * ML - MAIN LAB ([facility]) . END OF REPORT * ML=Testing performed at Main Lab DEPARTMENT OF PATHOLOGY, [address] [place] [address] Aguilar Bassett M.D. Director [facility] # [id number] 24 SEE RESULT BELOW Name: LORIN SIM : [address]: Kirstin Hannah MD Acct: [id number] Unit: [id number] AGE: 75 Location: SP Re05/26/16 SEX: F Status: REG REF SPEC: [id number] SEBASTIAN: 05/26/16-[address] [facility] [address]: Kirstin Hannah MD REQ: [id number] RECD: 05/26/160 STATUS: RES OTHR DR: Lionel Cowan MD _ SOURCE: [facility] SPDESC:HIP LEFT ORDERED: Fungal - Other Procedure Result Reported Site Fungal Cult - Other Sources Preliminary 06/14/16- 1440 ML No Growth Week 2 * ML - MAIN LAB ([facility]) . END OF REPORT * ML=Testing performed at Main Lab DEPARTMENT OF PATHOLOGY, [address] [place] [address] Aguilar Bassett M.D. Director [facility] # [id number] 25 SEE RESULT BELOW Name: LORIN SIM : [address]: Kirstin Hannah MD Acct: [id number] Unit: [id number] AGE: 75 Location: SP Re05/26/16 SEX: F Status: REG REF SPEC: [id number] SEBASTIAN: 05/26/16-[address] [facility] [address]: Kirstin Hannah MD REQ: [id number] RECD: 05/26/160 STATUS: CORIE BAUTISTA DR: Lionel Cowan MD [...] for diagnosis. * ML - MAIN LAB ([facility]) . END OF REPORT * ML=Testing performed at Main Lab DEPARTMENT OF PATHOLOGY, [address] [place] [address] Aguilar Bassett M.D. Director [facility] # [id number] 26 SEE RESULT BELOW Name: LORIN SIM : [address]: Kirstin Hannah MD Acct: [id number] Unit: [id number] AGE: 75 Location: Re05/26/16 SEX: F Status: REG REF SPEC: [id number] SEBASTIAN: 05/26/16-[address] [facility] [address]: Kirstin Hannah MD REQ: [id number] RECD: 05/26/16 STATUS: RES OTHR DR: Lionel Cowan MD _ SOURCE: [facility] SPDESC:HIP LEFT ORDERED: Fungal - Other Procedure Result Reported Site Fungal Cult - Other Sources Preliminary 06/07/16- 1440 ML No Growth Week 1 * ML - MAIN LAB ([facility]) . END OF REPORT * ML=Testing performed at Main Lab DEPARTMENT OF PATHOLOGY, [address] [place] [address] Aguilar Bassett M.D. Director [facility] # [id number] 27 SEE RESULT BELOW Name: LORIN SIM : [address]: Kirstin Hannah MD Acct: [id number] Unit: [id number] AGE: 75 Location: SP Re05/26/16 SEX: F Status: REG REF SPEC: [id number] SEBASTIAN: 05/26/16-[address] [facility] [address]: Kirstin Hannah MD REQ: [id number] RECD: 05/26/16 STATUS: RES MICHELE DR: Lionel Cowan MD _ SOURCE: BODY [...] for diagnosis. * ML - MAIN LAB ([facility]) . END OF REPORT * ML=Testing performed at Main Lab DEPARTMENT OF PATHOLOGY, [address] [place] [address] Aguilar Bassett M.D. Director [facility] # [id number] 28 Sample quantity insufficient to perform test 29 Sample quantity insufficient to perform test 30 Blood is present. No evidence of an acute inflammatory response. No evidence of malignancy. Reviewed by Ivette Boudreaux MD 31 Acute inflammation: >10.00 Procedures Date CPT Code Description Status 08/27/2017 86710 Arthrotomy Hip W/Drainage Completed 08/27/2017 40603 Arthrotomy Hip W/Drainage Completed 08/24/2016 91401 Revise Total Hip Arthroplasty Both Components Completed 08/24/2016 23821 Revise Total Hip Arthroplasty Both Components Completed 06/01/2016 83329 Remove Hip Prosthesis Complicated Completed 06/01/2016 89163 Remove Hip Prosthesis Complicated Completed 06/01/2016 36234 Insertion, Non-Biodegradable Drug Delivery Implant Completed 05/31/2016 76941 EKG, Interpretation Only Completed 05/12/2016 65267 Inject/Drain Joint/Bursa Small W/O US Completed 05/12/2016 65426 Inject Tendon Sheath Or Ligament Aponeurosis Eg Plantar Completed Fascia 02/17/2016 30990 Treadmill Interp/Report Only Completed 02/17/2016 92438 Stress Test Supervsn W/Out I/R Completed 02/16/2016 58563 ECHO Transthorasic Realtime 2D W Doppler & Color Flow Completed Hosp 02/14/2016 60764 EKG, Interpretation Only Completed 02/02/201661767 Inject/Drain Joint/Bursa Small W/O US Completed 02/02/201662929 Inject Tendon Sheath Or Ligament Aponeurosis Eg Plantar Completed Fascia Encounters Type Date Location Provider CPT E/M Dx Office Visit 12/20/2017 [facility] Salina Sierra [address] T84.52xD 8:30a Infectious Rinku Hernandez M.D. Z79.52 B95.7 Z79.2 Z23 B37.2 Office Visit 11/25/2017 12:40p [facility] Almas Carl [address]49[address] M05.79 Of Jomar Vora Z79.52 Z79.899 R79.82 Office Visit 11/16/2017 8:50a [facility] [place] Sierra [address] T84.52xD Infectious Rinku Hernandez M.D. B95.7 Z79.2 Z79.52 R79.82 Office Visit 11/04/2017 12:40p [facility] Services Almas Carl 92591 M05.79 Of Jomar Vora Z79.899 Z79.52 R79.82 Office Visit 10/28/2017 9:30a [facility] [place] Sierra [address] T84.52xD Infectious Rinku Hernandez M.D. B95.7 Z79.2 M06.4 Office Visit 10/11/2017 11:10a [facility] [place] Sierra [address] T84.52xD Infectious Rinku Hernandez M.D. M79.642 M25.541 M25.542 Office Visit 09/20/2017 9:50a [facility] [place] Sierra [address] T84.52xD Infectious Rinku Hernandez M.D. M00.9 M25.541 M79.642 Office Visit 09/01/2017 8:19a [facility],amelie Ocampo, N.P. 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 M25.452 G47.34 I10 Office Visit 08/30/2017 8:[facility]a [facility] [place] [address] M00.9 Hospitalists M25.452 G47.34 I10 Office Visit 08/29/2017 8:25a [facility] Lionel Sierra [address] T84.52xA Infectious Diseases Diony Hernandez B95.7 M25.541 M25.542 Office Visit 08/28/2017 8:18a [facility], Roberth Casas, 26764 M00.9 Hospitalists Diony M25.452 G47.34 F03.90 Office Visit 08/27/2017 8:18a [facility] Roberth Casas, 24523 M25.452 Assoc, Hospitalists MDajuan I10 E78.5 M00.9 G47.34 Office Visit 08/26/2017 8:17a [facility] Roberth Casas, 15195 M25.452 Assoc, Hospitalists Diony I10 E78.5 Office Visit 08/26/2017 10:13a [facility] Kirstin Hannah, [address] T84.52xA Jamie Vora Office Visit 08/22/2017 1:30p [facility] Kirstin Hannah, 99289 Z96.642 CLina Vora M25.552 Z47.1 Office Visit 08/26/2016 3:44p [facility], Julieth Mcclain M.D. 04362 D62 Hospitalists I10 Z96.642 Office Visit 08/25/2016 3:43p [facility] Julieth Abramshn, 86587 I97.418 Ass, Hospitalists Diony I10 Z96.642 Office Visit 08/24/2016 3:42p [facility] Julieth Mcclain, 71707 Z96.642 Assoc, Hospitalists Diony I10 I97.418 Office Visit 07/08/2016 2:20p [facility] Salina Hernandez, 28350 B95.61 Infectious Diseases Diony T84.52xD M00.9 Office Visit 06/06/2016 10:28a [facility], Shruthi ZAIRA Schroeder [address] M00.9 Hospitalists E78.5 I10 Office Visit 06/05/2016 10:24a [facility] [address] M00.9 Hospitalists E78.5 Office Visit 06/04/2016 10:24a [facility], [place] [address] M00.9 Hospitalists E78.5 I10 Office Visit 06/03/2016 10:23a [facility], Shruthi Schroeder, ZAIRA 56542 M00.9 Hospitalists E78.5 I10 Office Visit 06/02/2016 10:50a [facility] Salina Sierra [address] T84.52xA Infectious Diseases Diony Hernandez B95.61 Office Visit 06/02/2016 10:23a [facility], [place] [address] M00.9 Hospitalists E78.5 I10 Office Visit 06/01/2016 10:22a [facility], [place] [address] M00.9 Hospitalists E78.5 I10 Office Visit 05/31/2016 10:13a [facility], Venus Bryant, ZAIRA [address]12[address] M00.9 Hospitalists I10 Office Visit 05/31/2016 11:30a [facility] Kirstin Hannah M.D. 04196 M25.552 C.M.AEsteban M16.12 Office Visit 05/24/2016 2:00p [facility] Kirstin Hannah M.D. 14740 M25.551 Jamie M25.552 M16.11 M16.12 Office Visit 02/17/2016 1:40p [facility], Elaine Segundo, 88689 N12 Hospitalists D.O. R79.89 A41.9 G30.8 Office Visit 02/16/2016 1:39p [facility], [address] N12 Hospitalists M.DEsteban R79.89 G30.8 A41.9 Office Visit 02/15/2016 1:39p [facility], [address] N12 Hospitalists M.D. R79.89 G30.8 A41.9 Office Visit 02/14/2016 1:38p [facility], 44168 R79.89 Hospitalists M.DEsteban G30.8 A41.9 I10 Office Visit 02/13/2016 1:37p [facility], Reji Cordova M.D. 95161 R79.89 Hospitalists G30.8 F02.80 I10 Office Visit 02/02/2016 11:30a [facility] Gwen Sierra, [address]65[address] M65.341 Of Jamie Vora M65.332 M19.041 M19.042 M65.331 Plan of Care Future Appointment(s):03/01/2018 10:20 am - Almas Carl M.D. at [facility]02/21/2018 8:30 am - Lionel Hernandez M.D. at [facility]/14/2018 10:00 am - Kirstin Hannah M.D. 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
--- OUTSIDE RECORDS SUMMARY | 2018-01-13 11:34 | XMS REPORT ---
:1940 External Reference #:[id number] Author Organization [employer] Address [address] [place] [address] [place] [address] Phone [phone] Care Team Providers Name Role Phone Hodan Sol M.D. Primary Care Physician Unavailable Payers Type Date Identification Numbers Payment Provider Subscriber Commercial Expires: Policy Number: [facility] Lorin Sim 2016 [id number] Option/Greenlandic pr PayID: [id number] [address] [address] Attn: [place] [address] Health Maintenance Effective: Policy Number: Medicare Blue Lorin Donald ([facility]) 03/07/2016 [id number] [facility] [employer] Number: [id number] [address] [address] PayID: [id number] AVANI Chinchilla [id number] Problems Date Description Provider Status Onset: 05/24/2016 [...] Indications Ordering Provider Nystatin 12/20/ Active Ointment [id number] 30gm apply to B37.2 Lionel 2018 /GM affected D. area twice Macqueen, daily M.D. Methotrexate 11/25/ Active Tablets 2.5mg 30tabs take 5 2017 capsules/t Meseret, ablets by M.D. mouth [...] x 2 2017 months at [facility] (through 07/27/16) Warfarin Sodium 00/00/ Hx Tablets [...] Rec 24 hours x wks at 2018 [facility] Heparin Lock / Hx Solution 100Unit/ML Unknown Flush - 2017 Sodium Chloride / Hx Solution 0.9% Unknown - 2017 Coumadin 00/ Hx 4mg at bedtime Unknown - 2017 Keflex / Hx Capsules 500mg take 1 tab Unknown 0000 - by mouth 2018 times per day Medications Administered in Office Medication Date Status Form Strength Qnty SIG Indications Ordering Provider Depomedrol Administered Injection Gwen 40MG Radha Sierra M.D. Depomedrol Administered Injection Gwen 40MG Radha Sierra M.D. Depomedrol Administered Injection Gwen 40MG Luis Enrique Sierra M.D. Depomedrol Administered Injection Gwen 40MG Luis Enrique Sierra M.D. Immunizations CPT Code Status Date Vaccine Lot # [id number] Given 12/20/2017 Influenza Virus Vaccine, Quadrivalent, Split, [id number] Preservative Free Vital Signs Date Vital Result Comment 12/20/2017 Height 58 inches 4'10" Weight 169.25 [...] Result H/L Range Note Laboratory test finding 11/21/2017 Vitamin D, 1,25 31 pg/mL 18-78 1 Dihydroxy Laboratory test finding 11/21/2017 Erythrocyte Sed Rate [...] Egfr 59.4 >60 2 Laboratory test finding 10/28/2017 C Reactive Protein [...] Egfr Non- 56.4 >60 Egfr 68.2 >60 3 Laboratory test finding 10/12/2017 Cyclic Citrullinated Pep Igg >250.0 U 4 Rheumatoid Factor 581 IU/mL High <15 C [...] Egfr Non- 45.8 >60 Egfr 55.4 >60 5 CBC Auto Diff 08/22/2017 White Blood Count [...] Reactive Protein 109.32 mg/L High < 5.00 6 Erythrocyte Sed Rate 120 mm/Hr High 0-40 Creatinine 08/22/2017 Creatinine 1.11 mg/dL High 0.51-0.95 Egfr Non- 47.7 >60 Egfr 61.3 >60 7 CBC No Diff 08/16/2016 White Blood Count [...] Color Yellow Urine Appearance Clear Urine Specific Holmen 1.014 1.010-1.030 Urine pH 6.0 5-9 Urine [...] Egfr Non- 72.9 >60 Egfr 93.7 >60 8 Laboratory test finding 08/16/2016 Packed Cells SEE RESULTS BELO 9 <SEE NOTE> Urine Culture And 08/16/2016 Urine Culture SEE RESULT BELOW 10 Sensitivities Laboratory test finding 08/16/2016 Partial Thrombo 36.0 seconds 26.0- 36.3 Time PTT Inr/Protime 08/16/2016 Inr 2.07 High 0.89-1.11 Type & Screen 08/16/2016 Patient Blood O Positive Type Antibody Screen NEGATIVE Laboratory test finding 07/27/2016 Fungal Cult Other Sources SEE RESULT BELOW 11 Laboratory test finding 07/27/2016 Mycobacterial Culture See Comment 12 Laboratory test finding 07/27/2016 Fungal Cult Other Sources SEE RESULT BELOW 13 Laboratory test finding 07/27/2016 Fungal Cult Other Sources SEE RESULT BELOW 14 Body Fluid Cell Count 07/27/2016 Body Fluid Source Synovial Fluid Body Fluid WBC 2 /mcL 15 Body Fluid RBC 1233 /mcL Body Fluid Appearance Clear Body Fluid Color Colorless Body Fluid Volume 1 mL Body Fluid Neutrophils 60 % Body Fluid Lymph 30 % Body Fluid Eosinophil 10 % Body Fluid Total Cells Counted 10 Fluid Reviewed By MD (SEE NOTE) 16 Body Fluid C&S 07/27/2016 Body Fluid Cult Gram SEE RESULT BELOW 17 Stain Laboratory test finding 05/26/2016 Blood Culture SEE RESULT BELOW 18 Body Fluid C&S 05/26/2016 Body Fluid Cult Gram SEE RESULT BELOW 19 Stain Acid Fast Culture & Smear 05/26/2016 Acid Fast Culture SEE RESULT BELOW 20 Smear Body Fluid Cell Count 05/26/2016 Body Fluid Source OTH Body Fluid WBC TNP /mcL 21 Body Fluid RBC TNP /mcL 22 Body Fluid Appearance Bloody Body Fluid Color Red Body Fluid Volume 0.25 mL Body Fluid Neutrophils 40 % Body Fluid Lymph 60 % Body Fluid Total Cells Counted 15 Fluid Reviewed By MD (SEE NOTE) 23 Laboratory test finding 05/26/2016 Anaerobic Culture SEE RESULT BELOW 24 Fungal Cult Other Sources SEE RESULT BELOW 25 Laboratory test 05/26/2016 Fungal Cult Other SEE RESULT BELOW 26 finding Sources Laboratory test 05/26/2016 Fungal Cult Other SEE RESULT BELOW 27 finding Sources Laboratory test 05/26/2016 Fungal Cult Other SEE RESULT BELOW 28 finding Sources Laboratory test 05/26/2016 Mycobacterial Culture See Comment 29 finding CBC Auto Diff 05/24/2016 White Blood Count [...] Reactive Protein 54.52 mg/L High < 5.00 30 Erythrocyte Sed Rate 111 mm/Hr High 0-40 1 ADDITIONAL INFORMATION This test was developed and its performance characteristics determined by [facility] in a manner consistent with CLIA requirements. This test has not been cleared or approved by the U.S. Food and Drug Administration. Test Performed by: [facility] [address] [place] [address] 2 Because ethnic data is not always [...] 5 Kidney failure <15 (or dialysis) 3 Because ethnic data is not always [...] 5 Kidney failure <15 (or dialysis) 4 Interpretation: Strong Positive (>=60.0) REFERENCE VALUE <20.0 (Negative) Test Performed by: [facility] [address] [place] [address] 5 Because ethnic data is not always readily [...] 15-29 5 Kidney failure <15 (or dialysis) 6 Acute inflammation: >10.00 7 Because ethnic data is not always readily [...] 15-29 5 Kidney failure <15 (or dialysis) 8 Because ethnic data is not always [...] 5 Kidney failure <15 (or dialysis) 9 SEE RESULTS BELOW [id number] OP PC TRANSFUSED 08/24/16 1545 [id number] OP PC TRANSFUSED 08/24/16 1546 10 SEE RESULT BELOW Name: LORIN SIM : [address]: Kirstin Hannah MD Acct: [id number] Unit: [id number] AGE: 75 Location: [facility] Re08/16/16 SEX: F Status: REG REF SPEC: [id number] SEBASTIAN: 08/16/[address] [facility] [address]: Kirstin Hannah MD REQ: [id number] RECD: 08/16/16 STATUS: CORIE BAUTISTA DR: Lionel Cowan MD _ SOURCE: URINE SPDESC: ORDERED: Urine Culture QUERIES: Urine Source: Clean Catch Procedure Result Reported Site Urine Culture Final 08/17/16- 1326 ML No growth of clinically significant organisms * ML - MAIN LAB ([facility]) . END OF REPORT * ML=Testing performed at Main Lab DEPARTMENT OF PATHOLOGY, [address] [place] [address] Aguilar Bassett M.D. Director [facility] # [id number] 11 SEE RESULT BELOW Name: LORIN SIM : [address]: Kirstin Hannah MD Acct: [id number] Unit: [id number] AGE: 75 Location: SP Re07/27/16 SEX: F Status: REG REF SPEC: [id number] SEBASTIAN: 07/27/[address] [facility] [address]: Kirstin Hannah MD REQ: [id number] RECD: 07/27/16 STATUS: CORIE VALLES DR: Lionel Hernandez MD _ SOURCE: [facility] SPDESC: ORDERED: Fungal - Other Procedure Result Reported Site Fungal Cult - Other Sources Final 08/23/16- 1135 ML No Growth Week 4 * ML - [facility] LAB ([facility]) . END OF REPORT * ML=Testing performed at Main Lab DEPARTMENT OF PATHOLOGY, [address] [place] [address] Aguilar Bassett M.D. Director [facility] # [id number] 12 SOURCE: SYNOVIAL FLUID, LEFT HIP FLUID MYCOBACTERIAL CULTURE FINAL No growth after 60 days of incubation. Test Performed by: [facility] - [address] [address] 13 SEE RESULT BELOW Name: LORIN SIM : [address]: Kirstin Hannah MD Acct: [id number] Unit: [id number] AGE: 75 Location: Re07/27/16 SEX: F Status: REG REF SPEC: [id number] SEBASTIAN: 07/27/[address] [facility] [address]: Kirstin Hannah MD REQ: [id number] RECD: 07/27/16 STATUS: RES REENA DR: Lionel Hernandez MD _ SOURCE: [facility] SPDESC: ORDERED: Fungal - Other Procedure Result Reported Site Fungal Cult - Other Sources Preliminary 08/16/16- 1354 ML No Growth Week 3 * ML - MAIN LAB ([facility]) . END OF REPORT * ML=Testing performed at Main Lab DEPARTMENT OF PATHOLOGY, [address] [place] [address] Aguilar Bassett M.D. Director [facility] # [id number] 14 SEE RESULT BELOW Name: LORIN SIM : [address]: Kirstin Hannah MD Acct: [id number] Unit: [id number] AGE: 75 Location: SP Re07/27/16 SEX: F Status: REG REF SPEC: [id number] SEBASTIAN: 07/27/[address] [facility] [address]: Kirstin Hannah MD REQ: [id number] RECD: 07/27/16 STATUS: RES OTHR DR: Lionel Hernandez MD _ SOURCE: [facility] SPDESC: ORDERED: Fungal - Other Procedure Result Reported Site Fungal Cult - Other Sources Preliminary 08/09/16- 113 ML No Growth Week 2 * ML - MAIN LAB ([facility]) . END OF REPORT * ML=Testing performed at Main Lab DEPARTMENT OF PATHOLOGY, [address] [place] [address] Aguilar Bassett M.D. Director [facility] # [id number] 15 -- REFERENCE VALUE -- Synovial: <150/mcL Peritoneal: <500/mcL Pleural: <500/mcL Pericardial: <500/mcL 16 No evidence of malignancy or and acute inflammatory response. No microorganisms seen. Peripheral blood contamination noted. Reviewed by Dr. Bassett 17 SEE RESULT BELOW Name: LORIN SIM : [address]: Kirstin Hannah MD Acct: [id number] Unit: [id number] AGE: 75 Location: Re07/27/16 SEX: F Status: REG REF SPEC: [id number] SEBASTIAN: 07/27/[address] [facility] [address]: Kirstin Hannah MD REQ: [id number] RECD: 07/27/16 STATUS: COMP HR DR: Lionel Hernandez MD _ SOURCE: BODY [...] for diagnosis. * ML - MAIN LAB ([facility]) . END OF REPORT * ML=Testing performed at Main Lab DEPARTMENT OF PATHOLOGY, [address] [place] [address] Aguilar Bassett M.D. Director [facility] # [id number] 18 SEE RESULT BELOW Name: RONEYALESSANDRA : [address]: Kirstin Hannah MD Acct: [id number] Unit: [id number] AGE: 75 Location: SP Re05/26/16 SEX: F Status: REG REF SPEC: [id number] SEBASTIAN: 05/26/[address] [facility] [address]: Kirstin Hannah MD REQ: [id number] RECD: 05/26/16 STATUS: COMP _ SOURCE: BLOOD,VENO SPDESC: ORDERED: Blood Cult Procedure Result Reported Site Aerobic Culture Bottle Final 05/31/16- 1157 ML No Growth Day 5 Anaerobic Culture Bottle Final 05/31/161157 ML No Growth Day 5 * ML - MAIN LAB ([facility]) . END OF REPORT * ML=Testing performed at Main Lab DEPARTMENT OF PATHOLOGY, [address] [place] [address] Aguilar Bassett M.D. Director [facility] # [id number] 19 SEE RESULT BELOW Name: LORIN SIM : [address]: Kirstin Hannah MD Acct: [id number] Unit: [id number] AGE: 75 Location: SP Re05/26/16 SEX: F Status: REG REF SPEC: [id number] SEBASTIAN: 05/26/16-[address] [facility] [address]: Kirstin Hannah MD REQ: [id number] RECD: 05/26/16-1220 STATUS: COMP OTHR DR: Lionel Cowan MD [...] performed at Main Lab DEPARTMENT OF PATHOLOGY, [address] [place] [address] Aguilar Bassett M.D. Director [facility] # [id number] Patient: LORIN SIM [id number] (Continued) Specimen: [id number] Collected: 05/26/16-1158 Received: 05/26/16-1220 (Continued) Procedure Result Reported Site Body Fluid Culture Final (continued) 05/30/16- 826 1. STAPHYLOCOCCUS AUREUS (continued) M.I.C. RX --------- ------ Rifampin <=0.5 S Tetracycline <=1 S Doxycycline - Deduced S * Minocycline - Deduced S Trimethoprim/Sulfamethoxazole <=10 S Vancomycin 1 S Imipenem-Deduced S * Ampicillin/Sulbactam-Deduced S Cefazolin-Deduced S * These antibiotics are not available in the [facility] Formulary Contact the Microbiology Department for any additional antibiotic reporting. MRSA/S. aureus SSTI PCR Final 05/28/16- 5296 ML Organism 1 MRSA NEGATIVE Organism 2 S.AUREUS NEGATIVE * ML - MAIN LAB ([facility]) . END OF REPORT * ML=Testing performed at Main Lab DEPARTMENT OF PATHOLOGY, [address] [place] [address] Aguilar Bassett M.D. Director [facility] # [id number] 20 SEE RESULT BELOW Name: LORIN SIM : [address]: Kirstin Hannah MD Acct: [id number] Unit: [id number] AGE: 75 Location: SP Re05/26/16 SEX: F Status: REG REF SPEC: [id number] SEBASTIAN: 05/26/16-[address] [facility] [address]: Kirstin Hannah MD REQ: [id number] RECD: 05/26/16-1220 STATUS: RES OTHR DR: Lionel [...] for diagnosis. * ML - MAIN LAB ([facility]) . END OF REPORT * ML=Testing performed at Main Lab DEPARTMENT OF PATHOLOGY, [address] [place] [address] Aguilar Bassett M.D. Director [facility] # [id number] 21 Sample quantity insufficient to perform test 22 Sample quantity insufficient to perform test 23 Blood is present. No evidence of an acute inflammatory response. No evidence of malignancy. Reviewed by Ivette Boudreaux MD 24 SEE RESULT BELOW Name: LORIN SIM ANN : [address]: Kirstin Hannah MD Acct: [id number] Unit: [id number] AGE: 75 Location: Re05/26/16 SEX: F Status: REG REF SPEC: [id number] SEBASTIAN: 05/26/16-[address]: Kirstin Hannah MD REQ: [id number] RECD: 05/26/16 STATUS: COMP [facility] DR: Lionel Cowan MD _ SOURCE: BODY [...] for diagnosis. * ML - MAIN LAB ([facility]) . END OF REPORT * ML=Testing performed at Main Lab DEPARTMENT OF PATHOLOGY, [address] [place] [address] Aguilar Bassett M.D. Director [facility] # [id number] 25 SEE RESULT BELOW Name: LORIN SIM : [address]: Kirstin Hannah MD Acct: [id number] Unit: [id number] AGE: 75 Location: SP Re05/26/16 SEX: F Status: REG REF SPEC: [id number] SEBASTIAN: 05/26/16-[address] [facility] [address]: Kirstin Hannah MD REQ: [id number] RECD: 05/26/16-1220 STATUS: DANIELLE VALLES DR: Lionel Cowan MD _ SOURCE: [facility] SOUR SPDESC:HIP LEFT ORDERED: Fungal - Other Procedure Result Reported Site Fungal Cult - Other Sources Preliminary 06/07/16- 1440 ML No Growth Week 1 * ML - MAIN LAB ([facility]) . END OF REPORT * ML=Testing performed at Main Lab DEPARTMENT OF PATHOLOGY, [address] [place] [address] Aguilar Bassett M.D. Director [facility] # [id number] 26 SEE RESULT BELOW Name: LORIN SIM : [address]: Kirstin Hannah MD Acct: [id number] Unit: [id number] AGE: 75 Location: SP Re05/26/16 SEX: F Status: REG REF SPEC: [id number] SEBASTIAN: 05/26/16-[address]: Kirstin Hannah MD REQ: [id number] RECD: 05/26/16 STATUS: RES OTHR DR: Lionel Cowan MD _ SOURCE: [facility] S[facility] SPDESC:HIP LEFT ORDERED: Fungal - Other Procedure Result Reported Site Fungal Cult - Other Sources Preliminary 06/14/16- 1440 ML No Growth Week 2 * ML - MAIN LAB ([facility]) . END OF REPORT * ML=Testing performed at Main Lab DEPARTMENT OF PATHOLOGY, [address] [place] [address] Aguilar Bassett M.D. Director [facility] # [id number] 27 SEE RESULT BELOW Name: LORIN SIM : [address]: Kirstin Hannah MD Acct: [id number] Unit: [id number] AGE: 75 Location: SP Re05/26/16 SEX: F Status: REG REF SPEC: [id number] SEBASTIAN: 05/26/16-[address] [facility] [address]: Kirstin Hannah MD REQ: [id number] RECD: 05/26/16-1220 STATUS: RES REENAHR DR: Lionel Cowan MD _ SOURCE: [facility] SOUR SPDESC:HIP LEFT ORDERED: Fungal - Other Procedure Result Reported Site Fungal Cult - Other Sources Preliminary 06/21/16- 1200 ML No Growth Week 3 * ML - [facility] ([facility]) . END OF REPORT * ML=Testing performed at Main Lab DEPARTMENT OF PATHOLOGY, [address] [place] [address] Aguilar Bassett M.D. Director [facility] # [id number] 28 SEE RESULT BELOW Name: LORIN SIM : [address]: Kirstin Hannah MD Acct: [id number] Unit: [id number] AGE: 75 Location: SP Re05/26/16 SEX: F Status: REG REF SPEC: [id number] SEBASTIAN: 05/26/16-[address] [facility] [address]: Kirstin Hannah MD REQ: [id number] RECD: 05/26/16-0 STATUS: CORIE BAUTISTA DR: Lionel Cowan MD _ [facility] SPDESC:H[facility] LEFT ORDERED: Fungal - Other Procedure Result Reported Site Fungal Cult - Other Sources Final 06/28/16- 1317 ML No Growth Week 4 * ML - MAIN LAB ([facility]) . END OF REPORT * ML=Testing performed at Main Lab DEPARTMENT OF PATHOLOGY, [address] [place] [address] Aguilar Bassett M.D. Director [facility] # [id number] 29 SOURCE: SYNOVIAL FLUID, LEFT HIP FLUID Mycobacteria specimen plated for culture, volume inadequate for optimal recovery. MYCOBACTERIAL CULTURE FINAL No growth after 60 days of incubation. Test Performed by: [address] [address] 30 Acute inflammation: >10.00 Procedures Date CPT Code Description Status 08/27/2017 57892 Arthrotomy Hip W/Drainage Completed 08/27/2017 28667 Arthrotomy Hip W/Drainage Completed 08/24/2016 90010 Revise Total Hip Arthroplasty Both Components Completed 08/24/2016 68075 Revise Total Hip Arthroplasty Both Components Completed 06/01/2016 62115 Remove Hip Prosthesis Complicated Completed 06/01/2016 43050 Remove Hip Prosthesis Complicated Completed 06/01/2016 33812 Insertion, Non-Biodegradable Drug Delivery Implant Completed 05/31/2016 45634 EKG, Interpretation Only Completed 05/12/2016 56584 Inject/Drain Joint/Bursa Small W/O US Completed 05/12/2016 61538 Inject Tendon Sheath Or Ligament Aponeurosis Eg Plantar Completed Fascia 02/17/2016 57958 Treadmill Interp/Report Only Completed 02/17/2016 95598 Stress Test Supervsn W/Out I/R Completed 02/16/2016 10075 ECHO Transthorasic Realtime 2D W Doppler & Color Flow Completed Hosp 02/14/2016 66421 EKG, Interpretation Only Completed 02/02/2016 38453 Inject/Drain Joint/Bursa Small W/O US Completed 02/02/2016 31505 Inject Tendon Sheath Or Ligament Aponeurosis Eg Plantar Completed Fascia Encounters Type Date Location Provider CPT E/M Dx Office Visit 11/25/2017 [facility] Almas Carl M.D. 55745 M05.79 12:40p Of Jomar Z79.52 Z79.899 R79.82 Office Visit 11/16/2017 8:50a Joy Sierra 06356 T84.52xD Infectious Diseases Diony Hernandez B95.7 Z79.2 Z79.52 R79.82 Office Visit 11/04/2017 12:40p [facility] Almas Carl 38532 M05.79 Of Jomar Vora Z79.899 Z79.52 R79.82 Office Visit 10/28/2017 9:30a Joy Sierra 28842 T84.52xD Infectious Diseases Diony Hernandez B95.7 Z79.2 M06.4 Office Visit 10/11/2017 11:10a Joy Sierra 99205 T84.52xD Infectious Diseases Diony Hernandez M79.642 M25.541 M25.542 Office Visit 09/20/2017 9:50a [facility] Salina Sierra 32233 T84.52xD Infectious Diseases Diony Hernandez M00.9 M25.541 M79.642 Office Visit 09/01/2017 12:58p [facility] Salina Sierra 21020 T84.52xA Infectious Diseases Diony Hernandez Office Visit 09/01/2017 8:19a [facility] Herminia Ocampo N.PEsteban 50378 T84.52xA Assoc, Hospitalists M00.9 M25.452 G47.34 I10 Office Visit 08/31/2017 [facility] [place] [address] M00.9 Hospitalists M25.452 G47.34 I10 Office Visit 08/31/2017 12:10p [facility] [place] [address] J96.01 Services Of [facility] G47.30 Z99.81 Office Visit 08/31/2017 12:53p [facility] Salina Sierra 59523 T84.52xA Infectious Diseases Diony Hernandez Office Visit 08/30/2017 8:18a [facility] Venus Bryant, [address] M00.9 Assoc, Hospitalists 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 B95.7 M25.541 M25.542 Office Visit 08/28/2017 8:18a [facility] Roberth Casas, 879[address] M00.9 Hospitalists Diony M25.452 G47.34 F03.90 Office Visit 08/27/2017 8:18a [facility] Roberth Casas, 60865 M25.452 Assoc, Hospitalists Diony I10 E78.5 M00.9 G47.34 Office Visit 08/26/2017 8:17a [facility] Roberth Casas, 94969 M25.452 Assoc,pc Hospitalcurtis Vora I10 E78.5 Office Visit 08/26/2017 10:13a [facility] Of Kirstin Hannah, 81872 T84.52xA Jamie Vora Office Visit 08/22/2017 1:30p [facility] Kisrtin Hannah, 97973 Z96.642 CLina Vora M25.552 Z47.1 Office Visit 08/26/2016 3:44p [facility], Julieth Mcclain M.D. 07731 D62 Hospitalists I10 Z96.642 Office Visit 08/25/2016 3:43p [facility] Julieth Mcclain, 13610 I97.418 [facility] Hospitalcurtis Vora I10 Z96.642 Office Visit 08/24/2016 3:42p [facility] Julieth Mcclain, 75195 Z96.642 [facility], Hospitalcurtis Vora I10 I97.418 Office Visit 07/08/2016 2:20p [facility] Salina Hernandez, 08507 B95.61 Infectious Rinku Vora T84.52xD M00.9 Office Visit 06/06/2016 10:28a [facility], [place] [address] M00.9 Hospitalists E78.5 I10 Office Visit 06/05/2016 10:24a [facility], [place] [address] M00.9 Hospitalists E78.5 Office Visit 06/04/2016 10:24a [facility], [place] [address] M00.9 Hospitalists E78.5 I10 Office Visit 06/03/2016 10:23a [facility], [place] [address] M00.9 Hospitalists E78.5 I10 Office Visit 06/02/2016 10:50a [facility] Lionel Sierra [address] T84.52xA Infectious Diseases Diony Hernandez B95.61 Office Visit 06/02/2016 10:23a [facility], [place] [address] M00.9 Hospitalists E78.5 I10 Office Visit 06/01/2016 10:22a [facility], Venus Bryant, AERODYNAMICS TEACHER 59545 M00.9 Hospitalists E78.5 I10 Office Visit 05/31/2016 10:13a [facility], Venus Bryant, AERODYNAMICS TEACHER 28485 M00.9 Hospitalists I10 Office Visit 05/31/2016 11:30a [facility] Kirstin Hannah M.D. 20203 M25.552 C.MWyatt M16.12 Office Visit 05/24/2016 2:00p [facility] Kirstin Hannah M.D. 60494 M25.551 C.M.AEsteban M25.552 M16.11 M16.12 Office Visit 02/17/2016 1:40p [facility], Elaine Segundo, 71989 N12 Hospitalists D.OEsteban R79.89 A41.9 G30.8 Office Visit 02/16/2016 1:39p [facility], [address] N12 Hospitalists MDajuan R79.89 G30.8 A41.9 Office Visit 02/15/2016 1:39p [facility], [address] N12 Hospitalists MDajuan R79.89 G30.8 A41.9 Office Visit 02/14/2016 1:38p [facility], [address] R79.89 Hospitalists M.Rigo G30.8 A41.9 I10 Office Visit 02/13/2016 1:37p [facility], Reji Cordova M.D. 15551 R79.89 Hospitalists G30.8 F02.80 I10 Office Visit 02/02/2016 11:30a [facility] Gwen Sierra, [address] M65.341 Of Jamie Vora M65.332 M19.041 M19.042 M65.331 Plan of Care Future Appointment(s):02/21/2018 8:30 am - Lionel Hernandez M.D. at [facility]ious Tqhbbsqm63/25/2018 10:40 am - Almas Carl M.D. at [facility]01/18/2018 10:00 am - Kirstin Hannah M.D. 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
[2018-01-13] MEDS ORDERED: NS 0.9% 1000 ML* 1,000 ML IV ONE (12:06)
[2018-01-13 13:20] LABS: ABS Basophils 0.1 10^3/ul (0-0.2); ABS Eosinophils 0.2 10^3/ul (0-0.6); ABS Monocytes 0.7 10^3/ul (0-0.8); ABS Neutrophils 7.5 10^3/ul (1.5-7.7); ABS Nucleated RBC 0 10^3/ul; Eosinophil % 2.1 % (0-6); Hematocrit 32 % (35-47); Hemoglobin 10.2 g/dl (12.0-16.0); Lymphocyte % 10.3 % (25-47); Mean Corpuscular HGB Conc 32 g/dl (31-36); Mean Corpuscular Hemoglobin 27 pg (27-31); Mean Corpuscular Volume 84 fL (80-97); Mean Platelet Volume 7.2 fL (7.4-10.4); Nucleated Red Blood Cells % 0; Platelet Count 480 10^3/ul (150-450); Red Blood Count 3.76 10^6/ul (4.00-5.40); Red Cell Distribution Width 15 % (10.5-15); White Blood Count 9.4 10^3/ul (3.5-10.8)
[2018-01-13 13:26] LABS: INR 1.02 (0.77-1.02)
[2018-01-13 13:38] LABS: EGFR Non-African American 56.9 (>60)
[2018-01-13 14:25] LABS: Urine Appearance Cloudy; Urine Blood Negative (Negative); Urine Color Amber; Urine Ketones Negative (Negative); Urine Protein Negative (Negative); Urine Specific Gravity 1.017 (1.010-1.030); Urine Urobilinogen Negative (Negative)
[2018-01-13] MEDS ORDERED: Nystatin TOP POWDER* 15 GM BTL TOPICAL PRN (14:50)
[2018-01-13] MEDS ORDERED: Methotrexate TAB* 2.5 MG PO SCH (15:00)
--- NOTE | 2018-01-13 15:00 | ED ---
Syncope/Near Syncope - HPI Summary HPI Summary: Patient is 77 y/o F brought in by ambulance w/ c/o dizziness, syncope and subsequent mechanical fall in shower. This was witnessed by patient's poker supervisor , who states that patient, "glossed over" and had syncopal episode. LOC is denied, poker supervisor reports that patient may have hit her head and notes patient has a goose-egg on her head. EMS carried out PIV, 324mg ASA, 200cc NS. Patient also reports nausea, denies chest pain. Dizziness is characterized as light- headedness. Patient also reports pain at RLE. Patient is not on blood thinners, patient has Cpap at night. Neck pain is reported as well. Patient is noted to have "severe" rheumatoid arthritis, but current pain is worse than baseline. On triage, pain is rated 8/10, nothing is noted to aggravate/alleviate Sx. Home medications and allergies are reviewed. - History Of Current Complaint Chief Complaint: EDSyncope Time Seen by Provider: 01/13/18 11:43 Hx Obtained From: Patient Onset/Duration: Still Present - pain, Resolved - syncope Timing: Constant - pain Context: Witnessed, Loss Of Consciousness - NONE Activity At Onset: Other - standing in shower Associated Head Trauma: Yes Aggravating Factor(s): Nothing Alleviating Factor(s): Nothing Associated Signs And Symptoms: Other - POSITIVE: neck pain, nausea, goose-egg, RLE pain, dizziness, syncope, mechanical fall NEGATIVE: LOC, chest pain - Allergies/Home Medications Allergies/Adverse Reactions: Allergies Allergy/AdvReac Type Severity Reaction Status Date / Time No Known Allergies Allergy Unverified 08/26/17 15:32 Home Medications: Home Medications Cephalexin CAP* [Keflex CAP*] 500 mg PO TID 01/13/18 [History Confirmed 01/13/18 ] Cyanocobalamin TAB* [Vitamin B12 TAB*] 1,000 mcg PO DAILY 01/13/18 [History Confirmed 01/13/18] Folic Acid TAB* [Folvite TAB*] 1 mg PO DAILY 01/13/18 [History Confirmed ] Hydroxychloroquine TAB* [Plaquenil TAB*] 400 mg PO DAILY 01/13/18 [History Confirmed 01/13/18] Losartan TAB* [Cozaar TAB*] 25 mg PO DAILY 01/13/18 [History Confirmed 01/13/18] Methotrexate TAB* 12.5 mg PO WEEKLY 01/13/18 [History Confirmed 01/13/18] Nystatin TOP POWDER* 1 applic TOPICAL BID PRN 01/13/18 [History Confirmed ] Omeprazole CAP* [Prilosec CAP* 20 MG] 40 mg PO DAILY 01/13/18 [History Confirmed 01/13/18] QUEtiapine TAB* [Seroquel 25 MG TAB*] 25 mg PO BEDTIME 01/13/18 [History Confirmed 01/13/18] RiFAMPin CAP* 600 mg PO DAILY 01/13/18 [History Confirmed 01/13/18] predniSONE TAB* [Deltasone 10 MG TAB*] 10 mg PO DAILY 01/13/18 [History Confirmed 01/13/18] PMH/Surg Hx/FS Hx/Imm Hx Endocrine/Hematology History: Reports: Hx Blood Transfusions - in the OR Denies: Hx Diabetes Cardiovascular History: Reports: Hx Hypercholesterolemia, Hx Hypertension, Other Cardiovascular Problems/Disorders - hyperlipidemia Denies: Hx Angina, Hx Coronary Artery Disease, Hx Myocardial Infarction, Hx Pacemaker/ICD, Hx Valvular Heart Disease Respiratory History: Denies: Hx Asthma, Hx Chronic Obstructive Pulmonary Disease (COPD) GI History: Reports: Hx Gastroesophageal Reflux Disease, Other GI Disorders - constipation issues History: Reports: Hx Kidney Infection - hx of Denies: Hx Dialysis, Hx Renal Disease Comment Only: Other Problems/Disorders - UTI Musculoskeletal History: Reports: Hx Arthritis, Hx Osteoporosis, Other Musculoskeletal History - left hip Denies: Hx Rheumatoid Arthritis Sensory History: Reports: Hx Contacts or Glasses Denies: Hx Cataracts, Hx Hearing Aid Opthamlomology History: Reports: Hx Contacts or Glasses Denies: Hx Cataracts Neurological History: Reports: Hx Dementia, Hx Transient Ischemic Attacks (TIA) , Other Neuro Impairments/Disorders - CVA 11 yrs ago Denies: Hx Seizures Psychiatric History: Reports: Hx Depression - on med - spouse 1 year ago Denies: Hx Panic Disorder - Surgical History Surgery Procedure, Year, and Place: HYSTERECTOMY 1978. BLADDER REPAIR. HIP REPLACEMENT 2013 Hx Anesthesia Reactions: No - Immunization History Immunizations Up to Date: Yes Infectious Disease History: No Infectious Disease History: Reports: History Other Infectious Disease - LEFT HIP STAPH INFECTION Denies: Traveled Outside the [place] in Last 30 Days - Family History Known Family History: Positive: Unknown - Pt and family cannot recall FHx - Social History Alcohol Use: None Substance Use Type: Reports: None Substance Use Comment - Amount & Last Used: 3-4 CUPS COFFEE DAILY Smoking Status (MU): Never Smoked Tobacco Type: Cigarettes Amount Used/How Often: "AN OCCASIONAL CIGARETTE" Review of Systems Positive: Other - POSITIVE: mechanical fall Negative: Chest Pain Positive: Nausea Positive: Other - POSITIVE: neck pain, RLE pain, goose-egg on head Neurological: Other - POSITIVE: light-headedness NEGATIVE: LOC Positive: Syncope All Other Systems Reviewed And Are Negative: Yes Physical Exam - Summary Physical Exam Summary: GENERAL: Patient is a well-developed and nourished female who is lying uncomfortable in the stretcher. Patient is not in any acute respiratory distress. Tenderness to right hip and thigh is noted HEAD AND FACE: Normocephalic EYES: PERRLA, EOMI x 2. EARS: Hearing grossly intact. MOUTH: Oropharynx within normal limits. NECK: Supple, trachea is midline, no adenopathy, no JVD, no carotid bruit. CHEST: Symmetric, no tenderness at palpation LUNGS: Clear to auscultation bilaterally. No wheezing or crackles. CVS: Regular rate and rhythm, S1 and S2 present, no murmurs or gallops appreciated. ABDOMEN: Soft, non-tender. Bowel sounds are normal. No abdominal abnormal pulsations. EXTREMITIES: Full ROM in all major joints, no edema, no cyanosis or clubbing. NEURO: Alert and oriented x 3. No acute neurological deficits. Speech is normal and follows commands. GCS 15. SKIN: Dry and warm Triage Information Reviewed: Yes Vital Signs On Initial Exam: Initial Vitals Temp Pulse Resp BP Pulse Ox 97.6 F 67 18 128/73 100 01/13/18 11:45 01/13/18 11:45 01/13/18 11:45 01/13/18 11:45 01/13/18 11:45 Vital Signs Reviewed: Yes Diagnostics - Vital Signs Vital Signs Temp Pulse Resp BP Pulse Ox 01/13/18 14:00 17 01/13/18 13:50 23 151/52 01/13/18 13:20 71 21 117/59 100 01/13/18 13:00 15 01/13/18 12:02 63 18 01/13/18 11:45 97.6 F 67 18 128/73 100 - Laboratory Lab Results: Lab Results 01/13/18 01/13/18 01/13/18 Range/Units 12:56 12:56 12:56 WBC 9.4 (3.5-10.8) 10^3/ul RBC 3.76 L (4.00-5.40) 10^6/ul Hgb 10.2 L (12.0-16.0) g/dl Hct 32 L (35-47) % MCV 84 (80-97) fL MCH 27 (27-31) pg MCHC 32 (31-36) g/dl RDW 15 (10.5-15) % Plt Count 480 H D (150-450) 10^3/ul MPV 7.2 L (7.4-10.4) fL Neut % (Auto) 79.8 (38-83) % Lymph % (Auto) 10.3 L (25-47) % [place] % (Auto) 7.1 H (0-7) % Eos % (Auto) 2.1 (0-6) % Baso % (Auto) 0.7 (0-2) % Absolute Neuts (auto) 7.5 (1.5-7.7) 10^3/ul Absolute Lymphs (auto) 1.0 (1.0-4.8) 10^3/ul Absolute Monos (auto) 0.7 (0-0.8) 10^3/ul Absolute Eos (auto) 0.2 (0-0.6) 10^3/ul Absolute Basos (auto) 0.1 (0-0.2) 10^3/ul Absolute Nucleated RBC 0 10^3/ul Nucleated RBC % 0 ESR Pending INR (Anticoag Therapy) 1.02 (0.77-1.02) APTT 30.3 (26.0-36.3) seconds Sodium 139 (135-145) mmol/L Potassium 4.7 (3.5-5.0) mmol/L Chloride 102 (101-111) mmol/L Carbon Dioxide 27 (22-32) mmol/L Anion Gap 10 (2-11) mmol/L BUN 19 (6-24) mg/dL Creatinine 0.95 (0.51-0.95) mg/dL Est GFR ( Amer) 68.8 (>60) Est GFR (Non-Af Amer) 56.9 (>60) BUN/Creatinine Ratio 20.0 (8-20) Glucose 108 H (70-100) mg/dL Lactic Acid (0.5-2.0) mmol/L Calcium 9.3 (8.6-10.3) mg/dL Magnesium 2.0 (1.9-2.7) mg/dL Total Bilirubin 0.30 (0.2-1.0) mg/dL AST 16 (13-39) U/L ALT 13 (7-52) U/L Alkaline Phosphatase 133 H (34-104) U/L Troponin I 0.01 (<0.04) ng/mL C-Reactive Protein 79.09 H (<8.01) mg/L Total Protein 7.2 (6.4-8.9) g/dL Albumin 3.1 L (3.2-5.2) g/dL Globulin 4.1 H (2-4) g/dL Albumin/Globulin Ratio 0.8 L (1-3) Urine Color Urine Appearance Urine pH (5-9) Ur Specific [place] (1.010-1.030) Urine Protein (Negative) Urine Ketones (Negative) Urine Blood (Negative) Urine Nitrate (Negative) Urine Bilirubin (Negative) Urine Urobilinogen (Negative) Ur Leukocyte Esterase (Negative) Urine Glucose (Negative) 01/13/18 01/13/18 Range/Units 12:56 14:10 WBC (3.5-10.8) 10^3/ul RBC (4.00-5.40) 10^6/ul Hgb (12.0-16.0) g/dl Hct (35-47) % MCV (80-97) fL MCH (27-31) pg MCHC (31-36) g/dl RDW (10.5-15) % Plt Count (150-450) 10^3/ul MPV (7.4-10.4) fL Neut % (Auto) (38-83) % Lymph % (Auto) (25-47) % [place] % (Auto) (0-7) % Eos % (Auto) (0-6) % Baso % (Auto) (0-2) % Absolute Neuts (auto) (1.5-7.7) 10^3/ul Absolute Lymphs (auto) (1.0-4.8) 10^3/ul Absolute Monos (auto) (0-0.8) 10^3/ul Absolute Eos (auto) (0-0.6) 10^3/ul Absolute Basos (auto) (0-0.2) 10^3/ul Absolute Nucleated RBC 10^3/ul Nucleated RBC % ESR INR (Anticoag Therapy) (0.77-1.02) APTT (26.0-36.3) seconds Sodium (135-145) mmol/L Potassium (3.5-5.0) mmol/L Chloride (101-111) mmol/L Carbon Dioxide (22-32) mmol/L Anion Gap (2-11) mmol/L BUN (6-24) mg/dL Creatinine (0.51-0.95) mg/dL Est GFR ( Amer) (>60) Est GFR (Non-Af Amer) (>60) BUN/Creatinine Ratio (8-20) Glucose (70-100) mg/dL Lactic Acid 1.6 (0.5-2.0) mmol/L Calcium (8.6-10.3) mg/dL Magnesium (1.9-2.7) mg/dL Total Bilirubin (0.2-1.0) mg/dL AST (13-39) U/L ALT (7-52) U/L Alkaline Phosphatase (34-104) U/L Troponin I (<0.04) ng/mL C-Reactive Protein (<8.01) mg/L Total Protein (6.4-8.9) g/dL Albumin (3.2-5.2) g/dL Globulin (2-4) g/dL Albumin/Globulin Ratio (1-3) Urine Color [place] Urine Appearance Cloudy Urine pH 5.0 (5-9) Ur Specific [place] 1.017 (1.010-1.030) Urine Protein Negative (Negative) Urine Ketones Negative (Negative) Urine Blood Negative (Negative) Urine Nitrate Negative (Negative) Urine Bilirubin Negative (Negative) Urine Urobilinogen Negative (Negative) Ur Leukocyte Esterase Negative (Negative) Urine Glucose Negative (Negative) Result Diagrams: 01/13/18 12:56 01/13/18 12:56 Lab Statement: Any lab studies that have been ordered have been reviewed, and results considered in the medical decision making process. - Radiology CXR Radiology Interpretation Completed By: Radiologist Summary of Radiographic Findings: CXR IMPRESSION: #. No evidence for acute intrathoracic disease. THIS REPORT WAS REVIEWED BY ED PHYSICIAN RIGHT HIP/[place]LV[place] Radiology Interpretation Completed By: Radiologist Summary of Radiographic Findings: CXR IMPRESSION: #. No evidence for acute intrathoracic disease. THIS REPORT WAS REVIEWED BY ED PHYSICIAN. - CT CERVICAL SPINE CT CT Interpretation Completed By: Radiologist Summary of CT Findings: CERVICAL SPINE CT IMPRESSION: #. No CT evidence for traumatic cervical spine injury. #. Mixed pattern of inflammatory and degenerative arthropathy. THIS REPORT WAS REVIEWED BY ED PHYSICIAN. BRAIN CT CT Interpretation Completed By: Radiologist Summary of CT Findings: BRAIN CT IMPRESSION: 1. NO ACUTE INTRACRANIAL PATHOLOGY. 2. EVIDENCE OF REMOTE LEFT OCCIPITAL INFARCT. 3. DISPROPORTIONATE VOLUME LOSS OF MEDIAL TEMPORAL LOBES WHICH CAN BE ASSOCIATED WITH. CERTAIN TYPES OF DEMENTIA. THIS REPORT WAS REVIWED BY ED PHYSICIAN. - EKG 1225 Cardiac Rate: NL - RATE OF 60 BPM EKG Rhythm: Sinus Rhythm EKG Comparison: No Significant Change - compared to EKG for 08/26/17 Summary of EKG Findings: Q-waves in anterior leads as well as left axis deviation Re-Evaluation - Re-Evaluation First Eval Re-Evaluation Time: 13:50 Comment: Admission discussed with patient, patient agreeable. Course/Dx Course Of Treatment: Patient is 77 y/o F brought in by ambulance w/ c/o dizziness, syncope and subsequent mechanical fall in shower. This was witnessed by patient's poker supervisor, who states that patient, "glossed over" and had syncopal episode. LOC is denied, poker supervisor reports that patient may have hit her head and notes patient has a goose-egg on her head. EMS carried out PIV, 324mg ASA, 200cc NS. Patient also reports nausea, denies chest pain. Dizziness is characterized as light-headedness. Patient also reports pain at RLE. Patient is not on blood thinners, patient has Cpap at night. Neck pain is reported as well. Patient is noted to have "severe" rheumatoid arthritis, but current pain is worse than baseline. On physical exam, patient is noted to be uncomfortable lying in the stretcher, tenderness at right hip and thigh. GCS 15. During ED course, patient received fluids. UA was negative. Labs showed CRP 79.09, first trop 0.01, second trop 0.01, alk phos 133, lactic acid 1.6, glucose 108, ESR > 120, plt count 480, which is a change from 598 measured on 12/26/17, WBC 9.4, RBC 3.76, Hgb 10.2, Hct 32. EKG showed sinus rhythm w/ 60 BPM, Q-waves in anterior leads as well left axis deviation, similar to old EKG on 08/26/17. CXR IMPRESSION: #. No evidence for acute intrathoracic disease. Right Hip/ Pelvis X-ray IMPRESSION: Left hip prosthesis in place. No fracture of the right hip is noted. CERVICAL SPINE CT IMPRESSION: #. No CT evidence for traumatic cervical spine injury. #. Mixed pattern of inflammatory and degenerative arthropathy. BRAIN CT IMPRESSION: 1. NO ACUTE INTRACRANIAL PATHOLOGY. 2. EVIDENCE OF REMOTE LEFT OCCIPITAL INFARCT. 3. DISPROPORTIONATE VOLUME LOSS OF MEDIAL TEMPORAL LOBES WHICH CAN BE ASSOCIATED WITH. CERTAIN TYPES OF DEMENTIA. Patient's case was discussed with Dr. Segundo at 1402, Dr. Segundo accepts for admission. Patient agreeable with admission. Dx of syncope. - Diagnoses Provider Diagnoses: Syncope - Physician Notifications Discussed Care of Patient With: Elaine Segundo Time Discussed With Above Provider: 14:02 Instructed by Provider To: Other - Patient's case was discussed with Dr. Segundo at 1402, Dr. Segundo accepts for admission. Discharge - Sign-Out/Discharge Documenting (check all that apply): Patient Departure - admit - Discharge Plan Condition: Fair Disposition: ADMITTED TO [facility] - Billing Disposition and Condition Condition: FAIR Disposition: Admitted to [facility] - Attestation Statements Document Initiated by Scribe: Yes Documenting Scribe: Nabil Lopez Provider For Whom Brenden is Documenting (Include Credential): Danyel Delacruz MD Scribe Attestation: Nabil Moore , scribed for Danyel Delacruz MD on 01/13/18 at 1212. Scribe Documentation Reviewed: Yes Provider Attestation: The documentation as recorded by the scribeNabil accurately reflects the service I personally performed and the decisions made by me, Danyel Delacruz MD
[2018-01-13] MEDS: Acetaminophen TAB* 325 MG PO PRN (17:22)
[2018-01-13] MEDS: Cephalexin CAP* 500 MG PO SCH (19:48)
[2018-01-13] MEDS: QUEtiapine TAB* 25 MG PO SCH (19:48)
[2018-01-13] MEDS: Heparin VIAL(*) 5000 UNITS/ML VIAL (FIVE THOUSAND) SUBCUT SCH (20:42)
--- NOTE | 2018-01-13 20:52 | HP ---
CC: Dr. Sol* [facility] MEDICINE HISTORY AND PHYSICAL: DATE OF ADMISSION: 01/13/18 PRIMARY CARE PHYSICIAN: Dr. Sol. ATTENDING PHYSICIAN: Dr. lEaine Segundo * (dictation provided by Herminia Ocampo NP ). CHIEF COMPLAINT: Syncope. HISTORY OF PRESENT ILLNESS: Ms. Moss is a 77-year-old female with a past medical history of a stroke in 2004 with no residual deficits, dementia, rheumatoid arthritis, and ongoing left hip prosthetic hip infection, who presented to the hospital today after syncopal episode in the shower. Ms. Moss, her aide and daughter provided the history today. The aide and daughter report that the patient seemed to be in normal state of health yesterday with no complaints. Today, the patient felt well on awaking. She got into the shower with the assistance of her aide per routine. [facility] through the shower, the patient stated that she did not feel well. The aide opened the door and noted that she seemed pale and her eyes were glazed over. She reached for her, but was unable to keep from falling and she landed on the ground. Immediately upon landing, the patient was awake and she was conversing appropriately. She did not loose control of her bowel or bladder. She is not reported to have bitten her lip. The patient complained at times of suprapubic discomfort to EMS, but denies that here today in the emergency room. She does complain of neck and shoulder pain, but the patient's daughter reports this is chronic and related to her ongoing history of rheumatoid arthritis. Ms. Moss has been following closely with Dr. Carl for positive rheumatoid factor found during her last admission in August. She is currently on methotrexate, prednisone, and Plaquenil and she also follows with Dr. Hannah and Dr. Hernandez for ongoing problems related to a left periprosthetic hip infection for which she continues on Keflex and rifampin under Dr. Hernandez's direction. The patient's daughter states that the hip infection has "been going well" and that she has planned to see Dr. Hannah next week. In the emergency room, Ms. Moss had labs, which were unremarkable. She has no leukocytosis. Her CRP is 79.09. This is down from last check in December when it was 84.33. Her urine shows no evidence of infection. She had CT brain and cervical spine CT, which showed no evidence of acute injury as well as a negative chest x-ray. PAST MEDICAL HISTORY: 1. 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 Hernandez and Dr. Hannah. 2. Rheumatoid arthritis. 3. Hypertension. 4. Hyperlipidemia. 5. Obstructive sleep apnea, now on CPAP. 6. History of stroke in 2004, which changes to her vision, but all deficits have resolved. MEDICATIONS: 1. Nystatin powder topically b.i.d. p.r.n. 2. Quetiapine 25 mg p.o. bedtime. 3. Cyanocobalamin 1,000 mcg p.o. daily. 4. Omeprazole 40 mg p.o. daily. 5. Duloxetine DR 30 mg p.o. daily. 6. Losartan 25 mg p.o. daily. 7. Aspirin 81 mg p.o. daily. 8. Prednisone 10 mg p.o. daily. 9. Keflex 500 mg p.o. t.i.d. 10. Rifampin 600 mg p.o. daily. 11. Folic acid 1 mg p.o. daily. 12. Methotrexate 12.5 mg p.o. weekly. 13. Hydroxychloroquine 400 mg p.o. daily. ALLERGIES: No known drug allergies. FAMILY HISTORY: The patient has 3 daughters. Her sister had a history of breast cancer. Mother had a history of coronary artery disease. SOCIAL HISTORY: No report of alcohol, tobacco or drug use. The patient lives with her daughter, Lilly, with aide services Her daughter, Lilly, is the healthcare proxy. REVIEW OF SYSTEMS: A 14-point review of systems was completed with Ms. Moss and all those not mentioned above were negative. PHYSICAL EXAMINATION GENERAL: Ms. Moss is lying in the bed. She is in no acute distress. VITAL SIGNS: Temperature 97.6, pulse rate 62, respiratory rate 17, O2 saturation 100% on room air, blood pressure 151/52. HEENT: Extraocular movements are intact. LUNGS: Clear to auscultation bilaterally with no accessory muscle use and good aeration. HEART: S1, S2. No murmur, rub or gallop and regular. ABDOMEN: Soft and nontender with bowel sounds positive x4. EXTREMITIES: No cyanosis. No edema. SKIN: Intact. NEUROLOGIC: She is alert and oriented x3. She moves all extremities equally. There is no facial asymmetry or focal weakness. DIAGNOSTIC STUDIES/LAB DATA: WBC 9.4, hemoglobin 10.2, hematocrit 32, and platelet count 480. INR 1.02. Sodium 139, potassium 4.7, chloride 102, serum bicarbonate 27, BUN 19, creatinine 0.95, glucose 108. Lactic acid 1.6, troponin 0.01, CRP 79.09. Urine shows no evidence of infection. Chest x-ray is read as follows: "No evidence for acute intrathoracic disease." The brain CT is read as follows: "No acute intracranial pathology. Evidence of remote left occipital infarct. Distal portion volume loss of medial temporal lobe that can be associated with certain type of dementia." The cervical spine CT shows the following: "No CT evidence of traumatic cervical spine injury, mixed pattern of inflammatory and degenerative arthropathy." ASSESSMENT AND PLAN: Ms. Moss is a 77-year-old female with a past medical history of recent diagnosis of rheumatoid arthritis, on multiple immunosuppressants; left periprosthetic hip infection, on chronic antibiotics under the management of Dr. Hernandez and Dr. Hannah; hypertension; hyperlipidemia ; obstructive sleep apnea, on home CPAP, who presented today to the hospital after having an episode of syncope in the shower. Our plans are for observation in the hospital for the followin. Syncope: It is not clear what drove the patient's syncope today. She has no evidence of current infection and no symptomatology of such per the family's report in recent days. The episode was not associated with bowel movement. The patient has reported to have had some episodes of lightheadedness in the shower before and perhaps this is just an extension of that. Regardless, I think she deserves monitoring in the hospital overnight for telemetry monitoring to evaluate for arrhythmia. There is no clear evidence of seizure activity given the lack of postictal state. 2. Obstructive sleep apnea: Continue home CPAP. 3. History of left prosthetic hip infection: Continue home antibiotics. 4. Rheumatoid arthritis: Continue home anti-inflammatory and immunosuppressants. 5. History of gastroesophageal reflux disease: Continue omeprazole. 6. Dementia with depression: Continue Cymbalta and quetiapine. 7. Code status: DNR. 8. Disposition to the telemetry floor. TIME SPENT: Approximately 60 minutes was spent on the admission of this patient , more than half time spent with the patient at the bedside reviewing the events leading up to this hospitalization, performing the physical examination and reviewing the plan of care. HERMINIA OCAMPO NP [id number]/[facility] #: [id number] ANJEL
[2018-01-14] MEDS: Heparin VIAL(*) 5000 UNITS/ML VIAL (FIVE THOUSAND) SUBCUT SCH ×3 (04:52→22:17)
[2018-01-14] MEDS: RiFAMPin CAP* 300 MG CAP PO SCH (08:14)
[2018-01-14] MEDS: Cyanocobalamin TAB* 500 MCG PO SCH (08:14)
[2018-01-14] MEDS: predniSONE TAB* 10 MG PO SCH (08:14)
[2018-01-14] MEDS: Cephalexin CAP* 500 MG PO SCH ×3 (08:14→20:06)
[2018-01-14] MEDS: Folic Acid TAB* 1 MG PO SCH (08:14)
[2018-01-14] MEDS: DULoxetine DR CAP* 30 MG CAP.DR PO SCH (08:14)
[2018-01-14] MEDS: Hydroxychloroquine TAB* 200 MG PO SCH (08:14)
[2018-01-14] MEDS: Omeprazole CAP* 20 MG PO SCH (08:14)
[2018-01-14] MEDS: Aspirin EC TAB* 81 MG TAB.EC PO SCH (08:15)
[2018-01-14] MEDS ORDERED: Losartan TAB* 25 MG PO SCH (09:00)
[2018-01-14] MEDS: Acetaminophen TAB* 325 MG PO PRN ×2 (09:31→22:16)
[2018-01-14] MEDS: NS 0.9% 1000 ML* 1,000 ML IV SCH ×2 (10:37→22:17)
[2018-01-14] MEDS ORDERED: Methotrexate TAB* 2.5 MG PO SCH (12:00)
--- NOTE | 2018-01-14 16:28 | PN ---
Subjective Date of Service: 01/14/18 Interval History: Ms. Moss feels "okay" this morning. She c/o feeling weak and dizzy upon standing. She was able to ambulate to the bathroom with assistance and had a BM. Family reports that her PCP has been trying to wean her off losartan. They report poor fluid intake at home, possibly r/t urinary urgency. She denies CP, SOB, N/V/D. Family History: Unchanged from Admission Social History: Unchanged from Admission Past Medical History: Unchanged from Admission Objective Active Medications: Acetaminophen (Tylenol Tab*) 650 mg PO Q6H PRN Aspirin (Aspirin Ec Tab*) 81 mg PO DAILY CARLA Cephalexin HCl (Keflex Cap*) 500 mg PO TID CARLA Cyanocobalamin (Vitamin B12 Tab*) 1,000 mcg PO DAILY CARLA Duloxetine HCl (Cymbalta Cap*) 30 mg PO DAILY CARLA Folic Acid (Folvite Tab*) 1 mg PO DAILY CARLA Heparin Sodium (Porcine) (Heparin Vial(*)) 5,000 units SUBCUT Q8HR CARLA Hydroxychloroquine Sulfate (Plaquenil Tab*) 400 mg PO DAILY CARLA Sodium Chloride (Ns 0.9% 1000 Ml*) 1,000 mls @ 125 mls/hr IV PER RATE CARLA Methotrexate (Methotrexate Tab*) 17.5 mg PO Q7D CARLA Nystatin (Nystatin Top Powder*) 1 applic TOPICAL BID PRN Omeprazole (Prilosec Cap*) 40 mg PO DAILY@0730 CARLA Prednisone (Deltasone Tab*) 10 mg PO DAILY CARLA Quetiapine Fumarate (Seroquel Tab*) 25 mg PO BEDTIME CARLA Rifampin (Rifampin Cap*) 600 mg PO DAILY CARLA Vital Signs - 8 hr 01/14/18 01/14/18 01/14/18 10:20 11:25 15:02 Temperature 98.8 F Pulse Rate 89 68 66 Respiratory 18 Rate Blood Pressure 100/55 113/35 128/62 (mmHg) O2 Sat by Pulse 93 Oximetry 01/14/18 15:25 Temperature 97.4 F Pulse Rate 70 Respiratory 16 Rate Blood Pressure 123/45 (mmHg) O2 Sat by Pulse 99 Oximetry Oxygen Devices in Use Now: None Appearance: Elderly female laying in bed in NAD Eyes: No Scleral Icterus Ears/Nose/Mouth/Throat: Mucous Membranes Moist Neck: NL Appearance and Movements; NL JVP Respiratory: Symmetrical Chest Expansion and Respiratory Effort, Clear to Auscultation Cardiovascular: NL Sounds; No Murmurs; No JVD, RRR Abdominal: NL Sounds; No Tenderness; No Distention Extremities: No Edema Skin: No Rash or Ulcers Neurological: Alert and Oriented x 3 Lines/Tubes/Other Access: Clean, Dry and Intact Peripheral IV Nutrition: Taking PO's Result Diagrams: 01/13/18 12:56 01/13/18 12:56 Assess/Plan/Problems-Billing Assessment: Ms. Moss is a 77yo with PMH of prosthetic hip infection, HTN, HLD, RA , JOAQUIN, and distant CVA who presented to the ED after a syncopal episode and was found to be orthostatic. - Patient Problems (1) Orthostatic hypotension Current Visit: Yes Status: Acute Code(s): I95.1 - ORTHOSTATIC HYPOTENSION SNOMED Code(s): 58057481 Comment: - SBP dropped 30 points from laying to standing - Resolved w/ IVF - D/c losartan (2) Syncope Current Visit: Yes Status: Acute Code(s): R55 - SYNCOPE AND COLLAPSE SNOMED Code(s): 131351007 Comment: - 2/2 orthostatic hypotension (3) HTN (hypertension) Current Visit: No Status: Chronic Code(s): I10 - ESSENTIAL (PRIMARY) HYPERTENSION SNOMED Code(s): 28473378 Comment: - SBP 90-130 today with dizziness - D/c losartan and monitor BP (4) Rheumatoid arthritis Current Visit: Yes Status: Acute Code(s): M06.9 - RHEUMATOID ARTHRITIS, UNSPECIFIED SNOMED Code(s): 58765276 Comment: - Continue hydroxychloroquine and methotrexate (5) JOAQUIN (obstructive sleep apnea) Current Visit: Yes Status: Acute Code(s): G47.33 - OBSTRUCTIVE SLEEP APNEA ( ADULT) (PEDIATRIC) SNOMED Code(s): 27633733 Comment: - Continue CPAP (6) Septic hip Current Visit: No Status: Acute Code(s): M00.9 - PYOGENIC ARTHRITIS, UNSPECIFIED SNOMED Code(s): 946165005 Comment: - Left prosthetic hip infection - Followed by [facility] - Continue keflex and rifampin (7) Full code status Current Visit: No Status: Acute Code(s): Z78.9 - OTHER SPECIFIED HEALTH STATUS SNOMED Code(s): 355400827 (8) DVT prophylaxis Current Visit: No Status: Acute Code(s): WBX0210 - SNOMED Code(s): 052696763 Comment: - Heparin SQ Status and Disposition: Observation. Likely d/c home tomorrow.
[2018-01-14] MEDS: QUEtiapine TAB* 25 MG PO SCH (20:06)
[2018-01-15] MEDS: Heparin VIAL(*) 5000 UNITS/ML VIAL (FIVE THOUSAND) SUBCUT SCH (05:15)
[2018-01-15] MEDS: NS 0.9% 1000 ML* 1,000 ML IV SCH (05:16)
[2018-01-15] MEDS ORDERED: Losartan TAB* 25 MG PO SCH (09:00)
[2018-01-15] MEDS: RiFAMPin CAP* 300 MG CAP PO SCH (09:57)
[2018-01-15] MEDS: Folic Acid TAB* 1 MG PO SCH (09:57)
[2018-01-15] MEDS: Hydroxychloroquine TAB* 200 MG PO SCH (09:57)
[2018-01-15] MEDS: Cephalexin CAP* 500 MG PO SCH (09:57)
[2018-01-15] MEDS: DULoxetine DR CAP* 30 MG CAP.DR PO SCH (09:58)
[2018-01-15] MEDS: Cyanocobalamin TAB* 500 MCG PO SCH (09:58)
[2018-01-15] MEDS: predniSONE TAB* 10 MG PO SCH (09:58)
[2018-01-15] MEDS: Aspirin EC TAB* 81 MG TAB.EC PO SCH (09:58)
[2018-01-15] MEDS: Omeprazole CAP* 20 MG PO SCH (09:58)
[2018-01-15] MEDS: Acetaminophen TAB* 325 MG PO PRN (10:02)
[2018-01-15 11:26] VITALS: BP 143/42
--- NOTE | 2018-01-16 07:34 | DS ---
DISCHARGE SUMMARY: DATE OF ADMISSION: 01/13/18 DATE OF DISCHARGE1: 01/15/18 PRIMARY CARE PROVIDER: Dr. Hodan Sol. ATTENDING PHYSICIAN: Dr. Hartman * (dictated by Erlinda Esteban NP). PRIMARY DIAGNOSES: 1. Syncope secondary to orthostatic hypotension. 2. Hypertension. SECONDARY DIAGNOSES: 1. Rheumatoid arthritis. 2. Obstructive sleep apnea. 3. Chronic septic hip. STUDIES WHILE IN THE HOSPITAL: 1. Hip pelvis x-ray on 01/13/18, reads as left hip prosthesis was in place. No fracture of the right hip is noted. 2. Chest x-ray on 01/13/18, reads as no evidence for acute intrathoracic disease. 3. Brain CT on 01/13/18, reads as no acute intracranial pathology. Evidence of remote left occipital infarct. Disproportionate volume loss of medial temporal lobe, which can be associated with certain types of dementia. 4. Cervical spine CT on 01/13/18, reads as no CT evidence for traumatic cervical spine injury. Mixed pattern of inflammatory and degenerative arthropathy. HISTORY OF PRESENT ILLNESS AND HOSPITAL COURSE: Ms. Moss is a 77-year - old female with past medical history of CVA in 2004, dementia, rheumatoid arthritis, chronic left prosthetic hip infection, and hypertension, who presented to the emergency room on 01/13/18, after a syncopal episode. Please see the history and physical by Herminia Ocampo NP for complete summary of the events leading up to those hospitalization. In short, the patient was in a shower that morning and during the shower, she reported not feeling well. The patient's aide noted that the patient's eyes appeared to be glazed over and the patient fell and landed on the floor. Immediately upon landing on the ground, the patient was awake and conversing appropriately. She was brought to the hospital by EMS. In the emergency room, the patient had unremarkable imaging as noted above. Her labs were unremarkable except for a CRP of 79 and an ESR of greater than 120, which is expected given her history of rheumatoid arthritis. She was admitted by the hospitalist service for syncope. Later that night after admission, orthostatic vitals were done, which revealed that the patient was significantly orthostatic with a lying blood pressure of 136/50 and a standing blood pressure of 105/49. This explains her syncopal episode. She was rehydrated with IV fluids. She remained in the hospital another night as she reported feeling weak and slightly dizzy. She was noted to have some soft blood pressures with systolics in the low 100s. Her orthostatic vitals were repeated, which revealed that she was no longer orthostatic. Ultimately, I decided to decrease the patient's losartan to 12.5 mg rather than the 25 mg she had been taking at home, as her systolic blood pressures have been mostly between the 120s and 140s and there is continued concern for orthostatic hypotension. The patient's daughter reports that the patient typically is a poor fluid intake at home. As of the morning of discharge, the patient reports feeling well. She states she feels slightly weak and not quite at her baseline, although she is no longer dizzy and her blood pressures have been stable. The patient and her daughter are both agreeable to discharge today. Ms. Moss is stable for discharge. Vital signs are as follows: Temp 98.8, heart rate 76, respiratory rate 18, oxygen saturation 95% on room air, blood pressure 143/42. DISCHARGE MEDICATIONS: Changed Home Medications: 1. Losartan 12.5 mg p.o. daily (previously was 25 mg daily). Continued Home Medications: 1. Aspirin 81 mg p.o. daily. 2. Keflex 500 mg p.o. t.i.d. 3. Vitamin B12 1000 mcg p.o. daily. 4. Duloxetine 30 mg p.o. daily. 5. Folic acid 1 mg p.o. daily. 6. Hydroxychloroquine 400 mg p.o. daily. 7. Methotrexate 12.5 mg p.o. weekly. 8. Omeprazole 40 mg p.o. daily. 9. Prednisone 10 mg p.o. daily. 10. Seroquel 25 mg p.o. at bedtime. 11. Rifampin 600 mg p.o. daily. DISCHARGE PLAN: Ms. Moss will be discharged back home with her daughter. Activity will be as tolerated. Diet will be heart healthy. Medications are noted above. The only medication change I am making is decreasing her losartan to 12.5 mg in an attempt to decrease the likelihood of further incidence of orthostatic hypotension. The patient and her daughter have been instructed on increasing fluid intake throughout the day and changing positions slowly. She should follow up with her primary care provider. The patient's daughter notes that she has an appointment already scheduled for tomorrow 01/16/18 and I suggested that they keep this appointment. The patient and her daughter have been instructed to return to the emergency room or nearest hospital for any worsening of symptoms, shortness of breath, lightheadedness, dizziness, chest discomfort, high fevers, chills, night sweats , loss of consciousness or any other worrisome signs or symptoms. This is a summarized report of a complex medical history and hospital stay. For further details, please see the entire medical record. TIME SPENT: Approximately 45 minutes were spent on this discharge, greater than half of that time was spent [id number] with the patient and her daughter discussing discharge plans and instructions. ERLINDA ESTEBAN NP [id number]/[facility] #: [id number] ANJEL
== END 2018-01-15 13:50 | disposition home or self-care (01) ==
LOC: ED 11:29 → MEDTELE 14:44
PROVIDERS: ADMIT Hospitalist; ATTEND Internal Medicine
DX: I95.1 Orthostatic hypotension (principal); I10 Essential (primary) hypertension; G47.33 Obstructive sleep apnea (adult) (pediatric); M00.9 Pyogenic arthritis, unspecified; T84.51XA Infection and inflammatory reaction due to internal right hip prosthesis, initial encounter; M06.9 Rheumatoid arthritis, unspecified; K21.9 Gastro-esophageal reflux disease without esophagitis; F03.90 Unspecified dementia, unspecified severity, without behavioral disturbance, psychotic disturbance, mood disturbance, and anxiety
CPT/HCPCS: 36415; 70450; 71045; 72125; 80053; 81003; 83605; 83735; 84484; 85025; 85610; 85652; 85730; 86140; 93005; 94660; 96360; 96361; 99284; A9270-GY; G0378; J1644; J7512; J8610

== ENCOUNTER 2018-08-02 09:41 | Emergency (ER) | payer MEDICARE ==
--- NOTE | 2018-08-02 10:09 | ED ---
Lower Extremity - HPI Summary HPI Summary: Pt is a 77 y/o female with hx of dementia and early stage Alzheimers presenting with her daughter acting as historian with left hip pain beginning last night. She denies trauma or fall. She states her pain is worse when she moves her hip and that she is unable to walk. She has intermittent pain that shoots down her posterior thigh to the knee. When she stood up this morning she became lightheaded, prompting the patient's daughter to bring her in for evaluation. She denies shortness of breath, chest pain, cough, fevers, abd pain, n/v/d. Pt' s daughter states her current sx are similar to previous septic hip joint infections which first began after her left TRH 5 years ago. She is monitored by Dr. Sousa and takes daily antibiotics for prophylaxis. Keflex 500mg BID. Patient sees Dr. Hannah for the past 2 revisions (clean our) of hip infection. - History of Current Complaint Chief Complaint: EDHipPelvisInjury Stated Complaint: PAIN PER EMS Time Seen by Provider: 08/02/18 09:48 Hx Obtained From: Patient - history limited due to dementia, Family/Flotation Tank Operator - daughter Mechanism Of Injury: Other - None Onset/Duration: Hours Severity Initially: Moderate Severity Currently: Mild Pain Intensity: 5 Pain Scale Used: 0-10 Numeric Timing: Constant Location: Other - Left hip. Associated Signs And Symptoms: Positive: Dizziness, Knee Pain. Negative: Swelling, Redness, Bruising, Fever, Abdominal Pain Aggravating Factor(s): Standing, Ambulation, Movement Alleviating Factor(s): Rest - Risk Factors Septic Arthritis Risk Factor: Extremes of Age, Pre-existing Joint Disease, Prosthesis - Allergies/Home Medications Allergies/Adverse Reactions: Allergies Allergy/AdvReac Type Severity Reaction Status Date / Time No Known Allergies Allergy Verified 08/02/18 09:54 Home Medications: Home Medications Abatacept* [Orencia*] 250 mg IV MONTHLY 08/02/18 [History Confirmed 08/02/18] Delonte/D3/Mag11/Zinc/Structural Drafter/Rafita/Bor [Caltrate 600+D Plus] 1 tab PO BID 08/02/18 [ History Confirmed 08/02/18] predniSONE TAB* [Deltasone 1 MG TAB*] 2 mg PO DAILY 08/02/18 [History Confirmed 08/02/18] predniSONE TAB* [Deltasone TAB*] 5 mg PO DAILY 08/02/18 [History Confirmed 08/02] PMH/Surg Hx/FS Hx/Imm Hx Endocrine/Hematology History: Reports: Hx Blood Transfusions - in the OR Denies: Hx Diabetes Cardiovascular History: Reports: Hx Hypercholesterolemia, Hx Hypertension, Other Cardiovascular Problems/Disorders - hyperlipidemia Denies: Hx Angina, Hx Coronary Artery Disease, Hx Myocardial Infarction, Hx Pacemaker/ICD, Hx Valvular Heart Disease Respiratory History: Denies: Hx Asthma, Hx Chronic Obstructive Pulmonary Disease (COPD) GI History: Reports: Hx Gastroesophageal Reflux Disease, Other GI Disorders - constipation issues History: Reports: Hx Kidney Infection - hx of Denies: Hx Dialysis, Hx Renal Disease Comment Only: Other Problems/Disorders - UTI Musculoskeletal History: Reports: Hx Arthritis, Hx Osteoporosis, Other Musculoskeletal History - left hip septic joint Denies: Hx Rheumatoid Arthritis Sensory History: Reports: Hx Contacts or Glasses Denies: Hx Cataracts, Hx Hearing Aid Opthamlomology History: Reports: Hx Contacts or Glasses Denies: Hx Cataracts Neurological History: Reports: Hx Dementia, Hx Transient Ischemic Attacks (TIA) , Other Neuro Impairments/Disorders - CVA 11 yrs ago Denies: Hx Seizures Psychiatric History: Reports: Hx Depression - on med - spouse 1 year ago Denies: Hx Panic Disorder - Surgical History Surgery Procedure, Year, and Place: HYSTERECTOMY 1978. BLADDER REPAIR. HIP REPLACEMENT 2013 Hx Anesthesia Reactions: No Infectious Disease History: No Infectious Disease History: Reports: History Other Infectious Disease - LEFT HIP STAPH INFECTION Denies: Traveled Outside the [place] in Last 30 Days - Family History Known Family History: Positive: Unknown - Pt and family cannot recall FHx - Social History Alcohol Use: None Substance Use Type: Reports: None Substance Use Comment - Amount & Last Used: 3-4 CUPS COFFEE DAILY Smoking Status (MU): Never Smoked Tobacco Type: Cigarettes Amount Used/How Often: "AN OCCASIONAL CIGARETTE" Review of Systems - ROS Summary Review of Systems Summary: Complete ROS limited d/t dementia/early Alzheimer Negative: Fever, Chills Negative: Shortness Of Breath, Cough Negative: Abdominal Pain Positive: Arthralgia - left hip pain, worse with walking, Decreased ROM - limited d/t pain. Negative: Edema Negative: Rash, Bruising Neurological: Other - lightheadedness All Other Systems Reviewed And Are Negative: Yes Physical Exam Triage Information Reviewed: Yes Vital Signs On Initial Exam: Initial Vitals Temp Pulse Resp BP Pulse Ox 97.8 F 66 16 171/59 96 08/02/18 09:46 08/02/18 09:46 08/02/18 09:46 08/02/18 09:46 08/02/18 09:46 Vital Signs Reviewed: Yes Completion Of Physical Exam Limited Due To: Dementia Appearance: Positive: Well-Appearing Skin: Positive: Warm, Dry Head/Face: Positive: Normal Head/Face Inspection Eyes: Positive: Normal ENT: Positive: Normal ENT inspection Respiratory/Lung Sounds: Positive: Clear to Auscultation Cardiovascular: Positive: Normal Abdomen Description: Positive: Nontender. Negative: Distended Musculoskeletal: Positive: Pain @ - diffuse pain of bilateral lower extremities , including hips, thighs, and lower legs. NV intact. Cap refill <2 seconds. No erythema, warmth, edema. Neurological: Positive: Normal, Sensory/Motor Intact Psychiatric: Positive: Normal Diagnostics - Vital Signs Vital Signs Temp Pulse Resp BP Pulse Ox 08/02/18 09:54 55 98 08/02/18 09:48 57 98 08/02/18 09:46 97.8 F 66 16 171/59 96 - Laboratory Result Diagrams: 08/02/18 10:49 08/02/18 10:49 Lab Statement: Any lab studies that have been ordered have been reviewed, and results considered in the medical decision making process. - Radiology Hip/Pelvis x-ray Radiology Interpretation Completed By: Radiologist Summary of Radiographic Findings: osteopenia, s/p left hip arthroplasty, no acute osseous injury Lower Extremity Course/Dx - Course Course Of Treatment: Patient is a 77-year-old female with history of rheumatoid arthritis, left hip replacement with 2 septic joints presenting to the ED with left hip pain. Patient has dementia at baseline. Patient and daughter state this is similar to her previous presentation of septic joint. Patient denies any fevers, sweats, chills. Denies pain to other areas. She has not had any pain to this left hip for several months. Currently on prophylactic antibiotics , Keflex 500 mg twice a day through Dr. Sousa. Denies any urinary symptoms. Denies any back pain. Patient appears well on arrival. On physical examination, she is nondiaphoretic, nontoxic appearing, smiling on exam. Pain to the bilateral hips, femurs, knees, lower extremities and ankles on deep palpation. She says ow at each level of the lower extremities. No pain to the upper extremities. Daughter states she will often c/o of pain on palpation and this is normal for her (hx of RA). There is no worsening pain to the left hip compared to the right hip. External rotation of L hip with no pain. Flexion and extension of the L hip with minimal pain, no limitations noted from L to R. No erythema. No signs of trauma. Patient ambulating with a walker, however states she is having pain to the left hip with ambulation. Due to her history of septic joint, labs obtained including blood cultures. Hip and pelvis x-rays obtained which shows status post left hip arthroplasty, peripheral arterial disease, no acute osseous injury. Again ambulated the patient and patient ambulated well and was able to use the commode at bedside with one assist. She currently lives with her daughter. Discussed findings with the daughter and patient. [facility] and previous organisms which grew. I did call Dr. Alas office, however she was not in at that time (and also not publications manager). I stated to the daughter we would be willing to keep the patient until blood cultures are returned and/or Dr. Hannah could see her, however daughter would like to take her home and await blood cultures. Discussed at length low threshold for returning d/t patient hx. She is currently afebrile. Ambulating at discharge. VS stable. - Diagnoses Provider Diagnoses: Bilateral leg pain, Left hip pain Discharge - Sign-Out/Discharge Documenting (check all that apply): Patient Departure Patient Received Moderate/Deep Sedation with Procedure: No - Discharge Plan Condition: Stable Disposition: HOME Referrals: Kirstin Hannah MD [Medical Doctor] - Hodan Sol MD [Primary Care Provider] - Additional Instructions: Please call Dr. Alas office tomorrow Will call with any positive results You can always call us as well As discussed, if you develop any fevers, sweats or chills - return to the ED immediately Have a low threshold for returning to the ED - Billing Disposition and Condition Condition: STABLE Disposition: Home
[2018-08-02 11:03] LABS: ABS Basophils 0.1 10^3/ul (0-0.2); ABS Eosinophils 0.4 10^3/ul (0-0.6); ABS Lymphocytes 1.7 10^3/ul (1.0-4.8); ABS Neutrophils 8.3 10^3/ul (1.5-7.7); Eosinophil % 3.6 %; Hematocrit 36 % (35-47); Hemoglobin 11.7 g/dL (12.0-16.0); Lymphocyte % 14.9 %; Mean Corpuscular HGB Conc 33 g/dL (31-36); Mean Corpuscular Hemoglobin 30 pg (27-31); Mean Corpuscular Volume 91 fL (80-97); Platelet Count 393 10^3/uL (150-450); Red Blood Count 3.94 10^6 /uL (3.70-4.87); Red Cell Distribution Width 15 % (10.5-15); White Blood Count 11.5 10^3/uL (3.5-10.8)
[2018-08-02 11:32] LABS: C Reactive Protein 18.03 mg/L (<8.01); Calcium 9.1 mg/dL (8.6-10.3); EGFR African American 52.6 (>60); EGFR Non-African American 43.4 (>60); Potassium 4.4 mmol/L (3.5-5.0)
[2018-08-02 11:51] LABS: Urine Appearance Clear; Urine Bilirubin Negative (Negative); Urine Blood Negative (Negative); Urine Color Straw; Urine Glucose Negative (Negative); Urine Ketones Negative (Negative); Urine Nitrite Negative (Negative); Urine Protein Negative (Negative); Urine Specific Gravity 1.006 (1.010-1.030); Urine Urobilinogen Negative (Negative)
[2018-08-02 14:20] VITALS: BP 115/47
== END 2018-08-02 14:19 | disposition home or self-care (01) ==
LOC: ED 09:41
DX: M79.605 Pain in left leg (principal); M79.604 Pain in right leg; M25.552 Pain in left hip; M85.80 Other specified disorders of bone density and structure, unspecified site; Z96.642 Presence of left artificial hip joint; I73.9 Peripheral vascular disease, unspecified; I10 Essential (primary) hypertension; E78.5 Hyperlipidemia, unspecified; G30.9 Alzheimer's disease, unspecified; F02.80 Dementia in other diseases classified elsewhere, unspecified severity, without behavioral disturbance, psychotic disturbance, mood disturbance, and anxiety; E78.00 Pure hypercholesterolemia, unspecified; K21.9 Gastro-esophageal reflux disease without esophagitis; M19.90 Unspecified osteoarthritis, unspecified site; F32.9 Major depressive disorder, single episode, unspecified; Z86.73 Personal history of transient ischemic attack (TIA), and cerebral infarction without residual deficits
CPT/HCPCS: 36415; 80048; 81003; 85025; 86140; 87040; 99283

== ENCOUNTER 2018-08-19 11:55 | Inpatient (IN) | payer MEDICARE ==
--- NOTE | 2018-08-19 13:14 | ED ---
Back Pain - HPI Summary HPI Summary: 77 year old F presenting to [facility] accompanied by daughter Jaki with a chief complaint of lower back pain radiating down bilateral legs since 2.5 weeks ago, worse since yesterday afternoon and this morning. The patient rates the pain 10/ 10 in severity. Symptoms aggravated by nothing. Symptoms alleviated by nothing. Daughter reports urine incontinence and bowel accidents which is unusual for patient. Patient additionally complains of left ankle swelling and left ankle pain. Daughter states that patient normally walks with a walker and notes that patient has been turning her left foot inside while walking. Patient denies chills and fever. Initially, the pain radiated down her left buttock but gradually to her left leg and now to both legs. Patient was seen in ED for the lower back pain 2.5 weeks ago per daughter for possible left hip infection. Patient was discharged home from ED with follow-up from Dr. Hannah, orthopedics, who prescribed patient medication for sciatica per daughter. This week, patient saw her primary care provider on 08/16/18 for possible UTI per daughter. The results have not come back yet but patient was placed on antibiotics per daughter. Yesterday and this morning, patient continued to complain about increasing pain per daughter. Daughter reports patient has hx dementia and hx rheumatoid arthritis. Patient has been weaning off prednisone, 1mg off every 4 weeks per daughter. 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 Patient has taken Percocet in the past per daughter. - History of Current Complaint Chief Complaint: EDBackInjuryPain Stated Complaint: BACK PAIN LEG PAIN PER DAUGHTER Time Seen by Provider: 08/19/18 13:07 Hx Obtained From: Patient, Family/Care Professional - daughter Jaki Onset/Duration: Lasting Weeks - 2.5, Still Present, Worse Since - yesterday afternoon and this morning Onset/Duration: Started Weeks Ago - 2.5, Still Present, Worse Since - yesterday afternoon and this morning Timing: Constant Back Pain Location: Is Diffuse - lower back, Radiates To - bilateral legs Severity Currently: Severe Pain Intensity: 10 Pain Scale Used: 0-10 Numeric Aggravating Symptom(s): Nothing Alleviating Symptom(s): Nothing Associated Signs And Symptoms: Positive: Other - urine incontinence and bowel accidents, left ankle swelling and left ankle pain; NEGATIVE: fever, chills - Allergies/Home Medications Allergies/Adverse Reactions: Allergies Allergy/AdvReac Type Severity Reaction Status Date / Time No Known Allergies Allergy Verified 08/19/18 12:08 Home Medications: Home Medications Cyclobenzaprine HCl 5 mg PO BEDTIME 08/19/18 [History Confirmed 08/19/18] Nitrofurantoin Monohyd/M-Cryst [Macrobid 100 mg Capsule] 100 mg PO BID 08/19/18 [History Confirmed 08/19/18] Tramadol HCl 25 mg PO TID PRN 08/19/18 [History Confirmed 08/19/18] PMH/Surg Hx/FS Hx/Imm Hx Previously Healthy: No Endocrine/Hematology History: Reports: Hx Blood Transfusions - in the OR Denies: Hx Diabetes Cardiovascular History: Reports: Hx Hypercholesterolemia, Hx Hypertension, Other Cardiovascular Problems/Disorders - hyperlipidemia Denies: Hx Angina, Hx Coronary Artery Disease, Hx Myocardial Infarction, Hx Pacemaker/ICD, Hx Valvular Heart Disease Respiratory History: Denies: Hx Asthma, Hx Chronic Obstructive Pulmonary Disease (COPD) GI History: Reports: Hx Gastroesophageal Reflux Disease, Other GI Disorders - constipation issues History: Reports: Hx Kidney Infection - hx of Denies: Hx Dialysis, Hx Renal Disease Comment Only: Other Problems/Disorders - UTI Musculoskeletal History: Reports: Hx Arthritis, Hx Rheumatoid Arthritis, Hx Osteoporosis, Other Musculoskeletal History - left hip septic joint Sensory History: Reports: Hx Contacts or Glasses Denies: Hx Cataracts, Hx Hearing Aid Opthamlomology History: Reports: Hx Contacts or Glasses Denies: Hx Cataracts Neurological History: Reports: Hx Dementia, Hx Transient Ischemic Attacks (TIA) , Other Neuro Impairments/Disorders - CVA 11 yrs ago Denies: Hx Seizures Psychiatric History: Reports: Hx Depression - on med - spouse 1 year ago Denies: Hx Panic Disorder - Surgical History Surgery Procedure, Year, and Place: HYSTERECTOMY 1978. BLADDER REPAIR. HIP REPLACEMENT 2013 Hx Anesthesia Reactions: No Infectious Disease History: No Infectious Disease History: Reports: History Other Infectious Disease - LEFT HIP STAPH INFECTION Denies: Traveled Outside the [place] in Last 30 Days - Family History Known Family History: Negative: Diabetes - Social History Alcohol Use: None Hx Substance Use: No Substance Use Type: Reports: None Substance Use Comment - Amount & Last Used: 3-4 CUPS COFFEE DAILY Hx Tobacco Use: No Smoking Status (MU): Never Smoked Tobacco Type: Cigarettes Amount Used/How Often: "AN OCCASIONAL CIGARETTE" Review of Systems Negative: Fever, Chills Positive: Other - bowel accidents Positive: incontinence Positive: Other - lower back pain radiating down bilateral legs, left ankle swelling and left ankle pain All Other Systems Reviewed And Are Negative: Yes Physical Exam - Summary Physical Exam Summary: Appearance: An obese, elderly woman who appears to be in some pain but does not appear toxic Skin: Warm, dry, no obvious rash Eyes: sclera anicteric, no conjunctival pallor ENT: mucous membranes moist Neck: deferred Respiratory: No signs of respiratory distress Cardiovascular: Appears well perfused, pulses are nml Abdomen: deferred Musculoskeletal: She has diffuse tenderness to palpation along both thighs and essentially no matter where I press. The knees appear normal and have no swelling or warmth. The right ankle appears normal but the left ankle is somewhat swollen and warm with pain upon range of motion. There is no pain upon rotation of the left hip, no significant discomfort, and limited flexion of left hip. There is pain in the thigh with pressure applied to heel on the left. Neurological: Awake and alert, mentation is normal, speech is fluent and appropriate Psychiatric: affect is normal, does not appear anxious or depressed Triage Information Reviewed: Yes Vital Signs On Initial Exam: Initial Vitals Temp Pulse Resp BP Pulse Ox 97.1 F 84 20 151/109 95 08/19/18 12:01 08/19/18 12:01 08/19/18 12:01 08/19/18 12:01 08/19/18 12:01 Vital Signs Reviewed: Yes Diagnostics - Vital Signs Vital Signs Temp Pulse Resp BP Pulse Ox 08/19/18 12:01 97.1 F 84 20 151/109 95 - Laboratory Result Diagrams: 08/19/18 13:35 08/19/18 13:35 Lab Statement: Any lab studies that have been ordered have been reviewed, and results considered in the medical decision making process. - Radiology Left ankle x-ray Radiology Interpretation Completed By: Radiologist Summary of Radiographic Findings: 1. OSTEOPENIA. 2. OSTEOARTHRITIS. 3. PERIPHERAL ARTERIAL DISEASE. 4. NO ACUTE OSSEOUS INJURY. THE DEGREE OF OSTEOPENIA MAY MAKE A NONDISPLACED FRACTURE RADIOGRAPHICALLY OCCULT. IF SYMPTOMS PERSIST, RECOMMEND REPEAT IMAGING. ED physician has reviewed this report. - Additional Comments Diagnostic Additional Comments: Lumbar spine MRI shows, per radiologist, 1. TRANSVERSE FRACTURE OF THE S2 VERTEBRAL BODY. 2. BILATERAL SACRAL INSUFFICIENCY FRACTURES. 3. NO EPIDURAL ENHANCEMENT OR FLUID COLLECTION TO SUGGEST EPIDURAL ABSCESS. 4. NO SIGNIFICANT NEURAL FORAMINAL AREA CENTRAL CANAL STENOSIS. ED physician has reviewed this report. Hip MRI shows, per radiologist, 1. NO LOCULATED FLUID COLLECTIONS TO SUGGEST ABSCESS. 2. BILATERAL SACRAL INSUFFICIENCY FRACTURES. 3. TRANSVERSE FRACTURE OF THE S2 VERTEBRAL BODY. 4. STATUS POST LEFT HIP ARTHROPLASTY. ED physician has reviewed this report. Back Pain Course/Dx - Course Course Of Treatment: 77 year old F presenting to [facility] accompanied by daughter Jaki with a chief complaint of lower back pain radiating down bilateral legs since 2.5 weeks ago, worse since yesterday afternoon and this morning. Daughter reports urine incontinence and bowel accidents. Patient additionally complains of left ankle swelling and left ankle pain. Initially, the pain radiated down her left buttock but gradually to her left leg and now to both legs. Patient was seen in ED for the lower back pain 2.5 weeks ago per daughter for possible left hip infection. Patient was discharged home from ED with follow-up from Dr. Hannah, orthopedics, who prescribed patient medication for sciatica per daughter. This week, patient saw her primary care provider on 08/16/18 for possible UTI per daughter. The results have not come back yet but patient was placed on antibiotics per daughter. Yesterday and this morning, patient continued to complain about increasing pain per daughter. Patient has been weaning off prednisone, 1mg off every 4 weeks per daughter. 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 Patient has taken Percocet in the past per daughter. Physical exam findings: The patient is an obese, elderly woman who appears to be in some pain but does not appear toxic. She has diffuse tenderness to palpation along both thighs and essentially no matter where I press. The knees appear normal and have no swelling or warmth. The right ankle appears normal but the left ankle is somewhat swollen and warm with pain upon range of motion. There is no pain upon rotation of the left hip, no significant discomfort, and limited flexion of left hip. There is pain in the thigh with pressure applied to heel on the left. Ankle x-ray reveals, per radiologist, 1. OSTEOPENIA. 2. OSTEOARTHRITIS. 3. PERIPHERAL ARTERIAL DISEASE. 4. NO ACUTE OSSEOUS INJURY. THE DEGREE OF OSTEOPENIA MAY MAKE A NONDISPLACED FRACTURE RADIOGRAPHICALLY OCCULT. IF SYMPTOMS PERSIST, RECOMMEND REPEAT IMAGING. Test results with no significant abnormalities except for WBC 12.2, Hbg 11.5, Plt count 483, MPV 6.9, absolute neuts 10.4, absolute lymphs 0.6 , absolute monos 1.0, BUN 25, creatinine 1.13, BUN/creatinine ratio 22.2, glucose 146, alkaline phosphatase 243, c-reactive protein 38.6. In the ED course, the patient was given Percocet and vancomycin. Discussed patient care with Dr. Perla, orthopedics, at 13:34 who recommended gettting MRI of lumbar spine and left hip. Spoke with Dr. Hurley, radiology, at 13:42 who agrees to call in solar installation technician for an MRI. Lumbar spine MRI shows, per radiologist, 1. TRANSVERSE FRACTURE OF THE S2 VERTEBRAL BODY. 2. BILATERAL SACRAL INSUFFICIENCY FRACTURES. 3. NO EPIDURAL ENHANCEMENT OR FLUID COLLECTION TO SUGGEST EPIDURAL ABSCESS. 4. NO SIGNIFICANT NEURAL FORAMINAL AREA CENTRAL CANAL STENOSIS. Hip MRI shows, per radiologist, 1. NO LOCULATED FLUID COLLECTIONS TO SUGGEST ABSCESS. 2. BILATERAL SACRAL INSUFFICIENCY FRACTURES. 3. TRANSVERSE FRACTURE OF THE S2 VERTEBRAL BODY. 4. STATUS POST LEFT HIP ARTHROPLASTY. Patient has an enterococcus UTI. Spoke with Dr. Phillips, hospitalist, at 1734, who agrees to admit patient. Patient will be admitted to the hospitalist so she receive IV vancomycin. The patient and daughter are agreeable to this plan. - Diagnoses Provider Diagnoses: Enterococcus UTI, Sciatica - Provider Notifications Discussed Care Of Patient With: Fred Perla Time Discussed With Above Provider: 13:34 Instructed by Provider To: Other - Dr. Perla, orthopedics, recommended gettting MRI of lumbar spine and left hip. Spoke with Dr. Hurley, radiology, at 13:42 who agrees to call in solar installation technician for an MRI. Spoke with Dr. Phillips, hospitalist, at 1734, who agrees to admit patient. Discharge - Sign-Out/Discharge Documenting (check all that apply): Patient Departure - Admit Patient Received Moderate/Deep Sedation with Procedure: No - Discharge Plan Condition: Guarded Disposition: ADMITTED TO [facility] - Billing Disposition and Condition Condition: GUARDED Disposition: Admitted to [facility] - Attestation Statements Document Initiated by Scribe: Yes Documenting Scribe: Rebekah Davis Provider For Whom Brenden is Documenting (Include Credential): Kvng [place], MD Scribe Attestation: I, Rebekah Davis, scribed for Kvng Jenkins MD on 08/19/18 at 2206. Scribe Documentation Reviewed: Yes Provider Attestation: The documentation as recorded by the scribeRebekah accurately reflects the service I personally performed and the decisions made by me, Kvng Jenkins MD Status of Scribe Document: Viewed
[2018-08-19] MEDS ORDERED: oxyCODONE/Acetamin 5/325 MG* TAB PO ONE (13:26)
[2018-08-19 13:50] LABS: ABS Basophils 0.1 10^3/ul (0-0.2); ABS Lymphocytes 0.6 10^3/ul (1.0-4.8); ABS Neutrophils 10.4 10^3/ul (1.5-7.7); Eosinophil % 0.4 %; Hematocrit 35 % (35-47); Hemoglobin 11.5 g/dL (12.0-16.0); Lymphocyte % 4.8 %; Mean Corpuscular HGB Conc 33 g/dL (31-36); Mean Corpuscular Hemoglobin 29 pg (27-31); Mean Corpuscular Volume 89 fL (80-97); Mean Platelet Volume 6.9 fL (7.4-10.4); Platelet Count 483 10^3/uL (150-450); Red Blood Count 3.98 10^6 /uL (3.70-4.87); Red Cell Distribution Width 15 % (10-15); White Blood Count 12.2 10^3/uL (3.5-10.8)
[2018-08-19] MEDS ORDERED: Vancomycin(*) 1,500 MG in NS 0.9% 250 ML* 250 ML IVPB ONE (13:58)
[2018-08-19 14:02] LABS: Albumin 3.6 g/dL (3.2-5.2); Albumin/Globulin Ratio 1.1 (1-3); BUN/Creatinine Ratio 22.1 (8-20); C Reactive Protein 38.6 mg/L (<8.01); Calcium 9.4 mg/dL (8.6-10.3); EGFR African American 56.3 (>60); EGFR Non-African American 46.6 (>60); Globulin 3.4 g/dL (2-4); Potassium 4.3 mmol/L (3.5-5.0); Total Bilirubin 0.4 mg/dL (0.2-1.0)
[2018-08-19] MEDS ORDERED: Gadoteridol* (CONTRAST) 279.3 MG/ML 10 ML IV ONE (16:17)
[2018-08-19] MEDS ORDERED: Acetaminophen TAB* 325 MG PO PRN (18:22)
[2018-08-19] MEDS ORDERED: Ondansetron INJ* 2 MG/ML VIAL IV PRN (18:22)
[2018-08-19] MEDS ORDERED: NS 0.9% 1000 ML** 1,000 ML IV SCH (18:45)
[2018-08-19] MEDS ORDERED: Vancomycin per Pharmacy* NOTE FOLLOW UP SCH (19:00)
[2018-08-19] MEDS ORDERED: Vancomycin(*) 0 MG in NS 0.9% 250 ML* 250 ML IVPB SCH (19:00)
[2018-08-19] MEDS: Enoxaparin(*) 40 MG/0.4 ML SYR SUBCUT SCH (20:01)
[2018-08-19] MEDS: traMADol TAB* 50 MG PO PRN (20:41)
[2018-08-19] MEDS: Nystatin TOP POWDER* 15 GM BTL TOPICAL SCH (21:26)
[2018-08-19] MEDS: QUEtiapine TAB* 25 MG PO SCH (21:27)
[2018-08-19] MEDS: Cephalexin CAP* 500 MG PO SCH (21:27)
[2018-08-19] MEDS: Cyclobenzaprine TAB* 10 MG PO SCH (21:27)
--- NOTE | 2018-08-19 23:00 | HP ---
CC: Dr. Hodan Sol * MEDICINE HISTORY AND PHYSICAL: DATE OF ADMISSION: 08/19/18 PROVIDER: Jez Dhillon NP ATTENDING PHYSICIAN: Dr. Bijal Moore * (dictated by Jez Dhillon NP). PRIMARY CARE PHYSICIAN: Dr. Hodan Sol. PRIMARY ORTHOPEDIC SURGEON: Dr. Kirstin Hannah. INFECTIOUS DISEASE: Dr. Lionel Hernandez. COATING MACHINE HELPER: Dr. Almas Carl. CHIEF COMPLAINT: Low back pain. HISTORY OF PRESENT ILLNESS: Ms. Moss is a 77-year-old female, who came in today with her daughter with concern for low back pain that has been present for over 2 weeks. She was seen by Dr. Hannah earlier this month in follow up and was prescribed medication for sciatica. She also was seen by her primary care provider on 08/16/18 and was started on the antibiotics for presumed UTI. She was started on Macrobid but the urine culture shows that she is growing out enterococcus faecium, which has multiple resistances. Additionally, the patient at baseline has urinary incontinence with some stool incontinence but this has been worse with the recent pain. She also has been reporting left ankle pain; her daughter notes she has had altered gait, likely secondary injury due to the pain. Most of this information is provided by the patient's daughter as the patient does have cognitive impairment and does not recall all of these events in the timeline. She has been treating her mother's pain with tramadol 25 mg and ibuprofen, which has provided little to no effect. Here in the ER, Ms. Moss had an ankle x-ray of the left ankle, which did show osteopenia and osteoarthritis, as well as peripheral arterial disease but no acute osseous injury. The ER did consult with Orthopedics and Dr. Perla recommended MRI of the lumbar spine and left hip. The MRI team was called in for these tests. MRI showed that there was concern for a transverse fracture of the S2 vertebral body and bilateral sacral insufficiency fractures but no loculated fluid collection to suggest abscess in the left hip. Of note, Ms. Moss does have a history of a left total hip replacement with periprosthetic infection following the procedure. She still follows with Dr. Hannah and Dr. Hernandez for this. Given these findings, Hospital Medicine was consulted for admission. PAST MEDICAL HISTORY: Significant for: 1. Left prosthetic hip infection, on chronic Keflex. She is under the care of Dr. Hannah and Dr. Hernandez. 2. Rheumatoid arthritis. 3. Osteoarthritis. 4. Hypertension. 5. Hyperlipidemia. 6. Dementia. 7. History of stroke in 2004. 8. Obstructive sleep apnea. She does use CPAP. 9. Depression. 10. Osteoporosis. 11. Orthostatic hypotension. PAST SURGICAL HISTORY: Includes: 1. Appendectomy. 2. Hysterectomy. 3. Carpal tunnel release. 4. Bilateral cataracts. 5. Tonsillectomy. HOME MEDICATIONS: 1. Macrobid 100 mg b.i.d. 2. Cyclobenzaprine 5 mg at bedtime. 3. Tramadol 25 mg b.i.d. p.r.n. 4. Cyanocobalamin 1000 mcg daily. 5. Cephalexin 500 mg b.i.d. 6. Caltrate 600 plus D 1 tab b.i.d. 7. Aspirin 81 mg daily. 8. Orencia 250 mg IV monthly. 9. Omeprazole 40 mg daily. 10. Methotrexate 17.5 mg weekly. 11. Plaquenil 400 mg daily. 12. Folic acid 1 mg [address] 13. Duloxetine DR 30 mg daily. 14. Prednisone 7 mg daily. She is on a taper under the instructions of Arik Carl and has been weaning down by 1 mg every 4 weeks per the patient's daughter. 15. Quetiapine 25 mg at bedtime. ALLERGIES: No known allergies. FAMILY HISTORY: Ms. Moss has 3 daughters. She has a sister with a history of breast cancer and mother had history of coronary artery disease. SOCIAL HISTORY: She denies alcohol, tobacco or drug use. She lives with her daughter, Lilly, and they pay for an aide service to come and help her at home. Her daughter, Lilly, is the healthcare proxy. There is a MOLST form on file which indicates DNR. REVIEW OF SYSTEMS: A 12-point review of systems was completed with Ms. Moss. All those not mentioned are negative. PHYSICAL EXAMINATION GENERAL: This is an older female seen lying in bed, in no acute distress. VITAL SIGNS: Temperature 99.2, heart rate 80, respiratory rate 18, blood pressure 124/52, and O2 saturation is 100% on room air. HEENT: Head is atraumatic, normocephalic. Face is symmetrical. Pupils are equal, round, and reactive to light. Extraocular movements are intact. Oral mucosa is moist. There is no oropharyngeal erythema or exudate. Her lips are little bit dry. NECK: Supple with full range of motion. No lymphadenopathy appreciated. RESPIRATORY: Lungs are clear to auscultation. CARDIAC: Normal S1, S2, heart sounds with regular rate and rhythm. No murmurs appreciated. No peripheral edema noted. Peripheral pulses are present. ABDOMEN: Soft, nondistended with normoactive bowel sounds. There is some mild tenderness throughout the abdomen with deep palpation. No hepatosplenomegaly noted. MUSCULOSKELETAL: There is pain when pressure is applied near the low back and near the thighs. No pain with palpation of the lower joints in the knees or legs. The left ankle is somewhat tender, but there was active and passive range of motion. NEURO: She is awake and alert. She is oriented to self, to place, and mildly disoriented to time. Speech is fluent. No focal deficits noted. SKIN: Appears grossly intact. LAB DATA AND DIAGNOSTIC STUDIES: CBC: WBC 12.2, hemoglobin 11.5, hematocrit 35, platelet count 483. CMP: Sodium 141, potassium 4.3, chloride 103, carbon dioxide 30, BUN 25, creatinine 1.13, glucose 146, calcium 9.4. Total bilirubin 0.4. AST 21, ALT 18, alk phos 243. CRP 38.6. Imaging: As per above. ASSESSMENT AND PLAN: This is a 77-year-old female who presents today with concern for low back pain and urinary tract infection with concern for sacral insufficiency fracture. She will be admitted as an inpatient to the medicine floor with plans as follows: 1. Transverse fracture of S2 with bilateral sacral insufficiency fractures: I did call and discussed the findings with Dr. Schulz of Orthopedics. At this point, the plan is pain management and weightbearing as tolerated. Dr. Schulz will see the patient tomorrow and review the films and determine if there is any other benefit that we can provide for the patient. She lives at home with her daughter, who has been managing her care along with a home health aide. At this point in time, it appears to be the possible plan for discharge, although she may benefit from subacute rehab. She is ordered PT and OT. She is ordered pain medications. She was on tramadol before, which we will continue. Her daughter states that she did receive good effects from the Percocet that was given to her in the ER which we will continue for severe pain only with careful attention to sedation and altered mental status. We will also schedule around- the-clock Tylenol to see if that will also help with management of her pain. 2. Urinary tract infection with enterococcus: She previously had Macrobid which had intermediate coverage of the bacteria. We will switch her to vancomycin, which has already been started in the ER and this will be dosed per pharmacy. She would likely benefit from an ID consult, which I will place and have the team on Tuesday follow up with Dr. Hernandez. 3. History of left hip periprosthetic infection: Continue Keflex. Again, we will place the consult with Dr. Hernandez to follow with this patient. No evidence of abscess or infection at this time. 4. Leukocytosis and thrombocytopenia: I suspect this may be secondary to her medication regimen, which does include prednisone. We will check CBC tomorrow. She does not show any other kinds of active infections. This may also be reactive secondary to the recent fracture. 5. History of dementia: Continue supportive care. 6. Rheumatoid osteoarthritis: We will continue her Plaquenil and her prednisone but hold her methotrexate at this time. We will also hold her Orencia. 7. Hypertension: She is currently normotensive, and she is not on any antihypertensives, given her history of orthostatic hypotension. 8. Sleep apnea: She can use her home CPAP. I want her daughter bring today and otherwise, she may use the hospital equipment. 9. History of CVA: Continue with aspirin. 10. Depression: Continue Cymbalta and quetiapine. 11. FEN: She is ordered heart-healthy diet. As she does looks a little bit dry, we will order 1 L of fluid. 12. DVT prophylaxis: She is ordered subcu Lovenox. 13. Code status: She is a DNR/DNI per her daughter and there is a copy of the MOLST on file. 14. Disposition: Anticipate discharge to home at this time, although she may again benefit from subacute rehab. TIME SPENT: Approximately 65 minutes was spent on this admission with more than half that time was spent [id number] with the patient and her family obtaining history and physical, performing physical examination, and reviewing the plan of care. Plan of care was also reviewed with my attending, Dr. Moore, who is in agreement. JEZ DHILLON, TRANSPORTATION ESCORT [id number]/[facility] #: [id number] ANJEL
[2018-08-20 04:16] LABS: Urine Appearance Cloudy; Urine Bacteria 1+ (Absent); Urine Bilirubin Negative (Negative); Urine Blood Negative (Negative); Urine Color Yellow; Urine Glucose Negative (Negative); Urine Ketones Negative (Negative); Urine Nitrite Negative (Negative); Urine Protein Negative (Negative); Urine Red Blood Cell 1+(3-5/hpf) (Absent); Urine Specific Gravity 1.028 (1.010-1.030); Urine Squamous Epithelial Cell Present (Absent); Urine Urobilinogen Negative (Negative); Urine White Blood Cell 3+(>20/hpf) (Absent)
[2018-08-20] MEDS: Vancomycin(*) 1,250 MG in NS 0.9% 250 ML* 250 ML IVPB SCH ×2 (05:45→18:29)
[2018-08-20 07:00] LABS: Hematocrit 32 % (35-47); Hemoglobin 10.5 g/dL (12.0-16.0); Mean Corpuscular HGB Conc 33 g/dL (31-36); Mean Corpuscular Hemoglobin 29 pg (27-31); Mean Corpuscular Volume 89 fL (80-97); Mean Platelet Volume 6.8 fL (7.4-10.4); Platelet Count 387 10^3/uL (150-450); Red Blood Count 3.59 10^6 /uL (3.70-4.87); Red Cell Distribution Width 15 % (10-15); White Blood Count 10.7 10^3/uL (3.5-10.8)
[2018-08-20 07:10] LABS: BUN/Creatinine Ratio 20.2 (8-20); Calcium 8.6 mg/dL (8.6-10.3); EGFR Non-African American 51.3 (>60); Potassium 4.2 mmol/L (3.5-5.0)
[2018-08-20 07:35] LABS: ABS Basophils 0.1 10^3/ul (0-0.2); ABS Eosinophils 0.4 10^3/ul (0-0.6); ABS Lymphocytes 2.1 10^3/ul (1.0-4.8); ABS Monocytes 1.2 10^3/ul (0-0.8); ABS Neutrophils 6.8 10^3/ul (1.5-7.7); Eosinophil % 4.1 %; Lymphocyte % 19.9 %
[2018-08-20] MEDS: Cephalexin CAP* 500 MG PO SCH ×2 (09:03→20:54)
[2018-08-20] MEDS: predniSONE TAB* 1 MG PO SCH (09:03)
[2018-08-20] MEDS: Folic Acid TAB* 1 MG PO SCH (09:03)
[2018-08-20] MEDS: Multivitamins/Minerals TAB PO SCH (09:04)
[2018-08-20] MEDS: oxyCODONE/Acetamin 5/325 MG* TAB PO PRN ×2 (09:04→18:29)
[2018-08-20] MEDS: Aspirin EC TAB* 81 MG TAB.EC PO SCH (09:04)
[2018-08-20] MEDS: DULoxetine DR CAP* 30 MG CAP.DR PO SCH (09:05)
[2018-08-20] MEDS: Hydroxychloroquine TAB* 200 MG PO SCH (09:05)
[2018-08-20] MEDS: Cyanocobalamin TAB* 500 MCG PO SCH (09:05)
[2018-08-20] MEDS: predniSONE TAB* 5 MG PO SCH (09:05)
[2018-08-20] MEDS: Pantoprazole TAB * 40 MG TAB PO SCH (09:06)
[2018-08-20] MEDS: Nystatin TOP POWDER* 15 GM BTL TOPICAL SCH ×3 (09:06→20:55)
--- NOTE | 2018-08-20 12:04 | PN ---
Subjective Date of Service: 08/20/18 Interval History: Ms. Moss is feeling ok today. She is still having significant pain with movement. Currently, laying in bed at about 45 degrees, she is mostly comfortable. Reports some pain but is unable to give it a numerical value. Pain is worse when the HOB is raised and gets up to 10/10. Pain medications are helping a bit. Denies CP, SOB, N/V/D. No neurological deficits. No concerns from nursing. Family History: Unchanged from Admission Social History: Unchanged from Admission Past Medical History: Unchanged from Admission Objective Active Medications: Acetaminophen (Tylenol Tab*) 650 mg PO Q4H PRN FEVER/PAIN Aspirin (Aspirin Ec Tab*) 81 mg PO DAILY CARLA Cephalexin HCl (Keflex Cap*) 500 mg PO BID CARLA Cyanocobalamin (Vitamin B12 Tab*) 1,000 mcg PO DAILY CARLA Cyclobenzaprine HCl (Flexeril Tab*) 5 mg PO BEDTIME CARLA Duloxetine HCl (Cymbalta Cap*) 30 mg PO DAILY CARLA Enoxaparin Sodium (Lovenox(*)) 40 mg SUBCUT Q24H CARLA Folic Acid (Folvite Tab*) 1 mg PO DAILY CARLA Hydroxychloroquine Sulfate (Plaquenil Tab*) 400 mg PO DAILY CARLA Vancomycin HCl 1,250 mg/ (Sodium Chloride) 250 mls @ 166.667 mls/hr IVPB Q12H CARLA Multivitamins/Minerals (Theragran/Minerals Tab*) 1 tab PO DAILY CARLA Nystatin (Nystatin Top Powder*) 1 applic TOPICAL TID CARLA Ondansetron HCl (Zofran Inj*) 4 mg IV Q6H PRN NAUSEA/VOMITING Oxycodone/Acetaminophen (Percocet 5/325 Tab*) 1 tab PO Q6H PRN PAIN - SEVERE Pantoprazole Sodium (Protonix Tab*) 40 mg PO DAILY CARLA Prednisone (Deltasone Tab*) 5 mg PO DAILY CARLA Prednisone (Deltasone Tab*) 2 mg PO DAILY CARLA Quetiapine Fumarate (Seroquel Tab*) 25 mg PO BEDTIME CARLA Tramadol HCl (Ultram*) 25 mg PO TID PRN PAIN Vital Signs - 8 hr 08/20/18 08/20/18 08/20/18 07:00 08:00 09:04 Temperature 97.6 F Pulse Rate 77 Respiratory 16 16 18 Rate Blood Pressure 135/53 (mmHg) O2 Sat by Pulse 100 Oximetry Oxygen Devices in Use Now: Nasal Cannula Appearance: Elderly female laying in bed in NAD Eyes: No Scleral Icterus Ears/Nose/Mouth/Throat: Mucous Membranes Moist Neck: NL Appearance and Movements; NL JVP, Trachea Midline Respiratory: Symmetrical Chest Expansion and Respiratory Effort, Clear to Auscultation Cardiovascular: NL Sounds; No Murmurs; No JVD, RRR Abdominal: NL Sounds; No Tenderness; No Distention Extremities: No Edema Skin: No Rash or Ulcers Neurological: Alert and Oriented x 3, NL Sensation Lines/Tubes/Other Access: Clean, Dry and Intact Peripheral IV Nutrition: Taking PO's Result Diagrams: 08/20/18 06:49 08/20/18 06:49 Assess/Plan/Problems-Billing Assessment: Ms. Moss is a 77 yo F with PMH of chronic left prosthetic hip infection, RA, HTN, HLD, dementia, CVA, JOAQUIN, depression, and orthostatic hypotension; who presented to the ED with c/o low back pain and was found to have an S2 fracture. - Patient Problems (1) UTI (urinary tract infection) Comment: - Started on Macrobid by PCP; this was stopped on admission - Urine culture from 08/17/18 growing multi-resistant Enterococcus - Appreciate ID consult - Continue vanco (2) Sacral fracture Code(s): S32.10XA - UNSP FRACTURE OF SACRUM, INIT ENCNTR FOR CLOSED FRACTURE Comment: - No known fall or injury - MRI shows transverse fracture of S2 and bilateral sacral insufficiency fractures - Appreciate Ortho consult - PT/OT; suspect need for DORINDA - Weight bearing as tolerated - Continue Tylenol (scheduled), Tramadol, Percocet (3) Chronic infection of prosthetic hip Code(s): T84.59XA - INFECT/INFLM REACTION DUE TO OTH INTERNAL JOINT PROSTH, INIT ; Z96.649 - PRESENCE OF UNSPECIFIED ARTIFICIAL HIP JOINT Comment: - Left hip - Follows with Dr. Hernandez and Dr. Hannah - Continue cephalexin (4) Rheumatoid arthritis Code(s): M06.9 - RHEUMATOID ARTHRITIS, UNSPECIFIED Comment: - Hold methotrexate - Continue hydroxychloroquine, prednisone (5) History of CVA (cerebrovascular accident) Code(s): Z86.73 - PRSNL HX OF TIA (TIA), AND CEREB INFRC W/O RESID DEFICITS Comment: - Continue aspirin (6) Anemia Code(s): D64.9 - ANEMIA, UNSPECIFIED Comment: - Chronic, H&H at baseline - Suspect anemia of chronic disease secondary to RA (7) CKD (chronic kidney disease) stage 3, GFR 30-59 ml/min Code(s): N18.3 - CHRONIC KIDNEY DISEASE, STAGE 3 (MODERATE) Comment: - Creatinine at baseline (8) JOAQUIN (obstructive sleep apnea) Code(s): G47.33 - OBSTRUCTIVE SLEEP APNEA (ADULT) (PEDIATRIC) Comment: - CPAP (9) GERD (gastroesophageal reflux disease) Code(s): K21.9 - GASTRO-ESOPHAGEAL REFLUX DISEASE WITHOUT ESOPHAGITIS Comment : - Continue patoprazole (10) Depression Code(s): F32.9 - MAJOR DEPRESSIVE DISORDER, SINGLE EPISODE, UNSPECIFIED Comment: - Continue duloxetine, Seroquel (11) DVT prophylaxis Comment: - Lovenox (12) DNR (do not resuscitate) Comment: Status and Disposition: Inpatient. Anticipate need for DORINDA. Attending: Chasidy Beatty
[2018-08-20] MEDS: traMADol TAB* 50 MG PO PRN (12:05)
--- NOTE | 2018-08-20 13:07 | CONS ---
CONSULTATION REPORT: DATE OF CONSULT: 08/19/18 ATTENDING PHYSICIAN: Natalya Schulz MD CHIEF COMPLAINT: Low back and hip pain. HISTORY OF PRESENT ILLNESS: Briefly, Ms. Moss is a 77-year-old female with a complicated medical history, has a history of infected left hip arthroplasty. She had prior hip hemiarthroplasty at an outside facility, it was infected in May of 2016. She underwent explants and antibiotic spacer and then on 08/31/16, she ended up having a revision to the left total hip arthroplasty, and then on 08/27/17, she had a hip arthrotomy, irrigation and debridement of fluid collection. She did have an I and D, but no removal of the hardware. She has been managed by Dr. Hernandez and Dr. Hannah for her hip issues. She is on antibiotic suppression. She presents on 08/19/18, with low back pain and on 08/16/18, she was started on antibiotics for presumed UTI. She has a urinary incontinence and stool incontinence. She then started developing pain with weightbearing and she has a mild cognitive impairment so a lot of this was obtained from the notes and from the records and from her family. She has been taking tramadol for the pain. She has been complaining of left ankle pain as well as posterior buttock and back pain. An MRI was done of the hip and the back to demonstrate no effusion or collection of the hip and she does have some sacral transverse fractures of S2 vertebral body and sacral insufficiency fractures. PAST MEDICAL HISTORY: 1. Left hip periprosthetic hip fracture, on chronic Keflex. This is being taken care by Dr. Hernandez and Dr. Hannah. 2. Rheumatoid arthritis. 3. Osteoarthritis. 4. Hypertension. 5. Hyperlipidemia. 6. Dementia. 7. History of stroke in 2004. 8. Sleep apnea. 9. Depression. 10. Osteoporosis. 11. Orthostatic hypotension. PAST SURGICAL HISTORY: Appendectomy, hysterectomy, carpal tunnel release, bilateral cataracts, tonsillectomy, 4 hip surgeries including hemiarthroplasty for hip fracture and infected hip causing an explant and then a revision surgery with a revision to the total hip and a fourth surgery, which was her I and D, which was 09/01/17. MEDICATIONS AT HOME: 1. Macrobid. 2. Cyclobenzaprine. 3. Tramadol. 4. Cyanocobalamin. 5. Keflex. 6. Caltrate. 7. Aspirin. 8. Orencia. 9. Omeprazole. 10. Methotrexate. 11. Plaquenil. 12. Folic acid. 13. Duloxetine. 14. Prednisone, managed by Dr. Carl. 15. Quetiapine. ALLERGIES: None. FAMILY HISTORY: She has 3 daughters. Sister with history of breast cancer. Mother had coronary artery disease. SOCIAL HISTORY: She denies alcohol, tobacco, or drug use. She lives with her daughter and they have an aide who comes to the home. She is DNR. Her daughter Lilly is a healthcare proxy. REVIEW OF SYSTEMS: A 14-point review of systems reviewed with the patient and significant, is limited thus somewhat to her cognitive status, but significant for hip pain, back pain, leg pain. No recent illness other than a possible UTI. No fevers or chills. PHYSICAL EXAM: She is lying comfortably in the bed. She is pleasant. She is cooperative with the exam. Vitals: Temperature 97.6, pulse is 77, respiratory rate is 18, O2 100% on room air, blood pressure 135/53. EOMI. Chest: Clear. Heart: Regular rate and rhythm. Abdomen: Soft and nontender. Examination of the low back and the legs demonstrates she is tender to palpation about the lateral hip. The incision on the left hip is clean, dry, and intact. There is no erythema or warmth. She has some discomfort with log roll. She is tender about the lateral aspect of the hip. She has also tender bilateral calf, left side is worse than the right side. There is no erythema or warmth. She is sensate to light touch about the first dorsal web space and medial and lateral dorsal and plantar foot bilaterally. She is able to dorsiflex and plantar flex her toes, dorsiflex and plantar flex her ankles, 5/5 strength. Brisk cap refill. DIAGNOSTIC STUDIES/LAB DATA: White count 10.7, hematocrit 32, and platelet 387. Sodium 141, potassium 4.2, chloride 107, carbon dioxide 29, BUN 21, creatinine 1.04, glucose 93, calcium 8.6. CRP is 38.6. ASSESSMENT AND PLAN: She does have some signs and symptoms and findings of a possible urinary tract infection. She also has sacral fractures. At this point , we will treat this conservatively. I want her to be mobilized q.2 hours. We talked about sitting and standing and trying to walk. We talked about ice and heat and physical therapy. We also discussed checking a vitamin D level because she has these specific fractures and repleting vitamin D can be helpful. We will monitor her. I could see her in the office and we can follow her serially with x-rays, alternatively she can follow up with Dr. Hannah, who knows her very well as well. She will be admitted for pain control. She had urinary tract infection with enterococcus. It is going to be treated with vancomycin. They are also going to put in an ID consult, which is appropriate. They will continue her Keflex. There are no signs and symptoms of abscess. There is no surgical indication at this time. We will have to follow along with the patient in the hospital. [id number]/[facility] #: [id number] MTDD
[2018-08-20] MEDS: Acetaminophen TAB* 325 MG PO SCH ×2 (13:53→20:54)
[2018-08-20] MEDS: Enoxaparin(*) 40 MG/0.4 ML SYR SUBCUT SCH (20:53)
[2018-08-20] MEDS: Cyclobenzaprine TAB* 10 MG PO SCH (20:54)
[2018-08-20] MEDS: QUEtiapine TAB* 25 MG PO SCH (20:55)
[2018-08-21] MEDS: oxyCODONE/Acetamin 5/325 MG* TAB PO PRN ×2 (00:17→09:05)
[2018-08-21] MEDS ORDERED: Vancomycin Trough Check NOTE FOLLOW UP ONE (05:30)
[2018-08-21] MEDS: Vancomycin(*) 1,250 MG in NS 0.9% 250 ML* 250 ML IVPB SCH (07:09)
[2018-08-21] MEDS: Pantoprazole TAB * 40 MG TAB PO SCH (09:04)
[2018-08-21] MEDS: Multivitamins/Minerals TAB PO SCH (09:04)
[2018-08-21] MEDS: DULoxetine DR CAP* 30 MG CAP.DR PO SCH (09:04)
[2018-08-21] MEDS: Aspirin EC TAB* 81 MG TAB.EC PO SCH (09:04)
[2018-08-21] MEDS: Cephalexin CAP* 500 MG PO SCH ×2 (09:05→20:12)
[2018-08-21] MEDS: Cyanocobalamin TAB* 500 MCG PO SCH (09:05)
[2018-08-21] MEDS: predniSONE TAB* 5 MG PO SCH (09:05)
[2018-08-21] MEDS: Acetaminophen TAB* 325 MG PO SCH ×3 (09:05→23:00)
[2018-08-21] MEDS: predniSONE TAB* 1 MG PO SCH (09:05)
[2018-08-21] MEDS: Folic Acid TAB* 1 MG PO SCH (09:06)
[2018-08-21] MEDS: Hydroxychloroquine TAB* 200 MG PO SCH (09:06)
[2018-08-21] MEDS: Nystatin TOP POWDER* 15 GM BTL TOPICAL SCH ×3 (09:08→20:17)
[2018-08-21] MEDS: Cholecalciferol TAB* 1000 UNITS PO SCH (09:22)
[2018-08-21] MEDS ORDERED: Senna TAB PO PRN (10:23)
[2018-08-21] MEDS: traMADol TAB* 50 MG PO PRN ×2 (11:13→20:14)
[2018-08-21] MEDS: Polyethylene Glycol 3350* 17 GM PACKET PO SCH (11:21)
[2018-08-21] MEDS: Docusate CAP* 100 MG PO SCH ×2 (11:21→20:12)
--- NOTE | 2018-08-21 13:27 | CONS ---
CONSULTATION REPORT: DATE OF CONSULT: 08/21/18 PRIMARY CARE PROVIDER: Dr. Hodan Sol. PROVIDER REQUESTING CONSULTATION: Shruthi Schroeder NP CONSULTING SERVICE: Infectious Disease. PROVIDER: Tanya Simons NP My attending provider is Dr. Lionel Hernandez * (DICTATED BY TANYA SIMONS NP) REASON FOR CONSULT: Enterococcus urinary tract infection and history of periprosthetic hip infection, on lifelong antibiotic suppression. IMPRESSION: 1. Enterococcus urinary tract infection. The patient's urine culture with greater than 100,000 enterococcus colony count. She is currently afebrile and the leukocytosis has resolved. She has not had blood cultures drawn during this hospitalization. 2. History of left hip periprosthetic infection. There is no pain with palpation of the left hip. There is no erythema, swelling, or effusion noted. The patient is able to move the left leg. There is negative log roll on the left leg. She is currently on lifelong Keflex suppression. 3. Rheumatoid arthritis. PLAN: Recommend rechecking blood cultures to make sure that she is not bacteremic. She should be continued on IV vancomycin for approximately 1 week. HISTORY OF PRESENT ILLNESS: Ms. Moss is a 77-year-old female with past medical history significant for rheumatoid arthritis, osteoarthritis, hypertension, hyperlipidemia, dementia, CVA, JOAQUIN, depression, osteoporosis, orthostatic hypotension and history of left prosthetic hip infection, on chronic Keflex for suppression, who according to her daughter was recently treated for a urinary tract infection outpatient with Macrobid. At home, the patient was complaining of chills and noted to have intermittent flushing of her face. She was also stating that she had to urinate, but was unable to urinate when she went to the bathroom. She was also complaining of low back pain for approximately 2 weeks. She had been seen by Dr. Hannah outpatient and it was felt that her symptoms represented sciatica and she was seen by her primary care provider on 08/16/18, at which time she was started on Macrobid for a presumed UTI. Urine culture from that visit grew Enterococcus faecium with multiple resistances. Due to her symptoms, she came to the emergency room for further evaluation. While in the emergency room, she had an MRI showing concern for a transverse fracture of the S2 vertebral body and bilateral sacral insufficiency fractures. She was referred to the hospitalist service for admission and was started on vancomycin. While in the hospital, she has been continued on vancomycin for her urinary tract infection. She has been afebrile. Her initial leukocytosis has resolved in addition to her initial thrombocytosis. She did not have blood cultures collected. She currently denies fever, but reports occasional chills. She reports low back pain. She denies any rash, diarrhea. She has constipation at baseline. Denies any urinary symptoms such as urgency, frequency, dysuria. She denies any recent travel. She does have some baseline urine and stool incontinence. PAST MEDICAL HISTORY: 1. Left prosthetic hip infection, on chronic Keflex suppression. 2. Rheumatoid arthritis. 3. Osteoarthritis. 4. Hypertension. 5. Hyperlipidemia. 6. Dementia. 7. CVA. 8. Obstructive sleep apnea. 9. Depression. 10. Osteoporosis. 11. Orthostatic hypotension. PAST SURGICAL HISTORY: 1. Status post appendectomy. 2. Status post hysterectomy. 3. Status post carpal tunnel release. 4. Status post bilateral cataract extraction. 5. Status post tonsillectomy. MEDICATIONS: Home medications: 1. Nitrofurantoin 100 mg by mouth twice daily. 2. Cyclobenzaprine 5 mg by mouth at bedtime. 3. Tramadol 25 mg by mouth 3 times daily as needed for pain. 4. Vitamin B12 1000 mcg by mouth daily. 5. Cephalexin 500 mg by mouth twice daily. 6. Caltrate 600 plus D 1 tablet by mouth twice daily. 7. Aspirin 81 mg by mouth daily. 8. Orencia 250 mg IV monthly on the . 9. Omeprazole 40 mg by mouth daily. 10. Methotrexate 17.5 mg by mouth weekly. 11. Plaquenil 400 mg by mouth daily. 12. Folic acid 1 mg by mouth daily. 13. Duloxetine 30 mg by mouth daily. 14. Prednisone 7 mg by mouth daily. 15. Seroquel 25 mg by mouth daily at bedtime. Hospital medications: 1. Acetaminophen 975 mg by mouth 3 times daily. 2. Aspirin 81 mg by mouth daily. 3. Cephalexin 500 mg by mouth twice daily. 4. Vitamin D 2000 units by mouth daily. 5. Vitamin B12 1000 mcg by mouth daily. 6. Flexeril 5 mg by mouth daily at bedtime. 7. Colace 100 mg by mouth twice daily. 8. Duloxetine 30 mg by mouth daily. 9. Lovenox 40 mg subcutaneous daily. 10. Folic acid 1 mg by mouth daily. 11. Plaquenil 400 mg by mouth daily. 12. Milk of magnesia 30 mL by mouth twice daily as needed for constipation. 13. Multivitamin 1 tablet by mouth daily. 14. Nystatin apply topical 3 times daily to affected area. 15. Zofran 4 mg IV every 6 hours as needed for nausea. 16. Percocet 5/325 one tablet by mouth every 6 hours as needed for pain. 17. Protonix 40 mg by mouth daily. 18. MiraLAX 17 g by mouth daily. 19. Prednisone 7 mg by mouth daily. 20. Seroquel 25 mg by mouth daily at bedtime. 21. Senokot 1 tablet by mouth daily at bedtime as needed for constipation. 22. Tramadol 25 mg by mouth 3 times daily as needed for pain. 23. Vancomycin 750 mg IV every 12 hours. ALLERGIES: No known drug allergies. FAMILY HISTORY: Denies family history of recurrent infections such as tuberculosis. Mother passed at a young age from an MVA. Father's history is really unknown, but he does have a history of coronary artery disease. No family history of diabetes. Sister with a history of breast cancer. SOCIAL HISTORY: Occasionally drinks alcohol. Denies tobacco or recreational drug use. REVIEW OF SYSTEMS: I performed a 10-point review of systems. All the pertinent positives and negatives are mentioned in the history of present illness. The remaining review of systems are negative. PHYSICAL EXAM: Vital Signs: 97.5, heart rate 66, respiratory rate 16, O2 sat 97 % on room air, blood pressure 140/74. General Appearance: Alert, appears to be in no acute distress. Head: Normocephalic, atraumatic. EENT: Pupils are equal and reactive to light. Extraocular movements are intact. Mucous membranes are moist. No thrush. Neck: Supple. No lymphadenopathy. No tenderness with palpation. Neurological: Cranial nerves II through XII are grossly intact. She is alert and oriented to person. Cardiovascular: Heart is regular rate and rhythm. S1, S2 present. No murmurs, rubs, or gallops heard. Respiratory: No accessory muscle use. The lungs are clear to auscultation bilaterally. Abdomen: Bowel sounds positive. Abdomen is soft with mild tenderness to suprapubic area. No CVA tenderness bilateral. Extremities: No lower extremity edema. Musculoskeletal: No clubbing or cyanosis noted. Exhibits good strength in all extremities. There is no erythema, swelling, or crepitus of any of her joints. She has negative log roll bilateral. She has no tenderness with palpation of the spine. Psychological: Calm and cooperative. Skin: No rashes or abnormalities seen. DIAGNOSTIC STUDIES/LAB DATA: Labs from 08/20/18: Sodium 141, potassium 4.2, chloride 107, CO2 of 29, BUN 21, creatinine 1.04, glucose 93. White blood cell count 10.7, hemoglobin 10.8, hematocrit 32, platelet count 387. CRP on was 38.68. Urine culture from outpatient on 08/17/18 shows Enterococcus faecium greater than 100,000. Please see impression and recommendations outlined above. Thank you for asking us to see Ms. Moss in consultation. The recommendations have been discussed with Erlinda Esteban NP. The case has been discussed with my attending, Dr. Lionel Hernandez, who agrees with the plan of care. Reviewed by JAYME PLATT-Ryan 08/24/18 1544 [id number]/[facility] #: [id number] ANJEL
--- NOTE | 2018-08-21 14:27 | PN ---
Subjective Date of Service: 08/21/18 Interval History: Ms. Moss is feeling fine today. She continues to have significant pain with movement, /10, but is comfortable when laying still in bed. She does not want to go to rehab. Denies CP, SOB, N/V, abdominal pain, dysuria. Daughter at bedside is agreeable to DORINDA and does not think she can manage her at home currently. No concerns from nursing. Family History: Unchanged from Admission Social History: Unchanged from Admission Past Medical History: Unchanged from Admission Objective Active Medications: Acetaminophen (Tylenol Tab*) 975 mg PO TID CARLA Aspirin (Aspirin Ec Tab*) 81 mg PO DAILY CARLA Cephalexin HCl (Keflex Cap*) 500 mg PO BID CARLA Cholecalciferol (Vitamin D Tab*) 2,000 units PO DAILY CARLA Cyanocobalamin (Vitamin B12 Tab*) 1,000 mcg PO DAILY CARLA Cyclobenzaprine HCl (Flexeril Tab*) 5 mg PO BEDTIME CARLA Docusate Sodium (Colace Cap*) 100 mg PO BID CARLA Duloxetine HCl (Cymbalta Cap*) 30 mg PO DAILY CARLA Enoxaparin Sodium (Lovenox(*)) 40 mg SUBCUT Q24H CARLA Folic Acid (Folvite Tab*) 1 mg PO DAILY CARLA Hydroxychloroquine Sulfate (Plaquenil Tab*) 400 mg PO DAILY CARLA Vancomycin HCl 750 mg/ Sodium (Chloride) 250 mls @ 166.667 mls/hr IVPB Q12H CARLA Magnesium Hydroxide (Milk Of Magnesia Liq*) 30 ml PO BID PRN CONSTIPATION Multivitamins/Minerals (Theragran/Minerals Tab*) 1 tab PO DAILY CARLA Nystatin (Nystatin Top Powder*) 1 applic TOPICAL TID CARLA Ondansetron HCl (Zofran Inj*) 4 mg IV Q6H PRN NAUSEA/VOMITING Oxycodone/Acetaminophen (Percocet 5/325 Tab*) 1 tab PO Q6H PRN PAIN - SEVERE Pantoprazole Sodium (Protonix Tab*) 40 mg PO DAILY CARLA Polyethylene Glycol/Electrolytes (Miralax*) 17 gm PO DAILY CARLA Prednisone (Deltasone Tab*) 5 mg PO DAILY CARLA Prednisone (Deltasone Tab*) 2 mg PO DAILY CARLA Quetiapine Fumarate (Seroquel Tab*) 25 mg PO BEDTIME CARLA Senna (Senokot Tab*) 1 tab PO BEDTIME PRN CONSTIPATION Tramadol HCl (Ultram*) 25 mg PO TID PRN PAIN Vital Signs - 8 hr 08/21/18 08/21/18 08/21/18 07:43 08:00 09:05 Temperature 97.5 F Pulse Rate 66 Respiratory 16 18 16 Rate Blood Pressure 140/74 (mmHg) O2 Sat by Pulse 97 Oximetry 08/21/18 11:13 Temperature Pulse Rate Respiratory 18 Rate Blood Pressure (mmHg) O2 Sat by Pulse Oximetry Oxygen Devices in Use Now: None Appearance: Elderly female laying in bed in NAD Eyes: No Scleral Icterus Ears/Nose/Mouth/Throat: Mucous Membranes Moist Neck: NL Appearance and Movements; NL JVP, Trachea Midline Respiratory: Symmetrical Chest Expansion and Respiratory Effort, Clear to Auscultation Cardiovascular: NL Sounds; No Murmurs; No JVD, RRR Abdominal: - - Soft, diffuse tenderness to light palpation Extremities: No Edema Neurological: Alert and Oriented x 3 - Foretful Lines/Tubes/Other Access: Clean, Dry and Intact Peripheral IV Nutrition: Taking PO's Result Diagrams: 08/20/18 06:49 08/20/18 06:49 Assess/Plan/Problems-Billing Assessment: Ms. Moss is a 77 yo F with PMH of chronic left prosthetic hip infection, RA, HTN, HLD, dementia, CVA, JOAQUIN, depression, and orthostatic hypotension; who presented to the ED with c/o low back pain and was found to have an S2 fracture. - Patient Problems (1) UTI (urinary tract infection) Comment: - Started on Macrobid by PCP; this was stopped on admission - Urine culture from 08/17/18 growing multi-resistant Enterococcus - Urine culture from 08/20/18 growing Morganella, sensitivities pending - Appreciate ID consult; recommends repeat BC and vanco x7 days - Continue vanco (day 2/7) (2) Sacral fracture Code(s): S32.10XA - UNSP FRACTURE OF SACRUM, INIT ENCNTR FOR CLOSED FRACTURE Comment: - No known fall or injury - MRI shows transverse fracture of S2 and bilateral sacral insufficiency fractures - Appreciate Ortho consult; pain management, no surgical intervention - PT/OT; suspect need for DORINDA - Weight bearing as tolerated - Continue Tylenol (scheduled), Tramadol, Percocet (3) Chronic infection of prosthetic hip Code(s): T84.59XA - INFECT/INFLM REACTION DUE TO OTH INTERNAL JOINT PROSTH, INIT ; Z96.649 - PRESENCE OF UNSPECIFIED ARTIFICIAL HIP JOINT Comment: - Left hip - Follows with Dr. Hernandez and Dr. Hannah - Continue cephalexin (4) Rheumatoid arthritis Code(s): M06.9 - RHEUMATOID ARTHRITIS, UNSPECIFIED Comment: - Hold methotrexate - Continue hydroxychloroquine, prednisone (5) History of CVA (cerebrovascular accident) Code(s): Z86.73 - PRSNL HX OF TIA (TIA), AND CEREB INFRC W/O RESID DEFICITS Comment: - Continue aspirin (6) Anemia Code(s): D64.9 - ANEMIA, UNSPECIFIED Comment: - Chronic, H&H at baseline - Suspect anemia of chronic disease secondary to RA (7) CKD (chronic kidney disease) stage 3, GFR 30-59 ml/min Code(s): N18.3 - CHRONIC KIDNEY DISEASE, STAGE 3 (MODERATE) Comment: - Creatinine at baseline (8) JOAQUIN (obstructive sleep apnea) Code(s): G47.33 - OBSTRUCTIVE SLEEP APNEA (ADULT) (PEDIATRIC) Comment: - CPAP (9) GERD (gastroesophageal reflux disease) Code(s): K21.9 - GASTRO-ESOPHAGEAL REFLUX DISEASE WITHOUT ESOPHAGITIS Comment : - Continue patoprazole (10) Depression Code(s): F32.9 - MAJOR DEPRESSIVE DISORDER, SINGLE EPISODE, UNSPECIFIED Comment: - Continue duloxetine, Seroquel (11) DVT prophylaxis Comment: - Lovenox (12) DNR (do not resuscitate) Comment: Status and Disposition: Inpatient. Anticipate need for DORINDA. Attending: Carl Pope
[2018-08-21] MEDS: Vancomycin(*) 750 MG in NS 0.9% 250 ML* 250 ML IVPB SCH (18:02)
[2018-08-21] MEDS: Enoxaparin(*) 40 MG/0.4 ML SYR SUBCUT SCH (18:02)
[2018-08-21] MEDS: oxyCODONE TAB* 5 MG TAB PO PRN (18:03)
[2018-08-21] MEDS: Cyclobenzaprine TAB* 10 MG PO SCH (20:13)
[2018-08-21] MEDS: QUEtiapine TAB* 25 MG PO SCH (20:14)
[2018-08-22] MEDS: Vancomycin(*) 750 MG in NS 0.9% 250 ML* 250 ML IVPB SCH ×2 (05:22→18:01)
[2018-08-22 06:58] LABS: EGFR African American 63.4 (>60); EGFR Non-African American 52.4 (>60)
--- NOTE | 2018-08-22 07:28 | PN ---
Progress Note - Progress Note Date of Service: 08/22/18 Note: Pt seen and examined. Having pain when moving or sitting. Prefers to lay down. US negative for DVT Temp Pulse Resp BP Pulse Ox 97.8 F 66 20 156/63 96 08/22/18 03:25 08/22/18 03:25 08/22/18 03:25 08/22/18 03:25 08/22/18 03:25 NAD. Alert. pleasant. BLE: warm and well perfused. SILT grossly. able to DF/PF ankle. Calf soft but legs tender. Laboratory Results - last 24 hr 08/20/18 08/22/18 06:49 06:10 Hem Pathologist Commnt BUN 25 H Creatinine 1.02 H Est GFR ( Amer) 63.4 Est GFR (Non-Af Amer) 52.4 A/P 77 yo F with sacral insufficiency fractures and S2 fracture mobilize dvt ppx analgesia repleting vitamin D can follow up outpatient.
[2018-08-22] MEDS: Polyethylene Glycol 3350* 17 GM PACKET PO SCH (07:59)
[2018-08-22] MEDS: Cholecalciferol TAB* 1000 UNITS PO SCH (08:00)
[2018-08-22] MEDS: Docusate CAP* 100 MG PO SCH ×2 (08:00→20:24)
[2018-08-22] MEDS: predniSONE TAB* 5 MG PO SCH (08:00)
[2018-08-22] MEDS: Acetaminophen TAB* 325 MG PO SCH ×3 (08:00→20:25)
[2018-08-22] MEDS: Pantoprazole TAB * 40 MG TAB PO SCH (08:01)
[2018-08-22] MEDS: predniSONE TAB* 1 MG PO SCH (08:01)
[2018-08-22] MEDS: DULoxetine DR CAP* 30 MG CAP.DR PO SCH (08:01)
[2018-08-22] MEDS: Cyanocobalamin TAB* 500 MCG PO SCH (08:01)
[2018-08-22] MEDS: Multivitamins/Minerals TAB PO SCH (08:01)
[2018-08-22] MEDS: Folic Acid TAB* 1 MG PO SCH (08:01)
[2018-08-22] MEDS: Aspirin EC TAB* 81 MG TAB.EC PO SCH (08:01)
[2018-08-22] MEDS: Cephalexin CAP* 500 MG PO SCH ×2 (08:02→20:24)
[2018-08-22] MEDS: oxyCODONE TAB* 5 MG TAB PO PRN ×2 (08:02→18:01)
[2018-08-22] MEDS: Hydroxychloroquine TAB* 200 MG PO SCH (08:07)
[2018-08-22] MEDS: Nystatin TOP POWDER* 15 GM BTL TOPICAL SCH ×3 (08:08→20:31)
[2018-08-22] MEDS: traMADol TAB* 50 MG PO PRN (11:19)
[2018-08-22] MEDS: Magnesium Hydroxide LIQ* 30 ML UDC PO PRN (11:20)
--- NOTE | 2018-08-22 11:49 | PN ---
Subjective Date of Service: 08/22/18 Interval History: Ms. Moss is feeling fine this morning. She is up in a recliner on my exam and reports significant pain, 10/10, when getting up this morning. Pain is improved at rest, though still present to some extent. Has not had a BM. Denies CP, SOB, N/V, abdominal pain. No concerns from nursing. Family History: Unchanged from Admission Social History: Unchanged from Admission Past Medical History: Unchanged from Admission Objective Active Medications: Acetaminophen (Tylenol Tab*) 975 mg PO TID [facility] Aspirin (Aspirin Ec Tab*) 81 mg PO DAILY [facility] Cephalexin HCl (Keflex Cap*) 500 mg PO BID [facility] Cholecalciferol (Vitamin D Tab*) 2,000 units PO DAILY [facility] Cyanocobalamin (Vitamin B12 Tab*) 1,000 mcg PO DAILY [facility] Cyclobenzaprine HCl (Flexeril Tab*) 5 mg PO BEDTIME [facility] Docusate Sodium (Colace Cap*) 100 mg PO BID CARLA Duloxetine HCl (Cymbalta Cap*) 30 mg PO DAILY [facility] Enoxaparin Sodium (Lovenox(*)) 40 mg SUBCUT Q24H [facility] Folic Acid (Folvite Tab*) 1 mg PO DAILY [facility] Hydroxychloroquine Sulfate (Plaquenil Tab*) 400 mg PO DAILY [facility] Vancomycin HCl 750 mg/ Sodium (Chloride) 250 mls @ 166.667 mls/hr IVPB Q12H [facility] Magnesium Hydroxide (Milk Of Magnesia Liq*) 30 ml PO BID PRN CONSTIPATION Multivitamins/Minerals (Theragran/Minerals Tab*) 1 tab PO DAILY [facility] Nystatin (Nystatin Top Powder*) 1 applic TOPICAL TID CARLA Ondansetron HCl (Zofran Inj*) 4 mg IV Q6H PRN NAUSEA/VOMITING Oxycodone HCl (Roxycodone Tab*) 5 mg PO Q4H PRN PAIN Pantoprazole Sodium (Protonix Tab*) 40 mg PO DAILY [facility] Polyethylene Glycol/Electrolytes (Miralax*) 17 gm PO DAILY [facility] Prednisone (Deltasone Tab*) 5 mg PO DAILY [facility] Prednisone (Deltasone Tab*) 2 mg PO DAILY [facility] Quetiapine Fumarate (Seroquel Tab*) 25 mg PO BEDTIME [facility] Senna (Senokot Tab*) 1 tab PO BEDTIME PRN CONSTIPATION Tramadol HCl (Ultram*) 25 mg PO TID PRN PAIN Vital Signs - 8 hr 08/22/18 08/22/18 08/22/18 08:00 08:02 11:02 Temperature 98.0 F Pulse Rate 76 Respiratory 20 18 20 Rate Blood Pressure 170/53 (mmHg) O2 Sat by Pulse 98 Oximetry 08/22/18 11:19 Temperature Pulse Rate Respiratory 22 Rate Blood Pressure (mmHg) O2 Sat by Pulse Oximetry Oxygen Devices in Use Now: None Appearance: Elderly female sitting in chair in NAD Eyes: No Scleral Icterus Ears/Nose/Mouth/Throat: Mucous Membranes Moist Neck: NL Appearance and Movements; NL JVP, Trachea Midline Respiratory: Symmetrical Chest Expansion and Respiratory Effort, Clear to Auscultation Cardiovascular: NL Sounds; No Murmurs; No JVD, RRR Abdominal: - - Mildly tender throughout, worst in thr RUQ Extremities: No Edema Neurological: Alert and Oriented x 3 Lines/Tubes/Other Access: Clean, Dry and Intact Peripheral IV Nutrition: Taking PO's Result Diagrams: 08/20/18 06:49 08/22/18 06:10 Assess/Plan/Problems-Billing Assessment: Ms. Moss is a 77 yo F with PMH of chronic left prosthetic hip infection, RA, HTN, HLD, dementia, CVA, JOAQUIN, depression, and orthostatic hypotension; who presented to the ED with c/o low back pain and was found to have an S2 fracture. - Patient Problems (1) UTI (urinary tract infection) Comment: - Started on Macrobid by PCP; this was stopped on admission - Urine culture from 08/17/18 growing multi-resistant Enterococcus - Urine culture from 08/20/18 growing Morganella with an insignificant colony count - Appreciate ID consult; recommends repeat BC and vanco x7 days - Continue vanco (day 3/7) (2) Sacral fracture Code(s): S32.10XA - UNSP FRACTURE OF SACRUM, INIT ENCNTR FOR CLOSED FRACTURE Comment: - No known fall or injury - MRI shows transverse fracture of S2 and bilateral sacral insufficiency fractures - Appreciate Ortho consult; pain management, no surgical intervention - PT/OT; suspect need for DORINDA - Weight bearing as tolerated - Continue Tylenol (scheduled), Tramadol, oxycodone (3) Chronic infection of prosthetic hip Code(s): T84.59XA - INFECT/INFLM REACTION DUE TO OTH INTERNAL JOINT PROSTH, INIT ; Z96.649 - PRESENCE OF UNSPECIFIED ARTIFICIAL HIP JOINT Comment: - Left hip - Follows with Dr. Hernandez and Dr. Hannah - Continue cephalexin (4) Rheumatoid arthritis Code(s): M06.9 - RHEUMATOID ARTHRITIS, UNSPECIFIED Comment: - Hold methotrexate - Continue hydroxychloroquine, prednisone (5) History of CVA (cerebrovascular accident) Code(s): Z86.73 - PRSNL HX OF TIA (TIA), AND CEREB INFRC W/O RESID DEFICITS Comment: - Continue aspirin (6) Anemia Code(s): D64.9 - ANEMIA, UNSPECIFIED Comment: - Chronic, H&H at baseline - Suspect anemia of chronic disease secondary to RA (7) CKD (chronic kidney disease) stage 3, GFR 30-59 ml/min Code(s): N18.3 - CHRONIC KIDNEY DISEASE, STAGE 3 (MODERATE) Comment: - Creatinine at baseline (8) JOAQUIN (obstructive sleep apnea) Code(s): G47.33 - OBSTRUCTIVE SLEEP APNEA (ADULT) (PEDIATRIC) Comment: - CPAP (9) GERD (gastroesophageal reflux disease) Code(s): K21.9 - GASTRO-ESOPHAGEAL REFLUX DISEASE WITHOUT ESOPHAGITIS Comment : - Continue patoprazole (10) Depression Code(s): F32.9 - MAJOR DEPRESSIVE DISORDER, SINGLE EPISODE, UNSPECIFIED Comment: - Continue duloxetine, Seroquel (11) DVT prophylaxis Comment: - Lovenox (12) DNR (do not resuscitate) Comment: Status and Disposition: Inpatient. Anticipate need for DORINDA. Attending: Julieth Mcclain
--- NOTE | 2018-08-22 15:06 | PN ---
Progress Note - Progress Note Date of Service: 08/22/18 SOAP: Subjective: CC: UTI HPI: 77 year old woman with sacral fractures and chronic left hip arthroplasty infection admitted with worsening pain, confusion. On antibiotic, no pain with urination or flank pain or frequency. Pain is a little better. No fever, rash , or diarrhea. Objective: Vital Signs Temp 36.7 C 08/22/18 08:00 Pulse 76 08/22/18 08:00 Resp 18 08/22/18 14:42 BP 170/53 08/22/18 08:00 Pulse Ox 98 08/22/18 08:00 Intake & Output 08/21/18 08/22/18 08/22/18 18:59 06:59 18:59 Intake Total 960 270 Balance 960 270 Intake: IV Fluids 20 NS (0.9%) 20 IVPB 250 vancomycin 250 Oral 960 0 Other: Estimated Void Large # Voids 0 Gen:awake, no distress HEENT: no thrush Heart:RRR no murmur Lungs:CTA BL Abd:+BS NTND soft Skin: no rash MSK: no flank tenderness Laboratory Results - last 24 hr 08/22/18 06:10 BUN 25 H Creatinine 1.02 H Est GFR ( Amer) 63.4 Est GFR (Non-Af Amer) 52.4 Assessment: 1. Enterococcus UTI 2. sacral fracture 3. infected hip fixation hardware on chronic antibiotic suppress 4. mild dementia Plan: 1. DC vancomycin 08/23 (ordered. Continue keflex.
[2018-08-22] MEDS: Enoxaparin(*) 40 MG/0.4 ML SYR SUBCUT SCH (18:01)
[2018-08-22] MEDS: QUEtiapine TAB* 25 MG PO SCH (20:24)
[2018-08-22] MEDS: Cyclobenzaprine TAB* 10 MG PO SCH (20:25)
[2018-08-23] MEDS ORDERED: Vancomycin Trough Check NOTE FOLLOW UP ONE (05:30)
[2018-08-23 06:47] LABS: ABS Eosinophils 0.6 10^3/ul (0-0.6); ABS Lymphocytes 3.1 10^3/ul (1.0-4.8); ABS Monocytes 0.8 10^3/ul (0-0.8); ABS Neutrophils 6.2 10^3/ul (1.5-7.7); Eosinophil % 5.2 %; Hematocrit 35 % (35-47); Hemoglobin 11.6 g/dL (12.0-16.0); Lymphocyte % 28.7 %; Mean Corpuscular HGB Conc 34 g/dL (31-36); Mean Corpuscular Hemoglobin 30 pg (27-31); Mean Corpuscular Volume 89 fL (80-97); Nucleated Red Blood Cells % 0.1; Platelet Count 435 10^3/uL (150-450); Red Blood Count 3.89 10^6 /uL (3.70-4.87); Red Cell Distribution Width 15 % (10-15); White Blood Count 10.7 10^3/uL (3.5-10.8)
[2018-08-23 07:01] LABS: Calcium 9.5 mg/dL (8.6-10.3); EGFR African American 64.9 (>60); EGFR Non-African American 53.6 (>60)
[2018-08-23] MEDS: Vancomycin(*) 750 MG in NS 0.9% 250 ML* 250 ML IVPB SCH (08:01)
[2018-08-23] MEDS: Cholecalciferol TAB* 1000 UNITS PO SCH (08:02)
[2018-08-23] MEDS: Cephalexin CAP* 500 MG PO SCH ×2 (08:02→20:55)
[2018-08-23] MEDS: Hydroxychloroquine TAB* 200 MG PO SCH (08:03)
[2018-08-23] MEDS: Acetaminophen TAB* 325 MG PO SCH ×3 (08:03→20:53)
[2018-08-23] MEDS: Cyanocobalamin TAB* 500 MCG PO SCH (08:03)
[2018-08-23] MEDS: Multivitamins/Minerals TAB PO SCH (08:04)
[2018-08-23] MEDS: DULoxetine DR CAP* 30 MG CAP.DR PO SCH (08:04)
[2018-08-23] MEDS: predniSONE TAB* 5 MG PO SCH (08:04)
[2018-08-23] MEDS: Folic Acid TAB* 1 MG PO SCH (08:04)
[2018-08-23] MEDS: Pantoprazole TAB * 40 MG TAB PO SCH (08:04)
[2018-08-23] MEDS: predniSONE TAB* 1 MG PO SCH (08:04)
[2018-08-23] MEDS: Aspirin EC TAB* 81 MG TAB.EC PO SCH (08:05)
[2018-08-23] MEDS: Docusate CAP* 100 MG PO SCH ×2 (08:05→20:56)
[2018-08-23] MEDS: oxyCODONE TAB* 5 MG TAB PO PRN (08:12)
[2018-08-23] MEDS: Nystatin TOP POWDER* 15 GM BTL TOPICAL SCH ×3 (08:23→21:00)
[2018-08-23] MEDS: Polyethylene Glycol 3350* 17 GM PACKET PO SCH (08:23)
[2018-08-23] MEDS: Magnesium Hydroxide LIQ* 30 ML UDC PO PRN (14:41)
[2018-08-23] MEDS: Enoxaparin(*) 40 MG/0.4 ML SYR SUBCUT SCH (18:13)
--- NOTE | 2018-08-23 19:00 | PN ---
Subjective Date of Service: 08/23/18 Interval History: Patient frequently mentions hard stool that was hard to pass this morning. No complaints of back pain today.. Denies dysuria, hematuria, fever/chills, abd pain, chest pain, difficulty breathing. Family History: Unchanged from Admission Social History: Unchanged from Admission Past Medical History: Unchanged from Admission Objective Active Medications: Acetaminophen (Tylenol Tab*) 975 mg PO TID [facility] Last Admin: 08/23/18 14:39 Dose: 975 mg Aspirin (Aspirin Ec Tab*) 81 mg PO DAILY [facility] Last Admin: 08/23/18 08:05 Dose: 81 mg Cephalexin HCl (Keflex Cap*) 500 mg PO BID [facility] Last Admin: 08/23/18 08:02 Dose: 500 mg Cholecalciferol (Vitamin D Tab*) 2,000 units PO DAILY [facility] Last Admin: 08/23/18 08:02 Dose: 2,000 units Cyanocobalamin (Vitamin B12 Tab*) 1,000 mcg PO DAILY [facility] Last Admin: 08/23/18 08:03 Dose: 1,000 mcg Cyclobenzaprine HCl (Flexeril Tab*) 5 mg PO BEDTIME [facility] Last Admin: 08/22/18 20:25 Dose: 5 mg Docusate Sodium (Colace Cap*) 100 mg PO BID [facility] Last Admin: 08/23/18 08:05 Dose: 100 mg Duloxetine HCl (Cymbalta Cap*) 30 mg PO DAILY [facility] Last Admin: 08/23/18 08:04 Dose: 30 mg Enoxaparin Sodium (Lovenox(*)) 40 mg SUBCUT Q24H [facility] Last Admin: 08/23/18 18:13 Dose: 40 mg Folic Acid (Folvite Tab*) 1 mg PO DAILY [facility] Last Admin: 08/23/18 08:04 Dose: 1 mg Hydroxychloroquine Sulfate (Plaquenil Tab*) 400 mg PO DAILY [facility] Last Admin: 08/23/18 08:03 Dose: 400 mg Magnesium Hydroxide (Milk Of Magnesia Liq*) 30 ml PO BID PRN PRN Reason: CONSTIPATION Last Admin: 08/23/18 14:41 Dose: 30 ml Multivitamins/Minerals (Theragran/Minerals Tab*) 1 tab PO DAILY [facility] Last Admin: 08/23/18 08:04 Dose: 1 tab Nystatin (Nystatin Top Powder*) 1 applic TOPICAL TID [facility] Last Admin: 08/23/18 14:44 Dose: 1 applic Ondansetron HCl (Zofran Inj*) 4 mg IV Q6H PRN PRN Reason: NAUSEA/VOMITING Oxycodone HCl (Roxycodone Tab*) 5 mg PO Q4H PRN PRN Reason: PAIN Last Admin: 08/23/18 08:12 Dose: 5 mg Pantoprazole Sodium (Protonix Tab*) 40 mg PO DAILY [facility] Last Admin: 08/23/18 08:04 Dose: 40 mg Pharmacy Consult (Vancomycin Per Pharmacy*) 1 note FOLLOW UP .VANC PER PHARMACY [facility]; Protocol Polyethylene Glycol/Electrolytes (Miralax*) 17 gm PO DAILY [facility] Last Admin: 08/23/18 08:23 Dose: 17 gm Prednisone (Deltasone Tab*) 5 mg PO DAILY [facility] Last Admin: 08/23/18 08:04 Dose: 5 mg Prednisone (Deltasone Tab*) 2 mg PO DAILY [facility] Last Admin: 08/23/18 08:04 Dose: 2 mg Quetiapine Fumarate (Seroquel Tab*) 25 mg PO BEDTIME [facility] Last Admin: 08/22/18 20:24 Dose: 25 mg Senna (Senokot Tab*) 1 tab PO BEDTIME PRN PRN Reason: CONSTIPATION Last Admin: 08/22/18 20:25 Dose: 1 tab Tramadol HCl (Ultram*) 25 mg PO TID PRN PRN Reason: PAIN Last Admin: 08/22/18 11:19 Dose: 25 mg Vital Signs - 8 hr 08/23/18 08/23/18 08/23/18 11:00 11:04 15:00 Temperature 98.2 F 98.6 F Pulse Rate 86 77 Respiratory 24 18 22 Rate Blood Pressure 147/66 135/41 (mmHg) O2 Sat by Pulse 98 95 Oximetry Oxygen Devices in Use Now: None, CPAP Appearance: Obese white female laying in hospital bed, appearing in NAD Eyes: No Scleral Icterus, PERRLA Ears/Nose/Mouth/Throat: Mucous Membranes Moist Neck: NL Appearance and Movements; NL JVP Respiratory: Symmetrical Chest Expansion and Respiratory Effort, Clear to Auscultation Cardiovascular: NL Sounds; No Murmurs; No JVD, RRR Abdominal: NL Sounds; No Tenderness; No Distention, - - no suprapubic tenderness Extremities: No Edema, No Clubbing, Cyanosis Skin: No Rash or Ulcers Neurological: Alert and Oriented x 3, NL Muscle Strength and Tone Result Diagrams: 08/23/18 05:50 08/23/18 05:50 Microbiology and Other Data: Microbiology 08/21/18 12:07 Aerobic Blood Culture - Preliminary Blood Venous No Growth Day 2 Anaerobic Blood Culture - Preliminary No Growth Day 2 08/21/18 11:59 Aerobic Blood Culture - Preliminary Blood Venous No Growth Day 2 Anaerobic Blood Culture - Preliminary No Growth Day 2 08/20/18 03:20 Urine Culture - Final Urine Morganella Morganii Normal Alexandrea Assess/Plan/Problems-Billing Assessment: Ms. Moss is a 77 yo F with PMH of chronic left prosthetic hip infection, RA, HTN, HLD, dementia, CVA, JOAQUIN, depression, and orthostatic hypotension; who presented to the ED with c/o low back pain and was found to have an S2 fracture. - Patient Problems (1) UTI (urinary tract infection) Comment: - Started on Macrobid by PCP; this was stopped on admission - Urine culture from 08/17/18 growing multi-resistant Enterococcus - Urine culture from 08/20/18 growing Morganella with an insignificant colony count - Appreciate ID consult; recommends repeat BC and vanco x7 days - Continue vanco, last day is 08/25/18 - blood culture no growth to date (2) Sacral fracture Code(s): S32.10XA - UNSP FRACTURE OF SACRUM, INIT ENCNTR FOR CLOSED FRACTURE SNOMED Code(s): 973781437 Comment: - No known fall or injury - MRI shows transverse fracture of S2 and bilateral sacral insufficiency fractures - Appreciate Ortho consult; pain management, no surgical intervention - PT/OT; suspect need for DORINDA - Weight bearing as tolerated - Continue Tylenol (scheduled), Tramadol, oxycodone (3) Prosthetic hip infection Code(s): T84.59XA - INFECT/INFLM REACTION DUE TO OTH INTERNAL JOINT PROSTH, INIT ; Z96.649 - PRESENCE OF UNSPECIFIED ARTIFICIAL HIP JOINT SNOMED Code(s): 372821563 Comment: -on chronic antibiotic suppression at home -abx currently vancomycin for UTI treatment (4) History of CVA (cerebrovascular accident) Code(s): Z86.73 - PRSNL HX OF TIA (TIA), AND CEREB INFRC W/O RESID DEFICITS SNOMED Code(s): 464318532 Comment: - Continue aspirin (5) CKD (chronic kidney disease) stage 3, GFR 30-59 ml/min Code(s): N18.3 - CHRONIC KIDNEY DISEASE, STAGE 3 (MODERATE) SNOMED Code(s): 464182318 Comment: - Creatinine at baseline (6) Depression Code(s): F32.9 - MAJOR DEPRESSIVE DISORDER, SINGLE EPISODE, UNSPECIFIED SNOMED Code(s): 93072509 Comment: - Continue duloxetine, Seroquel (7) GERD (gastroesophageal reflux disease) Code(s): K21.9 - GASTRO-ESOPHAGEAL REFLUX DISEASE WITHOUT ESOPHAGITIS SNOMED Code(s): 524106175 Comment: - Continue patoprazole (8) Anemia Code(s): D64.9 - ANEMIA, UNSPECIFIED SNOMED Code(s): 035446029 Comment: - Chronic, H&H at baseline - Suspect anemia of chronic disease secondary to RA (9) JOAQUIN (obstructive sleep apnea) Code(s): G47.33 - OBSTRUCTIVE SLEEP APNEA (ADULT) (PEDIATRIC) SNOMED Code(s): 72730818 Comment: - CPAP (10) Rheumatoid arthritis Code(s): M06.9 - RHEUMATOID ARTHRITIS, UNSPECIFIED SNOMED Code(s): 04265602 Comment: - Hold methotrexate - Continue hydroxychloroquine, prednisone (11) Dementia Code(s): F03.90 - UNSPECIFIED DEMENTIA WITHOUT BEHAVIORAL DISTURBANCE SNOMED Code(s): 07916609 Comment: -supportive care (12) DVT prophylaxis Code(s): KXQ0861 - SNOMED Code(s): 109312145 Comment: - Lovenox (13) DNR (do not resuscitate) Comment: Status and Disposition: Inpatient. Awaiting placement to [facility].
[2018-08-23] MEDS: QUEtiapine TAB* 25 MG PO SCH (20:54)
[2018-08-23] MEDS: Cyclobenzaprine TAB* 10 MG PO SCH (20:54)
[2018-08-24] MEDS: oxyCODONE TAB* 5 MG TAB PO PRN ×3 (08:43→22:55)
[2018-08-24] MEDS: Polyethylene Glycol 3350* 17 GM PACKET PO SCH (08:43)
[2018-08-24] MEDS: traMADol TAB* 50 MG PO PRN (08:44)
[2018-08-24] MEDS: Acetaminophen TAB* 325 MG PO SCH ×3 (08:45→21:19)
[2018-08-24] MEDS: Cholecalciferol TAB* 1000 UNITS PO SCH (08:45)
[2018-08-24] MEDS: DULoxetine DR CAP* 30 MG CAP.DR PO SCH (08:45)
[2018-08-24] MEDS: predniSONE TAB* 1 MG PO SCH (08:45)
[2018-08-24] MEDS: Hydroxychloroquine TAB* 200 MG PO SCH (08:46)
[2018-08-24] MEDS: Multivitamins/Minerals TAB PO SCH (08:46)
[2018-08-24] MEDS: Cephalexin CAP* 500 MG PO SCH ×2 (08:46→21:19)
[2018-08-24] MEDS: predniSONE TAB* 5 MG PO SCH (08:46)
[2018-08-24] MEDS: Folic Acid TAB* 1 MG PO SCH (08:46)
[2018-08-24] MEDS: Docusate CAP* 100 MG PO SCH ×2 (08:46→21:19)
[2018-08-24] MEDS: Aspirin EC TAB* 81 MG TAB.EC PO SCH (08:46)
[2018-08-24] MEDS: Cyanocobalamin TAB* 500 MCG PO SCH (08:47)
[2018-08-24] MEDS: Pantoprazole TAB * 40 MG TAB PO SCH (08:47)
[2018-08-24] MEDS: Nystatin TOP POWDER* 15 GM BTL TOPICAL SCH ×3 (08:48→21:23)
--- NOTE | 2018-08-24 09:07 | PN ---
Progress Note - Progress Note Date of Service: 08/24/18 SOAP: Subjective: CC: UTI HPI: Ms. Moss is a 77 yo female with PMH significant for dementia, RA, osteoarthritis, HTN, HLD, CVA, JOAQUIN, depression, osteoporosis, orthostatic hypotension, and hx left prostehetic hip infection on life long suppression ABX. Denies fever, chills, shortness of breath, nausea, vomiting, diarrhea, or urinary symptoms. Reports "low back pain from the fracture", reports that pain medication is helping the pain and just received pain medication. Objective: Vital Signs - 8 hr 08/24/18 08/24/18 08/24/18 03:46 06:37 08:43 Temperature 97.5 F 98.1 F Pulse Rate 74 80 Respiratory 18 16 18 Rate Blood Pressure 153/57 157/73 (mmHg) O2 Sat by Pulse 91 97 Oximetry Physical Exam: General: NAD, sitting up in bed eating breakfast Neurological: Alert and Oriented to self HEENT: Moist MM, no thrush Cardiovascular: Heart rate regular Respiratory: Lung sounds clear bilateral Abdominal: Bowel sounds present; ABD soft, non tender, large, and non distended Skin: No rash on the exposed skin Laboratory Last Values WBC 10.7 10^3/uL (3.5-10.8) 08/23/18 05:50 RBC 3.89 10^6 /uL (3.70-4.87) 08/23/18 05:50 Hgb 11.6 g/dL (12.0-16.0) L 08/23/18 05:50 Hct 35 % (35-47) 08/23/18 05:50 MCV 89 fL (80-97) 08/23/18 05:50 MCH 30 pg (27-31) 08/23/18 05:50 MCHC 34 g/dL (31-36) 08/23/18 05:50 RDW 15 % (10-15) 08/23/18 05:50 Plt Count 435 10^3/uL (150-450) 08/23/18 05:50 MPV 7.0 fL (7.4-10.4) L 08/23/18 05:50 Neut % (Auto) 58.0 % 08/23/18 05:50 Lymph % (Auto) 28.7 % 08/23/18 05:50 Collin % (Auto) 7.7 % 08/23/18 05:50 Eos % (Auto) 5.2 % 08/23/18 05:50 Baso % (Auto) 0.4 % 08/23/18 05:50 Absolute Neuts (auto) 6.2 10^3/ul (1.5-7.7) 08/23/18 05:50 Absolute Lymphs (auto) 3.1 10^3/ul (1.0-4.8) 08/23/18 05:50 Absolute Monos (auto) 0.8 10^3/ul (0-0.8) 08/23/18 05:50 Absolute Eos (auto) 0.6 10^3/ul (0-0.6) 08/23/18 05:50 Absolute Basos (auto) 0.0 10^3/ul (0-0.2) 08/23/18 05:50 Absolute Nucleated RBC 0.0 10^3/ul 08/23/18 05:50 Immature Gran % 5.0 % (0-9) 08/20/18 06:49 Neutrophils % 62.0 % 08/20/18 06:49 Band Neutrophils % 5.0 % (0-8) 08/20/18 06:49 Lymphocytes % 24.0 % 08/20/18 06:49 Monocytes % 7.0 % 08/20/18 06:49 Eosinophils % 2.0 % 08/20/18 06:49 Nucleated RBC % 0.1 08/23/18 05:50 Normal RBC Morphology Normal (Normal) 08/20/18 06:49 Hem Pathologist Commnt 08/20/18 06:49 Sodium 143 mmol/L (135-145) 08/23/18 05:50 Potassium 4.0 mmol/L (3.5-5.0) 08/23/18 05:50 Chloride 106 mmol/L (101-111) 08/23/18 05:50 Carbon Dioxide 32 mmol/L (22-32) 08/23/18 05:50 Anion Gap 5 mmol/L (2-11) 08/23/18 05:50 BUN 20 mg/dL (6-24) 08/23/18 05:50 Creatinine 1.00 mg/dL (0.51-0.95) H 08/23/18 05:50 Est GFR ( Amer) 64.9 (>60) 08/23/18 05:50 Est GFR (Non-Af Amer) 53.6 (>60) 08/23/18 05:50 BUN/Creatinine Ratio 20.0 (8-20) 08/23/18 05:50 Glucose 76 mg/dL (70-100) 08/23/18 05:50 Calcium 9.5 mg/dL (8.6-10.3) 08/23/18 05:50 Total Bilirubin 0.40 mg/dL (0.2-1.0) 08/19/18 13:35 AST 21 U/L (13-39) 08/19/18 13:35 ALT 18 U/L (7-52) 08/19/18 13:35 Alkaline Phosphatase 243 U/L (34-104) H 08/19/18 13:35 C-Reactive Protein 38.60 mg/L (<8.01) H 08/19/18 13:35 Total Protein 7.0 g/dL (6.4-8.9) 08/19/18 13:35 Albumin 3.6 g/dL (3.2-5.2) 08/19/18 13:35 Globulin 3.4 g/dL (2-4) 08/19/18 13:35 Albumin/Globulin Ratio 1.1 (1-3) 08/19/18 13:35 25-OH Vitamin D Total 23.3 ng/mL (20-50) 08/20/18 06:49 Urine Color Yellow 08/20/18 03:20 Urine Appearance Cloudy 08/20/18 03:20 Urine pH 6.0 (5-9) 08/20/18 03:20 Ur Specific [place] 1.028 (1.010-1.030) 08/20/18 03:20 Urine Protein Negative (Negative) 08/20/18 03:20 Urine Ketones Negative (Negative) 08/20/18 03:20 Urine Blood Negative (Negative) 08/20/18 03:20 Urine Nitrate Negative (Negative) 08/20/18 03:20 Urine Bilirubin Negative (Negative) 08/20/18 03:20 Urine Urobilinogen Negative (Negative) 08/20/18 03:20 Ur Leukocyte Esterase Trace (Negative) A 08/20/18 03:20 Urine WBC (Auto) 3+(>20/hpf) (Absent) A 08/20/18 03:20 Urine RBC (Auto) 1+(3-5/hpf) (Absent) A 08/20/18 03:20 Ur Squamous Epith Cells Present (Absent) A 08/20/18 03:20 Urine Bacteria 1+ (Absent) A 08/20/18 03:20 Urine Glucose Negative (Negative) 08/20/18 03:20 Vancomycin Trough 19.5 mcg/mL 08/23/18 05:50 Microbiology 08/21/18 12:07 Aerobic Blood Culture - Preliminary Blood Venous No Growth Day 2 Anaerobic Blood Culture - Preliminary No Growth Day 2 08/21/18 11:59 Aerobic Blood Culture - Preliminary Blood Venous No Growth Day 2 Anaerobic Blood Culture - Preliminary No Growth Day 2 08/20/18 03:20 Urine Culture - Final Urine Morganella Morganii Normal Alexandrea Assessment: 1. Enterococcus UTI. Urine culture obtained outpatient on 08/17/18 with Enterococcus. Urine culture obtained on this admission with Morganella Morganii with 25-50K colony counts, do not feel this is a significant finding and likely represents asymptomatic bacteriuria. Afebrile and leukocytosis has resolved. Blood cultures with no growth on day 2. Received 5 days of IV vancomycin. 2. Sacral fracture. 3. Infected hip fixation hardware, left. On chronic antibiotic suppression 4. Mild dementia. Plan: Continue Keflex 500 mg BID, for life long suppression of prosthetic hip infection
--- NOTE | 2018-08-24 10:58 | PN ---
Subjective Date of Service: 08/24/18 Interval History: Nursing reports patient is complaining of 10/10 back pain. At time of evaluation , patient had received prn tramadol and patient reports her back pain is controlled. She reports her toes and feet "feeling tight" when she is walking. She denies chest pain, difficulty breathing, dysuria, fever/chills, abd pain, diarrhea, nausea. Family History: Unchanged from Admission Social History: Unchanged from Admission Past Medical History: Unchanged from Admission Objective Active Medications: Acetaminophen (Tylenol Tab*) 975 mg PO TID [facility] Last Admin: 08/24/18 08:45 Dose: 975 mg Aspirin (Aspirin Ec Tab*) 81 mg PO DAILY [facility] Last Admin: 08/24/18 08:46 Dose: 81 mg Cephalexin HCl (Keflex Cap*) 500 mg PO BID [facility] Last Admin: 08/24/18 08:46 Dose: 500 mg Cholecalciferol (Vitamin D Tab*) 2,000 units PO DAILY [facility] Last Admin: 08/24/18 08:45 Dose: 2,000 units Cyanocobalamin (Vitamin B12 Tab*) 1,000 mcg PO DAILY [facility] Last Admin: 08/24/18 08:47 Dose: 1,000 mcg Cyclobenzaprine HCl (Flexeril Tab*) 5 mg PO BEDTIME [facility] Last Admin: 08/23/18 20:54 Dose: 5 mg Docusate Sodium (Colace Cap*) 100 mg PO BID [facility] Last Admin: 08/24/18 08:46 Dose: 100 mg Duloxetine HCl (Cymbalta Cap*) 30 mg PO DAILY [facility] Last Admin: 08/24/18 08:45 Dose: 30 mg Enoxaparin Sodium (Lovenox(*)) 40 mg SUBCUT Q24H [facility] Last Admin: 08/23/18 18:13 Dose: 40 mg Folic Acid (Folvite Tab*) 1 mg PO DAILY [facility] Last Admin: 08/24/18 08:46 Dose: 1 mg Hydroxychloroquine Sulfate (Plaquenil Tab*) 400 mg PO DAILY [facility] Last Admin: 08/24/18 08:46 Dose: 400 mg Magnesium Hydroxide (Milk Of Magnesia Liq*) 30 ml PO BID PRN PRN Reason: CONSTIPATION Last Admin: 08/23/18 14:41 Dose: 30 ml Multivitamins/Minerals (Theragran/Minerals Tab*) 1 tab PO DAILY [facility] Last Admin: 08/24/18 08:46 Dose: 1 tab Nystatin (Nystatin Top Powder*) 1 applic TOPICAL TID [facility] Last Admin: 08/24/18 08:48 Dose: 1 applic Ondansetron HCl (Zofran Inj*) 4 mg IV Q6H PRN PRN Reason: NAUSEA/VOMITING Oxycodone HCl (Roxycodone Tab*) 5 mg PO Q4H PRN PRN Reason: PAIN Last Admin: 08/24/18 08:43 Dose: 5 mg Pantoprazole Sodium (Protonix Tab*) 40 mg PO DAILY [facility] Last Admin: 08/24/18 08:47 Dose: 40 mg Polyethylene Glycol/Electrolytes (Miralax*) 17 gm PO DAILY [facility] Last Admin: 08/24/18 08:43 Dose: 17 gm Prednisone (Deltasone Tab*) 5 mg PO DAILY [facility] Last Admin: 08/24/18 08:46 Dose: 5 mg Prednisone (Deltasone Tab*) 2 mg PO DAILY [facility] Last Admin: 08/24/18 08:45 Dose: 2 mg Quetiapine Fumarate (Seroquel Tab*) 25 mg PO BEDTIME [facility] Last Admin: 08/23/18 20:54 Dose: 25 mg Senna (Senokot Tab*) 1 tab PO BEDTIME PRN PRN Reason: CONSTIPATION Last Admin: 08/22/18 20:25 Dose: 1 tab Tramadol HCl (Ultram*) 25 mg PO TID PRN PRN Reason: PAIN Last Admin: 08/24/18 08:44 Dose: 25 mg Vital Signs - 8 hr 08/24/18 08/24/18 08/24/18 03:46 06:37 08:43 Temperature 97.5 F 98.1 F Pulse Rate 74 80 Respiratory 18 16 18 Rate Blood Pressure 153/57 157/73 (mmHg) O2 Sat by Pulse 91 97 Oximetry 08/24/18 08:44 Temperature Pulse Rate Respiratory 18 Rate Blood Pressure (mmHg) O2 Sat by Pulse Oximetry Oxygen Devices in Use Now: None, CPAP Appearance: Obese white female, sitting in hospital chair appearing in NAD Eyes: No Scleral Icterus, PERRLA Ears/Nose/Mouth/Throat: Mucous Membranes Moist Neck: NL Appearance and Movements; NL JVP Respiratory: Symmetrical Chest Expansion and Respiratory Effort, Clear to Auscultation Cardiovascular: NL Sounds; No Murmurs; No JVD, RRR, - - dorsalis pedis pulses 3/ 4 bilaterally Abdominal: NL Sounds; No Tenderness; No Distention Extremities: No Edema, No Clubbing, Cyanosis Skin: No Rash or Ulcers Neurological: Alert and Oriented x 3, NL Muscle Strength and Tone, - - Sensation to light touch intact and equal bilaterally throughout feet and toes; ROM wnl of bilateral ankles and toes; tenderness to palpation of arch of left foot Result Diagrams: 08/23/18 05:50 08/24/18 11:45 Microbiology and Other Data: Microbiology 08/21/18 12:07 Aerobic Blood Culture - Preliminary Blood Venous No Growth Day 2 Anaerobic Blood Culture - Preliminary No Growth Day 2 08/21/18 11:59 Aerobic Blood Culture - Preliminary Blood Venous No Growth Day 2 Anaerobic Blood Culture - Preliminary No Growth Day 2 08/20/18 03:20 Urine Culture - Final Urine Morganella Morganii Normal Alexandrea Assess/Plan/Problems-Billing Assessment: Ms. Moss is a 77 yo F with PMH of chronic left prosthetic hip infection, RA, HTN, HLD, dementia, CVA, JOAQUIN, depression, and orthostatic hypotension; who presented to the ED with c/o low back pain and was found to have an S2 fracture. - Patient Problems (1) Foot pain Code(s): M79.673 - PAIN IN UNSPECIFIED FOOT SNOMED Code(s): 83210651 Comment: -patient complaining of "tightness" in feet and toes bilaterally -neurovascularly intact -tenderness to palpation of left foot arch -possibly muscular tension, or possibly cramp, checking BMP and will give one time 5m flexeril and reassess; patient is getting bedtime flexeril as well (2) HTN (hypertension) Code(s): I10 - ESSENTIAL (PRIMARY) HYPERTENSION SNOMED Code(s): 65973133 Comment: -SBP frequently >150s -patient has been on losartan in the past, though she has not been taking recently due to diagnosis of orthostatic hypotension -will start 25mg po losartan today and monitor orthostatics (3) UTI (urinary tract infection) Comment: - Started on Macrobid by PCP; this was stopped on admission - Urine culture from 08/17/18 growing multi-resistant Enterococcus - Urine culture from 08/20/18 growing Morganella with an insignificant colony count - Appreciate ID consult; recommends repeat BC and vanco x7 days, then restart keflex 500 mg BID indefinitely for lifelong suppression - Continue vanco, last day is 08/25/18 (tomorrow) - blood culture no growth to date (4) Sacral fracture Code(s): S32.10XA - UNSP FRACTURE OF SACRUM, INIT ENCNTR FOR CLOSED FRACTURE SNOMED Code(s): 523527770 Comment: - No known fall or injury - MRI shows transverse fracture of S2 and bilateral sacral insufficiency fractures - Appreciate Ortho consult; pain management, no surgical intervention - PT/OT; suspect need for DORINDA - Weight bearing as tolerated - Continue Tylenol (scheduled), Tramadol, oxycodone (5) Prosthetic hip infection Code(s): T84.59XA - INFECT/INFLM REACTION DUE TO OTH INTERNAL JOINT PROSTH, INIT ; Z96.649 - PRESENCE OF UNSPECIFIED ARTIFICIAL HIP JOINT SNOMED Code(s): 364164410 Comment: -on chronic antibiotic suppression at home -abx currently vancomycin for UTI treatment (6) History of CVA (cerebrovascular accident) Code(s): Z86.73 - PRSNL HX OF TIA (TIA), AND CEREB INFRC W/O RESID DEFICITS SNOMED Code(s): 030176039 Comment: - Continue aspirin (7) CKD (chronic kidney disease) stage 3, GFR 30-59 ml/min Code(s): N18.3 - CHRONIC KIDNEY DISEASE, STAGE 3 (MODERATE) SNOMED Code(s): 777445444 Comment: - Creatinine at baseline (8) Depression Code(s): F32.9 - MAJOR DEPRESSIVE DISORDER, SINGLE EPISODE, UNSPECIFIED SNOMED Code(s): 17153998 Comment: - Continue duloxetine, Seroquel (9) GERD (gastroesophageal reflux disease) Code(s): K21.9 - GASTRO-ESOPHAGEAL REFLUX DISEASE WITHOUT ESOPHAGITIS SNOMED Code(s): 370567483 Comment: - Continue pantoprazole (10) Anemia Code(s): D64.9 - ANEMIA, UNSPECIFIED SNOMED Code(s): 244868344 Comment: - Chronic, H&H at baseline - Suspect anemia of chronic disease secondary to RA (11) JOAQUIN (obstructive sleep apnea) Code(s): G47.33 - OBSTRUCTIVE SLEEP APNEA (ADULT) (PEDIATRIC) SNOMED Code(s): 82379626 Comment: - CPAP (12) Rheumatoid arthritis Code(s): M06.9 - RHEUMATOID ARTHRITIS, UNSPECIFIED SNOMED Code(s): 36733952 Comment: - Hold methotrexate - Continue hydroxychloroquine, prednisone (13) Dementia Code(s): F03.90 - UNSPECIFIED DEMENTIA WITHOUT BEHAVIORAL DISTURBANCE SNOMED Code(s): 52022574 Comment: -supportive care (14) DVT prophylaxis Code(s): FLQ6814 - SNOMED Code(s): 850495255 Comment: - Lovenox (15) DNR (do not resuscitate) Comment: Status and Disposition: Inpatient. [facility] beds available, pending selection by patient and daughter, likely discharge tomorrow
[2018-08-24] MEDS ORDERED: Cyclobenzaprine TAB* 10 MG PO ONE (11:11)
[2018-08-24] MEDS: Losartan TAB* 25 MG PO SCH (11:46)
[2018-08-24 12:22] LABS: BUN/Creatinine Ratio 21.3 (8-20); Calcium 9.4 mg/dL (8.6-10.3); EGFR African American 59.4 (>60); EGFR Non-African American 49.1 (>60); Potassium 4.3 mmol/L (3.5-5.0)
[2018-08-24] MEDS: Enoxaparin(*) 40 MG/0.4 ML SYR SUBCUT SCH (19:23)
[2018-08-24] MEDS: QUEtiapine TAB* 25 MG PO SCH (21:19)
[2018-08-24] MEDS: Cyclobenzaprine TAB* 10 MG PO SCH (21:19)
[2018-08-25] MEDS: Hydroxychloroquine TAB* 200 MG PO SCH (09:27)
[2018-08-25] MEDS: Polyethylene Glycol 3350* 17 GM PACKET PO SCH (09:27)
[2018-08-25] MEDS: Losartan TAB* 25 MG PO SCH (09:29)
[2018-08-25] MEDS: Cephalexin CAP* 500 MG PO SCH (09:29)
[2018-08-25] MEDS: Aspirin EC TAB* 81 MG TAB.EC PO SCH (09:29)
[2018-08-25] MEDS: DULoxetine DR CAP* 30 MG CAP.DR PO SCH (09:29)
[2018-08-25] MEDS: Folic Acid TAB* 1 MG PO SCH (09:29)
[2018-08-25] MEDS: Cholecalciferol TAB* 1000 UNITS PO SCH (09:29)
[2018-08-25] MEDS: Acetaminophen TAB* 325 MG PO SCH ×2 (09:30→15:12)
[2018-08-25] MEDS: Docusate CAP* 100 MG PO SCH (09:30)
[2018-08-25] MEDS: predniSONE TAB* 5 MG PO SCH (09:30)
[2018-08-25] MEDS: Multivitamins/Minerals TAB PO SCH (09:30)
[2018-08-25] MEDS: predniSONE TAB* 1 MG PO SCH (09:30)
[2018-08-25] MEDS: Pantoprazole TAB * 40 MG TAB PO SCH (09:30)
[2018-08-25] MEDS: Cyanocobalamin TAB* 500 MCG PO SCH (09:30)
[2018-08-25] MEDS: Nystatin TOP POWDER* 15 GM BTL TOPICAL SCH ×2 (09:36→15:13)
[2018-08-25 11:38] VITALS: BP 119/46
--- NOTE | 2018-08-25 12:02 | DS ---
CC: Dr. Hodan Sol; Dr. Lionel Hernandez; Dr. Schulz; Dr. Hannah.* DISCHARGE SUMMARY: DATE OF ADMISSION: 08/19/18 DATE OF DISCHARGE: 08/25/18 ATTENDING PHYSICIAN WHILE IN THE HOSPITAL: Dr. Julieth Mcclain * (dictated by SHARON Lyons). PRIMARY CARE PROVIDER: Dr. Hodan Sol. INFECTIOUS DISEASE: Dr. Lionel Hernandez. CONSULTING ORTHOPEDIST: Dr. Schulz. OUTPATIENT ORTHOPEDIST: Dr. Hannah. PRIMARY DIAGNOSES: 1. S2 fracture. 2. Urinary tract infection. SECONDARY DIAGNOSES: 1. Left prosthetic hip infection, on chronic Keflex. 2. Rheumatoid arthritis. 3. Osteoarthritis. 4. Hypertension. 5. Hyperlipidemia. 6. Dementia. 7. Stroke in 2004 8. Obstructive sleep apnea on CPAP. 9. Depression. 10. Osteoporosis 11. Orthostatic hypotension. STUDIES WHILE IN THE HOSPITAL: Doppler of bilateral lower extremities indicating no DVT, bilateral lower extremities. Hip MRI 08/19/18 no loculated fluid collection suspicious for abscess. Bilateral sacral insufficiency fractures. Transverse fracture of S2 vertebral body. Status post left hip arthroplasty. Pertinent Lab Data: White cell count on 08/20/17 of 10.7, creatinine on of 1.08, vitamin D level on 08/20/18 of 23.3. Urine culture from 08/19/18 growing Morganella morganii is resistant to Augmentin, ampicillin, cefazolin, nitrofurantoin, and tetracycline. Urine culture from 08/17/18 that grew Enterococcus faecium only sensitive to gentamicin, dalfopristin, streptomycin, tigecycline, and vancomycin. HISTORY OF PRESENT ILLNESS/HOSPITAL COURSE: Ms. Moss is a 77-year- old female with medical history significant for left hip periprosthetic fracture on chronic Keflex, rheumatoid arthritis, dementia, and history of stroke, who presented to the emergency department due to low back and hip pain on 08/19/18. Please see admitting history and physical dictated by Shruthi Schroeder NP, for further information. Regarding her S2 fracture that was found, she was seen by Dr. Schulz and she recommended no surgical intervention at this time until follow up with Dr. Hannah outpatient or herself additionally recommended starting vitamin D supplement given the lower vitamin D levels. Physical therapy recommended the patient go to subacute rehab for further strength training, especially given this new fracture. The patient's decision maker and health care proxy her daughter was in agreement with subacute rehab. During her hospital stay her home Aspirin was continued, also home medications were continued except for methotrexate. She was ultimately found to have a UTI that she was receiving treatment for outpatient, but the sensitives determined mcfadden-resistance and Dr. Hernandez suggested treatment with IV vancomycin, which was given for 5 days until discontinued per Dr. Hernandez. She was then restarted on her chronic Keflex. On day of discharge the patient complains of low back pain, which is unchanged from the day prior. She otherwise denies difficulty breathing, chest pain, abdominal pain, lower extremity pain, fever or chills. REVIEW OF SYSTEMS: An 11-point review of systems was completed and all pertinent positives and negatives are in the HPI and all other systems are negative. PHYSICAL EXAM: General: Obese white female lying in hospital bed, appearing in no acute distress. Head: Normocephalic, atraumatic. Eyes: PERRL. Sclerae anicteric. ENT: Mucous membranes moist. Neck: Supple without JVD. Cardio: Regular rate and rhythm without murmurs, rubs, or gallops. Respiratory : Clear to auscultation throughout. Abdomen: Soft, nontender, nondistended. Extremities: No edema, clubbing, cyanosis. No tenderness to palpation to bilateral feet and ankles. Neuro: The patient is alert and oriented to self. No focal deficits, able to move all extremities. DISCHARGE PLAN: Diet: Regular unrestricted diet. Activity: Return to normal activity as tolerated with walker. The patient will be going to [facility] for subacute rehab. It is recommended that she follow up in approximately a month with either Dr. Schulz or her normal orthopedist Dr. Hannah. It is recommended that she eventually have follow up with her normal primary care provider regarding this hospitalization. Additionally, it is recommended that she follow up with her configuration technician Dr. Carl to determine follow up regarding her Orencia therapy. [place] requires that I send narcotic prescription; I provided 5 days of oral oxycodone. I have checked the PDMP and the patient was previously prescribed tramadol by Dr. Hannah's office by SHARON Addison. PDMP reference number [id number]. Please check the patient's blood pressure as an antihypertensive has been recently started due to sustained hypertension, but the patient does have a history of orthostastic hypotension. Please utilize caution with position changes. DISCHARGE MEDICATIONS: 1. Seroquel 25 mg p.o. at bedtime. 2. Oxycodone 5 mg p.o. q. 4 hours p.r.n. severe pain maximum daily dose 6 tabs. 3. Senna 1 tab p.o. at bedtime p.r.n. 4. MiraLAX 17 g p.o. daily. 5. Nystatin topical powder 1 application topical t.i.d. 6. Milk of magnesia 30 mL p.o. b.i.d. p.r.n. 7. Losartan 25 mg p.o. daily. 8. Colace 100 mg p.o. b.i.d. 9. Vitamin D 2000 p.o. daily. 10. Tylenol 975 p.o. t.i.d. CONTINUED HOME MEDICATION: 1. Prednisone 5 mg p.o. daily. 2. Prednisone 2 mg p.o. daily. 3. Cymbalta 30 p.o. daily. 4. Folic acid 1 mg p.o. daily. 5. Plaquenil 400 mg p.o. daily. 6. Methotrexate 17.5 mg p.o. weekly. 7. Omeprazole 40 mg p.o. daily. 8. Orencia 250 mg IV monthly followed by Dr. Carl. 9. Aspirin 81 mg daily. 10. Caltrate 600 plus D tab 1 tab p.o. b.i.d. 11. Keflex 500 mg p.o. b.i.d. 12. Vitamin B12 at 1000 mcg p.o. daily. 13. Flexeril 5 mg p.o. bedtime. CONDITION ON DISCHARGE: Stable. DISPOSITION: [facility]. TIME SPENT: Approximately 40 minutes was spent on this discharge, approximately half of this time spent at bedside. SHARON LYONS [id number]/[facility] #: [id number] [facility] CENTERGerard
[2018-08-25] MEDS: oxyCODONE TAB* 5 MG TAB PO PRN (12:59)
== END 2018-08-25 16:00 | DRG 543 ==
LOC: ED 11:55 → MED 18:22
PROVIDERS: ADMIT Internal Medicine; ATTEND Internal Medicine
DX: M84.48XA Pathological fracture, other site, initial encounter for fracture (principal); N39.0 Urinary tract infection, site not specified; S32.10XA Unspecified fracture of sacrum, initial encounter for closed fracture; T84.52XA Infection and inflammatory reaction due to internal left hip prosthesis, initial encounter; M19.072 Primary osteoarthritis, left ankle and foot; M85.872 Other specified disorders of bone density and structure, left ankle and foot; Y79.2 Prosthetic and other implants, materials and accessory orthopedic devices associated with adverse incidents; M06.9 Rheumatoid arthritis, unspecified; E78.5 Hyperlipidemia, unspecified; F03.90 Unspecified dementia, unspecified severity, without behavioral disturbance, psychotic disturbance, mood disturbance, and anxiety; G47.33 Obstructive sleep apnea (adult) (pediatric); F32.9 Major depressive disorder, single episode, unspecified; M81.0 Age-related osteoporosis without current pathological fracture; Z66 Do not resuscitate; B95.2 Enterococcus as the cause of diseases classified elsewhere; D69.6 Thrombocytopenia, unspecified; M79.672 Pain in left foot; M79.671 Pain in right foot; Z16.24 Resistance to multiple antibiotics; N18.3 Chronic kidney disease, stage 3 (moderate); I12.9 Hypertensive chronic kidney disease with stage 1 through stage 4 chronic kidney disease, or unspecified chronic kidney disease; K21.9 Gastro-esophageal reflux disease without esophagitis; D64.9 Anemia, unspecified; I95.1 Orthostatic hypotension; Z79.52 Long term (current) use of systemic steroids; Y92.9 Unspecified place or not applicable; Z86.73 Personal history of transient ischemic attack (TIA), and cerebral infarction without residual deficits; Z90.710 Acquired absence of both cervix and uterus; Z98.42 Cataract extraction status, left eye; Z98.41 Cataract extraction status, right eye; Z82.49 Family history of ischemic heart disease and other diseases of the circulatory system; Z80.3 Family history of malignant neoplasm of breast; Z79.82 Long term (current) use of aspirin; Z79.2 Long term (current) use of antibiotics
CPT/HCPCS: 36415; 72158; 80048; 80053; 80202; 81003; 81015; 82306; 82565; 84520; 85025; 85060; 86140; 87040; 87077; 87086; 87186; 93970; 94660; 99283; A9270-GY; A9579; G8978-GP-CK; G8979-GP-CI; G8987-GO-CL; G8988-GO-CJ; J1650; J3370; J7512

== ENCOUNTER 2019-01-16 11:18 | Day surgery (SDC) | payer MEDICARE ==
[~2019-01-16 11:18] MED LIST changes: +Acetaminophen TAB* 325 MG PO PRN; -Buffered Lidocaine 0.9% SYRIN* 5 ML/SYR SYRINGE INTRADERM ONE; +Buffered Lidocaine 1% SYRIN* 1 ML/SYRINGE INTRADERM ONE; -Famotidine IV* 10 MG/ML 2 ML (20 mg) IV ONE; -Metoclopramide TAB* 10 MG PO ONE
[2019-01-16] MEDS ORDERED: Midazolam* 1 MG/ML 5 ML VIAL (5 MG) ONE (12:07)
[2019-01-16] MEDS ORDERED: fentaNYL* 50 MCG/ML 2 ML VIAL (100 MCG VIAL) ONE (12:07)
[2019-01-16 13:39] VITALS: BP 174/72
[2019-01-16] MEDS ORDERED: Tropicamide 1% OPTH.SOL* BTL ONE (14:27)
[2019-01-16] MEDS ORDERED: Cyclopentolate 1% OPTH.SOL* 2 ML BTL ONE (14:27)
[2019-01-16] MEDS ORDERED: Neomycin/Polymy/Dex OPHTH.OIN* 3.5 GM ONE (14:27)
[2019-01-16] MEDS ORDERED: Tetracaine 0.5% OPTH.SOL 4 ML* 1 DROP BTL ONE (14:27)
[2019-01-16] MEDS ORDERED: Phenylephrine OPHTH SOL 2.5%* 2 ML ONE (14:27)
[2019-01-16] MEDS ORDERED: Ketorolac 0.5% OPHTH (NF) 0.5 % 5 ML BTL ONE (14:27)
[2019-01-16] MEDS ORDERED: Lidocaine 1% MPF ** 5 ML VIAL ONE (14:27)
--- NOTE | 2019-01-16 19:55 | OP ---
DATE OF OPERATION: 01/16/19 [facility] DATE OF : 38 SURGEON: Dr. Kalyan Guardado. FIGHTING VEHICLE SYSTEMS MAINTAINER: None. ANESTHESIA: Topical with intravenous sedation. PRE-OP DIAGNOSIS: Cataract, left eye. POST-OP DIAGNOSIS: Cataract, left eye. OPERATIVE PROCEDURE: Phacoemulsification and cataract extraction with posterior chamber intraocular lens implant, left eye. COMPLICATIONS: None. BLOOD LOSS: None. DESCRIPTION OF PROCEDURE: The patient was brought to the operating room and received a small amount of intravenous sedation. A drop of tetracaine was placed in her left eye. She was prepped and draped in the usual sterile fashion for ophthalmic surgery and attention was directed to the left eye where a speculum was placed. A paracentesis was created at the 5 o'clock position and 0.1 cc of 1 percent preservative-free lidocaine was injected into the anterior chamber followed by DisCoVisc. The eye was digitally stabilized while a 2.75 mm keratome was used to create a triplanar clear corneal incision at the 3 o'clock position. A continuous curvilinear capsulorrhexis was created with a cystotome and Utrata forceps. BSS on a cannula was used to hydrodissect the lens from the capsule. Phacoemulsification was performed in a divide-and- conquer technique to create four fragments which were removed. Residual cortical material was removed with irrigation and aspiration. DisCoVisc was used to inflate the capsular bag and an AU00T0 12.5 diopter lens was folded and inserted into the capsular bag. DisCoVisc was removed using irrigation and aspiration. BSS on a cannula was used to hydrate the corneal stroma and seal the wound. At the end of the case the pupil was round and the lens was centered. The eye was of normal pressure and the wound was water tight. The speculum was removed and topical Maxitrol ointment was placed on the surface of the eye. The eye was closed, patched and shielded and the patient was sent to the recovery room in stable condition with post operative instructions and follow-up appointment given. [id number]/[facility] #: [id number] ANJEL
== END 2019-01-16 13:27 | disposition home or self-care (01) ==
LOC: OREAST 11:18
PROVIDERS: ATTEND Ophthalmology
DX: H25.12 Age-related nuclear cataract, left eye (principal); F03.90 Unspecified dementia, unspecified severity, without behavioral disturbance, psychotic disturbance, mood disturbance, and anxiety; G47.33 Obstructive sleep apnea (adult) (pediatric); M81.0 Age-related osteoporosis without current pathological fracture; M06.9 Rheumatoid arthritis, unspecified; E78.5 Hyperlipidemia, unspecified; E66.9 Obesity, unspecified; I12.9 Hypertensive chronic kidney disease with stage 1 through stage 4 chronic kidney disease, or unspecified chronic kidney disease; N18.3 Chronic kidney disease, stage 3 (moderate); Z79.52 Long term (current) use of systemic steroids; Z68.38 Body mass index [BMI] 38.0-38.9, adult; Z96.642 Presence of left artificial hip joint
CPT/HCPCS: A9270-GY; J2250; J3010; V2632

== ENCOUNTER 2019-01-23 08:48 | Day surgery (SDC) | payer MEDICARE ==
[2019-01-23] MEDS ORDERED: Midazolam* 1 MG/ML 2 ML VIAL (2 MG) ONE ×2 (09:12→10:05)
[2019-01-23 10:37] VITALS: BP 164/65
--- NOTE | 2019-01-23 13:42 | OP ---
DATE OF OPERATION: 01/23/19 [facility] DATE OF : 38 SURGEON: Dr. Kalyan Guardado. PARARESCUE CRAFTSMAN: None. ANESTHESIA: Topical with intravenous sedation. PRE-OP DIAGNOSIS: Cataract with pseudoexfoliation material, right eye. POST-OP DIAGNOSIS: Cataract with pseudoexfoliation material, right eye. OPERATIVE PROCEDURE: Phacoemulsification and cataract extraction with posterior chamber intraocular lens implant, right eye. COMPLICATIONS: None. BLOOD LOSS: None. DESCRIPTION OF PROCEDURE: The patient was brought to the operating room and received intravenous sedation. A drop of Tetracaine was placed in her right eye. The patient was prepped and draped in the usual sterile fashion for ophthalmic surgery and attention was directed to the right eye where a speculum was placed. A paracentesis was created at the 11 o'clock position and 0.1 cc of 1 percent preservative-free lidocaine was injected into the anterior chamber followed by DisCoVisc. It was noted the pupil failed to dilate despite preoperative drops and the viscodilation. The eyes was digitally stabilized. A 2.75 mm keratome was used to create a triplanar clear corneal incision at the 9 o'clock position. A Malyugin ring was atraumatically inserted into the anterior chamber and used to engage the pupillary margin at four quadrants. At this point, a continuous curvilinear capsulorrhexis was created using a cystotome and Utrata forceps. BSS on a cannula was used to hydrodissect the lens from the capsule. Phacoemulsification was performed in a [id number] technique to create 4 fragments which were removed. Care was taken to keep the pressure in the system lower than average to avoid disrupting the zonules. Cortical material was atraumatically removed using irrigation and aspiration. The AU00T0 21.5 diopter lens was inserted into the capsular bag. DisCoVisc was removed from posterior to the lens. Supplemental DisCoVisc was placed anterior to the lens. The Malyugin ring was atraumatically removed. Viscoelastic was removed completely with irrigation and aspiration at this point. BSS on a cannula was used to hydrate the corneal stroma and seal the wound. At the end of the case, the pupil was fairly round and measured approximately 3.5 mm. The intraocular lens was centered and stable. The eye pressure appeared normal pressure and the wound was water tight. The speculum was removed and topical Maxitrol ointment was placed on the surface of the eye. The eye was closed, patched and shielded and the patient was sent to the recovery room in stable condition with postop instructions and follow-up appointment given. [id number]/[facility] #: [id number] MTDD
[2019-01-23] MEDS ORDERED: Cyclopentolate 1% OPTH.SOL* 2 ML BTL ONE (15:10)
[2019-01-23] MEDS ORDERED: Tropicamide 1% OPTH.SOL* BTL ONE (15:11)
[2019-01-23] MEDS ORDERED: Tetracaine 0.5% OPTH.SOL 4 ML* 1 DROP BTL ONE (15:11)
[2019-01-23] MEDS ORDERED: Phenylephrine OPHTH SOL 2.5%* 2 ML ONE (15:11)
[2019-01-23] MEDS ORDERED: Ketorolac 0.5% OPHTH (NF) 0.5 % 5 ML BTL ONE (15:11)
[2019-01-23] MEDS ORDERED: Lidocaine 1% MPF ** 5 ML VIAL ONE (15:11)
[2019-01-23] MEDS ORDERED: Neomycin/Polymy/Dex OPHTH.OIN* 3.5 GM ONE (15:11)
[2019-01-24] MEDS ORDERED: Phenylephr/Ketorolac 1%/0.3% OPH DROP BTL ONE (06:59)
== END 2019-01-23 10:53 | disposition home or self-care (01) ==
LOC: OREAST 08:48
PROVIDERS: ATTEND Ophthalmology
PROC: 08RJ3JZ Replacement of Right Lens with Synthetic Substitute, Percutaneous Approach (ICD-10-PCS; principal; 2019-01-23 10:00)
DX: H25.11 Age-related nuclear cataract, right eye (principal); F03.90 Unspecified dementia, unspecified severity, without behavioral disturbance, psychotic disturbance, mood disturbance, and anxiety; D64.9 Anemia, unspecified; I12.9 Hypertensive chronic kidney disease with stage 1 through stage 4 chronic kidney disease, or unspecified chronic kidney disease; N18.3 Chronic kidney disease, stage 3 (moderate); E78.5 Hyperlipidemia, unspecified; K21.9 Gastro-esophageal reflux disease without esophagitis; Z86.73 Personal history of transient ischemic attack (TIA), and cerebral infarction without residual deficits; Z79.82 Long term (current) use of aspirin; Z79.52 Long term (current) use of systemic steroids
CPT/HCPCS: A9270-GY; J1097; J2250; V2632

== ENCOUNTER 2020-07-30 18:07 | Inpatient (IN) ==
[2020-07-30 19:40] LABS: ABS Eosinophils 0.1 10^3/ul (0-0.6); ABS Lymphocytes 1.1 10^3/ul (1.0-4.8); ABS Monocytes 0.7 10^3/ul (0-0.8); ABS Neutrophils 6.7 10^3/ul (1.5-7.7); Hematocrit 34 % (35-47); Hemoglobin 11.6 g/dL (12.0-16.0); Lymphocyte % 13.2 %; Mean Corpuscular HGB Conc 34 g/dL (31-36); Mean Corpuscular Hemoglobin 31 pg (27-31); Mean Corpuscular Volume 90 fL (80-97); Mean Platelet Volume 6.7 fL (7.4-10.4); Platelet Count 400 10^3/uL (150-450); Red Blood Count 3.75 10^6 /uL (3.70-4.87); Red Cell Distribution Width 15 % (10-15); White Blood Count 8.7 10^3/uL (3.5-10.8)
[2020-07-30 20:00] LABS: Troponin I 0.01 ng/mL (<0.03)
[2020-07-30 20:13] LABS: Activated Partial Thrombo Time 27.8 seconds (26.0-38.0); Albumin 3.8 g/dL (3.2-5.2); Albumin/Globulin Ratio 1.3 (1-3); Globulin 2.9 g/dL (2-4); INR 0.99 (0.82-1.09); Potassium 4.6 mmol/L (3.5-5.0); Total Bilirubin 0.3 mg/dL (0.2-1.0); Total Protein 6.7 g/dL (6.4-8.9)
[2020-07-30 21:29] LABS: EGFR African American 59.1 (>60); EGFR Non-African American 48.8 (>60)
[2020-07-30] MEDS ORDERED: Morphine 2 MG/ML SYRINGE IV ONE (21:35)
[2020-07-30] MEDS ORDERED: Iodixanol (CONTRAST) 320 MG/ML 100 ML SDV IV ONE (22:29)
[2020-07-31] MEDS ORDERED: Ondansetron 4 mg VIAL 2 MG/ML 2 ml VIAL IV PRN (02:25)
[2020-07-31] MEDS: Morphine 2 MG/ML SYRINGE IV PRN ×2 (02:36→08:05)
[2020-07-31] MEDS ORDERED: D5NS 0.9% 1000 ml BAG 1,000 ML IV SCH ×2 (03:00→04:56)
[2020-07-31] MEDS ORDERED: Enoxaparin 40 MG/0.4 ML SYR SUBCUT SCH (06:00)
[2020-07-31] MEDS ORDERED: Senna TAB 8.6 mg TAB PO PRN (07:50)
[2020-07-31] MEDS ORDERED: Morphine 2 MG/ML SYRINGE IV PRN (09:07)
[2020-07-31] MEDS ORDERED: Enoxaparin 40 MG/0.4 ML SYR SUBCUT ONE (09:52)
[2020-07-31] MEDS: Aspirin EC 81 mg TAB.EC (enteric coated) PO SCH (10:05)
[2020-07-31] MEDS: DULoxetine DR 20 mg CAP PO SCH (10:05)
[2020-07-31] MEDS: DULoxetine DR 30 mg CAP PO SCH (10:05)
[2020-07-31] MEDS: TOFACITINIB 5 MG PO SCH ×2 (10:14→21:40)
[2020-07-31] MEDS ORDERED: Polyethylene Glycol 3350 17 GM PACKET PO PRN (14:15)
[2020-07-31] MEDS ORDERED: Magnesium Hydroxide LIQ 30 ML UDC PO PRN (14:15)
[2020-07-31] MEDS: Magnesium Hydroxide LIQ 30 ML UDC PO SCH (21:41)
[2020-08-01] MEDS ORDERED: Lactated Ringers 1000 ml BAG 1,000 ML IV SCH (06:00)
[2020-08-01] MEDS ORDERED: Buffered Lidocaine 1% SYRIN 1 ml INTRADERM ONE ×2 (06:00→10:40)
[2020-08-01 06:16] LABS: ABS Eosinophils 0.2 10^3/ul (0-0.6); ABS Lymphocytes 0.8 10^3/ul (1.0-4.8); ABS Monocytes 0.9 10^3/ul (0-0.8); ABS Neutrophils 6.9 10^3/ul (1.5-7.7); Eosinophil % 1.9 %; Hematocrit 34 % (35-47); Hemoglobin 11.2 g/dL (12.0-16.0); Lymphocyte % 8.8 %; Mean Corpuscular HGB Conc 33 g/dL (31-36); Mean Corpuscular Hemoglobin 30 pg (27-31); Mean Corpuscular Volume 91 fL (80-97); Mean Platelet Volume 6.7 fL (7.4-10.4); Platelet Count 351 10^3/uL (150-450); Red Blood Count 3.72 10^6 /uL (3.70-4.87); Red Cell Distribution Width 15 % (10-15); White Blood Count 8.8 10^3/uL (3.5-10.8)
[2020-08-01 06:24] LABS: INR 1.09 (0.82-1.09)
[2020-08-01 06:25] LABS: Calcium 8.5 mg/dL (8.6-10.3); Potassium 4.1 mmol/L (3.5-5.0)
[2020-08-01 06:30] LABS: EGFR African American 65.3 (>60)
[2020-08-01] MEDS ORDERED: Propofol 10 mg/ml 100 ML BTL 100 ML ONE (07:21)
[2020-08-01] MEDS: DULoxetine DR 30 mg CAP PO SCH ×2 (08:40→15:26)
[2020-08-01] MEDS: DULoxetine DR 20 mg CAP PO SCH ×2 (08:40→15:27)
[2020-08-01] MEDS: Aspirin EC 81 mg TAB.EC (enteric coated) PO SCH (08:40)
[2020-08-01] MEDS: Magnesium Hydroxide LIQ 30 ML UDC PO SCH ×2 (08:41→21:59)
[2020-08-01] MEDS: TOFACITINIB 5 MG PO SCH ×3 (08:41→21:58)
[2020-08-01] MEDS ORDERED: ceFAZolin 2 GM PREMIX 2 GM/50 ML BAG ONE (10:02)
[2020-08-01] MEDS ORDERED: Bupivacaine 0.5% SDV PF 30ML VIAL ONE (10:28)
[2020-08-01] MEDS ORDERED: Propofol 10 MG/ML 20 ML BTL ONE (10:44)
[2020-08-01] MEDS ORDERED: Lidocaine 2% PF 5 ML VIAL ONE (10:44)
[2020-08-01] MEDS ORDERED: Phenylephrine 40 mcg/mL 10mL (400mcg) SYRINGE ONE (10:44)
[2020-08-01] MEDS ORDERED: Rocuronium 50 mg VIAL 10 mg/ml 5 ml VIAL (50 mg) ONE (10:44)
[2020-08-01] MEDS ORDERED: fentaNYL 100 mcg/2 ml 50 MCG/ML VIAL ONE (10:44)
[2020-08-01] MEDS ORDERED: EPHEDrine (Pressors) 50 MG/ML VIAL ONE (10:44)
[2020-08-01] MEDS ORDERED: fentaNYL 100 mcg/2 ml 50 MCG/ML VIAL IV PRN (11:38)
[2020-08-01] MEDS ORDERED: HYDROmorphone 1 MG/1 ML SYRINGE ONE (12:02)
[2020-08-01] MEDS ORDERED: Dexamethasone IV 4 MG/ML VIAL 1 ml VIAL ONE (12:48)
[2020-08-01] MEDS ORDERED: Ondansetron 4 mg VIAL 2 MG/ML 2 ml VIAL ONE (12:49)
[2020-08-01] MEDS: ceFAZolin 1 GM X 3 DOSES POST-OP Q8H (AddVan) IVPB SCH (21:08)
[2020-08-02] MEDS: ceFAZolin 1 GM X 3 DOSES POST-OP Q8H (AddVan) IVPB SCH ×2 (04:17→12:31)
[2020-08-02 05:14] LABS: Hematocrit 28 % (35-47); Hemoglobin 9.1 g/dL (12.0-16.0); Mean Corpuscular HGB Conc 33 g/dL (31-36); Mean Corpuscular Hemoglobin 30 pg (27-31); Mean Corpuscular Volume 92 fL (80-97); Mean Platelet Volume 6.7 fL (7.4-10.4); Platelet Count 301 10^3/uL (150-450); Red Blood Count 3.03 10^6 /uL (3.70-4.87); Red Cell Distribution Width 15 % (10-15); White Blood Count 11.3 10^3/uL (3.5-10.8)
[2020-08-02 05:30] LABS: Calcium 7.8 mg/dL (8.6-10.3); EGFR African American 66.1 (>60); EGFR Non-African American 54.6 (>60); Potassium 4.9 mmol/L (3.5-5.0)
[2020-08-02] MEDS: Magnesium Hydroxide LIQ 30 ML UDC PO SCH ×2 (09:27→21:44)
[2020-08-02] MEDS: DULoxetine DR 20 mg CAP PO SCH (09:30)
[2020-08-02] MEDS: Aspirin EC 81 mg TAB.EC (enteric coated) PO SCH (09:32)
[2020-08-02] MEDS: DULoxetine DR 30 mg CAP PO SCH (09:33)
[2020-08-02] MEDS: TOFACITINIB 5 MG PO SCH ×2 (09:33→21:44)
[2020-08-02] MEDS: Nystatin TOP POWDER 15 GM BTL TOPICAL SCH ×2 (12:27→21:45)
[2020-08-03 04:54] LABS: Hematocrit 25 % (35-47); Hemoglobin 8.4 g/dL (12.0-16.0); Mean Corpuscular HGB Conc 34 g/dL (31-36); Mean Corpuscular Hemoglobin 31 pg (27-31); Mean Corpuscular Volume 92 fL (80-97); Platelet Count 294 10^3/uL (150-450); Red Blood Count 2.74 10^6 /uL (3.70-4.87); Red Cell Distribution Width 15 % (10-15); White Blood Count 9.9 10^3/uL (3.5-10.8)
[2020-08-03] MEDS: Aspirin EC 81 mg TAB.EC (enteric coated) PO SCH (09:08)
[2020-08-03] MEDS: DULoxetine DR 20 mg CAP PO SCH (09:08)
[2020-08-03] MEDS: DULoxetine DR 30 mg CAP PO SCH (09:08)
[2020-08-03] MEDS: Magnesium Hydroxide LIQ 30 ML UDC PO SCH ×2 (09:09→22:35)
[2020-08-03] MEDS: Nystatin TOP POWDER 15 GM BTL TOPICAL SCH ×2 (09:09→22:36)
[2020-08-03] MEDS: TOFACITINIB 5 MG PO SCH ×2 (09:09→22:36)
[2020-08-04 08:57] LABS: Hematocrit 25 % (35-47); Hemoglobin 8.2 g/dL (12.0-16.0); Mean Corpuscular HGB Conc 33 g/dL (31-36); Mean Corpuscular Hemoglobin 31 pg (27-31); Mean Corpuscular Volume 92 fL (80-97); Platelet Count 315 10^3/uL (150-450); Red Blood Count 2.68 10^6 /uL (3.70-4.87); Red Cell Distribution Width 15 % (10-15); White Blood Count 8.9 10^3/uL (3.5-10.8)
[2020-08-04 09:15] LABS: Blood Urea Nitrogen 20 mg/dL (6-24); CO2 Carbon Dioxide 36 mmol/L (22-32); Calcium 7.7 mg/dL (8.6-10.3); Chloride 100 mmol/L (101-111); EGFR African American 66.9 (>60); EGFR Non-African American 55.3 (>60); Glucose 95 mg/dL (70-100); Potassium 4.4 mmol/L (3.5-5.0); Sodium 136 mmol/L (135-145)
[2020-08-04] MEDS: Nystatin TOP POWDER 15 GM BTL TOPICAL SCH ×2 (09:23→21:08)
[2020-08-04] MEDS: Aspirin EC 81 mg TAB.EC (enteric coated) PO SCH (09:24)
[2020-08-04] MEDS: DULoxetine DR 20 mg CAP PO SCH (09:24)
[2020-08-04] MEDS: DULoxetine DR 30 mg CAP PO SCH (09:24)
[2020-08-04] MEDS: Magnesium Hydroxide LIQ 30 ML UDC PO SCH ×2 (09:25→21:08)
[2020-08-04] MEDS: TOFACITINIB 5 MG PO SCH ×2 (09:26→21:08)
[2020-08-05 06:23] LABS: Hematocrit 25 % (35-47); Hemoglobin 8.2 g/dL (12.0-16.0); Mean Corpuscular HGB Conc 33 g/dL (31-36); Mean Corpuscular Hemoglobin 30 pg (27-31); Mean Corpuscular Volume 91 fL (80-97); Platelet Count 316 10^3/uL (150-450); Red Blood Count 2.71 10^6 /uL (3.70-4.87); Red Cell Distribution Width 15 % (10-15); White Blood Count 8.5 10^3/uL (3.5-10.8)
[2020-08-05 06:44] LABS: Calcium 7.9 mg/dL (8.6-10.3); EGFR African American 56.6 (>60); EGFR Non-African American 46.8 (>60); Potassium 4.5 mmol/L (3.5-5.0)
[2020-08-05 07:29] LABS: ABS Eosinophils 0.2 10^3/ul (0-0.6); ABS Lymphocytes 1.8 10^3/ul (1.0-4.8); ABS Monocytes 0.9 10^3/ul (0-0.8); ABS Neutrophils 5.6 10^3/ul (1.5-7.7); Eosinophil % 2.6 %; Lymphocyte % 20.7 %
[2020-08-05] MEDS: Aspirin EC 81 mg TAB.EC (enteric coated) PO SCH (09:18)
[2020-08-05] MEDS: DULoxetine DR 30 mg CAP PO SCH (09:18)
[2020-08-05] MEDS: DULoxetine DR 20 mg CAP PO SCH (09:18)
[2020-08-05] MEDS: Nystatin TOP POWDER 15 GM BTL TOPICAL SCH ×2 (09:19→21:07)
[2020-08-05] MEDS: Magnesium Hydroxide LIQ 30 ML UDC PO SCH ×2 (09:19→21:07)
[2020-08-05] MEDS: TOFACITINIB 5 MG PO SCH ×2 (09:20→21:05)
[2020-08-06 05:50] LABS: Calcium 7.5 mg/dL (8.6-10.3); EGFR African American 56.6 (>60); EGFR Non-African American 46.8 (>60); Potassium 4.6 mmol/L (3.5-5.0)
[2020-08-06] MEDS: TOFACITINIB 5 MG PO SCH ×2 (08:29→21:16)
[2020-08-06] MEDS: DULoxetine DR 30 mg CAP PO SCH (08:30)
[2020-08-06] MEDS: DULoxetine DR 20 mg CAP PO SCH (08:31)
[2020-08-06] MEDS: Aspirin EC 81 mg TAB.EC (enteric coated) PO SCH (08:31)
[2020-08-06] MEDS: Nystatin TOP POWDER 15 GM BTL TOPICAL SCH ×2 (08:32→21:19)
[2020-08-06] MEDS: Magnesium Hydroxide LIQ 30 ML UDC PO SCH (08:44)
[2020-08-07] MEDS: DULoxetine DR 20 mg CAP PO SCH (10:19)
[2020-08-07] MEDS: Aspirin EC 81 mg TAB.EC (enteric coated) PO SCH (10:20)
[2020-08-07] MEDS: DULoxetine DR 30 mg CAP PO SCH (10:20)
[2020-08-07] MEDS: TOFACITINIB 5 MG PO SCH ×2 (10:20→20:39)
[2020-08-07] MEDS: Nystatin TOP POWDER 15 GM BTL TOPICAL SCH ×2 (10:21→20:40)
[2020-08-08] MEDS: Aspirin EC 81 mg TAB.EC (enteric coated) PO SCH (09:30)
[2020-08-08] MEDS: DULoxetine DR 30 mg CAP PO SCH (09:30)
[2020-08-08] MEDS: DULoxetine DR 20 mg CAP PO SCH (09:30)
[2020-08-08] MEDS: TOFACITINIB 5 MG PO SCH ×2 (09:31→21:00)
[2020-08-08] MEDS: Nystatin TOP POWDER 15 GM BTL TOPICAL SCH ×2 (09:44→21:00)
[2020-08-09] MEDS: DULoxetine DR 30 mg CAP PO SCH (08:26)
[2020-08-09] MEDS: Nystatin TOP POWDER 15 GM BTL TOPICAL SCH ×2 (08:26→21:38)
[2020-08-09] MEDS: Aspirin EC 81 mg TAB.EC (enteric coated) PO SCH (08:26)
[2020-08-09] MEDS: DULoxetine DR 20 mg CAP PO SCH (08:26)
[2020-08-09] MEDS: TOFACITINIB 5 MG PO SCH ×2 (08:27→21:40)
[2020-08-10] MEDS: DULoxetine DR 20 mg CAP PO SCH (08:32)
[2020-08-10] MEDS: DULoxetine DR 30 mg CAP PO SCH (08:32)
[2020-08-10] MEDS: Aspirin EC 81 mg TAB.EC (enteric coated) PO SCH (08:32)
[2020-08-10] MEDS: TOFACITINIB 5 MG PO SCH ×2 (08:33→20:14)
[2020-08-10] MEDS: Nystatin TOP POWDER 15 GM BTL TOPICAL SCH ×2 (08:33→20:15)
[2020-08-11 03:44] LABS: ABS Basophils 0.1 10^3/ul (0-0.2); ABS Eosinophils 0.3 10^3/ul (0-0.6); ABS Lymphocytes 1.8 10^3/ul (1.0-4.8); ABS Monocytes 0.8 10^3/ul (0-0.8); ABS Neutrophils 5.8 10^3/ul (1.5-7.7); Eosinophil % 3.1 %; Hematocrit 25 % (35-47); Hemoglobin 8.3 g/dL (12.0-16.0); Lymphocyte % 20.6 %; Mean Corpuscular HGB Conc 34 g/dL (31-36); Mean Corpuscular Hemoglobin 31 pg (27-31); Mean Corpuscular Volume 91 fL (80-97); Mean Platelet Volume 6.2 fL (7.4-10.4); Platelet Count 546 10^3/uL (150-450); Red Blood Count 2.71 10^6 /uL (3.70-4.87); Red Cell Distribution Width 15 % (10-15); White Blood Count 8.7 10^3/uL (3.5-10.8)
[2020-08-11 04:02] LABS: Calcium 8.2 mg/dL (8.6-10.3); EGFR African American 53.9 (>60); EGFR Non-African American 44.5 (>60); Potassium 4.5 mmol/L (3.5-5.0)
[2020-08-11] MEDS: TOFACITINIB 5 MG PO SCH ×2 (08:37→21:46)
[2020-08-11] MEDS: Aspirin EC 81 mg TAB.EC (enteric coated) PO SCH (08:37)
[2020-08-11] MEDS: DULoxetine DR 30 mg CAP PO SCH (08:37)
[2020-08-11] MEDS: DULoxetine DR 20 mg CAP PO SCH (08:37)
[2020-08-11] MEDS: Nystatin TOP POWDER 15 GM BTL TOPICAL SCH ×2 (08:39→21:47)
[2020-08-12 07:30] VITALS: BP 135/48
[2020-08-12] MEDS: DULoxetine DR 30 mg CAP PO SCH (09:25)
[2020-08-12] MEDS: Aspirin EC 81 mg TAB.EC (enteric coated) PO SCH (09:26)
[2020-08-12] MEDS: DULoxetine DR 20 mg CAP PO SCH (09:26)
[2020-08-12] MEDS: TOFACITINIB 5 MG PO SCH (09:27)
[2020-08-12] MEDS: Nystatin TOP POWDER 15 GM BTL TOPICAL SCH (09:28)
== END 2020-08-12 11:40 | DRG 522 ==
LOC: ED 18:07 → SSU 07-31 00:07
PROVIDERS: ADMIT Student in an Organized Health Care Education/Training Program; ATTEND Internal Medicine